=== PATIENT | male | born 1935 | race Caucasian/White ===

== ENCOUNTER 2017-02-20 09:43 | Inpatient (IN) | payer OTHER, MEDICARE ==
[~2017-02-20] VITALS: Ht 170.2 cm; Wt 61.7 kg
[~2017-02-20 09:43] MED LIST: AMOX-CLAV 875-1 EACH PO; GLIMEPIRIDE2 MG PO; HYDRALAZINE HCL25 M1 PO; HYDROCHLOROTH12.5 M2 PO; LISINOPRIL40 M1 PO; METFORMIN HCL1000 M1 PO; METOPROLOL TART50 M1 PO; NIFEDIPINE ER60 M1 PO; OMEPRAZOLE40 M1 PO; ONGLYZA5 M1 PO
--- NOTE | 2017-02-20 10:07 | ED GI/GU/ABDOMINAL COMPLAINT ---
See Addendum History of Present Illness General Chief Complaint: Nausea, Vomiting, Diarrhea Stated Complaint: BIBA NVD Source: patient, old records Exam Limitations: confusion Vital Signs & Intake/Output Vital Signs & Intake/Output Vital Signs Date Time Temp Pulse Resp B/P B/P Pulse O2 O2 Flow FiO2 Mean Ox Delivery Rate 02/20 1800 98.5 91 16 122/58 93 Room Air 02/20 1731 98.7 87 20 133/67 93 Room Air 02/20 1511 100.3 89 20 126/59 93 Room Air 02/20 1339 100.0 97 20 119/54 95 Room Air 02/20 1222 101.4 02/20 1145 102.0 02/20 1018 102.0 128 20 177/67 94 Room Air Allergies Coded Allergies: NO KNOWN ALLERGIES (06/30/15) Reconcile Medications Amoxicillin/Clavulanate Potass (Amox-Clav 875-125 MG Tablet) 1 EACH TABLET 875 MG PO Q12 pneumonia needs one dose tonight and then bid for the next 5 days stop on 07/05/15 after both doses Glimepiride 2 MG TABLET 1 TAB PO DAILY DM (Reported) Reason to Stop at ADM: INSULIN S/S Hydralazine HCl 25 MG TABLET 1 TAB PO TID HTN (Reported) Hydralazine HCl 50 MG TABLET 1 TAB PO TID HIGH BLOOD PRESSURE (Reported) Hydrochlorothiazide 12.5 MG TABLET 1 TAB PO DAILY HTN (Reported) Lisinopril 40 MG TABLET 1 TAB PO DAILY HTN (Reported) Metformin HCl 1,000 MG TABLET 1 TAB PO BID DM (Reported) Reason to Stop at ADM: INSULIN S/S Metoprolol Tartrate 50 MG TABLET 1 TAB PO BID HTN (Reported) Nifedipine (Nifedipine ER) 60 MG TABLET.ER 1 TAB PO DAILY HTN (Reported) Omeprazole 40 MG CAPSULE.DR 1 CAP PO DAILY AC STOMACH (Reported) Saxagliptin (Onglyza) 5 MG TABLET 1 TAB PO DAILY DM (Reported) Reason to Stop at ADM: INSULIN S/S Triage Nurses Notes Reviewed? 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 Patient reports onset of nonproductive cough last night but was otherwise in his usual state of health. He woke up this morning noticed that he was having chills while making his breakfast. He was able to tolerate his usual breakfast, he did begin having repeated episodes of emesis (2-3) but denied any nausea. Patient's daughter reports that the emesis consisted of food and was nonbloody. He had watery, brown, nonbloody, bowel movements per the daughter, with no associated abdominal pain. He has had no change in appetite. He denies any foul-smelling or bloody urine from the suprapubic catheter. Patient has not received a flu vaccine this year, denies any sick contacts and has not had no recent travel. Patient follows with Dr. Allen for cardiology. Past History Travel History Traveled to [place] past 21 day No Medical History Any Pertinent Medical History? 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 No ECHO Results (as available) Date of last Echo 06/28/15 EF% 55 Review of Systems Review of Systems Constitutional: Reports: chills, malaise. Denies: diaphoresis, fever, weakness. EENTM: Denies: visual changes (legally blind). Respiratory: Reports: cough. Denies: hemoptysis, short of breath, sputum production. Cardiovascular: Denies: chest pain, palpitations, peripheral edema, syncope. GI: Reports: diarrhea, vomiting. Denies: bloating, constipation, distention, melena , nausea. Genitourinary: Reports: no symptoms. Musculoskeletal: Reports: no symptoms. Skin: Reports: no symptoms. Physical Exam Physical Exam General Appearance: well developed/nourished, no apparent distress, alert, awake Head: atraumatic, normal appearance Eyes: Bilateral: normal appearance, PERRL, EOMI, other (legally blind). Ears, Nose, Throat, Mouth: hearing grossly normal, dry mucous membranes Neck: normal inspection, supple, full range of motion Respiratory: no respiratory distress, rhonchi Cardiovascular: tachycardia Peripheral Pulses: 1+ radial (R), 1+ radial (L), 1+ tibialis posterior (R), 1+ tibialis posterior ( L), 1+ dorsalis pedis (R), 1+ dorsalis pedis (L) Gastrointestinal: normal bowel sounds, non-tender, no organomegaly, mild distension, pt states this is baseline Skin: intact, normal color, warm/dry Comments: Suprapubic catheter insertion site with no drainage or surrounding erythema. No CVA tenderness. Core Measures ACS in differential dx? No Sepsis Present: Yes Sepsis Focused Exam Completed? Yes Progress Differential Diagnosis: gastritis, UTI/pyelo, pneumonia Plan of Care: Orders Procedure Date/time Status Heart Healthy Diet 02/21 B Active Heart Healthy Diet 02/20 D Complete LACTIC ACID 02/20 2200 Active LACTIC ACID 02/20 1900 Active Vital Signs 02/20 1724 Active Teach/Educate 02/20 1724 Active Pain Treatment and Response 02/20 1724 Active Nutritional Intake, Monitor 02/20 1724 Active Isolation 02/20 1724 Active Intake & Output 02/20 1724 Complete Patient Care Conference 02/20 1724 Active Activity/Ambulation 02/20 1724 Active Patient Data 02/20 1609 Active LACTIC ACID 02/20 1600 Complete ED Holding Orders 02/20 1405 Active Admit to inpatient 02/20 1404 Active LACTIC ACID 02/20 1309 Complete OXYGEN SETUP (GEN) 02/20 1121 Active CULTURE,URINE 02/20 1118 Active ARTERIAL BLOOD GAS (GEN) 02/20 1117 Complete Add-on Test (ER Only) 02/20 1117 Active RAPID VIRAL INFLUENZA A 02/20 1110 Complete BLOOD CULTURE 02/20 1110 Active Code Status 02/20 1059 Active EKG 02/20 1058 Active Intake & Output 02/20 1018 Active URINALYSIS 02/20 1013 Complete TROPONIN LEVEL 02/20 1011 Complete LACTIC ACID 02/20 1009 Complete COMPREHENSIVE METABOLIC PANEL 02/20 1009 Complete CBC WITHOUT DIFFERENTIAL 02/20 1009 Complete Current Medications Sig/Bret Start time Last Medication Dose Stop Time Status Admin Sodium Chloride 1,000 ML Q6H 02/20 1145 AC 02/20 (Normal Saline 0.9%) 1221 Laboratory Tests 02/20/17 1644: Lactic Acid Cancelled 02/20/17 1611: Lactic Acid 2.5 H 02/20/17 1321: Lactic Acid 3.3 H 02/20/17 1225: pH 7.49 H, pCO2 23 L, pO2 74 L, HCO3 17 L, ABG O2 Sat (Measured) 93.0 L, P- 50 (Temp Corrected) N, Carboxyhemoglobin 1.8, O2 Concentration % .21, O2 Delivery Method RA, Phlebotomy Draw Site RIGHT RADIAL 02/20/17 1106: Urine Color YEL, Urine Clarity CLDY H, Urine pH 6.0, Ur Specific Hoven 1.020, Urine Protein 100 H, Urine Ketones NEG, Urine Nitrite NEG, Urine Bilirubin NEG, Urine Urobilinogen 0.2, Ur Leukocyte Esterase LARGE H, Ur Microscopic SEDIMENT EXAMINED, Urine RBC RARE, Urine WBC 50-75 H, Urine Bacteria MANY H, Urine Hemoglobin NEG, Urine Glucose NEG 02/20/17 1011: Anion Gap 22 H, Estimated GFR 39 L, BUN/Creatinine Ratio 22.4, Glucose 220 H, Lactic Acid 7.0 H, Calcium 9.2, Total Bilirubin 0.6, AST 23, ALT 33, Alkaline Phosphatase 82, Troponin I 0.10, Total Protein 6.6, Albumin 3.7, Globulin 2.9, Albumin/Globulin Ratio 1.3, CBC w Diff NO MAN DIFF REQ, RBC 3.57 L, MCV 77.4 L , MCH 25.5 L, RDW 17.6 H, MPV 10.1, Gran % 94.1 H, Lymphocytes % 5.2 L, Monocytes % 0.1 L, Eosinophils % 0.5, Basophils % 0.1, Absolute Granulocytes 5.2, Absolute Lymphocytes 0.3 L, Absolute Monocytes 0 L, Absolute Eosinophils 0, Absolute Basophils 0, PUBS MCHC 33.0 Microbiology 02/20 1142 BLOOD: Blood Culture - RECD 02/20 1130 BLOOD: Blood Culture - RECD 02/20 1118 URINE ROUT: Urine Culture - ORD 02/20 1115 NASOPHARYN: Influenza Virus A & B Rapid Smear - COMP Patient presented with chills, diarrhea, and vomiting. He met SIRS criteria on admission with Tmax 102, and tachycardia 128 and lactic acidosis with LA 7, anion gap elevated (22), respiratory alkalosis with compensation on ABG. -source was not immediately apparent though he had a dry cough, and history of sepsis of urologic origin although this had not occurred since his suprapubic catheter was placed. -emperic coverage with ceftriaxone and azithromycin given - UA significant for Large bacteria, WBC and large LE, will follow up Urine and blood cultures - Rapid flu test was negative, pt did not have flu vaccine this year. - New EKG changes with LBBB since previous in 06/2015, initial troponin 0.10, no hx of CAD, this mild elevation in troponin could be demand ischemia in the setting of sepsis but with new EKG change could also represent ACS. - Patient also has TENISHA, likely pre-renal azotemia secondary to vomiting and diarrhea, being aggressively rehydrated with NS. - Admit to telemetry floor for further monitoring Initial ED EKG: normal axis, LBBB (new onset) Prior EKG: changed Departure Departure Disposition: STILL A PATIENT Condition: Stable Clinical Impression Primary Impression: Sepsis secondary to UTI Secondary Impressions: Acute electrocardiogram changes Referrals: Tulio Hernandez MD (PCP/Family) Departure Forms: Customer Survey General Discharge Information Admission Note Spoke With: Tulio Hernandez MD Documentation of Exam: Documentation of any treatments & extenuating circumstances including Concerns Regarding Discharge (functional status, medication knowledge or non-compliance, living conditions, etc.) that warrant an admission rather than observation: [ patient meets SIRS criteria with a presumptive urologic source based on UA, he will benefit from aggressive treatment with IV antibiotics and IV fluid rehydration. Given advanced age and current decreased mental status from baseline it is likely that his condition will decline as an outpatient and he would risk return to ED with possible worsening condition with hypotension and possible .] ED Attending Observation Initial Observation Note: I have seen and personally examined LEONARD DAHL on 02/20/17 at 1353. I agree with the current emergency department documentation. The disposition (admission or discharge) is uncertain at this time, he needs a period of observation for the following reason(s): The ED Nurse caring for this patient has been personally informed as to what the patient is being observed for.
[2017-02-20 10:31] LABS: ABSOLUTE BASOPHIL COUNT 0 /CUMM (0.0-0.2); ABSOLUTE EOSINOPHIL COUNT 0 /CUMM (0.0-0.7); ABSOLUTE GRANULOCYTE CT 5.2 /CUMM (1.4-6.5); ABSOLUTE LYMPH COUNT 0.3 /CUMM (1.2-3.4); ABSOLUTE MONOCYTE COUNT 0 /CUMM (0.10-0.60); BASOPHIL % 0.1 % (0.0-2.0); EOSINOPHIL % 0.5 % (0-5); HEMATOCRIT 27.6 % (42-52); MEAN CORPUSCULAR HGB 25.5 PG (27.0-31.0); MEAN CORPUSCULAR VOLUME 77.4 FL (80.0-94.0); MEAN PLATELET VOLUME 10.1 FL (7.4-10.4); PLATELET COUNT 228 /CUMM (130-400); RBC DISTRIBUTION WIDTH 17.6 % (11.5-14.5); RED BLOOD CELL CT 3.57 /CUMM (4.70-6.10); WHITE BLOOD CELL COUNT 5.6 /CUMM (4.8-10.8)
[2017-02-20 10:58] LABS: GRANULOCYTE % 94.1 % (42.2-75.2)
--- NOTE | 2017-02-20 13:15 | RADIOLOGY REPORT ---
EXAMINATION: XR PORTABLE CHEST CLINICAL INFORMATION: Fever. COMPARISON: Portable chest x-ray dated 06/28/2015. TECHNIQUE: Portable frontal view of the chest was obtained. FINDINGS: The lung volumes are low bilaterally. There is partial silhouetting of the medial aspect of the left hemidiaphragm the retrocardiac region, retrocardiac infiltrative process is not excluded. No additional areas of airspace opacification are noted. There is slight prominence of the pulmonary vasculature suggestive of pulmonary vascular congestion, however no pleural effusions are noted. There is no evidence of pneumothorax. The cardiac silhouette is at the upper limits of normal for size. The bony structures are unremarkable, stable compared to the prior study.. IMPRESSION: 1. Low lung volumes with poor visualization of the left retrocardiac region, a left retrocardiac infiltrate is not excluded. 2. Mild pulmonary vascular congestion without evidence of pleural effusion.
--- NOTE | 2017-02-20 16:18 | History & Physical ---
See Addendum Jackie Olmstead MD 02/20/17 0337: General Information and HPI MD Statement: I have seen and personally examined LEONARD DAHL and documented this H&P. The patient is a 81 year old M who presented with a patient stated chief complaint of [fever, diarrhea, chills]. 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 Patient was apparently normal in the usual state of health until today , following which patient developed chills followed by 2 episodes of vomiting and 3 episodes of watery diarrhea with no blood. Patient lives with his [ home hospice] and son. Patient uses walker at baseline and administers his own medication. Patient denies sick contacts, travel, abdominal pain, chest pain, shortness of breath, headache, dysuria, slurring of speech, loss of consciousness, altered sensation, seizures. Patient has been followed off by urologist at [place] and got his SPC catheter replaced at the end of January 2017. Collateral history obtained from his daughter was at the bedside who endorsed that he is alert and oriented confused, weakness and difficulty in speaking. Allergies/Medications Allergies: Coded Allergies: NO KNOWN ALLERGIES (06/30/15) Compliance With Home Meds: GOOD Past History Travel History Traveled to [place] past 21 day No Medical History Neurological: CVA WITH LEFT HEMIPARESIS EENT: NONE Cardiovascular: hypertension Respiratory: NONE Gastrointestinal: GERD Hepatic: NONE Renal: URETHRAL STRICTURES Musculoskeletal: NONE Psychiatric: NONE Endocrine: NIDDM Blood Disorders: NONE Cancer(s): NONE BOXCAR WEIGHER/Reproductive: NONE History of MRSA: No History of VRE: No History of CDIFF: No Surgical History Surgical History: non-contributory ECHO Results (as available) Date of last Echo 06/28/15 EF% 55 Past Family/Social History Family History Relations & Conditions if any Relation not specified for: *No pertinent family history Psychosocial History Services at Home: Home Health Aide, Nursing, Occupational Therapy, Physical Therapy Primary Language: Irish Smoking Status: Never Smoked ETOH Use: denies use Illicit Drug Use: denies illicit drug use Functional Ability ADLs Independent: dressing, eating, toileting, bathing. Ambulation: walker IADLs Independent: food prep, telephone. Unknown: shopping, housework, finances, transportation, medication admin. Review of Systems Review of Systems Constitutional: Reports: chills, fever, weakness. Cardiovascular: Reports: no symptoms. Respiratory: Reports: no symptoms. GI: Reports: diarrhea, nausea, vomiting. Genitourinary: Reports: no symptoms. Musculoskeletal: Reports: no symptoms. Neurological/Psychological: Reports: confusion, weakness. Exam & Diagnostic Data Last 24 Hrs of Vital Signs/I&O Vital Signs Date Time Temp Pulse Resp B/P B/P Pulse O2 O2 Flow FiO2 Mean Ox Delivery Rate 02/20 1800 98.5 91 16 122/58 93 Room Air 02/20 1731 98.7 87 20 133/67 93 Room Air 02/20 1511 100.3 89 20 126/59 93 Room Air 02/20 1339 100.0 97 20 119/54 95 Room Air 02/20 1222 101.4 02/20 1145 102.0 02/20 1018 102.0 128 20 177/67 94 Room Air Intake & Output 02/20 1600 02/20 0800 02/20 0000 Intake Total Output Total Balance Patient 136 lb Weight Weight Reported by Patient Measurement Method Physical Exam General Appearance Alert, Cooperative, oriented x 2 Skin No Rashes HEENT Atraumatic, PERRLA Cardiovascular Regular Rate, Normal S1, Normal S2, No Murmurs Abdomen Normal Bowel Sounds, Soft, No Tenderness Neurological Normal Speech, Strength at 5/5 X4 Ext Extremities No Clubbing, No Cyanosis Last 24 Hrs of Labs/Mak: Laboratory Tests 02/20/17 1920: Lactic Acid 2.3 H 02/20/17 1644: Lactic Acid Cancelled 02/20/17 1611: Lactic Acid 2.5 H 02/20/17 1321: Lactic Acid 3.3 H 02/20/17 1225: pH 7.49 H, pCO2 23 L, pO2 74 L, HCO3 17 L, ABG O2 Sat (Measured) 93.0 L, P- 50 (Temp Corrected) N, Carboxyhemoglobin 1.8, O2 Concentration % .21, O2 Delivery Method RA, Phlebotomy Draw Site RIGHT RADIAL 02/20/17 1106: Urine Color YEL, Urine Clarity CLDY H, Urine pH 6.0, Ur Specific [place] 1.020, Urine Protein 100 H, Urine Ketones NEG, Urine Nitrite NEG, Urine Bilirubin NEG, Urine Urobilinogen 0.2, Ur Leukocyte Esterase LARGE H, Ur Microscopic SEDIMENT EXAMINED, Urine RBC RARE, Urine WBC 50-75 H, Urine Bacteria MANY H, Urine Hemoglobin NEG, Urine Glucose NEG 02/20/17 1011: Anion Gap 22 H, Estimated GFR 39 L, BUN/Creatinine Ratio 22.4, Glucose 220 H, Lactic Acid 7.0 H, Calcium 9.2, Total Bilirubin 0.6, AST 23, ALT 33, Alkaline Phosphatase 82, Troponin I 0.10, Total Protein 6.6, Albumin 3.7, Globulin 2.9, Albumin/Globulin Ratio 1.3, CBC w Diff NO MAN DIFF REQ, RBC 3.57 L, MCV 77.4 L , MCH 25.5 L, RDW 17.6 H, MPV 10.1, Gran % 94.1 H, Lymphocytes % 5.2 L, Monocytes % 0.1 L, Eosinophils % 0.5, Basophils % 0.1, Absolute Granulocytes 5.2, Absolute Lymphocytes 0.3 L, Absolute Monocytes 0 L, Absolute Eosinophils 0, Absolute Basophils 0, PUBS MCHC 33.0 Microbiology 02/20 1142 BLOOD: Blood Culture - RECD 02/20 1130 BLOOD: Blood Culture - RECD 02/20 1118 URINE ROUT: Urine Culture - ORD 02/20 1115 NASOPHARYN: Influenza Virus A & B Rapid Smear - COMP Diagnostic Data CXR Results 1. Low lung volumes with poor visualization of the left retrocardiac region, a left retrocardiac infiltrate is not excluded. 2. Mild pulmonary vascular congestion without evidence of pleural effusion. 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 Admission labs W BC 5.6, hemoglobin 9.1, hematocrit 27.6, platelet 228, granulocytes 94.1. Sodium 142, potassium 4.1, BUNs 38, creatinine-1.7, lactic acid-7------> 3.3. Urinalysis-urine nitrate negative, urine leukoesterase large, urine bacteria many, urine WBC 50-75 Admission vitals Temperature 101.4, pulse rate 89, respiratory rate 20, blood pressure 119/54, SPO2 95 at room air. Problem list 1. Sepsis of urological origin 2. TENISHA secondary to dehydration 3. Rule out ACS 4. Rule out stroke Assessment and plan 1. Sepsis of urological origin Patient was given a dose of ceftriaxone and azithromycin in ED. Urine culture, blood culture sent. We will start him on ciprofloxacin and azithromycin and change antibiotics according to urine culture, blood culture and sensitivity. Suprapubic catheter was changed January 06. We will trend lactic acid. 2. AK I secondary to dehydration Patient has acute kidney injury secondary to dehydration, corrected with IV fluids. Patient is on normal saline 100 mL per hour currently. We will monitor CBCs and BEP and replace Lites as needed. 3. Rule out ACS We will do serial EKG and troponin to rule out any ACS. Patient is currently asymptomatic. Patient doesn't have any cardiac history in the past. We will repeat EKG in a.m. 4. Rule out stroke Given the patient recent worsening of mentation and dysarthria we will do a CAT scan of the head to rule out any recurrent stroke. Patient is nothing by mouth pending swallow eval. 5. Anemia We will do iron studies. Guaiac all stools. Code-DNR/DNI Diet-nothing by mouth DVT prophylaxis-Alps As Ranked By This Provider Problem List: 1. SEPSIS OF UROLOG ORIGIN 2. Anemia 3. TENISHA Core Measures/Misc (10/22) Acute Coronary Syndrome ACS Diagnosis: No Congestive Heart Failure Congestive Heart Failure Diagnosis No Cerebrovascular Accident CVA/TIA Diagnosis: No VTE (View Protocol) VTE Risk Factors Age>40 No Mechanical VTE Prophylaxis d/t Other No VTE Pharm Prophylaxis d/t Other Sepsis (View protocol) Sepsis Present: Yes Sathish APARICIO,Lucio 02/20/17 8143: General Information and HPI Allergies/Medications Home Med list Glimepiride 2 MG TABLET 1 TAB PO DAILY DM (Reported) Reason to Stop at ADM: INSULIN S/S Hydralazine HCl 25 MG TABLET 1 TAB PO TID HTN (Reported) Hydrochlorothiazide 12.5 MG TABLET 1 TAB PO DAILY HTN (Reported) Lisinopril 40 MG TABLET 1 TAB PO DAILY HTN (Reported) Metformin HCl 1,000 MG TABLET 1 TAB PO BID DM (Reported) Reason to Stop at ADM: INSULIN S/S Metoprolol Tartrate 50 MG TABLET 1 TAB PO BID HTN (Reported) Nifedipine (Nifedipine ER) 60 MG TABLET.ER 1 TAB PO DAILY HTN (Reported) Omeprazole 40 MG CAPSULE.DR 1 CAP PO DAILY AC STOMACH (Reported) Saxagliptin (Onglyza) 5 MG TABLET 1 TAB PO DAILY DM (Reported) Reason to Stop at ADM: INSULIN S/S Resident Review Statement Resident Statement: examined this patient, discussed with internet marketing consultant, agreed with internet marketing consultant Other Findings: This is an 81 yo gentleman with PMH of CVA in 1999 with residual l. sided weakness, HTN, DM, macular degeneration and blindness, suprapubic catheter 2/2 uretheral strictures, moderate , spinal stenosis who was brought to ED by daughter for CC vomoting, diarrhea, AMS, and garbled speech. Per daughter pt woke up in his usual state of health and was able to make his own breakfast. Soon there after his son noted vomiting x2, chills, and decreased use of l. arm. He called sister who arrived on scene 40 min later and found her father significantly altered from baseline. He had garbled speech and was unable to sit up in chair by himself. He did not have any facial droop. She notes chills and non bloody emesis and BM. Pt's is currently undergoing home hospice and seems to be in terminal stages. Many grandchildren have been visiting his home but none noted to be sick. Family denies sick contacts. Pt does not get the flu shot. During a previous admission he was noted to have aspiration and was told to start a modified diet, but pt refused and currently eats and drinks regular solids and liquids. Pt has had recent cough non-productive cough since this AM, but daughter states she has not noted him choking while eating. During exam pt is AOX3 but was unable to recall the name of president. Daughter states pt is avid fan of politics and this differs from his baseline. Note that his current episode sounds almost identical to previous presentation in 06/2015 when he had GNR sepsis. PHYSICAL EXAM: Vitals: MAXIMUM TEMPERATURE 102, heart rate 128, blood pressure 177/67, respiratory rate 20, satting 93% on room air. HEENT: Pupils symmetric and slightly sluggish. EOMI Cardiovascular: Nml s1/s2; no murmurs Skin: Pt has ring worm like lesion on LLE. RLE has scabbed over lesion on lower leg. Respiratory: Diminished air entry. crackles at bases. no wheezes apprecated GI: BSX4, No tenderness on palpation. Suprapubic catheter in place. no erythema or drainage around catheter site. EXT: see skin. No swelling or edema noted LABS: Lactic acid 7.0. ABG 7.49, bicarbonate 17, PCO2 23. UA: Nitrite negative, large leukocyte Estrace. 50-75 white blood cells and many bacteria. C BC: White count 5.6, hemoglobin 9.1, hematocrit 27.6, platelet 228. BEP: BUN 38, creatinine 1.7. Anion gap 22. EKG concerning for left bundle branch block. Previous EKG does not show such a pattern but there is a large time lag between the 2 studies. Chest x-ray: 1. Low lung volumes with poor visualization of the left retrocardiac region, a left retrocardiac infiltrate is not excluded. 2. Mild pulmonary vascular congestion without evidence of pleural effusion. Assessment: This is an 81-year-old gentleman with past medical history of CVA with left-sided deficits, hypertension, diabetes, blindness, suprapubic catheter insertion due to urethral strictures, moderate 8 as, spinal stenosis, who comes in for chief complaint of nausea, vomiting, chills at associated with garbled speech and weakness. In ED he was found to be febrile and tachycardic with providers and chills. EKG is concerning for a new left bundle branch block. Additionally given change in mental status, and weakness there is concern for another CVA in this gentleman. PLAN: Sepsis: Given fever, tachycardia and lactic acid, patient certainly meets criteria for sepsis. Question this regarding his source. He does have a dirty UA with large leukocyte esterase, pyuria and many bacteria in context of a suprapubic catheter. In a previous admission his blood cultures grew Klebsiella and Pseudomonas sensitive to Cipro. However, given patient's chief complaint of cough, history of aspiration and a possible left cardiac infiltrate a pulmonary source cannot be excluded at this time. Pt got Ceftriaxone and Azithro in ED. * BCX * UCX * Sputum cx * Will switch antibiotics to cover urinary source as well. Ceftaz to cover possible CAUTI and Unasyn for coverage of possible aspiration and PNA. * Flu swab * legionella * IVF Encephalopathy: This time it is unclear whether his encephalopathy is due to metabolic nature likely secondary to his sepsis or due to primary neurologic event. Rule out stroke * CT head * Monitor electrolytes * Treat underlying source * NPO * Swallow eval in AM Metabolic alkalosis with an anion gap: Patient's gas and BEP are puzzling. He has an anion gap of 22, lactic acid of 7, and creatinine was elevated from baseline which would suggest he would have a metabolic acidosis, however on ABG he has metabolic alkalosis with pH 7.49. Since there is no such thing as overcompensation this suggests that he has a primary alkalosis. Alkalosis itself wouldn't be surprising given vomiting, and low volume status but his ABG suggests respiratory source. I evaluated pt's RR and it was around 16-18. Likely pt has multiple independent acid base disturbances going on. * Re-measure pH. Would like to verify accuracy of prior value. VBG will suffice * Monitor lactic acid * monitor BEP * Would re-check a VBG in AM if he continues to have metabolic derangements LBBB: Ekg concerning for LBBB. He didn't have evidence of it in previous EKG. First set of EKG/trops in ED was negative. However, been over 12 hrs from repeat enzymes. * trop/ekg now and 6 hrs later Anemia: Pt has Hb 9.1 and HCT 27.6. 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 Given volume depleted status likely pre-renal. * Urine sodium * Follow BEP * If doesn't improve consider renal US * Holding thiazide and lisinopril DM: Hold home meds * RISS * FS DNR/DNI NPO
[2017-02-20] MEDS ORDERED: HYDRALAZINE HCL25 M1 PO (17:36)
[2017-02-20 18:00] VITALS: BP 122/58
--- NOTE | 2017-02-20 18:40 | Admission Certification ---
Admission Certification Certification Statement - As attending physician, I certify that at the time of - admission, based on clinical presentation, severity of - symptoms, need for further diagnostic testing and - therapeutic interventions, and risk of adverse outcomes - without in-hospital treatment, in my clinical assessment, - this patient requires an acute hospital stay for a minimum - of two nights or longer. I have also considered psychsocial - factors such as support system, advanced age, financial - issues, cognitive issues, and failed out-patient treatments, - past re-admission history, safety of patient, and lack of - compliance as applicable. Specific rationale supporting this admission is: Nausea vomiting diarrhea, dirty urine, lactic acidosis possible sepsis of urological origin, possible pneumonia
--- NOTE | 2017-02-20 18:44 | PN- Att Addend ---
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 Daughter stated that last night he was in his usual state of health this morning was a great change at some nausea and some vomiting some diarrhea some dry cough patient was brought to the emergency room. His urine looks dirty the patient has a suprapubic catheter daughter stated they urine last night looked clear some fever his pulse first in the ER was slightly tachycardic. His lactic acid was elevated, and urinalysis is abnormal, the chest x-rays SHOWED some low volumes and a questionable retrocardiac infiltrate. Daughter noticed the night that his speech is a little garbled. Patient was pancultured following the trending down of the lactic acid. Started on antibiotic coverage IV will monitor closely follow-up labs Laboratory Tests 02/20 02/20 02/20 02/20 1644 1611 1321 1225 Blood Gas pH (7.35 - 7.45 PH) 7.49 H pCO2 (35 - 45 TORR) 23 L pO2 (80 - 100 TORR) 74 L HCO3 (21 - 28 MEQ/L) 17 L ABG O2 Sat (Measured) (>96.0 %) 93.0 L P-50 (Temp Corrected) N Carboxyhemoglobin (1.5 - 5.0 %) 1.8 O2 Concentration % .21 O2 Delivery Method RA Chemistry Lactic Acid (0.7 - 2.1 mmol/L) Cancelled 2.5 H 3.3 H Miscellaneous Phlebotomy Draw Site RIGHT RADIAL 02/20 02/20 1106 1011 Chemistry Sodium (137 - 145 mmol/L) 142 Potassium (3.5 - 5.1 mmol/L) 4.1 Chloride (98 - 107 mmol/L) 102 Carbon Dioxide (22 - 30 mmol/L) 18 L Anion Gap (5 - 16) 22 H BUN (9 - 20 mg/dL) 38 H Creatinine (0.7 - 1.2 mg/dL) 1.7 H Estimated GFR (>60 ml/min) 39 L BUN/Creatinine Ratio (7 - 25 %) 22.4 Glucose (65 - 99 mg/dL) 220 H Lactic Acid (0.7 - 2.1 mmol/L) 7.0 H Calcium (8.4 - 10.2 mg/dL) 9.2 Total Bilirubin (0.2 - 1.3 mg/dL) 0.6 AST (17 - 59 U/L) 23 ALT (21 - 72 U/L) 33 Alkaline Phosphatase (< 127 U/L) 82 Troponin I (<0.11 ng/ml) 0.10 Total Protein (6.3 - 8.2 g/dL) 6.6 Albumin (3.5 - 5.0 g/dL) 3.7 Globulin (1.9 - 4.2 gm/dL) 2.9 Albumin/Globulin Ratio (1.1 - 2.2 %) 1.3 Hematology CBC w Diff NO MAN DIFF REQ WBC (4.8 - 10.8 /CUMM) 5.6 RBC (4.70 - 6.10 /CUMM) 3.57 L Hgb (14.0 - 18.0 G/DL) 9.1 L Hct (42 - 52 %) 27.6 L MCV (80.0 - 94.0 FL) 77.4 L MCH (27.0 - 31.0 PG) 25.5 L RDW (11.5 - 14.5 %) 17.6 H Plt Count (130 - 400 /CUMM) 228 MPV (7.4 - 10.4 FL) 10.1 Gran % (42.2 - 75.2 %) 94.1 H Lymphocytes % (20.5 - 51.1 %) 5.2 L Monocytes % (1.7 - 9.3 %) 0.1 L Eosinophils % (0 - 5 %) 0.5 Basophils % (0.0 - 2.0 %) 0.1 Absolute Granulocytes (1.4 - 6.5 /CUMM) 5.2 Absolute Lymphocytes (1.2 - 3.4 /CUMM) 0.3 L Absolute Monocytes (0.10 - 0.60 /CUMM) 0 L Absolute Eosinophils (0.0 - 0.7 /CUMM) 0 Absolute Basophils (0.0 - 0.2 /CUMM) 0 PUBS MCHC (33.0 - 37.0 G/DL) 33.0 Urines Urine Color (YEL,AMB,STR) YEL Urine Clarity (CLEAR) CLDY H Urine pH (5.0 - 8.0) 6.0 Ur Specific [place] (1.001 - 1.035) 1.020 Urine Protein (NEG,<30 MG/DL) 100 H Urine Ketones (NEG) NEG Urine Nitrite (NEG) NEG Urine Bilirubin (NEG) NEG Urine Urobilinogen (0.1 - 1.0 EU/dl) 0.2 Ur Leukocyte Esterase (NEG) LARGE H Ur Microscopic SEDIMENT EXAMINED Urine RBC (0 - 5 /HPF) RARE Urine WBC (0 - 2 /HPF) 50-75 H Urine Bacteria (NEG/NONE) MANY H Urine Hemoglobin (NEG) NEG Urine Glucose (N MG/DL) NEG
--- NOTE | 2017-02-20 22:59 | CT SCAN REPORT ---
EXAMINATION: CT HEAD WITHOUT CONTRAST CLINICAL INFORMATION: Dysarthria. Confusion, weakness. COMPARISON: 06/25/2015 TECHNIQUE: Contiguous axial imaging was performed from the skull base to vertex without intravenous contrast. DLP: 618 mGy-cm. FINDINGS: There is no evidence of acute intracranial hemorrhage or territorial infarction. No abnormal mass effect or midline shift is seen. [place] to white matter differentiation is well preserved. No extra-axial fluid collections are identified. No hydrocephalus. Proportional prominence of the ventricles and sulcal spaces is consistent with mild volume loss. Patchy periventricular and deep white matter hypoattenuation is consistent with moderate small vessel ischemic changes. Right basal ganglia chronic lacunar infarcts. Chronic lacunar infarct within the right cerebellar hemisphere. The osseous structures and soft tissues are normal. Partial opacification of the right mastoid air cells. The left mastoid air cells and visualized portions of the paranasal sinuses are well aerated. IMPRESSION: No acute intracranial pathology. Volume loss with small vessel ischemic changes. Chronic infarcts.
[2017-02-20 23:17] VITALS: BP 122/58
[2017-02-21] VITALS (8 sets, daily range): BP systolic 86–152; BP diastolic 0–70
--- NOTE | 2017-02-21 01:08 | RADIOLOGY REPORT ---
EXAMINATION: XR PORTABLE CHEST CLINICAL INFORMATION: Crackles on exam. Tachypnea. COMPARISON: 02/20/2017 TECHNIQUE: Portable frontal view of the chest was obtained. FINDINGS: Cardiac leads overlie the chest. The lungs are well expanded. Central vascular prominence with mild interstitial prominence. Bronchial wall thickening. No pneumothorax or pleural effusion. The cardiomediastinal silhouette is unchanged, with a calcified aorta. IMPRESSION: Central vascular prominence. Mild interstitial prominence with bronchial wall thickening. Findings could represent mild edema versus a small airways process.
[2017-02-21 06:11] LABS: ABSOLUTE BASOPHIL COUNT 0 /CUMM (0.0-0.2); ABSOLUTE EOSINOPHIL COUNT 0 /CUMM (0.0-0.7); ABSOLUTE GRANULOCYTE CT 27.3 /CUMM (1.4-6.5); ABSOLUTE LYMPH COUNT 0.6 /CUMM (1.2-3.4); ABSOLUTE MONOCYTE COUNT 1.1 /CUMM (0.10-0.60); BASOPHIL % 0.1 % (0.0-2.0); EOSINOPHIL % 0 % (0-5); GRANULOCYTE % 94.3 % (42.2-75.2); MEAN CORPUSCULAR HGB 25.2 PG (27.0-31.0); MEAN CORPUSCULAR HGB CONC 32.7 G/DL (33.0-37.0); MEAN CORPUSCULAR VOLUME 77.1 FL (80.0-94.0); PLATELET COUNT 182 /CUMM (130-400); RBC DISTRIBUTION WIDTH 18.2 % (11.5-14.5); RED BLOOD CELL CT 2.83 /CUMM (4.70-6.10)
[2017-02-21 06:19] LABS: HEMATOCRIT 21.8 % (42-52)
--- NOTE | 2017-02-21 06:29 | PN- Housestaff ---
Subjective Follow-up For: Sepsis of urological origin Complaints: dizziness Tele-Events Since Last Visit: Patient had 4 beat run of V. tach. Subjective: I saw the patient today at bedside. He was lying in his bed comfortably. He complains of dizziness since morning and he also told me that he feels always better after having orange juice. He denies chest pain, shortness of breath, nausea, vomiting, difficulty in speech, altered sensation. Suprapubic catheter in place. Review of Systems Constitutional: Reports: weakness. EENTM: Reports: no symptoms. Cardiovascular: Reports: no symptoms. Respiratory: Reports: no symptoms. Gastrointestinal: Reports: no symptoms. Genitourinary: Reports: no symptoms. Musculoskeletal: Reports: no symptoms. Objective Last 24 Hrs of Vital Signs/I&O Vital Signs Date Time Temp Pulse Resp B/P B/P Pulse O2 O2 Flow FiO2 Mean Ox Delivery Rate 02/21 0800 96 Room Air 02/21 0657 98.5 81 18 112/52 95 Room Air 02/21 0653 98 152/60 02/21 0000 91 Room Air 02/21 0000 100 28 138/50 91 Room Air 02/20 2317 98.8 63 18 122/58 98 Room Air 02/20 2303 92 120/52 02/20 1800 98.5 91 16 122/58 93 Room Air 02/20 1731 98.7 87 20 133/67 93 Room Air 02/20 1511 100.3 89 20 126/59 93 Room Air 02/20 1339 100.0 97 20 119/54 95 Room Air 02/20 1222 101.4 02/20 1145 102.0 Intake & Output 02/21 1600 02/21 0800 02/21 0000 Intake Total 425 Output Total 200 Balance 225 Intake, IV 425 Intake, Oral 0 Number 1 Bowel Movements Output, Urine 200 Patient 136 lb Weight Physical Exam General Appearance: Alert, Oriented X3, Cooperative HEENT: Atraumatic Cardiovascular: Regular Rate, Normal S1, Normal S2 Lungs: b/l wheeze Abdomen: Normal Bowel Sounds, Soft Neurological: Normal Speech, Sensation Intact, decreased strength on the left side Current Medications: Current Medications Sig/Bret Start time Last Medication Dose Route Stop Time Status Admin Acetaminophen 1,000 MG ONCE ONE 02/20 1130 DC 02/20 N/A 1 UNIT IV 02/20 1144 1145 Acetaminophen 0 .STK-MED ONE 02/20 1124 DC IV Ampicillin Sodium/ 1,500 MG Q12 02/21 0030 AC 02/21 Sulbactam Sodium IV 0111 Sodium Chloride 100 ML Aspirin 300 MG ONCE ONE 02/21 0030 DC 02/21 MS 02/21 0031 0115 Azithromycin 500 MG ONCE ONE 02/20 1115 DC 02/20 Sodium Chloride 250 ML IV 02/20 1214 1145 Ceftazidime 1,000 MG Q24H 02/21 0100 AC 02/21 IV 0111 Ceftriaxone Sodium 0 .STK-MED ONE 02/20 1125 DC .ROUTE Ceftriaxone Sodium 1,000 MG ONCE ONE 02/20 1115 DC 02/20 IV 02/20 1116 1145 Ciprofloxacin 400 MG Q12 02/21 0030 DC Dextrose/Water 200 ML IV Heparin Sodium 5,000 UNIT Q8 02/21 1400 UNVr (Porcine) SC Hydralazine HCl 25 MG TID 02/20 2200 CAN PO Insulin Aspart 0 TIDAC 02/21 0800 AC SC Magnesium Sulfate 1 GM ONCE ONE 02/21 0045 DC 02/21 Dextrose/Water 100 ML IV 02/21 0444 0305 Metoprolol Tartrate 50 MG BID 02/20 2200 CAN PO Metoprolol Tartrate 5 MG Q12 02/20 2200 AC IV Nifedipine 60 MG DAILY 02/21 1000 CAN PO Omeprazole 40 MG DAILY AC 02/21 0700 CAN PO Potassium Chloride 20 MEQ ONCE ONE 02/21 0700 DC PO 02/21 0701 Sodium Chloride 1,000 ML .Q20H 02/21 0400 02/21 IV 0546 Sodium Chloride 1,000 ML Q6H 02/20 1145 DC 02/20 IV 2250 Sodium Chloride 1,000 ML BOLUS ONE 02/20 1115 DC 02/20 IV 02/20 1214 1119 Last 24 Hrs of Lab/Mak Results Last 24 Hrs of Labs/Mics: Laboratory Tests 02/21/17 0510: Lactic Acid 2.3 H 02/21/17 0510: Anion Gap 19 H, Estimated GFR 30 L, BUN/Creatinine Ratio 21.0, Magnesium 1.5 L, Iron Pending, TIBC Pending, Ferritin Pending, CBC w Diff MAN DIFF ORDERED, RBC 2.83 L, MCV 77.1 L, MCH 25.2 L, RDW 18.2 H, MPV 11.0 H, Gran % 94.3 H, Lymphocytes % 1.9 L, Monocytes % 3.7, Eosinophils % 0, Basophils % 0.1, Absolute Granulocytes 27.3 H, Segmented Neutrophils 78 H, Band Neutrophils 19 H, Absolute Lymphocytes 0.6 L, Lymphocytes 1 L, Monocytes 2, Absolute Monocytes 1.1 H, Absolute Eosinophils 0, Absolute Basophils 0, Platelet Estimate ADEQUATE, Polychromasia 1+, Hypochromic-Microcytic 1+, Poikilocytosis 2 +, Basophilic Stippling SLIGHT, Anisocytosis 1+, Microcytic Cells 1+, Ovalocytes 1+, [place] Cells FEW, Elliptocytes FEW, PUBS MCHC 32.7 L, Fld Total RBCs Counted 100 02/21/17 0345: Troponin I 3.74 *H 02/21/17 0210: Lactic Acid 2.9 H 02/20/17 2230: Ur Random Creatinine 143.8, Ur Random Sodium 13 L, Ur Random Potassium 41.9, Fraction Sodium Excret 0.1 02/20/176: Phosphorus 3.2, Magnesium 1.5 L, Troponin I 3.89 *H 02/20/17 2206: Lactic Acid 2.2 H 02/20/17 2205: Bicarbonate Actual 20 L, Mixed VBG pH 7.42 H, Mixed VBG pCO2 31 L, Mixed VBG O2 Saturation 21 L, Carboxyhemoglobin 0.1 L, O2 Concentration % RA, Temperature 98.6 02/20/17 1920: Lactic Acid 2.3 H 02/20/17 1644: Lactic Acid Cancelled 02/20/17 1611: Lactic Acid 2.5 H 02/20/17 1321: Lactic Acid 3.3 H 02/20/17 1225: pH 7.49 H, pCO2 23 L, pO2 74 L, HCO3 17 L, ABG O2 Sat (Measured) 93.0 L, P- 50 (Temp Corrected) N, Carboxyhemoglobin 1.8, O2 Concentration % .21, O2 Delivery Method RA, Phlebotomy Draw Site RIGHT RADIAL 02/20/17 1106: Urine Color YEL, Urine Clarity CLDY H, Urine pH 6.0, Ur Specific [place] 1.020, Urine Protein 100 H, Urine Ketones NEG, Urine Nitrite NEG, Urine Bilirubin NEG, Urine Urobilinogen 0.2, Ur Leukocyte Esterase LARGE H, Ur Microscopic SEDIMENT EXAMINED, Urine RBC RARE, Urine WBC 50-75 H, Urine Bacteria MANY H, Urine Hemoglobin NEG, Urine Glucose NEG Microbiology 02/20 2229 URINE ROUT: Legionella Antigen - COMP 02/20 2229 URINE ROUT: Urine Culture - RECD 02/20 2110 LOWER RESP: Respiratory Culture - COLB 02/20 2110 LOWER RESP: Gram Stain - COLB 02/20 1142 BLOOD: Blood Culture - RES GRAM NEGATIVE RODS 02/20 1130 BLOOD: Blood Culture - RES GRAM NEGATIVE RODS 02/20 1115 NASOPHARYN: Influenza Virus A & B Rapid Smear - COMP Assessment/Plan Assessment: 81-year-old gentleman with past medical history of 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 Assessment and plan 1. Sepsis of urological origin hypernatremia/hypomagnesemia/hypokalemia Patient was given a dose of ceftriaxone and azithromycin in ED. blood cultures growing gram-negative rods pending sensitivity. We will follow up with urine culture and sensitivity. Patient was started on Unasyn and ceftaz overnight and we will continue the same. Patient is on IV fluids normal saline at 50 mL per hour. Patient looks congested clinically. We will reduce his IV fluids from 100-50 mL per hour. His sodium is 148 today morning. We will repeat her BEP at 6 PM. Patient had hypomagnesemia, hypokalemia we will replace the same. Suprapubic catheter was changed January 06. We will trend lactic acid And follow up with sputum culture, Legionella strep antigen. 2. AK I secondary to dehydration Patient has acute kidney injury secondary to dehydration, corrected with IV fluids. Patient is on normal saline 50 mL per hour currently. We will monitor CBCs and BEP. Patient BUNs 44, creatinine 2.1 which is increased from yesterday. 3. Rule out ACS Patient troponin increased from 0.102 3.89 overnight. The gerontology aide regulatory affairs spec was informed who suggested to give aspirin and hold heparin. We will repeat EKG and troponin at 10 AM today. Appreciate cardiology follow-up. Patient is currently asymptomatic. Patient doesn't have any cardiac history in the past. 4. Rule out stroke Given the patient recent worsening of mentation and dysarthria CAT scan was done which was negative. Patient is nothing by mouth pending swallow eval. 5. Anemia We will do iron studies. .He had a bowel movement in the morning which was guaiac-positive. We will guaiac all his stools and continue monitoring his CBCs. Patient has anemia secondary to dilutional, we will repeat CBCs and BEP at 6 PM. Code-DNR/DNI Diet-nothing by mouth Problem List: 1. TENISHA 2. Anemia 3. Sepsis secondary to UTI Pain Ratin Pain Location: none Pain Goal: Remain pain free Pain Plan: Tylenol Tomorrow's Labs & Rationales: cbc,bep
--- NOTE | 2017-02-21 10:42 | RADIOLOGY REPORT ---
EXAMINATION: XR PORTABLE CHEST CLINICAL INFORMATION: Pulmonary edema. Fever. Nausea vomiting. Bilateral rales. COMPARISON: 02/21/2017 at 12:42 AM and priors TECHNIQUE: Portable AP, 85 degree upright (time stamp 8:47 AM) view of the chest was obtained. FINDINGS: Improved lung volumes. Persistent loss of clarity of the medial left diaphragm could indicate a focal left lower lobe process. Stable heart and mediastinum. Stable vascular prominence without edema. Nonobstructive gas pattern. IMPRESSION: Loss of clarity of the medial left diaphragm could represent a left lower lobe consolidation.
--- NOTE | 2017-02-21 12:56 | PN- Att Addend ---
Attending Addendum Attending Brief Note Patient feels and looks better today his speech is back to baseline her daughter at the bedside not pressure is better , pulses within normal limits lactic acid coming down after little peak patient had a CAT scan of the head due to the slurred speech and showed no acute changes, potassium 3.4, magnesium little low Replaced. White count up to 29,000, 2 blood cultures growing gram-negative rads, repeat chest x-ray showed a little congestion will be careful with the hydration, will follow the chest x-ray, also had a swallowing evaluation to make sure he is able to eat 24 TOTALS 02/21 0000 02/20 0000 Intake Total Output Total Balance Patient 136 lb Weight Weight Reported by Patient Measurement Method Current Medications Sig/Bret Start time Last Medication Dose Route Stop Time Status Admin Ampicillin Sodium/ 1,500 MG Q12 02/21 0030 AC 02/21 Sulbactam Sodium IV 1020 Sodium Chloride 100 ML Aspirin 300 MG ONCE ONE 02/21 0030 DC 02/21 CT 02/21 0031 0115 Ceftazidime 1,000 MG Q24H 02/21 0100 AC 02/21 IV 0111 Ciprofloxacin 400 MG Q12 02/21 0030 DC Dextrose/Water 200 ML IV Heparin Sodium 5,000 UNIT Q8 02/21 1400 AC (Porcine) SC Hydralazine HCl 25 MG TID 02/20 2200 CAN PO Insulin Aspart 0 TIDAC 02/21 0800 AC SC Magnesium Sulfate 1 GM ONCE ONE 02/21 0045 DC 02/21 Dextrose/Water 100 ML IV 02/21 0444 0305 Metoprolol Tartrate 50 MG BID 02/20 2200 CAN PO Metoprolol Tartrate 5 MG Q12 02/20 2200 AC IV Nifedipine 60 MG DAILY 02/21 1000 CAN PO Omeprazole 40 MG DAILY AC 02/21 0700 CAN PO Potassium Chloride 20 MEQ ONCE ONE 02/21 0700 DC PO 02/21 0701 Sodium Chloride 1,000 ML .Q8H 02/21 0400 AC 02/21 IV 02/21 1659 0546 Sodium Chloride 1,000 ML Q6H 02/20 1145 DC 02/20 IV 2250 Laboratory Tests 02/21/17 1045: Troponin I Pending 02/21/17 1045: Lactic Acid 2.3 H 02/21/17 0510: Lactic Acid 2.3 H 02/21/17 0510: Anion Gap 19 H, Estimated GFR 30 L, BUN/Creatinine Ratio 21.0, Magnesium 1.5 L, Iron 13 L, TIBC 310, Ferritin 48.9, CBC w Diff MAN DIFF ORDERED, RBC 2.83 L , MCV 77.1 L, MCH 25.2 L, RDW 18.2 H, MPV 11.0 H, Gran % 94.3 H, Lymphocytes % 1.9 L, Monocytes % 3.7, Eosinophils % 0, Basophils % 0.1, Absolute Granulocytes 27.3 H, Segmented Neutrophils 78 H, Band Neutrophils 19 H, Absolute Lymphocytes 0.6 L, Lymphocytes 1 L, Monocytes 2, Absolute Monocytes 1.1 H, Absolute Eosinophils 0, Absolute Basophils 0, Platelet Estimate ADEQUATE, Polychromasia 1+, Hypochromic-Microcytic 1+, Poikilocytosis 2 +, Basophilic Stippling SLIGHT, Anisocytosis 1+, Microcytic Cells 1+, Ovalocytes 1+, [place] Cells FEW, Elliptocytes FEW, PUBS MCHC 32.7 L, Fld Total RBCs Counted 100 02/21/17 0345: Troponin I 3.74 *H 02/21/17 0210: Lactic Acid 2.9 H 02/20/17 2230: Ur Random Creatinine 143.8, Ur Random Sodium 13 L, Ur Random Potassium 41.9, Fraction Sodium Excret 0.1 02/20/17 2206: Phosphorus 3.2, Magnesium 1.5 L, Troponin I 3.89 *H 02/20/17 2206: Lactic Acid 2.2 H 02/20/17 2205: Bicarbonate Actual 20 L, Mixed VBG pH 7.42 H, Mixed VBG pCO2 31 L, Mixed VBG O2 Saturation 21 L, Carboxyhemoglobin 0.1 L, O2 Concentration % RA, Temperature 98.6 02/20/17 1920: Lactic Acid 2.3 H 02/20/17 1644: Lactic Acid Cancelled 02/20/17 1611: Lactic Acid 2.5 H 02/20/17 1321: Lactic Acid 3.3 H 02/20/17 1225: pH 7.49 H, pCO2 23 L, pO2 74 L, HCO3 17 L, ABG O2 Sat (Measured) 93.0 L, P- 50 (Temp Corrected) N, Carboxyhemoglobin 1.8, O2 Concentration % .21, O2 Delivery Method RA, Phlebotomy Draw Site RIGHT RADIAL 02/20/17 1106: Urine Color YEL, Urine Clarity CLDY H, Urine pH 6.0, Ur Specific [place] 1.020, Urine Protein 100 H, Urine Ketones NEG, Urine Nitrite NEG, Urine Bilirubin NEG, Urine Urobilinogen 0.2, Ur Leukocyte Esterase LARGE H, Ur Microscopic SEDIMENT EXAMINED, Urine RBC RARE, Urine WBC 50-75 H, Urine Bacteria MANY H, Urine Hemoglobin NEG, Urine Glucose NEG 02/20/17 1011: Anion Gap 22 H, Estimated GFR 39 L, BUN/Creatinine Ratio 22.4, Glucose 220 H, Lactic Acid 7.0 H, Calcium 9.2, Total Bilirubin 0.6, AST 23, ALT 33, Alkaline Phosphatase 82, Troponin I 0.10, Total Protein 6.6, Albumin 3.7, Globulin 2.9, Albumin/Globulin Ratio 1.3, Cortisol AM Sample 64.3 H, CBC w Diff NO MAN DIFF REQ, RBC 3.57 L, MCV 77.4 L, MCH 25.5 L, RDW 17.6 H, MPV 10.1, Gran % 94.1 H, Lymphocytes % 5.2 L, Monocytes % 0.1 L, Eosinophils % 0.5, Basophils % 0.1, Absolute Granulocytes 5.2, Absolute Lymphocytes 0.3 L, Absolute Monocytes 0 L, Absolute Eosinophils 0, Absolute Basophils 0, PUBS MCHC 33.0 Microbiology 02/20 2229 URINE ROUT: Legionella Antigen - COMP 02/20 111 NASOPHARYN: Influenza Virus A & B Rapid Smear - COMP Microbiology Date/Time Procedure - Status Source Growth 02/20 2229 Legionella Antigen - COMP URINE ROUT 02/20 2229 Urine Culture - RECD URINE ROUT 02/20 2110 Respiratory Culture - COLB LOWER RESP 02/20 2110 Gram Stain - COLB LOWER RESP Vital Signs Date Time Temp Pulse Resp B/P B/P Pulse O2 O2 Flow FiO2 Mean Ox Delivery Rate 02/21 0800 96 Room Air 02/21 0657 98.5 81 18 112/52 95 Room Air 02/21 0653 98 152/60 02/21 0000 91 Room Air 02/21 0000 100 28 138/50 91 Room Air 02/20 2317 98.8 63 18 122/58 98 Room Air 02/20 2303 92 120/52 02/20 1800 98.5 91 16 122/58 93 Room Air 02/20 1731 98.7 87 20 133/67 93 Room Air 02/20 1511 100.3 89 20 126/59 93 Room Air 02/20 1339 100.0 97 20 119/54 95 Room Air She also was seen by cardiology patient had a little bump in the troponin may be demand ischemia
--- NOTE | 2017-02-21 15:31 | Cons- Cardiology ---
General Information and HPI Consulting Request Date of Consult: 02/21/17 Requested By: Tulio Hernandez MD Reason for Consult: Abnormal ECG with troponin elevation Source of Information: family, old records Exam Limitations: clinical condition History of Present Illness: 81 year old male well known to me admitted with multiple symptoms, mental status changes and noted to have transient ILBBB on ECG with elevated troponin. THe patient is relatively alert and conversant today and notes no recent cardiovascular symptoms. Allergies/Medications Allergies: Coded Allergies: NO KNOWN ALLERGIES (06/30/15) Home Med List: Glimepiride 2 MG TABLET 1 TAB PO DAILY DM (Reported) Reason to Stop at ADM: INSULIN S/S Hydralazine HCl 25 MG TABLET 1 TAB PO TID HTN (Reported) Hydrochlorothiazide 12.5 MG TABLET 1 TAB PO DAILY HTN (Reported) Lisinopril 40 MG TABLET 1 TAB PO DAILY HTN (Reported) Metformin HCl 1,000 MG TABLET 1 TAB PO BID DM (Reported) Reason to Stop at ADM: INSULIN S/S Metoprolol Tartrate 50 MG TABLET 1 TAB PO BID HTN (Reported) Nifedipine (Nifedipine ER) 60 MG TABLET.ER 1 TAB PO DAILY HTN (Reported) Omeprazole 40 MG CAPSULE.DR 1 CAP PO DAILY AC STOMACH (Reported) Saxagliptin (Onglyza) 5 MG TABLET 1 TAB PO DAILY DM (Reported) Reason to Stop at ADM: INSULIN S/S Current Medications: Current Medications Sig/Bret Start time Last Medication Dose Route Stop Time Status Admin Ampicillin Sodium/ 1,500 MG Q12 02/21 0030 AC 02/21 Sulbactam Sodium IV 1020 Sodium Chloride 100 ML Aspirin 300 MG ONCE ONE 02/21 0030 DC 02/21 NH 02/21 0031 0115 Ceftazidime 1,000 MG Q24H 02/21 0100 AC 02/21 IV 0111 Ciprofloxacin 400 MG Q12 02/21 0030 DC Dextrose/Water 200 ML IV Dextrose/Water 1,000 ML ONCE ONE 02/21 1345 CAN IV 02/21 2344 Heparin Sodium 5,000 UNIT Q8 02/21 1400 AC 02/21 (Porcine) SC 1453 Hydralazine HCl 25 MG TID 02/20 2200 CAN PO Insulin Aspart 0 TIDAC 02/21 0800 AC SC Magnesium Sulfate 1 GM ONCE ONE 02/21 0045 DC 02/21 Dextrose/Water 100 ML IV 02/21 0444 0305 Metoprolol Tartrate 50 MG BID 02/21 2200 AC PO Metoprolol Tartrate 25 MG ONCE ONE 02/21 1445 DC 02/21 PO 02/21 1446 1446 Metoprolol Tartrate 50 MG BID 02/20 2200 CAN PO Metoprolol Tartrate 5 MG Q12 02/20 2200 DC IV Nifedipine 60 MG DAILY 02/21 1000 CAN PO Omeprazole 40 MG DAILY AC 02/21 0700 CAN PO Potassium Chloride 20 MEQ ONCE ONE 02/21 0700 DC 02/21 PO 02/21 0701 1336 Sodium Chloride 1,000 ML BOLUS ONE 02/21 1500 AC IV 02/21 1659 Sodium Chloride 1,000 ML .Q8H 02/21 0400 DC 02/21 IV 02/21 1659 0546 Sodium Chloride 1,000 ML Q6H 02/20 1145 DC 02/20 IV 2250 Past History Travel History Traveled to [place] past 21 day No Medical History Neurological: CVA WITH LEFT HEMIPARESIS EENT: NONE Cardiovascular: hypertension Respiratory: NONE Gastrointestinal: GERD Hepatic: NONE Renal: URETHRAL STRICTURES Musculoskeletal: NONE Psychiatric: NONE Endocrine: NIDDM Blood Disorders: NONE Cancer(s): NONE 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 Ambulation: walker IADLs Independent: food prep, telephone. Unknown: shopping, housework, finances, transportation, medication admin. ECHO Results (as available) Date of last Echo 06/28/15 EF% 55 Exam & Diagnostic Data Vital Signs and I&O Vital Signs Date Time Temp Pulse Resp B/P B/P Pulse O2 O2 Flow FiO2 Mean Ox Delivery Rate 02/21 1457 98.4 110 20 140/70 91 Room Air 02/21 1446 104 128/62 02/21 0800 96 Room Air 02/21 0657 98.5 81 18 112/52 95 Room Air 02/21 0653 98 152/60 02/21 0000 91 Room Air 02/21 0000 100 28 138/50 91 Room Air 02/20 2317 98.8 63 18 122/58 98 Room Air 02/20 2303 92 120/52 02/20 1800 98.5 91 16 122/58 93 Room Air 02/20 1731 98.7 87 20 133/67 93 Room Air Intake & Output 02/21 1600 02/21 0800 02/21 0000 02/20 1600 02/20 0800 02/20 0000 Intake Total 425 Output Total 200 Balance 225 Intake, IV 425 Intake, Oral 0 Number 1 Bowel Movements Output, Urine 200 Patient 136 lb 136 lb Weight Weight Reported by Patient Measurement Method Labs/Mak Results: Laboratory Tests 02/21 02/21 02/21 02/21 1515 1045 1045 0510 Chemistry Lactic Acid (0.7 - 2.1 mmol/L) Pending 2.3 H 2.3 H Troponin I (<0.11 ng/ml) 4.66 *H 02/21 02/21 02/21 0510 0345 0210 Chemistry Sodium (137 - 145 mmol/L) 148 H Potassium (3.5 - 5.1 mmol/L) 3.4 L Chloride (98 - 107 mmol/L) 111 H Carbon Dioxide (22 - 30 mmol/L) 18 L Anion Gap (5 - 16) 19 H BUN (9 - 20 mg/dL) 44 H Creatinine (0.7 - 1.2 mg/dL) 2.1 H Estimated GFR (>60 ml/min) 30 L BUN/Creatinine Ratio (7 - 25 %) 21.0 Lactic Acid (0.7 - 2.1 mmol/L) 2.9 H Magnesium (1.6 - 2.3 mg/dL) 1.5 L Iron (49 - 181 ug/dL) 13 L TIBC (261 - 462 ug/dL) 310 Ferritin (17.9 - 464 ng/mL) 48.9 Troponin I (<0.11 ng/ml) 3.74 *H Hematology CBC w Diff MAN DIFF ORDERED WBC (4.8 - 10.8 /CUMM) 29.0 H RBC (4.70 - 6.10 /CUMM) 2.83 L Hgb (14.0 - 18.0 G/DL) 7.1 *L Hct (42 - 52 %) 21.8 L MCV (80.0 - 94.0 FL) 77.1 L MCH (27.0 - 31.0 PG) 25.2 L RDW (11.5 - 14.5 %) 18.2 H Plt Count (130 - 400 /CUMM) 182 MPV (7.4 - 10.4 FL) 11.0 H Gran % (42.2 - 75.2 %) 94.3 H Lymphocytes % (20.5 - 51.1 %) 1.9 L Monocytes % (1.7 - 9.3 %) 3.7 Eosinophils % (0 - 5 %) 0 Basophils % (0.0 - 2.0 %) 0.1 Absolute Granulocytes (1.4 - 6.5 /CUMM) 27.3 H Segmented Neutrophils (42.2 - 75.2 %) 78 H Band Neutrophils (0.0 - 5.0 %) 19 H Absolute Lymphocytes (1.2 - 3.4 /CUMM) 0.6 L Lymphocytes (20.5 - 51.1 %) 1 L Monocytes (1.7 - 9.3 %) 2 Absolute Monocytes (0.10 - 0.60 /CUMM) 1.1 H Absolute Eosinophils (0.0 - 0.7 /CUMM) 0 Absolute Basophils (0.0 - 0.2 /CUMM) 0 Platelet Estimate (ADEQUATE) ADEQUATE Polychromasia 1+ Hypochromic-Microcytic 1+ Poikilocytosis 2+ Basophilic Stippling SLIGHT Anisocytosis 1+ Microcytic Cells 1+ Ovalocytes 1+ [place] Cells FEW Elliptocytes FEW PUBS MCHC (33.0 - 37.0 G/DL) 32.7 L Other Body Source Fld Total RBCs Counted (%) 100 02/20 02/20 02/20 02/20 02/20 2230 2206 2206 2205 1920 Blood Gas Bicarbonate Actual (22 - 26 MEQ/L) 20 L Mixed VBG pH (7.31 - 7.41 PH) 7.42 H Mixed VBG pCO2 (41 - 51 TORR) 31 L Mixed VBG O2 Saturation (35 - 45 TORR) 21 L Carboxyhemoglobin (1.5 - 5.0 %) 0.1 L O2 Concentration % RA Temperature (97.0 - 100.0 FARH) 98.6 Chemistry Lactic Acid (0.7 - 2.1 mmol/L) 2.2 H 2.3 H Phosphorus (2.5 - 4.5 mg/dL) 3.2 Magnesium (1.6 - 2.3 mg/dL) 1.5 L Troponin I (<0.11 ng/ml) 3.89 *H Urines Ur Random Creatinine (mg/dL) 143.8 Ur Random Sodium (30 - 90 mmol/L) 13 L Ur Random Potassium (mmol/L) 41.9 Fraction Sodium Excret (<1% %) 0.1 02/20 02/20 02/20 02/20 1644 1611 1321 1225 Blood Gas pH (7.35 - 7.45 PH) 7.49 H pCO2 (35 - 45 TORR) 23 L pO2 (80 - 100 TORR) 74 L HCO3 (21 - 28 MEQ/L) 17 L ABG O2 Sat (Measured) (>96.0 %) 93.0 L P-50 (Temp Corrected) N Carboxyhemoglobin (1.5 - 5.0 %) 1.8 O2 Concentration % .21 O2 Delivery Method RA Chemistry Lactic Acid (0.7 - 2.1 mmol/L) Cancelled 2.5 H 3.3 H Miscellaneous Phlebotomy Draw Site RIGHT RADIAL 02/20 02/20 1106 1011 Chemistry Sodium (137 - 145 mmol/L) 142 Potassium (3.5 - 5.1 mmol/L) 4.1 Chloride (98 - 107 mmol/L) 102 Carbon Dioxide (22 - 30 mmol/L) 18 L Anion Gap (5 - 16) 22 H BUN (9 - 20 mg/dL) 38 H Creatinine (0.7 - 1.2 mg/dL) 1.7 H Estimated GFR (>60 ml/min) 39 L BUN/Creatinine Ratio (7 - 25 %) 22.4 Glucose (65 - 99 mg/dL) 220 H Lactic Acid (0.7 - 2.1 mmol/L) 7.0 H Calcium (8.4 - 10.2 mg/dL) 9.2 Total Bilirubin (0.2 - 1.3 mg/dL) 0.6 AST (17 - 59 U/L) 23 ALT (21 - 72 U/L) 33 Alkaline Phosphatase (< 127 U/L) 82 Troponin I (<0.11 ng/ml) 0.10 Total Protein (6.3 - 8.2 g/dL) 6.6 Albumin (3.5 - 5.0 g/dL) 3.7 Globulin (1.9 - 4.2 gm/dL) 2.9 Albumin/Globulin Ratio (1.1 - 2.2 %) 1.3 Cortisol AM Sample (4.46 - 22.7 ug/dL) 64.3 H Hematology CBC w Diff NO MAN DIFF REQ WBC (4.8 - 10.8 /CUMM) 5.6 RBC (4.70 - 6.10 /CUMM) 3.57 L Hgb (14.0 - 18.0 G/DL) 9.1 L Hct (42 - 52 %) 27.6 L MCV (80.0 - 94.0 FL) 77.4 L MCH (27.0 - 31.0 PG) 25.5 L RDW (11.5 - 14.5 %) 17.6 H Plt Count (130 - 400 /CUMM) 228 MPV (7.4 - 10.4 FL) 10.1 Gran % (42.2 - 75.2 %) 94.1 H Lymphocytes % (20.5 - 51.1 %) 5.2 L Monocytes % (1.7 - 9.3 %) 0.1 L Eosinophils % (0 - 5 %) 0.5 Basophils % (0.0 - 2.0 %) 0.1 Absolute Granulocytes (1.4 - 6.5 /CUMM) 5.2 Absolute Lymphocytes (1.2 - 3.4 /CUMM) 0.3 L Absolute Monocytes (0.10 - 0.60 /CUMM) 0 L Absolute Eosinophils (0.0 - 0.7 /CUMM) 0 Absolute Basophils (0.0 - 0.2 /CUMM) 0 PUBS MCHC (33.0 - 37.0 G/DL) 33.0 Urines Urine Color (YEL,AMB,STR) YEL Urine Clarity (CLEAR) CLDY H Urine pH (5.0 - 8.0) 6.0 Ur Specific [place] (1.001 - 1.035) 1.020 Urine Protein (NEG,<30 MG/DL) 100 H Urine Ketones (NEG) NEG Urine Nitrite (NEG) NEG Urine Bilirubin (NEG) NEG Urine Urobilinogen (0.1 - 1.0 EU/dl) 0.2 Ur Leukocyte Esterase (NEG) LARGE H Ur Microscopic SEDIMENT EXAMINED Urine RBC (0 - 5 /HPF) RARE Urine WBC (0 - 2 /HPF) 50-75 H Urine Bacteria (NEG/NONE) MANY H Urine Hemoglobin (NEG) NEG Urine Glucose (N MG/DL) NEG Assessment/Plan Assessment/Plan Assessment: 1. Elevated troponin consistent with Type 2 TN 2. Abnormal ECG with transient ILBBB 3. Probable urosepsis 4. Acute on chronic renal insufficiency. 5. Anemia Recommendations: - Keep on telemetry - Antibiotics pending culture results - ECG in AM - Echocardiogram pending - Continue to trend troponin until decreasing. - Further discussios with family and patient about the role of followuo cardiac testing when the patient is more stable. Consult Acknowledgment - Thank you for your consult request.
[2017-02-21 21:17] LABS: ABSOLUTE BASOPHIL COUNT 0 /CUMM (0.0-0.2); ABSOLUTE EOSINOPHIL COUNT 0 /CUMM (0.0-0.7); ABSOLUTE GRANULOCYTE CT 18.5 /CUMM (1.4-6.5); ABSOLUTE LYMPH COUNT 0.3 /CUMM (1.2-3.4); ABSOLUTE MONOCYTE COUNT 0.4 /CUMM (0.10-0.60); BASOPHIL % 0 % (0.0-2.0); EOSINOPHIL % 0 % (0-5); MEAN CORPUSCULAR HGB 25.2 PG (27.0-31.0); MEAN CORPUSCULAR HGB CONC 32.4 G/DL (33.0-37.0); MEAN CORPUSCULAR VOLUME 77.9 FL (80.0-94.0); MEAN PLATELET VOLUME 10.7 FL (7.4-10.4); PLATELET COUNT 106 /CUMM (130-400); WHITE BLOOD CELL COUNT 19.1 /CUMM (4.8-10.8)
[2017-02-21 21:18] LABS: RED BLOOD CELL CT 1.85 /CUMM (4.70-6.10)
[2017-02-21 21:23] LABS: GRANULOCYTE % 96.5 % (42.2-75.2); HEMATOCRIT 14.4 % (42-52)
[2017-02-21 22:24] LABS: ABSOLUTE BASOPHIL COUNT 0 /CUMM (0.0-0.2); ABSOLUTE EOSINOPHIL COUNT 0 /CUMM (0.0-0.7); ABSOLUTE GRANULOCYTE CT 24.2 /CUMM (1.4-6.5); ABSOLUTE LYMPH COUNT 0.5 /CUMM (1.2-3.4); ABSOLUTE MONOCYTE COUNT 0.4 /CUMM (0.10-0.60); BASOPHIL % 0 % (0.0-2.0); EOSINOPHIL % 0 % (0-5); MEAN CORPUSCULAR HGB 25.2 PG (27.0-31.0); MEAN CORPUSCULAR HGB CONC 32.9 G/DL (33.0-37.0); MEAN CORPUSCULAR VOLUME 76.8 FL (80.0-94.0); MEAN PLATELET VOLUME 11.2 FL (7.4-10.4); PLATELET COUNT 125 /CUMM (130-400); WHITE BLOOD CELL COUNT 25.1 /CUMM (4.8-10.8)
[2017-02-21 22:38] LABS: HEMATOCRIT 21.3 % (42-52); RED BLOOD CELL CT 2.77 /CUMM (4.70-6.10)
[2017-02-21 22:43] LABS: GRANULOCYTE % 96.4 % (42.2-75.2)
[2017-02-22 05:43] LABS: ABSOLUTE BASOPHIL COUNT 0 /CUMM (0.0-0.2); ABSOLUTE EOSINOPHIL COUNT 0 /CUMM (0.0-0.7); ABSOLUTE GRANULOCYTE CT 19.2 /CUMM (1.4-6.5); ABSOLUTE LYMPH COUNT 0.7 /CUMM (1.2-3.4); ABSOLUTE MONOCYTE COUNT 0.3 /CUMM (0.10-0.60); BASOPHIL % 0 % (0.0-2.0); EOSINOPHIL % 0.1 % (0-5); HEMATOCRIT 23.3 % (42-52); MEAN CORPUSCULAR HGB 26.2 PG (27.0-31.0); MEAN CORPUSCULAR HGB CONC 33.5 G/DL (33.0-37.0); MEAN CORPUSCULAR VOLUME 78.3 FL (80.0-94.0); MEAN PLATELET VOLUME 11.4 FL (7.4-10.4); PLATELET COUNT 102 /CUMM (130-400); RBC DISTRIBUTION WIDTH 17.9 % (11.5-14.5); RED BLOOD CELL CT 2.97 /CUMM (4.70-6.10); WHITE BLOOD CELL COUNT 20.2 /CUMM (4.8-10.8)
[2017-02-22 06:00] LABS: GRANULOCYTE % 95.1 % (42.2-75.2)
--- NOTE | 2017-02-22 07:31 | PN- Housestaff ---
Subjective Follow-up For: Sepsis of urological origin Complaints: no complaints Tele-Events Since Last Visit: Normal sinus rhythm Subjective: Patient was seen and examined by me today. Patient had 3 loose bowel movements since yesterday. Patient is lying in his bed comfortably in no acute distress. He offers no complaints. He appears alert and oriented 2. He denies chest pain, chest pressure, nausea, vomiting, abdominal pain. Review of Systems Constitutional: Reports: no symptoms. Cardiovascular: Reports: no symptoms. Respiratory: Reports: no symptoms. Gastrointestinal: Reports: no symptoms. Genitourinary: Reports: no symptoms. Musculoskeletal: Reports: no symptoms. Objective Last 24 Hrs of Vital Signs/I&O Vital Signs Date Time Temp Pulse Resp B/P B/P Pulse O2 O2 Flow FiO2 Mean Ox Delivery Rate 02/22 1339 Nasal 2.0L Cannula 02/22 0830 Nasal 2.0L Cannula 02/22 0813 112/00 02/22 0407 98 Nasal 2.0L Cannula 02/22 0000 100 Nasal 2.0L Cannula 02/21 2341 98.3 80 18 112/00 100 Nasal Cannula 02/21 2243 98.7 02/21 2228 76 112/6 02/21 2108 80 92/0 02/21 2019 98.4 24 93 Nasal 2.0L Cannula 02/21 2012 76 86/0 02/21 1804 80 112/64 02/21 1713 102.0 02/21 1600 96 Nasal 2.0L Cannula 02/21 1457 98.4 110 20 140/70 91 Room Air 02/21 1446 104 128/62 Intake & Output 02/22 1600 02/22 0800 02/22 0000 Intake Total 600 1200 Output Total 50 75 Balance 550 1125 Intake, IV 500 950 Intake, Oral 100 250 Number 8 Bowel Movements Output, Urine 50 75 Physical Exam General Appearance: Alert, Oriented X3, Cooperative, No Acute Distress HEENT: PERRLA Cardiovascular: Regular Rate, Normal S1, Normal S2 Lungs: Clear to Auscultation Abdomen: Normal Bowel Sounds, Soft, No Tenderness Neurological: Normal Speech, Normal Tone Extremities: No Edema Current Medications: Current Medications Sig/Bret Start time Last Medication Dose Route Stop Time Status Admin Acetaminophen 325 MG ONCE ONE 02/21 1800 DC PO 02/21 1801 Acetaminophen 650 MG Q4P PRN 02/21 1700 AC 02/21 PO 1713 Ampicillin Sodium/ 1,500 MG Q12 02/21 0030 AC 02/22 Sulbactam Sodium IV 0814 Sodium Chloride 100 ML Ceftazidime 1,000 MG Q24H 02/21 0100 AC 02/22 IV 0018 Dextrose/Water 1,000 ML ONCE ONE 02/21 1345 CAN IV 02/21 2344 Heparin Sodium 5,000 UNIT Q8 02/21 1400 AC 02/22 (Porcine) SC 1209 Insulin Aspart 0 TIDAC 02/21 0800 AC 02/22 SC 1209 Lactated Ringer's 1,000 ML ONCE ONE 02/21 2015 CAN IV 02/21 2114 Metoprolol Tartrate 50 MG BID 02/21 2200 AC 02/22 PO 0813 Metoprolol Tartrate 25 MG ONCE ONE 02/21 1445 DC 02/21 PO 02/21 1446 1446 Ondansetron HCl 4 MG ONCE ONE 02/22 1215 DC PO 02/22 1216 Potassium Chloride 20 MEQ ONCE ONE 02/22 0000 DC 02/22 PO 02/22 0001 0020 Potassium Chloride 10 MEQ Q1H 02/21 2100 DC 02/22 IV 02/21 2201 0015 Potassium Chloride 40 MEQ ONCE ONE 02/21 2100 DC 02/21 PO 02/21 2101 2220 Sodium Chloride 1,000 ML Q10H 02/22 1400 AC IV Sodium Chloride 1,000 ML Q13H 02/22 0830 DC 02/22 IV 0830 Sodium Chloride 500 ML BOLUS ONE 02/21 2015 CAN IV 02/21 2114 Sodium Chloride 500 ML BOLUS ONE 02/21 1800 DC 02/21 IV 02/21 1859 1820 Sodium Chloride 1,000 ML .Q10H 02/21 1615 DC 02/21 IV 02/22 2214 1610 Sodium Chloride 1,000 ML BOLUS ONE 02/21 1500 CAN IV 02/21 1659 Last 24 Hrs of Lab/Mak Results Last 24 Hrs of Labs/Mics: Laboratory Tests 02/22/17 1104: Troponin I 5.68 *H 02/22/17 1104: Lactic Acid 5.3 H 02/22/17 0500: Lactic Acid 4.5 H, Troponin I 6.44 *H 02/22/17 0500: Anion Gap 18 H, Estimated GFR 23 L, BUN/Creatinine Ratio 22.2, CBC w Diff NO MAN DIFF REQ, RBC 2.97 L, MCV 78.3 L, MCH 26.2 L, RDW 17.9 H, MPV 11.4 H, Gran % 95.1 H, Lymphocytes % 3.4 L, Monocytes % 1.4 L, Eosinophils % 0.1, Basophils % 0, Absolute Granulocytes 19.2 H, Absolute Lymphocytes 0.7 L, Absolute Monocytes 0.3, Absolute Eosinophils 0, Absolute Basophils 0, PUBS MCHC 33.5 02/22/17 0200: Lactic Acid 5.0 H 02/21/17 2315: Troponin I 6.66 *H 02/21/17 2315: Lactic Acid 6.0 H 02/21/17 2155: CBC w Diff MAN DIFF ORDERED, RBC 2.77 L, MCV 76.8 L, MCH 25.2 L, RDW 18.0 H, MPV 11.2 H, Gran % 96.4 H, Lymphocytes % 2.0 L, Monocytes % 1.6 L, Eosinophils % 0, Basophils % 0, Absolute Granulocytes 24.2 H, Segmented Neutrophils 84 H, Band Neutrophils 15 H, Absolute Lymphocytes 0.5 L, Monocytes 1 L, Absolute Monocytes 0.4, Absolute Eosinophils 0, Absolute Basophils 0, Platelet Estimate VERIFIED BY SMEAR, Normochromic RBCs VERIFIED, Poikilocytosis 1+, Anisocytosis 1+, Ovalocytes FEW, Wendy Cells FEW, Elliptocytes RARE, PUBS MCHC 32.9 L, Fld Total RBCs Counted 100 02/21/171849: Lactic Acid 4.5 H 02/21/17 1850: Anion Gap 13, Estimated GFR > 60, BUN/Creatinine Ratio 21.8, CBC w Diff NO MAN DIFF REQ, RBC 1.85 L, MCV 77.9 L, MCH 25.2 L, RDW 18.0 H, MPV 10.7 H, Gran % 96.5 H, Lymphocytes % 1.4 L, Monocytes % 2.1, Eosinophils % 0, Basophils % 0 , Absolute Granulocytes 18.5 H, Absolute Lymphocytes 0.3 L, Absolute Monocytes 0.4, Absolute Eosinophils 0, Absolute Basophils 0, PUBS MCHC 32.4 L 02/21/17 1724: Troponin I 6.45 *H 02/21/17 1515: Lactic Acid 4.2 H Microbiology 02/22 1410 STOOL: Clostridium difficile Toxin A & B - ORD 02/21 2300 URINE ROUT: Urine Culture - RES 02/21 1850 BLOOD: Blood Culture - RES 02/21 1724 BLOOD: Blood Culture - RES 02/21 1653 LOWER RESP: Respiratory Culture - CAN Cancelled: NO SPUTUM COLLECTED 02/21 1653 LOWER RESP: Gram Stain - CAN Cancelled: NO SPUTUM COLLECTED 02/21 1515 STOOL: Clostridium difficile Toxin A & B - COMP 02/21 1429 LOWER RESP: Respiratory Culture - CAN Cancelled: NO SAMPLE COLLECTED 02/21 1429 LOWER RESP: Gram Stain - CAN Cancelled: NO SAMPLE COLLECTED Orders Stool Guaiac Testing: NEGATIVE Lines/Diet/Fluids Lawson Still Needed? 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 Assessment and plan 1. Sepsis secondary to urological origin * Patient was given a dose of ceftriaxone and azithromycin in ED. blood cultures growing gram-negative rods pending sensitivity. We will follow up with urine culture and sensitivity. Patient was started on Unasyn and ceftaz and we will continue the same pending culture and sensitivity. Patient had a MAXIMUM TEMPERATURE of 102 yesterday. Pancultures sent . * We will place a ID consult to guide us with the antibiotic use. Patient is on IV fluids normal saline at 100 mL per hour. His sodium is 148 yesterday which reduced to 142 day after giving IV fluid. Patient had a sputum is potassium value of 2.7 and was given oral potassium. Repeat potassium was 5.7 today. No EKG changes. We will repeat BEP at 6 PM today. 2. AK I secondary to dehydration * Patient has acute kidney injury secondary to dehydration, which is getting worse and since admission. We'll place a nephrology consult. BUN/creatinine is 60, creatinine 2.7. We will order a renal ultrasound to rule out any obstruction. 3. Rule out ACS * Patient troponin increase secondary to demand ischemia. We will trend troponins as per cardiology. Appreciate cardiology follow-up. Patient is currently asymptomatic. Patient doesn't have any cardiac history in the past. 4. Anemia * Patient was given 1 unit of blood transfusion yesterday following the hemoglobin of 7 with hematocrit of 21.3. Repeat hemoglobin is 7.8 and hematocrit 23.3. Code-DNR/DNI Diet-regular diet Problem List: 1. Sepsis secondary to UTI 2. Anemia 3. TENISHA Pain Ratin Pain Location: NONE Pain Goal: Remain pain free Pain Plan: TYLENOL Tomorrow's Labs & Rationales: BEP,CBC
--- NOTE | 2017-02-22 07:40 | ECHOCARDIOGRAM REPORT ---
LEONARD DALH Age: 81 : 1935 Gender: M Exam Date: 02/21/2017 09:30 Exam Location: [address] Ht (in): 67 Wt (lb): 136 BSA: 1.71 BP: 112 / 52 Ordering Physician: Meka Abreu MD Referring Physician: Meka Abreu MD Technologist: Saeed Poole [facility] Room Number: 179-1 Indications: VALVULAR DISEASE Rhythm: Sinus Technical Quality: Fair, Technically difficult study FINDINGS Left Ventricle Normal size left ventricle. No obvious regional wall motion abnormalities. Normal left ventricular ejection fraction estimated at 55-60%. Right Ventricle Right ventricular dilatation. Right Atrium Right atrial dilatation. Left Atrium Left atrial dilatation. Mitral Valve Mild thickening/calcification of the anterior mitral valve leaflet. Moderate mitral annular calcification. Trace mitral regurgitation. Aortic Valve Trileaflet aortic valve. Diffuse thickening (sclerosis) of the aortic valve cusps without reduced excursion. No aortic stenosis. [id number] aortic regurgitation. Tricuspid Valve Tricuspid valve not well visualized, grossly normal. Mild-to- moderate tricuspid regurgitation. Right ventricular systolic pressure estimated to be elevated at 50 mmHg. Pulmonic Valve Pulmonic valve not well visualized. Mild pulmonic regurgitation. Pericardium No pericardial effusion. Great Vessels Aortic root and proximal ascending aorta not well visualized, grossly normal. CONCLUSIONS 1. This was a technically difficult study 2. Moderate aortic sclerosis is present with mild to moderate aortic insufficiency. 3. Thickening and calcification of the mitral leaflets is present with moderate annular calcification and minimal mitral insufficiency with mild left atrial enlargement. 4. No significant pericardial fluid was detected on the study. 5. The left ventricular chamber size and systolic function appear normal. There are no obvious resting wall motion abnormalities. 6. Enlargement of the right heart chambers is present. Mild to moderate tricuspid insufficiency is present with mild pulmonic insufficiency and an estimated right ventricular systolic pressure of 50 mmHg. Enlargement of the inferior vena cava is also noted. Nhung Allen M.D. (Electronically Signed) Final Date: 22 February 2017 07:40 MEASUREMENTS (Male / Female) Normal Values 2D ECHO LV Diastolic Diameter PLAX 4.2 cm 4.2 - 5.9 / 3.9 - 5.3 cm LV Systolic Diameter PLAX 2.1 cm 2.1 - 4.0 cm LV Fractional Shortening PLAX 50.0 % 25 - 46 % LV Ejection Fraction 2D Teich 81.7 % IVS Diastolic Thickness 0.8 cm LVPW Diastolic Thickness 1.0 cm LV Relative Wall Thickness 0.4 RV Internal Dim ED PLAX 3.3 cm 1.9 - 3.8 cm LVOT Diameter 1.7 cm Aortic Root Diameter 2.7 cm LA Systolic Diameter LX 2.8 cm 3.0 - 4.0 / 2.7 - 3.8 cm Ascending Aorta Diameter 2.5 cm DOPPLER AV Peak Velocity 141.0 cm/s AV Peak Gradient 8.0 mmHg AV Mean Velocity 89.3 cm/s AV Mean Gradient 4.0 mmHg AV Velocity Time Integral 26.0 cm LVOT Peak Velocity 77.3 cm/s LVOT Peak Gradient 2.4 mmHg LVOT Mean Velocity 50.5 cm/s LVOT Mean Gradient 1.0 mmHg LVOT Velocity Time Integral 14.1 cm LVOT Stroke Volume 32.0 cm AV Area Cont Eq vti 1.2 cm AV Area Cont Eq pk 1.2 cm MV Peak Velocity 141.0 cm/s MV Peak Gradient 8.0 mmHg MV Mean Velocity 70.2 cm/s MV Mean Gradient 3.0 mmHg Mitral E Point Velocity 123.0 cm/s Mitral A Point Velocity 136.0 cm/s Mitral E to A Ratio 0.9 MV PHT Velocity 143.0 cm/s MV Deceleration [place] 695.0 cm/s MV Pressure Half Time 61.7 ms MV Area PHT 3.6 cm MV Deceleration Time 225.0 ms TR Peak Velocity 337.0 cm/s TR Peak Gradient 45.4 mmHg Right Atrial Pressure 10.0 mmHg Pulmonary Artery Systolic Pressu 55.4 mmHg Right Ventricular Systolic Press 55.4 mmHg PV Peak Velocity 67.6 cm/s PV Peak Gradient 1.8 mmHg PV Mean Velocity 43.0 cm/s PV Mean Gradient 1.0 mmHg PV Velocity Time Integral 12.9 cm LV E' Lateral Velocity 10.6 cm/s Mitral E to LV E' Lateral Ratio 11.6 LV E' Septal Velocity 7.6 cm/s Mitral E to LV E' Septal Ratio 16.2
--- NOTE | 2017-02-22 07:47 | PN- Cardiology ---
Subjective Subjective: the patient does not appear to be doing quite as well today. He complains of waxing and waning nausea. No definitive cardiac symptoms noted. Objective Vital Signs and I&Os Vital Signs Date Time Temp Pulse Resp B/P B/P Pulse O2 O2 Flow FiO2 Mean Ox Delivery Rate 02/22 0407 98 Nasal 2.0L Cannula 02/22 0000 100 Nasal 2.0L Cannula 02/21 2341 98.3 80 18 112/00 100 Nasal Cannula 02/21 2243 98.7 02/21 2228 76 112/6 02/21 2108 80 92/0 02/21 2019 98.4 24 93 Nasal 2.0L Cannula 02/21 2011 76 86/0 02/21 1804 80 112/64 02/21 1713 102.0 02/21 1600 96 Nasal 2.0L Cannula 02/21 1457 98.4 110 20 140/70 91 Room Air 02/21 1446 104 128/62 02/21 0800 96 Room Air Intake & Output 02/22 0800 02/22 0000 02/21 1600 02/21 0800 02/21 0000 02/20 1600 Intake Total 600 1200 800 425 Output Total 50 75 225 200 Balance 550 1125 575 225 Intake, IV 500 950 650 425 Intake, Oral 100 250 150 0 Number 8 1 Bowel Movements Output, Urine 50 75 225 200 Patient 136 lb 136 lb Weight Weight Reported by Patient Measurement Method Current Medications: Current Medications Sig/Bret Start time Last Medication Dose Route Stop Time Status Admin Acetaminophen 325 MG ONCE ONE 02/21 1800 DC PO 02/21 1801 Acetaminophen 650 MG Q4P PRN 02/21 1700 AC 02/21 PO 1713 Ampicillin Sodium/ 1,500 MG Q12 02/21 0030 AC 02/21 Sulbactam Sodium IV 2204 Sodium Chloride 100 ML Ceftazidime 1,000 MG Q24H 02/21 0100 AC 02/22 IV 0018 Dextrose/Water 1,000 ML ONCE ONE 02/21 1345 CAN IV 02/21 2344 Heparin Sodium 5,000 UNIT Q8 02/21 1400 AC 02/22 (Porcine) SC 0604 Insulin Aspart 0 TIDAC 02/21 0800 AC SC Lactated Ringer's 1,000 ML ONCE ONE 02/21 2015 CAN IV 02/21 2114 Metoprolol Tartrate 50 MG BID 02/21 2200 AC PO Metoprolol Tartrate 25 MG ONCE ONE 02/21 1445 DC 02/21 PO 02/21 1446 1446 Metoprolol Tartrate 5 MG Q12 02/20 2200 DC IV Potassium Chloride 20 MEQ ONCE ONE 02/22 0000 DC 02/22 PO 02/22 0001 0020 Potassium Chloride 10 MEQ Q1H 02/21 2100 DC 02/22 IV 02/21 2201 0015 Potassium Chloride 40 MEQ ONCE ONE 02/21 2100 DC 02/21 PO 02/21 2101 2220 Sodium Chloride 500 ML BOLUS ONE 02/21 2015 CAN IV 02/21 2114 Sodium Chloride 500 ML BOLUS ONE 02/21 1800 DC 02/21 IV 02/21 1859 1820 Sodium Chloride 1,000 ML .Q10H 02/21 1615 DC 02/21 IV 02/22 2214 1610 Sodium Chloride 1,000 ML BOLUS ONE 02/21 1500 CAN IV 02/21 1659 Sodium Chloride 1,000 ML .Q8H 02/21 0400 DC 02/21 IV 02/21 1659 0546 Results Last 48 Hrs of Labs/Mics: Laboratory Tests 02/22/17 0500: Lactic Acid 4.5 H, Troponin I 6.44 *H 02/22/17 0500: Anion Gap 18 H, Estimated GFR 23 L, BUN/Creatinine Ratio 22.2, CBC w Diff NO MAN DIFF REQ, RBC 2.97 L, MCV 78.3 L, MCH 26.2 L, RDW 17.9 H, MPV 11.4 H, Gran % 95.1 H, Lymphocytes % 3.4 L, Monocytes % 1.4 L, Eosinophils % 0.1, Basophils % 0, Absolute Granulocytes 19.2 H, Absolute Lymphocytes 0.7 L, Absolute Monocytes 0.3, Absolute Eosinophils 0, Absolute Basophils 0, PUBS MCHC 33.5 02/22/17 0200: Lactic Acid 5.0 H 02/21/17 2315: Troponin I 6.66 *H 02/21/17 2315: Lactic Acid 6.0 H 02/21/17 2155: CBC w Diff MAN DIFF ORDERED, RBC 2.77 L, MCV 76.8 L, MCH 25.2 L, RDW 18.0 H, MPV 11.2 H, Gran % 96.4 H, Lymphocytes % 2.0 L, Monocytes % 1.6 L, Eosinophils % 0, Basophils % 0, Absolute Granulocytes 24.2 H, Segmented Neutrophils 84 H, Band Neutrophils 15 H, Absolute Lymphocytes 0.5 L, Monocytes 1 L, Absolute Monocytes 0.4, Absolute Eosinophils 0, Absolute Basophils 0, Platelet Estimate VERIFIED BY SMEAR, Normochromic RBCs VERIFIED, Poikilocytosis 1+, Anisocytosis 1+, Ovalocytes FEW, Wendy Cells FEW, Elliptocytes RARE, PUBS MCHC 32.9 L, Fld Total RBCs Counted 100 02/21/171849: Lactic Acid 4.5 H 02/21/171849: Anion Gap 13, Estimated GFR > 60, BUN/Creatinine Ratio 21.8, CBC w Diff NO MAN DIFF REQ, RBC 1.85 L, MCV 77.9 L, MCH 25.2 L, RDW 18.0 H, MPV 10.7 H, Gran % 96.5 H, Lymphocytes % 1.4 L, Monocytes % 2.1, Eosinophils % 0, Basophils % 0 , Absolute Granulocytes 18.5 H, Absolute Lymphocytes 0.3 L, Absolute Monocytes 0.4, Absolute Eosinophils 0, Absolute Basophils 0, PUBS MCHC 32.4 L 02/21/17 1724: Troponin I 6.45 *H 02/21/17 1515: Lactic Acid 4.2 H 02/21/17 1045: Troponin I 4.66 *H 02/21/17 1045: Lactic Acid 2.3 H 02/21/17 0510: Lactic Acid 2.3 H 02/21/17 0510: Anion Gap 19 H, Estimated GFR 30 L, BUN/Creatinine Ratio 21.0, Magnesium 1.5 L, Iron 13 L, TIBC 310, Ferritin 48.9, CBC w Diff MAN DIFF ORDERED, RBC 2.83 L , MCV 77.1 L, MCH 25.2 L, RDW 18.2 H, MPV 11.0 H, Gran % 94.3 H, Lymphocytes % 1.9 L, Monocytes % 3.7, Eosinophils % 0, Basophils % 0.1, Absolute Granulocytes 27.3 H, Segmented Neutrophils 78 H, Band Neutrophils 19 H, Absolute Lymphocytes 0.6 L, Lymphocytes 1 L, Monocytes 2, Absolute Monocytes 1.1 H, Absolute Eosinophils 0, Absolute Basophils 0, Platelet Estimate ADEQUATE, Polychromasia 1+, Hypochromic-Microcytic 1+, Poikilocytosis 2 +, Basophilic Stippling SLIGHT, Anisocytosis 1+, Microcytic Cells 1+, Ovalocytes 1+, Wendy Cells FEW, Elliptocytes FEW, PUBS MCHC 32.7 L, Fld Total RBCs Counted 100 02/21/17 0345: Troponin I 3.74 *H 02/21/17 0210: Lactic Acid 2.9 H 02/20/17 2230: Ur Random Creatinine 143.8, Ur Random Sodium 13 L, Ur Random Potassium 41.9, Fraction Sodium Excret 0.1 02/20/172205: Phosphorus 3.2, Magnesium 1.5 L, Troponin I 3.89 *H 02/20/17 2206: Lactic Acid 2.2 H 02/20/17 2205: Bicarbonate Actual 20 L, Mixed VBG pH 7.42 H, Mixed VBG pCO2 31 L, Mixed VBG O2 Saturation 21 L, Carboxyhemoglobin 0.1 L, O2 Concentration % RA, Temperature 98.6 02/20/17 1920: Lactic Acid 2.3 H 02/20/17 1644: Lactic Acid Cancelled 02/20/17 1611: Lactic Acid 2.5 H 02/20/17 1321: Lactic Acid 3.3 H 02/20/17 1225: pH 7.49 H, pCO2 23 L, pO2 74 L, HCO3 17 L, ABG O2 Sat (Measured) 93.0 L, P- 50 (Temp Corrected) N, Carboxyhemoglobin 1.8, O2 Concentration % .21, O2 Delivery Method RA, Phlebotomy Draw Site RIGHT RADIAL 02/20/17 1106: Urine Color YEL, Urine Clarity CLDY H, Urine pH 6.0, Ur Specific [place] 1.020, Urine Protein 100 H, Urine Ketones NEG, Urine Nitrite NEG, Urine Bilirubin NEG, Urine Urobilinogen 0.2, Ur Leukocyte Esterase LARGE H, Ur Microscopic SEDIMENT EXAMINED, Urine RBC RARE, Urine WBC 50-75 H, Urine Bacteria MANY H, Urine Hemoglobin NEG, Urine Glucose NEG 02/20/17 1011: Anion Gap 22 H, Estimated GFR 39 L, BUN/Creatinine Ratio 22.4, Glucose 220 H, Lactic Acid 7.0 H, Calcium 9.2, Total Bilirubin 0.6, AST 23, ALT 33, Alkaline Phosphatase 82, Troponin I 0.10, Total Protein 6.6, Albumin 3.7, Globulin 2.9, Albumin/Globulin Ratio 1.3, Cortisol AM Sample 64.3 H, CBC w Diff NO MAN DIFF REQ, RBC 3.57 L, MCV 77.4 L, MCH 25.5 L, RDW 17.6 H, MPV 10.1, Gran % 94.1 H, Lymphocytes % 5.2 L, Monocytes % 0.1 L, Eosinophils % 0.5, Basophils % 0.1, Absolute Granulocytes 5.2, Absolute Lymphocytes 0.3 L, Absolute Monocytes 0 L, Absolute Eosinophils 0, Absolute Basophils 0, PUBS MCHC 33.0 Microbiology 02/20 2229 URINE ROUT: Legionella Antigen - COMP 02/20 1115 NASOPHARYN: Influenza Virus A & B Rapid Smear - COMP Assessment/Plan Assessment/Plan Assessment: 1. Elevated troponin consistent with Type 2 VT 2. Abnormal ECG with transient ILBBB 3. Probable urosepsis 4. Acute on chronic renal insufficiency. 5. Anemia Recommendations: - Keep on telemetry - Antibiotics pending culture results - ECG now pleased to rule out interval change - Echocardiogram results noted - troponin peaked at 6.66, now decreasing. ECG remains essentially unchanged. - Further discussios with family and patient about the role of followuo cardiac testing when the patient is more stable. Continue telemetry? Yes
--- NOTE | 2017-02-22 12:11 | Cons- Nephrology ---
General Information and HPI Consulting Request Date of Consult: 02/22/17 Requested By: Tulio Hernandez MD Reason for Consult: TENISHA Source of Information: patient, family, old records Exam Limitations: clinical condition History of Present Illness: The patient's is an 81-year-old man with a past medical history most significant for stage III chronic kidney disease with baseline creatinine approximately 1.2- 1.4, urethral stricture status post suprapubic catheter placement in 2011, CVA with residual left-sided weakness, hypertension on an FRANDY inhibitor/diuretic, diabetes on metformin who initially presented on 02/20 with weakness. While at home, the patient who normally ambulates with a walker and cane was noted to be very weak. He had episodes of vomiting and diarrhea. He ultimately presented to the emergency room. Presentation, initial blood pressure 177/67. He is febrile to 102.0. Blood cultures positive for gram-negative rods for which the speciation is still pending. He was placed on empiric antibiotics. His white count zahraa from 5-> 29. Urinalysis with 50-75 wbc's. Urine culture with multiple colony types present thought to be contamination. Course complicated by acute kidney injury. Creatinine on presentation 1.7 which zahraa to 2.1. There was a drop to 1.1 although this may be an error and subsequently this morning his creatinine was 2.7. 500 mL urine output in the last day with 2.4 L of in's. Workup otherwise notable for drop in blood pressure last night to 86 systolic. No clear nephrotoxic meds. No peripheral eosinophilia. No Kidney imaging. Fractional excretion of sodium 0.1%. 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 Should be noted that he was on an FRANDY inhibitor and diuretic at home but denies any NSAID use. Again, he has a suprapubic catheter. Chest X-ray without fluid. Currently on IVF at 75cc/hr. Allergies/Medications Allergies: Coded Allergies: NO KNOWN ALLERGIES (06/30/15) Home Med List: Glimepiride 2 MG TABLET 1 TAB PO DAILY DM (Reported) Reason to Stop at ADM: INSULIN S/S Hydralazine HCl 25 MG TABLET 1 TAB PO TID HTN (Reported) Hydrochlorothiazide 12.5 MG TABLET 1 TAB PO DAILY HTN (Reported) Lisinopril 40 MG TABLET 1 TAB PO DAILY HTN (Reported) Metformin HCl 1,000 MG TABLET 1 TAB PO BID DM (Reported) Reason to Stop at ADM: INSULIN S/S Metoprolol Tartrate 50 MG TABLET 1 TAB PO BID HTN (Reported) Nifedipine (Nifedipine ER) 60 MG TABLET.ER 1 TAB PO DAILY HTN (Reported) Omeprazole 40 MG CAPSULE.DR 1 CAP PO DAILY AC STOMACH (Reported) Saxagliptin (Onglyza) 5 MG TABLET 1 TAB PO DAILY DM (Reported) Reason to Stop at ADM: INSULIN S/S Current Medications: Current Medications Sig/Bret Start time Last Medication Dose Route Stop Time Status Admin Acetaminophen 325 MG ONCE ONE 02/21 1800 DC PO 02/21 1801 Acetaminophen 650 MG Q4P PRN 02/21 1700 AC 02/21 PO 1713 Ampicillin Sodium/ 1,500 MG Q12 02/21 0030 AC 02/22 Sulbactam Sodium IV 0814 Sodium Chloride 100 ML Ceftazidime 1,000 MG Q24H 02/21 0100 AC 02/22 IV 0018 Dextrose/Water 1,000 ML ONCE ONE 02/21 1345 CAN IV 02/21 2344 Heparin Sodium 5,000 UNIT Q8 02/21 1400 AC 02/22 (Porcine) SC 0604 Insulin Aspart 0 TIDAC 02/21 0800 AC 02/22 SC 0814 Lactated Ringer's 1,000 ML ONCE ONE 02/21 2014 CAN IV 02/21 2114 Metoprolol Tartrate 50 MG BID 02/21 2200 AC 02/22 PO 0813 Metoprolol Tartrate 25 MG ONCE ONE 02/21 1445 DC 02/21 PO 02/21 1446 1446 Metoprolol Tartrate 5 MG Q12 02/20 2200 DC IV Potassium Chloride 20 MEQ ONCE ONE 02/22 0000 DC 02/22 PO 02/22 0001 0020 Potassium Chloride 10 MEQ Q1H 02/21 2100 DC 02/22 IV 02/21 2201 0015 Potassium Chloride 40 MEQ ONCE ONE 02/21 2100 DC 02/21 PO 02/21 2101 2220 Sodium Chloride 1,000 ML Q13H 02/22 0830 AC 02/22 IV 0830 Sodium Chloride 500 ML BOLUS ONE 02/21 2014 CAN IV 02/21 2114 Sodium Chloride 500 ML BOLUS ONE 02/21 1800 DC 02/21 IV 02/21 1859 1820 Sodium Chloride 1,000 ML .Q10H 02/21 1615 DC 02/21 IV 02/22 2214 1610 Sodium Chloride 1,000 ML BOLUS ONE 02/21 1500 CAN IV 02/21 1659 Sodium Chloride 1,000 ML .Q8H 02/21 0400 DC 02/21 IV 02/21 1659 0546 Review of Systems Review of Systems: Complete 14 point ROS neg except as per HPI Past History Travel History Traveled to [place] past 21 day No Medical History Neurological: CVA WITH LEFT HEMIPARESIS EENT: NONE Cardiovascular: hypertension Respiratory: NONE Gastrointestinal: GERD Hepatic: NONE Renal: URETHRAL STRICTURES Musculoskeletal: NONE Psychiatric: NONE Endocrine: NIDDM Blood Disorders: NONE Cancer(s): NONE 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 Ambulation: walker IADLs Independent: food prep, telephone. Unknown: shopping, housework, finances, transportation, medication admin. ECHO Results (as available) Date of last Echo 06/28/15 EF% 55 Exam & Diagnostic Data Vital Signs and I&O Vital Signs Date Time Temp Pulse Resp B/P B/P Pulse O2 O2 Flow FiO2 Mean Ox Delivery Rate 02/22 0830 Nasal 2.0L Cannula 02/22 0813 112/00 02/22 0407 98 Nasal 2.0L Cannula 02/22 0000 100 Nasal 2.0L Cannula 02/21 2341 98.3 80 18 112/00 100 Nasal Cannula 02/21 2243 98.7 02/21 2228 76 112/6 02/21 2108 80 92/0 02/21 2019 98.4 24 93 Nasal 2.0L Cannula 02/21 2012 76 86/0 02/21 1804 80 112/64 02/21 1713 102.0 02/21 1600 96 Nasal 2.0L Cannula 02/21 1457 98.4 110 20 140/70 91 Room Air 02/21 1446 104 128/62 Intake & Output 02/22 1600 02/22 0400 02/21 1600 02/21 0400 01/16 1600 02/20 0400 Intake Total 600 1200 1225 Output Total 50 75 425 Balance 550 1125 800 Intake, IV 572 103 5223 Intake, Oral 100 250 150 Number 8 1 Bowel Movements Output, Urine 50 75 425 Patient 136 lb 136 lb Weight Weight Reported by Patient Measurement Method Physical Exam: Gen - chronically ill appearing Head - NCAT Eyes - anicteric sclera, EOMI Neck - supple, no LAD CV - RRR, no m/r/g Chest - clear anteriorly, no w/r/r Abd - soft, NTND Upper ext - warm, no edema Lower ext - warm, no edema Skin - no rash Neuro - drowsy although conversive, limited exam 2/2 clinical condition Results Pertinent Lab Results: Laboratory Tests 02/22 02/22 02/22 1104 1104 0500 Chemistry Lactic Acid (0.7 - 2.1 mmol/L) Pending 4.5 H Troponin I (<0.11 ng/ml) Pending 6.44 *H 02/22 02/22 02/21 0500 0200 2315 Chemistry Sodium (137 - 145 mmol/L) 145 Potassium (3.5 - 5.1 mmol/L) 5.7 H Chloride (98 - 107 mmol/L) 113 H Carbon Dioxide (22 - 30 mmol/L) 14 L Anion Gap (5 - 16) 18 H BUN (9 - 20 mg/dL) 60 H Creatinine (0.7 - 1.2 mg/dL) 2.7 H Estimated GFR (>60 ml/min) 23 L BUN/Creatinine Ratio (7 - 25 %) 22.2 Lactic Acid (0.7 - 2.1 mmol/L) 5.0 H Troponin I (<0.11 ng/ml) 6.66 *H Hematology CBC w Diff NO MAN DIFF REQ WBC (4.8 - 10.8 /CUMM) 20.2 H RBC (4.70 - 6.10 /CUMM) 2.97 L Hgb (14.0 - 18.0 G/DL) 7.8 L Hct (42 - 52 %) 23.3 L MCV (80.0 - 94.0 FL) 78.3 L MCH (27.0 - 31.0 PG) 26.2 L RDW (11.5 - 14.5 %) 17.9 H Plt Count (130 - 400 /CUMM) 102 L MPV (7.4 - 10.4 FL) 11.4 H Gran % (42.2 - 75.2 %) 95.1 H Lymphocytes % (20.5 - 51.1 %) 3.4 L Monocytes % (1.7 - 9.3 %) 1.4 L Eosinophils % (0 - 5 %) 0.1 Basophils % (0.0 - 2.0 %) 0 Absolute Granulocytes (1.4 - 6.5 /CUMM) 19.2 H Absolute Lymphocytes (1.2 - 3.4 /CUMM) 0.7 L Absolute Monocytes (0.10 - 0.60 /CUMM) 0.3 Absolute Eosinophils (0.0 - 0.7 /CUMM) 0 Absolute Basophils (0.0 - 0.2 /CUMM) 0 PUBS MCHC (33.0 - 37.0 G/DL) 33.5 02/21 02/21 02/21 2315 2155 1850 Chemistry Lactic Acid (0.7 - 2.1 mmol/L) 6.0 H 4.5 H Hematology CBC w Diff MAN DIFF ORDERED WBC (4.8 - 10.8 /CUMM) 25.1 H RBC (4.70 - 6.10 /CUMM) 2.77 L Hgb (14.0 - 18.0 G/DL) 7.0 *L Hct (42 - 52 %) 21.3 L MCV (80.0 - 94.0 FL) 76.8 L MCH (27.0 - 31.0 PG) 25.2 L RDW (11.5 - 14.5 %) 18.0 H Plt Count (130 - 400 /CUMM) 125 L MPV (7.4 - 10.4 FL) 11.2 H Gran % (42.2 - 75.2 %) 96.4 H Lymphocytes % (20.5 - 51.1 %) 2.0 L Monocytes % (1.7 - 9.3 %) 1.6 L Eosinophils % (0 - 5 %) 0 Basophils % (0.0 - 2.0 %) 0 Absolute Granulocytes (1.4 - 6.5 /CUMM) 24.2 H Segmented Neutrophils (42.2 - 75.2 %) 84 H Band Neutrophils (0.0 - 5.0 %) 15 H Absolute Lymphocytes (1.2 - 3.4 /CUMM) 0.5 L Monocytes (1.7 - 9.3 %) 1 L Absolute Monocytes (0.10 - 0.60 /CUMM) 0.4 Absolute Eosinophils (0.0 - 0.7 /CUMM) 0 Absolute Basophils (0.0 - 0.2 /CUMM) 0 Platelet Estimate (ADEQUATE) VERIFIED BY SMEAR Normochromic RBCs VERIFIED Poikilocytosis 1+ Anisocytosis 1+ Ovalocytes FEW [place] Cells FEW Elliptocytes RARE PUBS MCHC (33.0 - 37.0 G/DL) 32.9 L Other Body Source Fld Total RBCs Counted (%) 100 02/21 02/21 02/21 1850 1724 1515 Chemistry Sodium (137 - 145 mmol/L) 149 H Potassium (3.5 - 5.1 mmol/L) 2.7 *L Chloride (98 - 107 mmol/L) 129 H Carbon Dioxide (22 - 30 mmol/L) 7 *L Anion Gap (5 - 16) 13 BUN (9 - 20 mg/dL) 24 H Creatinine (0.7 - 1.2 mg/dL) 1.1 Estimated GFR (>60 ml/min) > 60 BUN/Creatinine Ratio (7 - 25 %) 21.8 Lactic Acid (0.7 - 2.1 mmol/L) 4.2 H Troponin I (<0.11 ng/ml) 6.45 *H Hematology CBC w Diff NO MAN DIFF REQ WBC (4.8 - 10.8 /CUMM) 19.1 H RBC (4.70 - 6.10 /CUMM) 1.85 L Hgb (14.0 - 18.0 G/DL) 4.7 *L Hct (42 - 52 %) 14.4 *L MCV (80.0 - 94.0 FL) 77.9 L MCH (27.0 - 31.0 PG) 25.2 L RDW (11.5 - 14.5 %) 18.0 H Plt Count (130 - 400 /CUMM) 106 L MPV (7.4 - 10.4 FL) 10.7 H Gran % (42.2 - 75.2 %) 96.5 H Lymphocytes % (20.5 - 51.1 %) 1.4 L Monocytes % (1.7 - 9.3 %) 2.1 Eosinophils % (0 - 5 %) 0 Basophils % (0.0 - 2.0 %) 0 Absolute Granulocytes (1.4 - 6.5 /CUMM) 18.5 H Absolute Lymphocytes (1.2 - 3.4 /CUMM) 0.3 L Absolute Monocytes (0.10 - 0.60 /CUMM) 0.4 Absolute Eosinophils (0.0 - 0.7 /CUMM) 0 Absolute Basophils (0.0 - 0.2 /CUMM) 0 PUBS MCHC (33.0 - 37.0 G/DL) 32.4 L 02/21 02/21 02/21 1045 1045 0510 Chemistry Lactic Acid (0.7 - 2.1 mmol/L) 2.3 H 2.3 H Troponin I (<0.11 ng/ml) 4.66 *H 02/21 02/21 02/21 0510 0345 0210 Chemistry Sodium (137 - 145 mmol/L) 148 H Potassium (3.5 - 5.1 mmol/L) 3.4 L Chloride (98 - 107 mmol/L) 111 H Carbon Dioxide (22 - 30 mmol/L) 18 L Anion Gap (5 - 16) 19 H BUN (9 - 20 mg/dL) 44 H Creatinine (0.7 - 1.2 mg/dL) 2.1 H Estimated GFR (>60 ml/min) 30 L BUN/Creatinine Ratio (7 - 25 %) 21.0 Lactic Acid (0.7 - 2.1 mmol/L) 2.9 H Magnesium (1.6 - 2.3 mg/dL) 1.5 L Iron (49 - 181 ug/dL) 13 L TIBC (261 - 462 ug/dL) 310 Ferritin (17.9 - 464 ng/mL) 48.9 Troponin I (<0.11 ng/ml) 3.74 *H Hematology CBC w Diff MAN DIFF ORDERED WBC (4.8 - 10.8 /CUMM) 29.0 H RBC (4.70 - 6.10 /CUMM) 2.83 L Hgb (14.0 - 18.0 G/DL) 7.1 *L Hct (42 - 52 %) 21.8 L MCV (80.0 - 94.0 FL) 77.1 L MCH (27.0 - 31.0 PG) 25.2 L RDW (11.5 - 14.5 %) 18.2 H Plt Count (130 - 400 /CUMM) 182 MPV (7.4 - 10.4 FL) 11.0 H Gran % (42.2 - 75.2 %) 94.3 H Lymphocytes % (20.5 - 51.1 %) 1.9 L Monocytes % (1.7 - 9.3 %) 3.7 Eosinophils % (0 - 5 %) 0 Basophils % (0.0 - 2.0 %) 0.1 Absolute Granulocytes (1.4 - 6.5 /CUMM) 27.3 H Segmented Neutrophils (42.2 - 75.2 %) 78 H Band Neutrophils (0.0 - 5.0 %) 19 H Absolute Lymphocytes (1.2 - 3.4 /CUMM) 0.6 L Lymphocytes (20.5 - 51.1 %) 1 L Monocytes (1.7 - 9.3 %) 2 Absolute Monocytes (0.10 - 0.60 /CUMM) 1.1 H Absolute Eosinophils (0.0 - 0.7 /CUMM) 0 Absolute Basophils (0.0 - 0.2 /CUMM) 0 Platelet Estimate (ADEQUATE) ADEQUATE Polychromasia 1+ Hypochromic-Microcytic 1+ Poikilocytosis 2+ Basophilic Stippling SLIGHT Anisocytosis 1+ Microcytic Cells 1+ Ovalocytes 1+ Wendy Cells FEW Elliptocytes FEW PUBS MCHC (33.0 - 37.0 G/DL) 32.7 L Other Body Source Fld Total RBCs Counted (%) 100 02/20 02/20 02/20 02/20 02/20 2230 2206 2206 2205 1920 Blood Gas Bicarbonate Actual (22 - 26 MEQ/L) 20 L Mixed VBG pH (7.31 - 7.41 PH) 7.42 H Mixed VBG pCO2 (41 - 51 TORR) 31 L Mixed VBG O2 Saturation (35 - 45 TORR) 21 L Carboxyhemoglobin (1.5 - 5.0 %) 0.1 L O2 Concentration % RA Temperature (97.0 - 100.0 FARH) 98.6 Chemistry Lactic Acid (0.7 - 2.1 mmol/L) 2.2 H 2.3 H Phosphorus (2.5 - 4.5 mg/dL) 3.2 Magnesium (1.6 - 2.3 mg/dL) 1.5 L Troponin I (<0.11 ng/ml) 3.89 *H Urines Ur Random Creatinine (mg/dL) 143.8 Ur Random Sodium (30 - 90 mmol/L) 13 L Ur Random Potassium (mmol/L) 41.9 Fraction Sodium Excret (<1% %) 0.1 02/20 02/20 02/20 02/20 1644 1611 1321 1225 Blood Gas pH (7.35 - 7.45 PH) 7.49 H pCO2 (35 - 45 TORR) 23 L pO2 (80 - 100 TORR) 74 L HCO3 (21 - 28 MEQ/L) 17 L ABG O2 Sat (Measured) (>96.0 %) 93.0 L P-50 (Temp Corrected) N Carboxyhemoglobin (1.5 - 5.0 %) 1.8 O2 Concentration % .21 O2 Delivery Method RA Chemistry Lactic Acid (0.7 - 2.1 mmol/L) Cancelled 2.5 H 3.3 H Miscellaneous Phlebotomy Draw Site RIGHT RADIAL 02/20 02/20 1106 1011 Chemistry Sodium (137 - 145 mmol/L) 142 Potassium (3.5 - 5.1 mmol/L) 4.1 Chloride (98 - 107 mmol/L) 102 Carbon Dioxide (22 - 30 mmol/L) 18 L Anion Gap (5 - 16) 22 H BUN (9 - 20 mg/dL) 38 H Creatinine (0.7 - 1.2 mg/dL) 1.7 H Estimated GFR (>60 ml/min) 39 L BUN/Creatinine Ratio (7 - 25 %) 22.4 Glucose (65 - 99 mg/dL) 220 H Lactic Acid (0.7 - 2.1 mmol/L) 7.0 H Calcium (8.4 - 10.2 mg/dL) 9.2 Total Bilirubin (0.2 - 1.3 mg/dL) 0.6 AST (17 - 59 U/L) 23 ALT (21 - 72 U/L) 33 Alkaline Phosphatase (< 127 U/L) 82 Troponin I (<0.11 ng/ml) 0.10 Total Protein (6.3 - 8.2 g/dL) 6.6 Albumin (3.5 - 5.0 g/dL) 3.7 Globulin (1.9 - 4.2 gm/dL) 2.9 Albumin/Globulin Ratio (1.1 - 2.2 %) 1.3 Cortisol AM Sample (4.46 - 22.7 ug/dL) 64.3 H Hematology CBC w Diff NO MAN DIFF REQ WBC (4.8 - 10.8 /CUMM) 5.6 RBC (4.70 - 6.10 /CUMM) 3.57 L Hgb (14.0 - 18.0 G/DL) 9.1 L Hct (42 - 52 %) 27.6 L MCV (80.0 - 94.0 FL) 77.4 L MCH (27.0 - 31.0 PG) 25.5 L RDW (11.5 - 14.5 %) 17.6 H Plt Count (130 - 400 /CUMM) 228 MPV (7.4 - 10.4 FL) 10.1 Gran % (42.2 - 75.2 %) 94.1 H Lymphocytes % (20.5 - 51.1 %) 5.2 L Monocytes % (1.7 - 9.3 %) 0.1 L Eosinophils % (0 - 5 %) 0.5 Basophils % (0.0 - 2.0 %) 0.1 Absolute Granulocytes (1.4 - 6.5 /CUMM) 5.2 Absolute Lymphocytes (1.2 - 3.4 /CUMM) 0.3 L Absolute Monocytes (0.10 - 0.60 /CUMM) 0 L Absolute Eosinophils (0.0 - 0.7 /CUMM) 0 Absolute Basophils (0.0 - 0.2 /CUMM) 0 PUBS MCHC (33.0 - 37.0 G/DL) 33.0 Urines Urine Color (YEL,AMB,STR) YEL Urine Clarity (CLEAR) CLDY H Urine pH (5.0 - 8.0) 6.0 Ur Specific [place] (1.001 - 1.035) 1.020 Urine Protein (NEG,<30 MG/DL) 100 H Urine Ketones (NEG) NEG Urine Nitrite (NEG) NEG Urine Bilirubin (NEG) NEG Urine Urobilinogen (0.1 - 1.0 EU/dl) 0.2 Ur Leukocyte Esterase (NEG) LARGE H Ur Microscopic SEDIMENT EXAMINED Urine RBC (0 - 5 /HPF) RARE Urine WBC (0 - 2 /HPF) 50-75 H Urine Bacteria (NEG/NONE) MANY H Urine Hemoglobin (NEG) NEG Urine Glucose (N MG/DL) NEG Imaging/Other Studies: TTE CONCLUSIONS 1. This was a technically difficult study 2. Moderate aortic sclerosis is present with mild to moderate aortic insufficiency. 3. Thickening and calcification of the mitral leaflets is present with moderate annular calcification and minimal mitral insufficiency with mild left atrial enlargement. 4. No significant pericardial fluid was detected on the study. 5. The left ventricular chamber size and systolic function appear normal. There are no obvious resting wall motion abnormalities. 6. Enlargement of the right heart chambers is present. Mild to moderate tricuspid insufficiency is present with mild pulmonic insufficiency and an estimated right ventricular systolic pressure of 50 mmHg. Enlargement of the inferior vena cava is also noted. Chest x-ray EXAM TYPE: RAD - XRY-PORTABLE CHEST XRAY EXAMINATION: XR PORTABLE CHEST CLINICAL INFORMATION: Pulmonary edema. Fever. Nausea vomiting. Bilateral rales. COMPARISON: 02/21/2017 at 12:42 AM and priors TECHNIQUE: Portable AP, 85 degree upright (time stamp 8:47 AM) view of the chest was obtained. FINDINGS: Improved lung volumes. Persistent loss of clarity of the medial left diaphragm could indicate a focal left lower lobe process. Stable heart and mediastinum. Stable vascular prominence without edema. Nonobstructive gas pattern. IMPRESSION: Loss of clarity of the medial left diaphragm could represent a left lower lobe consolidation. Assessment/Plan Assessment/Recommendations Assessment: TENISHA - Likely 2/2 ATN in the setting of sepsis with hypotension overnight. Low FENa suggests some degree of salt avidity (i.e. pre-renal azotemia) for which he is on IVF. That being said, enlarged R heart chambers would suggest against needing too much fluid. He is on some supplemental IVF which seems reasonable in the setting of hypotension last night. Should rule out urinary obstruction. Has some proteinuria on UA which can be quantified although doubt current TENISHA is 2/2 a GN (e.g. infection related GN) given the other obvious insults. Recommendations: -Renal US -Cont IVF as you are -Check UProt, UCr -C3, C4 -Hepatitis B panel Please call [phone] with ?'s
--- NOTE | 2017-02-22 13:11 | PN- Att Addend ---
Attending Addendum Attending Brief Note Yesterday evening and overnight restless, daughter stated that the bedside. Recultured this morning again he looks a little better but tired Temperatures down this morning vital signs are stable no major changes on physical patient will be seen by cardiology by nephrology due to his worsening kidney function and by infectious diseases to assess antibiotic treatment Intake & Output 02/22 1600 02/22 0400 02/21 1600 02/21 0400 02/20 1600 02/20 0400 Intake Total 600 1200 1225 Output Total 50 75 425 Balance 550 1125 800 Intake, IV 532 518 6488 Intake, Oral 100 250 150 Number 8 1 Bowel Movements Output, Urine 50 75 425 Patient 136 lb 136 lb Weight Weight Reported by Patient Measurement Method Current Medications Sig/Bret Start time Last Medication Dose Route Stop Time Status Admin Acetaminophen 325 MG ONCE ONE 02/21 1800 DC PO 02/21 1801 Acetaminophen 650 MG Q4P PRN 02/21 1700 AC 02/21 PO 1713 Ampicillin Sodium/ 1,500 MG Q12 02/21 0030 AC 02/22 Sulbactam Sodium IV 0814 Sodium Chloride 100 ML Ceftazidime 1,000 MG Q24H 02/21 0100 AC 02/22 IV 0018 Dextrose/Water 1,000 ML ONCE ONE 02/21 1345 CAN IV 02/21 2344 Heparin Sodium 5,000 UNIT Q8 02/21 1400 AC 02/22 (Porcine) SC 1209 Insulin Aspart 0 TIDAC 02/21 0800 AC 02/22 SC 1209 Lactated Ringer's 1,000 ML ONCE ONE 02/21 2014 CAN IV 02/21 2114 Metoprolol Tartrate 50 MG BID 02/21 2200 AC 02/22 PO 0813 Metoprolol Tartrate 25 MG ONCE ONE 02/21 1445 DC 02/21 PO 02/21 1446 1446 Ondansetron HCl 4 MG ONCE ONE 02/22 1215 DC PO 02/22 1216 Potassium Chloride 20 MEQ ONCE ONE 02/22 0000 DC 02/22 PO 02/22 0001 0020 Potassium Chloride 10 MEQ Q1H 02/21 2100 DC 02/22 IV 02/21 2201 0015 Potassium Chloride 40 MEQ ONCE ONE 02/21 2100 DC 02/21 PO 02/21 2101 2220 Sodium Chloride 1,000 ML Q13H 02/22 0830 AC 02/22 IV 0830 Sodium Chloride 500 ML BOLUS ONE 02/21 2014 CAN IV 02/21 2114 Sodium Chloride 500 ML BOLUS ONE 02/21 1800 DC 02/21 IV 02/21 1859 1820 Sodium Chloride 1,000 ML .Q10H 02/21 1615 DC 02/21 IV 02/22 2214 1610 Sodium Chloride 1,000 ML BOLUS ONE 02/21 1500 CAN IV 02/21 1659 Laboratory Tests 02/22/17 1104: Troponin I Pending 02/22/17 1104: Lactic Acid Pending 02/22/17 0500: Lactic Acid 4.5 H, Troponin I 6.44 *H 02/22/17 0500: Anion Gap 18 H, Estimated GFR 23 L, BUN/Creatinine Ratio 22.2, CBC w Diff NO MAN DIFF REQ, RBC 2.97 L, MCV 78.3 L, MCH 26.2 L, RDW 17.9 H, MPV 11.4 H, Gran % 95.1 H, Lymphocytes % 3.4 L, Monocytes % 1.4 L, Eosinophils % 0.1, Basophils % 0, Absolute Granulocytes 19.2 H, Absolute Lymphocytes 0.7 L, Absolute Monocytes 0.3, Absolute Eosinophils 0, Absolute Basophils 0, PUBS MCHC 33.5 02/22/17 0200: Lactic Acid 5.0 H 02/21/17 2315: Troponin I 6.66 *H 02/21/17 2315: Lactic Acid 6.0 H 02/21/17 2155: CBC w Diff MAN DIFF ORDERED, RBC 2.77 L, MCV 76.8 L, MCH 25.2 L, RDW 18.0 H, MPV 11.2 H, Gran % 96.4 H, Lymphocytes % 2.0 L, Monocytes % 1.6 L, Eosinophils % 0, Basophils % 0, Absolute Granulocytes 24.2 H, Segmented Neutrophils 84 H, Band Neutrophils 15 H, Absolute Lymphocytes 0.5 L, Monocytes 1 L, Absolute Monocytes 0.4, Absolute Eosinophils 0, Absolute Basophils 0, Platelet Estimate VERIFIED BY SMEAR, Normochromic RBCs VERIFIED, Poikilocytosis 1+, Anisocytosis 1+, Ovalocytes FEW, [place] Cells FEW, Elliptocytes RARE, PUBS MCHC 32.9 L, Fld Total RBCs Counted 100 02/21/17 1850: Lactic Acid 4.5 H 02/21/17 1850: Anion Gap 13, Estimated GFR > 60, BUN/Creatinine Ratio 21.8, CBC w Diff NO MAN DIFF REQ, RBC 1.85 L, MCV 77.9 L, MCH 25.2 L, RDW 18.0 H, MPV 10.7 H, Gran % 96.5 H, Lymphocytes % 1.4 L, Monocytes % 2.1, Eosinophils % 0, Basophils % 0 , Absolute Granulocytes 18.5 H, Absolute Lymphocytes 0.3 L, Absolute Monocytes 0.4, Absolute Eosinophils 0, Absolute Basophils 0, PUBS MCHC 32.4 L 02/21/17 1724: Troponin I 6.45 *H 02/21/17 1515: Lactic Acid 4.2 H 02/21/17 1045: Troponin I 4.66 *H 02/21/17 1045: Lactic Acid 2.3 H 02/21/17 0510: Lactic Acid 2.3 H 02/21/17 0510: Anion Gap 19 H, Estimated GFR 30 L, BUN/Creatinine Ratio 21.0, Magnesium 1.5 L, Iron 13 L, TIBC 310, Ferritin 48.9, CBC w Diff MAN DIFF ORDERED, RBC 2.83 L , MCV 77.1 L, MCH 25.2 L, RDW 18.2 H, MPV 11.0 H, Gran % 94.3 H, Lymphocytes % 1.9 L, Monocytes % 3.7, Eosinophils % 0, Basophils % 0.1, Absolute Granulocytes 27.3 H, Segmented Neutrophils 78 H, Band Neutrophils 19 H, Absolute Lymphocytes 0.6 L, Lymphocytes 1 L, Monocytes 2, Absolute Monocytes 1.1 H, Absolute Eosinophils 0, Absolute Basophils 0, Platelet Estimate ADEQUATE, Polychromasia 1+, Hypochromic-Microcytic 1+, Poikilocytosis 2 +, Basophilic Stippling SLIGHT, Anisocytosis 1+, Microcytic Cells 1+, Ovalocytes 1+, [place] Cells FEW, Elliptocytes FEW, PUBS MCHC 32.7 L, Fld Total RBCs Counted 100 02/21/17 0345: Troponin I 3.74 *H 02/21/17 0210: Lactic Acid 2.9 H 02/20/17 2230: Ur Random Creatinine 143.8, Ur Random Sodium 13 L, Ur Random Potassium 41.9, Fraction Sodium Excret 0.1 02/20/17 2206: Phosphorus 3.2, Magnesium 1.5 L, Troponin I 3.89 *H 02/20/176: Lactic Acid 2.2 H 02/20/17 2205: Bicarbonate Actual 20 L, Mixed VBG pH 7.42 H, Mixed VBG pCO2 31 L, Mixed VBG O2 Saturation 21 L, Carboxyhemoglobin 0.1 L, O2 Concentration % RA, Temperature 98.6 02/20/17 1920: Lactic Acid 2.3 H 02/20/17 1644: Lactic Acid Cancelled 02/20/17 1611: Lactic Acid 2.5 H 02/20/17 1321: Lactic Acid 3.3 H 02/20/17 1225: pH 7.49 H, pCO2 23 L, pO2 74 L, HCO3 17 L, ABG O2 Sat (Measured) 93.0 L, P- 50 (Temp Corrected) N, Carboxyhemoglobin 1.8, O2 Concentration % .21, O2 Delivery Method RA, Phlebotomy Draw Site RIGHT RADIAL 02/20/17 1106: Urine Color YEL, Urine Clarity CLDY H, Urine pH 6.0, Ur Specific [place] 1.020, Urine Protein 100 H, Urine Ketones NEG, Urine Nitrite NEG, Urine Bilirubin NEG, Urine Urobilinogen 0.2, Ur Leukocyte Esterase LARGE H, Ur Microscopic SEDIMENT EXAMINED, Urine RBC RARE, Urine WBC 50-75 H, Urine Bacteria MANY H, Urine Hemoglobin NEG, Urine Glucose NEG 02/20/17 1011: Anion Gap 22 H, Estimated GFR 39 L, BUN/Creatinine Ratio 22.4, Glucose 220 H, Lactic Acid 7.0 H, Calcium 9.2, Total Bilirubin 0.6, AST 23, ALT 33, Alkaline Phosphatase 82, Troponin I 0.10, Total Protein 6.6, Albumin 3.7, Globulin 2.9, Albumin/Globulin Ratio 1.3, Cortisol AM Sample 64.3 H, CBC w Diff NO MAN DIFF REQ, RBC 3.57 L, MCV 77.4 L, MCH 25.5 L, RDW 17.6 H, MPV 10.1, Gran % 94.1 H, Lymphocytes % 5.2 L, Monocytes % 0.1 L, Eosinophils % 0.5, Basophils % 0.1, Absolute Granulocytes 5.2, Absolute Lymphocytes 0.3 L, Absolute Monocytes 0 L, Absolute Eosinophils 0, Absolute Basophils 0, PUBS MCHC 33.0 Microbiology 02/21 2300 URINE ROUT: Urine Culture - RES 02/21 1850 BLOOD: Blood Culture - RES 02/21 1724 BLOOD: Blood Culture - RES 02/21 1653 LOWER RESP: Respiratory Culture - COLB 02/21 1653 LOWER RESP: Gram Stain - COLB 02/21 1515 STOOL: Clostridium difficile Toxin A & B - COMP 02/21 1429 LOWER RESP: Respiratory Culture - COLB 02/21 1429 LOWER RESP: Gram Stain - COLB 02/20 2230 URINE ROUT: Legionella Antigen - COMP 02/20 2230 URINE ROUT: Urine Culture - COMP 02/20 1142 BLOOD: Blood Culture - RES GRAM NEGATIVE RODS 02/20 1130 BLOOD: Blood Culture - RES GRAM NEGATIVE RODS 02/20 1115 NASOPHARYN: Influenza Virus A & B Rapid Smear - COMP Microbiology 02/21 2300 URINE ROUT: Urine Culture - RES 02/21 1850 BLOOD: Blood Culture - RES 02/21 1724 BLOOD: Blood Culture - RES 02/21 1653 LOWER RESP: Respiratory Culture - COLB 02/21 1653 LOWER RESP: Gram Stain - COLB 02/21 1515 STOOL: Clostridium difficile Toxin A & B - COMP 02/21 1429 LOWER RESP: Respiratory Culture - COLB 02/21 1429 LOWER RESP: Gram Stain - COLB 02/20 2230 URINE ROUT: Legionella Antigen - COMP 02/20 2230 URINE ROUT: Urine Culture - COMP 02/20 1142 BLOOD: Blood Culture - RES GRAM NEGATIVE RODS 02/20 1130 BLOOD: Blood Culture - RES GRAM NEGATIVE RODS 02/20 1115 NASOPHARYN: Influenza Virus A & B Rapid Smear - COMP Vital Signs Date Time Temp Pulse Resp B/P B/P Pulse O2 O2 Flow FiO2 Mean Ox Delivery Rate 02/22 0830 Nasal 2.0L Cannula 02/22 0813 112/00 02/22 0407 98 Nasal 2.0L Cannula 02/22 0000 100 Nasal 2.0L Cannula 02/21 2341 98.3 80 18 112/00 100 Nasal Cannula 02/21 2243 98.7 02/21 2228 76 112/6 02/21 2108 80 92/0 02/21 2019 98.4 24 93 Nasal 2.0L Cannula 02/21 2011 76 86/0 02/21 1804 80 112/64 02/21 1713 102.0 02/21 1600 96 Nasal 2.0L Cannula 02/21 145 98.4 110 20 140/70 91 Room Air 02/21 1446 104 128/62
[2017-02-22 15:05] VITALS: BP 104/50
--- NOTE | 2017-02-22 16:23 | ULTRASOUND REPORT ---
EXAMINATION: US RETROPERITONEAL COMPLETE (RENAL) CLINICAL INFORMATION: Decreased urine output. COMPARISON: Noncontrast CT abdomen and pelvis of 09/05/2011, renal ultrasound of 08/05/2011 TECHNIQUE: Real-time imaging of the kidneys and bladder. FINDINGS: RIGHT KIDNEY: 11.3 x 4.9 x 4.9 cm (SAG x AP x TRV). The kidney is normal in size, contour, and echogenicity. Borderline renal cortical thickness measuring up to 1.1 cm. No calculi or focal parenchymal lesions. No hydronephrosis. LEFT KIDNEY: 10.7 x 5.7 x 3.7 cm (SAG x AP x TRV). The kidney is normal in size, contour, and echogenicity. Borderline renal cortical thickness measuring up to 1 cm. No convincing evidence of calculi or focal parenchymal lesions. No hydronephrosis. A punctate hyperechoic focus documented in the cortex of the lower pole of the left kidney is nonspecific. BLADDER: Decompressed; suprapubic catheter in place. IMPRESSION: 1. No evidence of hydronephrosis. No convincing evidence of renal calculi. 2. Borderline renal cortical thickness, likely age appropriate. 3. Normal renal parenchymal echogenicity.
--- NOTE | 2017-02-22 18:16 | Cons- Infect Disease ---
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 On admission he was febrile to 102. Laboratory data revealed a white blood cell count of 6000, BUN/creatinine 38 and 1.7, lactic acid 7.0, with normal liver enzymes, ABG 7.49/23/74 on room air. Urinalysis rare RBCs/50-75 WBCs. Chest x- ray revealed a left retrocardiac density, with mild pulmonary vascular congestion. CT of the head was negative for any acute process. He was initially placed on Ceftriaxone and Azithromycin, given one dose of Ciprofloxacin and then placed on Unasyn and Ceftazidime. On February 21 blood cultures 2 were reported positive for gram-negative rods, with ID pending. He appears to have defervesced and his white blood cell count, which initially increased to 29,000, with 19 bands, is decreasing. His hospital course has been complicated by worsening renal failure, an increased troponin, with a peak of 6.66, and worsening anemia. At present he complains of pain from his left hip to his left thigh, which is a chronic complaint. He also notes a mild cough, with no chest pain or shortness of breath. He reports diarrhea, with guaiac positive foamy semi-formed green stools reported. Allergies/Medications Allergies: Coded Allergies: NO KNOWN ALLERGIES (06/30/15) Home Med List: Glimepiride 2 MG TABLET 1 TAB PO DAILY DM (Reported) Reason to Stop at ADM: INSULIN S/S Hydralazine HCl 25 MG TABLET 1 TAB PO TID HTN (Reported) Hydrochlorothiazide 12.5 MG TABLET 1 TAB PO DAILY HTN (Reported) Lisinopril 40 MG TABLET 1 TAB PO DAILY HTN (Reported) Metformin HCl 1,000 MG TABLET 1 TAB PO BID DM (Reported) Reason to Stop at ADM: INSULIN S/S Metoprolol Tartrate 50 MG TABLET 1 TAB PO BID HTN (Reported) Nifedipine (Nifedipine ER) 60 MG TABLET.ER 1 TAB PO DAILY HTN (Reported) Omeprazole 40 MG CAPSULE.DR 1 CAP PO DAILY AC STOMACH (Reported) Saxagliptin (Onglyza) 5 MG TABLET 1 TAB PO DAILY DM (Reported) Reason to Stop at ADM: INSULIN S/S Past History Travel History Traveled to [place] past 21 day No Medical History 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, macular degeneration Cardiovascular: hypertension Respiratory: NONE Gastrointestinal: GERD Hepatic: NONE Renal: URETHRAL STRICTURES Musculoskeletal: NONE Psychiatric: NONE Endocrine: NIDDM Blood Disorders: NONE Cancer(s): NONE FISHING CAPTAIN/Reproductive: NONE History of MRSA: No History of VRE: No History of CDIFF: No Isolation History: Standard Surgical History Surgical History: s/p suprapubic cystostomy Family History Relations & Conditions If Any: Relation not specified for: *No pertinent family history Psychosocial History Services at Home: Home Health Aide, Nursing, Occupational Therapy, Physical Therapy Primary Language: Slovak Smoking Status: Never Smoked ETOH Use: denies use Illicit Drug Use: denies illicit drug use Functional Ability ADLs Independent: dressing, eating, toileting, bathing. Ambulation: walker IADLs Independent: food prep, telephone. Unknown: shopping, housework, finances, transportation, medication admin. ECHO Results (as available) Date of last Echo 06/28/15 EF% 55 Review of Systems Review of Systems All Other Systems: Reviewed and Negative Exam & Diagnostic Data Last 24 Hrs of Vital Signs/I&O Vital Signs Date Time Temp Pulse Resp B/P B/P Pulse O2 O2 Flow FiO2 Mean Ox Delivery Rate 02/22 1505 97.9 72 20 104/50 98 02/22 1339 Nasal 2.0L Cannula 02/22 0830 Nasal 2.0L Cannula 02/22 0813 112/00 02/22 0407 98 Nasal 2.0L Cannula 02/22 0000 100 Nasal 2.0L Cannula 02/21 2341 98.3 80 18 112/00 100 Nasal Cannula 02/21 2243 98.7 02/21 2228 76 112/6 02/21 2108 80 92/0 02/21 2018 98.4 24 93 Nasal 2.0L Cannula 02/21 2011 76 86/0 Intake & Output 02/22 1600 02/22 0800 01/18 0000 Intake Total 297 731 5156 Output Total 750 50 75 Balance -50 550 1125 Intake, IV 500 500 950 Intake, Oral 200 100 250 Number 8 Bowel Movements Output, Stool 200 Output, Urine 550 50 75 Physical Exam Other Physical Findings: MAXIMUM TEMPERATURE 102. He is weak appearing, mildly lethargic but easily responsive and in no acute distress. Skin reveals no rash. HEENT legally blind. Neck is supple with no adenopathy. Lungs crackles at the left base. Heart regular rhythm with a 1/6 systolic ejection murmur. Abdomen is soft, nontender with positive bowel sounds; suprapubic catheter in place with no inflammation at the site. Back no CVA tenderness. Extremities no cyanosis, clubbing or edema. Neuro left hemiparesis. Last 24 Hours of Lab Results: Laboratory Tests 02/22 02/22 02/22 02/22 1707 1707 1440 1104 Chemistry Sodium Pending Potassium Pending Chloride Pending Carbon Dioxide Pending Anion Gap Pending BUN Pending Creatinine Pending BUN/Creatinine Ratio Pending Lactic Acid (0.7 - 2.1 mmol/L) Pending 5.6 H Troponin I (<0.11 ng/ml) Pending 5.68 *H Immunology Complement C3 Pending Complement C4 Pending Serology Hepatitis A IgM Ab (NONREACTIVE) NONREACTIVE Hep Bs Antigen (NONREACTIVE) NONREACTIVE Hep B Core IgM Ab Conf (NONREACTIVE) NONREACTIVE Hepatitis C Antibody (NONREACTIVE) NONREACTIVE 02/22 02/22 02/22 1104 0500 0500 Chemistry Sodium (137 - 145 mmol/L) 145 Potassium (3.5 - 5.1 mmol/L) 5.7 H Chloride (98 - 107 mmol/L) 113 H Carbon Dioxide (22 - 30 mmol/L) 14 L Anion Gap (5 - 16) 18 H BUN (9 - 20 mg/dL) 60 H Creatinine (0.7 - 1.2 mg/dL) 2.7 H Estimated GFR (>60 ml/min) 23 L BUN/Creatinine Ratio (7 - 25 %) 22.2 Lactic Acid (0.7 - 2.1 mmol/L) 5.3 H 4.5 H Troponin I (<0.11 ng/ml) 6.44 *H Hematology CBC w Diff NO MAN DIFF REQ WBC (4.8 - 10.8 /CUMM) 20.2 H RBC (4.70 - 6.10 /CUMM) 2.97 L Hgb (14.0 - 18.0 G/DL) 7.8 L Hct (42 - 52 %) 23.3 L MCV (80.0 - 94.0 FL) 78.3 L MCH (27.0 - 31.0 PG) 26.2 L RDW (11.5 - 14.5 %) 17.9 H Plt Count (130 - 400 /CUMM) 102 L MPV (7.4 - 10.4 FL) 11.4 H Gran % (42.2 - 75.2 %) 95.1 H Lymphocytes % (20.5 - 51.1 %) 3.4 L Monocytes % (1.7 - 9.3 %) 1.4 L Eosinophils % (0 - 5 %) 0.1 Basophils % (0.0 - 2.0 %) 0 Absolute Granulocytes (1.4 - 6.5 /CUMM) 19.2 H Absolute Lymphocytes (1.2 - 3.4 /CUMM) 0.7 L Absolute Monocytes (0.10 - 0.60 /CUMM) 0.3 Absolute Eosinophils (0.0 - 0.7 /CUMM) 0 Absolute Basophils (0.0 - 0.2 /CUMM) 0 PUBS MCHC (33.0 - 37.0 G/DL) 33.5 02/22 02/21 02/21 0200 2315 2315 Chemistry Lactic Acid (0.7 - 2.1 mmol/L) 5.0 H 6.0 H Troponin I (<0.11 ng/ml) 6.66 *H 02/21 02/21 2155 1850 Chemistry Lactic Acid (0.7 - 2.1 mmol/L) 4.5 H Hematology CBC w Diff MAN DIFF ORDERED WBC (4.8 - 10.8 /CUMM) 25.1 H RBC (4.70 - 6.10 /CUMM) 2.77 L Hgb (14.0 - 18.0 G/DL) 7.0 *L Hct (42 - 52 %) 21.3 L MCV (80.0 - 94.0 FL) 76.8 L MCH (27.0 - 31.0 PG) 25.2 L RDW (11.5 - 14.5 %) 18.0 H Plt Count (130 - 400 /CUMM) 125 L MPV (7.4 - 10.4 FL) 11.2 H Gran % (42.2 - 75.2 %) 96.4 H Lymphocytes % (20.5 - 51.1 %) 2.0 L Monocytes % (1.7 - 9.3 %) 1.6 L Eosinophils % (0 - 5 %) 0 Basophils % (0.0 - 2.0 %) 0 Absolute Granulocytes (1.4 - 6.5 /CUMM) 24.2 H Segmented Neutrophils (42.2 - 75.2 %) 84 H Band Neutrophils (0.0 - 5.0 %) 15 H Absolute Lymphocytes (1.2 - 3.4 /CUMM) 0.5 L Monocytes (1.7 - 9.3 %) 1 L Absolute Monocytes (0.10 - 0.60 /CUMM) 0.4 Absolute Eosinophils (0.0 - 0.7 /CUMM) 0 Absolute Basophils (0.0 - 0.2 /CUMM) 0 Platelet Estimate (ADEQUATE) VERIFIED BY SMEAR Normochromic RBCs VERIFIED Poikilocytosis 1+ Anisocytosis 1+ Ovalocytes FEW [place] Cells FEW Elliptocytes RARE PUBS MCHC (33.0 - 37.0 G/DL) 32.9 L Other Body Source Fld Total RBCs Counted (%) 100 02/21 1850 Chemistry Sodium (137 - 145 mmol/L) 149 H Potassium (3.5 - 5.1 mmol/L) 2.7 *L Chloride (98 - 107 mmol/L) 129 H Carbon Dioxide (22 - 30 mmol/L) 7 *L Anion Gap (5 - 16) 13 BUN (9 - 20 mg/dL) 24 H Creatinine (0.7 - 1.2 mg/dL) 1.1 Estimated GFR (>60 ml/min) > 60 BUN/Creatinine Ratio (7 - 25 %) 21.8 Hematology CBC w Diff NO MAN DIFF REQ WBC (4.8 - 10.8 /CUMM) 19.1 H RBC (4.70 - 6.10 /CUMM) 1.85 L Hgb (14.0 - 18.0 G/DL) 4.7 *L Hct (42 - 52 %) 14.4 *L MCV (80.0 - 94.0 FL) 77.9 L MCH (27.0 - 31.0 PG) 25.2 L RDW (11.5 - 14.5 %) 18.0 H Plt Count (130 - 400 /CUMM) 106 L MPV (7.4 - 10.4 FL) 10.7 H Gran % (42.2 - 75.2 %) 96.5 H Lymphocytes % (20.5 - 51.1 %) 1.4 L Monocytes % (1.7 - 9.3 %) 2.1 Eosinophils % (0 - 5 %) 0 Basophils % (0.0 - 2.0 %) 0 Absolute Granulocytes (1.4 - 6.5 /CUMM) 18.5 H Absolute Lymphocytes (1.2 - 3.4 /CUMM) 0.3 L Absolute Monocytes (0.10 - 0.60 /CUMM) 0.4 Absolute Eosinophils (0.0 - 0.7 /CUMM) 0 Absolute Basophils (0.0 - 0.2 /CUMM) 0 PUBS MCHC (33.0 - 37.0 G/DL) 32.4 L Last 24 Hours of Mak Results: Blood cultures 2 February 20 positive for gram-negative rods Rapid flu swab February 20 negative Urine culture February 20 multiple colony types consistent with contamination Urine Legionella antigen February 20 negative Stool C. difficile February 21 negative Blood cultures 2 February 21 negative Urine culture February 21 negative Diagnostic Data Recent Imaging Findings: Renal ultrasound February 22 no hydronephrosis or renal calculi Chest x-ray February [address] of the head February 20 no acute process Assessment/Plan Assessment/Plan Impression: This is an 81-year-old man with a history of diabetes, hypertension, status post CVA, with a left hemiparesis, urethral strictures, status post suprapubic cystostomy, admitted February 20 with the acute onset of nausea, vomiting and diarrhea, chills and altered mental status, found to be febrile with his white blood cell count initially normal, but with the development of a leukocytosis and bandemia and with blood cultures 2 positive for gram-negative rods. The most likely source of his sepsis is the urinary tract secondary to his suprapubic catheter, but the urine culture was dismissed as a contaminant, and, therefore, it is difficult to confirm the urinary tract as the source. An intra -abdominal process could be considered, particularly as he presented with GI symptoms and he has guaiac positive stools, though his abdominal exam is benign. His hospital course has been complicated by worsening renal failure, likely secondary to sepsis, an increased troponin, felt to be secondary to a type II MA , and worsening anemia, with guaiac positive stools, raising concern for a GI bleed. Blood work obtained at 18:50 on February 21 was different from his other laboratory data and was likely spurious. Suggestion: 1. CT of the abdomen and pelvis (without IV contrast) 2. Consider GI evaluation for his anemia 3. Symptomatic treatment of his chronic left thigh pain 4. Follow-up final blood cultures 5. Discontinue Unasyn 6. Increase Ceftazidime to 1 g IV every 12 hours pending above Consult Acknowledgment - Thank you for your consult request.
--- NOTE | 2017-02-22 22:43 | CT SCAN REPORT ---
EXAMINATION: CT ABDOMEN AND PELVIS WITHOUT CONTRAST CLINICAL INFORMATION: Guaiac positive stool. Sepsis. Fever. Renal failure. COMPARISON: CT scan abdomen pelvis 09/05/2011. Renal ultrasound 02/22/2017 TECHNIQUE: Multidetector volumetric imaging was performed from the superior aspect of the liver through the pubic symphysis. Sagittal and coronal reformatted images were obtained on the technologist's workstation. DLP: 319.96 mGy-cm FINDINGS: LUNG BASES: There are small dependent bilateral pleural effusions. Small dependent atelectasis at lung bases. Vascular wall calcification of the aorta and coronary artery calcifications. LIVER, GALLBLADDER, AND BILIARY TREE: No focal liver lesion. No intrahepatic bile duct dilatation. Right lobe of liver measures 18.5 cm superior inferior. The gallbladder is unremarkable with no evidence of radiopaque gallstones, gallbladder wall thickening, or obvious pericholecystic inflammatory changes. PANCREAS: Unremarkable. SPLEEN: Unremarkable. ADRENAL GLANDS: Unremarkable. KIDNEYS AND URETERS: The kidneys are normal in size, shape, and attenuation. No hydronephrosis, hydroureter, or calculi seen. No perinephric stranding. BLADDER: Suprapubic catheter in the bladder. Bladder is empty. GASTROINTESTINAL TRACT: There are a few scattered diverticula of the colon. No diverticulitis. No acute change of the bowel. No bowel obstruction. No bowel wall thickening or edema. Moderate volume of stool in the colon. No dilated small bowel loops. No bowel wall thickening or edema. The appendix is not seen. No inflammation of mesentery. ABDOMINAL WALL: No significant hernia is appreciated. LYMPH NODES: Normal. VASCULAR: Atherosclerotic vascular wall calcifications of aorta and iliac vessels. No aneurysm. PELVIC VISCERA: Prostate measures 4 cm transverse with coarse calcification centrally. OSSEOUS STRUCTURES: Multilevel degenerative spondylosis of spine with disc height narrowing and endplate spurs and facet joint arthrosis. IMPRESSION: No acute abnormality CT scan abdomen pelvis. Small bilateral pleural effusions and bibasilar atelectasis.
[2017-02-23 06:00] VITALS: BP 132/76
--- NOTE | 2017-02-23 07:05 | PN- Housestaff ---
Subjective Follow-up For: Sepsis of urological origin, acute kidney injury Complaints: no complaints Tele-Events Since Last Visit: Normal sinus rhythm Subjective: Patient was seen and examined by me today. No overnight events. He complains of left hip pain. He appears lethargic. He is alert and oriented 3. He denies chest pain, chest pressure, shortness of breath, abdominal pain, weakness , nausea, vomiting. Review of Systems Constitutional: Reports: no symptoms. Cardiovascular: Reports: no symptoms. Respiratory: Reports: no symptoms. Gastrointestinal: Reports: no symptoms. Genitourinary: Reports: no symptoms. Musculoskeletal: Reports: no symptoms. Objective Last 24 Hrs of Vital Signs/I&O Vital Signs Date Time Temp Pulse Resp B/P B/P Pulse O2 O2 Flow FiO2 Mean Ox Delivery Rate 02/23 1013 72 132/76 02/23 0856 97 Nasal 3.0L Cannula 02/23 0600 97.7 62 24 132/76 90 Nasal 3.0L Cannula 02/22 2314 Nasal 2.0L Cannula 02/22 2213 98.2 72 20 91 Nasal 2.0L Cannula 02/22 2054 76 140/80 02/22 1505 97.9 72 20 104/50 98 02/22 1339 Nasal 2.0L Cannula Intake & Output 02/23 1600 02/23 0800 02/23 0000 Intake Total 850 420 Output Total 150 100 Balance 700 320 Intake, IV 800 300 Intake, Oral 50 120 Number 1 0 Bowel Movements Output, Urine 150 100 Physical Exam General Appearance: Alert, Oriented X3, Cooperative, No Acute Distress HEENT: PERRLA Neck: Supple, No JVD Cardiovascular: Regular Rate, Normal S1, Normal S2 Lungs: Normal Air Movement Abdomen: Soft, No Tenderness, No Hepatospenomegaly Neurological: Normal Speech, Strength at 5/5 X4 Ext, Normal Tone, Sensation Intact Extremities: No Edema Current Medications: Current Medications Sig/Bret Start time Last Medication Dose Route Stop Time Status Admin Acetaminophen 650 MG .STK-MED ONE 02/22 1207 DC PO 02/22 1208 Acetaminophen 650 MG Q4P PRN 02/21 1700 AC 02/21 PO 1713 Ampicillin Sodium/ 1,500 MG Q12 02/21 0030 DC 02/22 Sulbactam Sodium IV 0814 Sodium Chloride 100 ML Ceftazidime 1,000 MG Q12 02/22 2200 AC 02/23 IV 1012 Ceftazidime 1,000 MG Q24H 02/21 0100 DC 02/22 IV 0018 Dextrose 25 GM ONCE ONE 02/23 0800 DC 02/23 IV 02/23 0801 0745 Diclofenac Sodium 1 JEFFREY 4 TIMES/DAY PRN 02/22 1800 AC 02/23 TOP 02/23 2300 0857 Heparin Sodium 5,000 UNIT Q8 02/21 1400 AC 02/23 (Porcine) SC 0518 Insulin Aspart 0 TIDAC 02/21 0800 AC 02/22 SC 1712 Lactated Ringer's 1,000 ML .Q10H 02/22 2200 AC 02/22 IV 2346 Loperamide HCl 2 MG Q6P PRN 02/22 2230 PO Metoprolol Tartrate 50 MG BID 02/21 2200 AC 02/23 PO 1013 Ondansetron HCl 4 MG ONCE ONE 02/22 1215 DC PO 02/22 1216 Sodium Chloride 500 ML BOLUS ONE 02/23 0730 DC 02/23 IV 02/23 0829 0817 Sodium Chloride 1,000 ML Q10H 02/22 1400 DC 02/22 IV 2113 Sodium Chloride 1,000 ML Q13H 02/22 0830 DC 02/22 IV 0830 Sodium Polystyrene 60 ML ONCE ONE 02/23 0945 DC 02/23 Sulfonate PO 02/23 0946 1032 Last 24 Hrs of Lab/Mak Results Last 24 Hrs of Labs/Mics: Laboratory Tests 02/23/17 0636: Anion Gap 20 H, Estimated GFR 19 L, BUN/Creatinine Ratio 25.0, CBC w Diff MAN DIFF ORDERED, RBC 3.08 L, MCV 78.2 L, MCH 26.3 L, RDW 18.0 H, MPV 9.5, Gran % 94.2 H, Lymphocytes % 3.9 L, Monocytes % 1.8, Eosinophils % 0, Basophils % 0.1, Absolute Granulocytes 15.1 H, Segmented Neutrophils 87 H, Band Neutrophils 4, Absolute Lymphocytes 0.6 L, Lymphocytes 3 L, Monocytes 6, Absolute Monocytes 0.3, Absolute Eosinophils 0, Absolute Basophils 0, Nucleated RBCs 1 H, Platelet Estimate DECREASED, Hypochromic-Microcytic 1+, Poikilocytosis 1+, Anisocytosis 1+, Microcytic Cells 1+, PUBS MCHC 33.6 02/23/17 0210: Lactic Acid 5.5 H 02/22/17 2015: Lactic Acid 5.4 H 02/22/171999: Lactic Acid Cancelled 02/22/17 185: Lactic Acid Cancelled 02/22/17 185: Lactic Acid Cancelled 02/22/17 1707: Troponin I Cancelled 02/22/17 1707: Anion Gap 21 H, Estimated GFR 19 L, BUN/Creatinine Ratio 21.3, Lactic Acid 6.1 H, Troponin I 4.34 *H 02/22/17 1440: Lactic Acid 5.6 H, Complement C3 Pending, Complement C4 Pending, Hepatitis A IgM Ab NONREACTIVE, Hep Bs Antigen NONREACTIVE, Hep B Core IgM Ab Conf NONREACTIVE, Hepatitis C Antibody NONREACTIVE Microbiology 02/22 1410 STOOL: Clostridium difficile Toxin A & B - COLB Assessment/Plan Assessment: 81-year-old gentleman with past medical history 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 Assessment and plan 1. Sepsis of urological origin hypernatremia/hypomagnesemia/hypokalemia Patient came in with sepsis of urological origin initially was given ceftriaxone and azithromycin in ED and later changed to Unasyn and Ceptazidime. patient blood culture is growing Klebsiella pneumonia which is sensitive to cefazolin, Unasyn. We will change antibiotics per ID. We will follow up with urine culture and sensitivity. Suprapubic catheter was changed January 2017. We will trend lactic acid and follow up with sputum culture, Legionella strep antigen. 2. AK I secondary to dehydration Patient has acute kidney injury secondary to dehydration, being corrected with IV fluids. Patient is on Ringer lactate at 100 mL per hour. Patient's IV fluids couldnt be increased given that patient's past history of flash pulmonary edema. Clinically patient has basal crackles. Patient was given a bolus of 500 mL of normal saline earlier today. We will monitor CBCs and BEP. Patient BUNs 80, creatinine 3.2 which is increased from yesterday. We will continue trending his BUNs/creatinine and continue with IV fluids. Nephrology follow-up appreciated. Patient had a renal ultrasound and CAT scan of the abdomen to rule out any GI bleed and obstructive uropathy. Imaging were negative for GI bleed/obstructive uropathy respectively. 3. Rule out ACS Patient tolerance trended down which is secondary due to demand ischemia. Cardiology follow-up appreciated. 4. Rule out stroke Given the patient recent worsening of mentation and dysarthria CAT scan was done which was negative. 5. Anemia Patient had a drop in hemoglobin and was given 1 unit of blood transfusion yesterday. His repeat hemoglobin is 8.1. We will guaiac all his stools and continue monitoring his CBCs. We will repeat CBCs tomorrow morning. He had a bowel movement today which was guaiac negative. Code-DNR/DNI Diet-regular diet. Plan-continue IV fluids, antibiotics per ID, trend lactic acid, physical therapy. Problem List: 1. TENISHA 2. Anemia 3. Sepsis secondary to UTI Pain Ratin Pain Location: none Pain Goal: Remain pain free Pain Plan: tylenol Tomorrow's Labs & Rationales: cbc,bep
[2017-02-23 08:21] LABS: ABSOLUTE BASOPHIL COUNT 0 /CUMM (0.0-0.2); ABSOLUTE EOSINOPHIL COUNT 0 /CUMM (0.0-0.7); ABSOLUTE GRANULOCYTE CT 15.1 /CUMM (1.4-6.5); ABSOLUTE LYMPH COUNT 0.6 /CUMM (1.2-3.4); ABSOLUTE MONOCYTE COUNT 0.3 /CUMM (0.10-0.60); BASOPHIL % 0.1 % (0.0-2.0); EOSINOPHIL % 0 % (0-5); GRANULOCYTE % 94.2 % (42.2-75.2); HEMATOCRIT 24.1 % (42-52); MEAN CORPUSCULAR HGB 26.3 PG (27.0-31.0); MEAN CORPUSCULAR HGB CONC 33.6 G/DL (33.0-37.0); MEAN CORPUSCULAR VOLUME 78.2 FL (80.0-94.0); MEAN PLATELET VOLUME 9.5 FL (7.4-10.4); RED BLOOD CELL CT 3.08 /CUMM (4.70-6.10)
[2017-02-23 09:03] LABS: PLATELET COUNT 49 /CUMM (130-400)
--- NOTE | 2017-02-23 11:07 | PN- Att Addend ---
Attending Addendum Attending Brief Note Patient weak laying in bed. Daughter at the bedside. Vital signs are stable he has no fever. No major changes on physical white count 16,000. Patient had an ultrasound showed no hydronephrosis. Patient's potassium elevated, needed treatment and one episode of low blood sugar this morning monitoring and encouraging the patient to eat and drink. Will follow recommendations from all the consultants. Intake & Output 02/23 1600 02/23 0400 02/22 1600 02/22 0400 02/21 1600 02/21 0400 Intake Total 909 164 3609 1200 1225 Output Total 150 100 800 75 425 Balance 700 574 099 1284 800 Intake, IV 569 286 9879 950 1075 Intake, Oral 50 120 300 250 150 Number 1 0 8 1 Bowel Movements Output, Stool 200 Output, Urine 150 100 600 75 425 Patient 136 lb Weight Current Medications Sig/Bret Start time Last Medication Dose Route Stop Time Status Admin Acetaminophen 650 MG .STK-MED ONE 02/22 1207 DC PO 02/22 1208 Acetaminophen 650 MG Q4P PRN 02/21 1700 02/21 PO 1713 Ampicillin Sodium/ 1,500 MG Q12 02/21 0030 DC 02/22 Sulbactam Sodium IV 0814 Sodium Chloride 100 ML Ceftazidime 1,000 MG Q12 02/22 2200 02/23 IV 1012 Ceftazidime 1,000 MG Q24H 02/21 0100 DC 02/22 IV 0018 Dextrose 25 GM ONCE ONE 02/23 0800 DC 02/23 IV 02/23 0801 0745 Diclofenac Sodium 1 JEFFREY 4 TIMES/DAY PRN 02/22 1800 AC 02/23 TOP 02/23 2300 0857 Heparin Sodium 5,000 UNIT Q8 02/21 1400 AC 02/23 (Porcine) SC 0518 Insulin Aspart 0 TIDAC 02/21 0800 02/22 SC 1712 Lactated Ringer's 1,000 ML .Q10H 02/22 2200 AC 02/22 IV 2346 Loperamide HCl 2 MG Q6P PRN 02/22 2230 AC PO Metoprolol Tartrate 50 MG BID 02/21 2200 AC 02/23 PO 1013 Ondansetron HCl 4 MG ONCE ONE 02/22 1215 DC PO 02/22 1216 Sodium Chloride 500 ML BOLUS ONE 02/23 0730 DC 02/23 IV 02/23 0829 0817 Sodium Chloride 1,000 ML Q10H 02/22 1400 DC 02/22 IV 2113 Sodium Chloride 1,000 ML Q13H 02/22 0830 DC 02/22 IV 0830 Sodium Polystyrene 60 ML ONCE ONE 02/23 0945 DC 02/23 Sulfonate PO 02/23 0946 1032 Laboratory Tests 02/23/17 0636: Anion Gap 20 H, Estimated GFR 19 L, BUN/Creatinine Ratio 25.0, CBC w Diff MAN DIFF ORDERED, RBC 3.08 L, MCV 78.2 L, MCH 26.3 L, RDW 18.0 H, MPV 9.5, Gran % 94.2 H, Lymphocytes % 3.9 L, Monocytes % 1.8, Eosinophils % 0, Basophils % 0.1, Absolute Granulocytes 15.1 H, Segmented Neutrophils 87 H, Band Neutrophils 4, Absolute Lymphocytes 0.6 L, Lymphocytes 3 L, Monocytes 6, Absolute Monocytes 0.3, Absolute Eosinophils 0, Absolute Basophils 0, Nucleated RBCs 1 H, Platelet Estimate DECREASED, Hypochromic-Microcytic 1+, Poikilocytosis 1+, Anisocytosis 1+, Microcytic Cells 1+, PUBS MCHC 33.6 02/23/17 0210: Lactic Acid 5.5 H 02/22/17 2015: Lactic Acid 5.4 H 02/22/17 2000: Lactic Acid Cancelled 02/22/17 1856: Lactic Acid Cancelled 02/22/17 1854: Lactic Acid Cancelled 02/22/17 1707: Troponin I Cancelled 02/22/17 1707: Anion Gap 21 H, Estimated GFR 19 L, BUN/Creatinine Ratio 21.3, Lactic Acid 6.1 H, Troponin I 4.34 *H 02/22/17 1440: Lactic Acid 5.6 H, Complement C3 Pending, Complement C4 Pending, Hepatitis A IgM Ab NONREACTIVE, Hep Bs Antigen NONREACTIVE, Hep B Core IgM Ab Conf NONREACTIVE, Hepatitis C Antibody NONREACTIVE 02/22/17 1104: Troponin I 5.68 *H 02/22/17 1104: Lactic Acid 5.3 H 02/22/17 0500: Lactic Acid 4.5 H, Troponin I 6.44 *H 02/22/17 0500: Anion Gap 18 H, Estimated GFR 23 L, BUN/Creatinine Ratio 22.2, CBC w Diff NO MAN DIFF REQ, RBC 2.97 L, MCV 78.3 L, MCH 26.2 L, RDW 17.9 H, MPV 11.4 H, Gran % 95.1 H, Lymphocytes % 3.4 L, Monocytes % 1.4 L, Eosinophils % 0.1, Basophils % 0, Absolute Granulocytes 19.2 H, Absolute Lymphocytes 0.7 L, Absolute Monocytes 0.3, Absolute Eosinophils 0, Absolute Basophils 0, PUBS MCHC 33.5 02/22/17 0200: Lactic Acid 5.0 H 02/21/17 2315: Troponin I 6.66 *H 02/21/17 2315: Lactic Acid 6.0 H 02/21/175: CBC w Diff MAN DIFF ORDERED, RBC 2.77 L, MCV 76.8 L, MCH 25.2 L, RDW 18.0 H, MPV 11.2 H, Gran % 96.4 H, Lymphocytes % 2.0 L, Monocytes % 1.6 L, Eosinophils % 0, Basophils % 0, Absolute Granulocytes 24.2 H, Segmented Neutrophils 84 H, Band Neutrophils 15 H, Absolute Lymphocytes 0.5 L, Monocytes 1 L, Absolute Monocytes 0.4, Absolute Eosinophils 0, Absolute Basophils 0, Platelet Estimate VERIFIED BY SMEAR, Normochromic RBCs VERIFIED, Poikilocytosis 1+, Anisocytosis 1+, Ovalocytes FEW, Kersey Cells FEW, Elliptocytes RARE, PUBS MCHC 32.9 L, Fld Total RBCs Counted 100 02/21/171849: Lactic Acid 4.5 H 02/21/17 185: Anion Gap 13, Estimated GFR > 60, BUN/Creatinine Ratio 21.8, CBC w Diff NO MAN DIFF REQ, RBC 1.85 L, MCV 77.9 L, MCH 25.2 L, RDW 18.0 H, MPV 10.7 H, Gran % 96.5 H, Lymphocytes % 1.4 L, Monocytes % 2.1, Eosinophils % 0, Basophils % 0 , Absolute Granulocytes 18.5 H, Absolute Lymphocytes 0.3 L, Absolute Monocytes 0.4, Absolute Eosinophils 0, Absolute Basophils 0, PUBS MCHC 32.4 L 02/21/17 1724: Troponin I 6.45 *H 02/21/17 1515: Lactic Acid 4.2 H 02/21/17 1045: Troponin I 4.66 *H 02/21/17 1045: Lactic Acid 2.3 H 02/21/17 0510: Lactic Acid 2.3 H 02/21/17 0510: Anion Gap 19 H, Estimated GFR 30 L, BUN/Creatinine Ratio 21.0, Magnesium 1.5 L, Iron 13 L, TIBC 310, Ferritin 48.9, CBC w Diff MAN DIFF ORDERED, RBC 2.83 L , MCV 77.1 L, MCH 25.2 L, RDW 18.2 H, MPV 11.0 H, Gran % 94.3 H, Lymphocytes % 1.9 L, Monocytes % 3.7, Eosinophils % 0, Basophils % 0.1, Absolute Granulocytes 27.3 H, Segmented Neutrophils 78 H, Band Neutrophils 19 H, Absolute Lymphocytes 0.6 L, Lymphocytes 1 L, Monocytes 2, Absolute Monocytes 1.1 H, Absolute Eosinophils 0, Absolute Basophils 0, Platelet Estimate ADEQUATE, Polychromasia 1+, Hypochromic-Microcytic 1+, Poikilocytosis 2 +, Basophilic Stippling SLIGHT, Anisocytosis 1+, Microcytic Cells 1+, Ovalocytes 1+, Kersey Cells FEW, Elliptocytes FEW, PUBS MCHC 32.7 L, Fld Total RBCs Counted 100 02/21/17 0345: Troponin I 3.74 *H 02/21/17 0210: Lactic Acid 2.9 H 02/20/17 2230: Ur Random Creatinine 143.8, Ur Random Sodium 13 L, Ur Random Potassium 41.9, Fraction Sodium Excret 0.1 02/20/17 2206: Phosphorus 3.2, Magnesium 1.5 L, Troponin I 3.89 *H 02/20/17 2206: Lactic Acid 2.2 H 02/20/17 2205: Bicarbonate Actual 20 L, Mixed VBG pH 7.42 H, Mixed VBG pCO2 31 L, Mixed VBG O2 Saturation 21 L, Carboxyhemoglobin 0.1 L, O2 Concentration % RA, Temperature 98.6 02/20/17 1920: Lactic Acid 2.3 H 02/20/17 1644: Lactic Acid Cancelled 02/20/17 1611: Lactic Acid 2.5 H 02/20/17 1321: Lactic Acid 3.3 H 02/20/17 1225: pH 7.49 H, pCO2 23 L, pO2 74 L, HCO3 17 L, ABG O2 Sat (Measured) 93.0 L, P- 50 (Temp Corrected) N, Carboxyhemoglobin 1.8, O2 Concentration % .21, O2 Delivery Method RA, Phlebotomy Draw Site RIGHT RADIAL Microbiology 02/22 1410 STOOL: Clostridium difficile Toxin A & B - COLB 02/21 2300 URINE ROUT: Urine Culture - RES 02/21 1850 BLOOD: Blood Culture - RES 02/21 1724 BLOOD: Blood Culture - RES 02/21 1653 LOWER RESP: Respiratory Culture - CAN Cancelled: NO SPUTUM COLLECTED 02/21 165 LOWER RESP: Gram Stain - CAN Cancelled: NO SPUTUM COLLECTED 02/21 1515 STOOL: Clostridium difficile Toxin A & B - COMP 02/21 1429 LOWER RESP: Respiratory Culture - CAN Cancelled: NO SAMPLE COLLECTED 02/21 142 LOWER RESP: Gram Stain - CAN Cancelled: NO SAMPLE COLLECTED 02/20 2229 URINE ROUT: Legionella Antigen - COMP 02/20 223 URINE ROUT: Urine Culture - COMP 02/20 1142 BLOOD: Blood Culture - COMP KLEBSIELLA PNEUMONIAE 02/20 1130 BLOOD: Blood Culture - COMP KLEBSIELLA PNEUMONIAE 02/20 111 NASOPHARYN: Influenza Virus A & B Rapid Smear - COMP Microbiology 02/22 1410 STOOL: Clostridium difficile Toxin A & B - COLB 02/21 2300 URINE ROUT: Urine Culture - RES 02/21 1850 BLOOD: Blood Culture - RES 02/21 1724 BLOOD: Blood Culture - RES 02/21 1653 LOWER RESP: Respiratory Culture - CAN Cancelled: NO SPUTUM COLLECTED 02/21 165 LOWER RESP: Gram Stain - CAN Cancelled: NO SPUTUM COLLECTED 02/21 1515 STOOL: Clostridium difficile Toxin A & B - COMP 02/21 1429 LOWER RESP: Respiratory Culture - CAN Cancelled: NO SAMPLE COLLECTED 02/21 1429 LOWER RESP: Gram Stain - CAN Cancelled: NO SAMPLE COLLECTED 02/20 223 URINE ROUT: Legionella Antigen - COMP 02/20 223 URINE ROUT: Urine Culture - COMP 02/20 1142 BLOOD: Blood Culture - COMP KLEBSIELLA PNEUMONIAE 02/20 1130 BLOOD: Blood Culture - COMP KLEBSIELLA PNEUMONIAE 02/20 1115 NASOPHARYN: Influenza Virus A & B Rapid Smear - COMP Vital Signs Date Time Temp Pulse Resp B/P B/P Pulse O2 O2 Flow FiO2 Mean Ox Delivery Rate 02/23 1013 72 132/76 02/23 0856 97 Nasal 3.0L Cannula 02/23 0600 97.7 62 24 132/76 90 Nasal 3.0L Cannula 02/22 2314 Nasal 2.0L Cannula 02/23 2212 98.2 72 20 91 Nasal 2.0L Cannula 02/224 76 140/80 02/22 1505 97.9 72 20 104/50 98 02/22 1339 Nasal 2.0L Cannula
--- NOTE | 2017-02-23 12:03 | PN- Nephrology ---
Assessment/Plan Assessment: TENISHA - Likely 2/2 ATN in the setting of sepsis with hypotension overnight. Low FENa suggests some degree of salt avidity (i.e. pre-renal azotemia) for which he is on IVF although his enlarged R heart chambers and elevated JVP would suggest against needing too much fluid - I think it'd be reasonable to back off on his supplemental IVF, especially if he is able to take in PO. No evidence of obstruction. Doubt GN. Metabolic acidosis - anion gap - 2/2 lactic acidosis and renal failure. No ketones in urine although sugars are a bit elevated (unlikely to be DKA). Had been getting saline IVF - may benefit from bicarb containing fluid. Hypernatremia - 2/2 decreased free water intake. Should switch IVF to bicarb containing. Suggestion: -Switch to D5W + 75meq sodium bicarb at 50cc/hr -Can add sodium bicarb 1300mg BID in addition to above -f/u C3, C4 Please call [phone] with ?'s Subjective Subjective: Labs notable for SCr up to 3.2, bicarb 11, Na 146, K 5.8, lactate 5.5 UOP up to 700cc Remains on IVF - currently at 100cc/hr Cultures since 02/20 have been negative; WBC down to 16; has remained hemodynamically stable Renal US unremarkable Objective Vital Signs and I&Os Vital Signs Date Time Temp Pulse Resp B/P B/P Pulse O2 O2 Flow FiO2 Mean Ox Delivery Rate 02/23 1013 72 132/76 02/23 0856 97 Nasal 3.0L Cannula 02/23 0600 97.7 62 24 132/76 90 Nasal 3.0L Cannula 02/22 2314 Nasal 2.0L Cannula 02/223 98.2 72 20 91 Nasal 2.0L Cannula 02/22 2054 76 140/80 02/22 1505 97.9 72 20 104/50 98 02/22 1339 Nasal 2.0L Cannula Intake & Output 02/23 1600 02/23 0400 02/22 1600 02/22 0400 02/21 1600 02/21 0400 Intake Total 399 141 4981 1200 1225 Output Total 150 100 800 75 425 Balance 700 965 211 3148 800 Intake, IV 701 952 2957 950 1075 Intake, Oral 50 120 300 250 150 Number 1 0 8 1 Bowel Movements Output, Stool 200 Output, Urine 150 100 600 75 425 Patient 136 lb Weight Physical Exam: Gen - chronically ill appearing HEENT - supple, elevated JVP CV - RRR, no m/r/g Chest - clear anteriorly, mildly dyspneic appearing Abd - soft, NTND Ext - no edema Neuro - alert, oriented Current Medications: Current Medications Sig/Bret Start time Last Medication Dose Route Stop Time Status Admin Acetaminophen 650 MG .STK-MED ONE 02/22 1207 DC PO 02/22 1208 Acetaminophen 650 MG Q4P PRN 02/21 1700 02/21 PO 1713 Ampicillin Sodium/ 1,500 MG Q12 02/21 0030 DC 02/22 Sulbactam Sodium IV 0814 Sodium Chloride 100 ML Ceftazidime 1,000 MG Q12 02/22 2200 AC 02/23 IV 1012 Ceftazidime 1,000 MG Q24H 02/21 0100 DC 02/22 IV 0018 Dextrose 25 GM ONCE ONE 02/23 0800 DC 02/23 IV 02/23 0801 0745 Diclofenac Sodium 1 JEFFREY 4 TIMES/DAY PRN 02/22 1800 AC 02/23 TOP 02/23 2300 0857 Heparin Sodium 5,000 UNIT Q8 02/21 1400 AC 02/23 (Porcine) SC 0518 Insulin Aspart 0 TIDAC 02/21 0800 AC 02/22 SC 1712 Lactated Ringer's 1,000 ML .Q10H 02/22 2200 AC 02/22 IV 2346 Loperamide HCl 2 MG Q6P PRN 02/22 2230 AC PO Metoprolol Tartrate 50 MG BID 02/21 2200 02/23 PO 1013 Ondansetron HCl 4 MG ONCE ONE 02/22 1215 DC PO 02/22 1216 Sodium Chloride 500 ML BOLUS ONE 02/23 0730 DC 02/23 IV 02/23 0829 0817 Sodium Chloride 1,000 ML Q10H 02/22 1400 DC 02/22 IV 2113 Sodium Chloride 1,000 ML Q13H 02/22 0830 DC 02/22 IV 0830 Sodium Polystyrene 60 ML ONCE ONE 02/23 0945 DC 02/23 Sulfonate PO 02/23 0946 1032 Results Pertinent Lab Results: Laboratory Tests 02/23 02/23 02/22 0636 0210 2015 Chemistry Sodium (137 - 145 mmol/L) 146 H Potassium (3.5 - 5.1 mmol/L) 5.8 H Chloride (98 - 107 mmol/L) 115 H Carbon Dioxide (22 - 30 mmol/L) 11 L Anion Gap (5 - 16) 20 H BUN (9 - 20 mg/dL) 80 H Creatinine (0.7 - 1.2 mg/dL) 3.2 H Estimated GFR (>60 ml/min) 19 L BUN/Creatinine Ratio (7 - 25 %) 25.0 Lactic Acid (0.7 - 2.1 mmol/L) 5.5 H 5.4 H Hematology CBC w Diff MAN DIFF ORDERED WBC (4.8 - 10.8 /CUMM) 16.0 H RBC (4.70 - 6.10 /CUMM) 3.08 L Hgb (14.0 - 18.0 G/DL) 8.1 L Hct (42 - 52 %) 24.1 L MCV (80.0 - 94.0 FL) 78.2 L MCH (27.0 - 31.0 PG) 26.3 L RDW (11.5 - 14.5 %) 18.0 H Plt Count (130 - 400 /CUMM) 49 L MPV (7.4 - 10.4 FL) 9.5 Gran % (42.2 - 75.2 %) 94.2 H Lymphocytes % (20.5 - 51.1 %) 3.9 L Monocytes % (1.7 - 9.3 %) 1.8 Eosinophils % (0 - 5 %) 0 Basophils % (0.0 - 2.0 %) 0.1 Absolute Granulocytes (1.4 - 6.5 /CUMM) 15.1 H Segmented Neutrophils (42.2 - 75.2 %) 87 H Band Neutrophils (0.0 - 5.0 %) 4 Absolute Lymphocytes (1.2 - 3.4 /CUMM) 0.6 L Lymphocytes (20.5 - 51.1 %) 3 L Monocytes (1.7 - 9.3 %) 6 Absolute Monocytes (0.10 - 0.60 /CUMM) 0.3 Absolute Eosinophils (0.0 - 0.7 /CUMM) 0 Absolute Basophils (0.0 - 0.2 /CUMM) 0 Nucleated RBCs (0.0 - 0.0 /100WBC) 1 H Platelet Estimate (ADEQUATE) DECREASED Hypochromic-Microcytic 1+ Poikilocytosis 1+ Anisocytosis 1+ Microcytic Cells 1+ PUBS MCHC (33.0 - 37.0 G/DL) 33.6 02/22 1856 1854 1707 Chemistry Lactic Acid Cancelled Cancelled Cancelled Troponin I Cancelled 02/22 1440 1104 1104 Chemistry Sodium (137 - 145 mmol/L) 147 H Potassium (3.5 - 5.1 mmol/L) 5.5 H Chloride (98 - 107 mmol/L) 112 H Carbon Dioxide (22 - 30 mmol/L) 14 L Anion Gap (5 - 16) 21 H BUN (9 - 20 mg/dL) 68 H Creatinine (0.7 - 1.2 mg/dL) 3.2 H Estimated GFR (>60 ml/min) 19 L BUN/Creatinine Ratio (7 - 25 %) 21.3 Lactic Acid (0.7 - 2.1 mmol/L) 6.1 H 5.6 H 5.3 H Troponin I (<0.11 ng/ml) 4.34 *H 5.68 *H Immunology Complement C3 Pending Complement C4 Pending Serology Hepatitis A IgM Ab (NONREACTIVE) NONREACTIVE Hep Bs Antigen (NONREACTIVE) NONREACTIVE Hep B Core IgM Ab Conf (NONREACTIVE) NONREACTIVE Hepatitis C Antibody (NONREACTIVE) NONREACTIVE 02/22 02/22 02/22 0500 0500 0200 Chemistry Sodium (137 - 145 mmol/L) 145 Potassium (3.5 - 5.1 mmol/L) 5.7 H Chloride (98 - 107 mmol/L) 113 H Carbon Dioxide (22 - 30 mmol/L) 14 L Anion Gap (5 - 16) 18 H BUN (9 - 20 mg/dL) 60 H Creatinine (0.7 - 1.2 mg/dL) 2.7 H Estimated GFR (>60 ml/min) 23 L BUN/Creatinine Ratio (7 - 25 %) 22.2 Lactic Acid (0.7 - 2.1 mmol/L) 4.5 H 5.0 H Troponin I (<0.11 ng/ml) 6.44 *H Hematology CBC w Diff NO MAN DIFF REQ WBC (4.8 - 10.8 /CUMM) 20.2 H RBC (4.70 - 6.10 /CUMM) 2.97 L Hgb (14.0 - 18.0 G/DL) 7.8 L Hct (42 - 52 %) 23.3 L MCV (80.0 - 94.0 FL) 78.3 L MCH (27.0 - 31.0 PG) 26.2 L RDW (11.5 - 14.5 %) 17.9 H Plt Count (130 - 400 /CUMM) 102 L MPV (7.4 - 10.4 FL) 11.4 H Gran % (42.2 - 75.2 %) 95.1 H Lymphocytes % (20.5 - 51.1 %) 3.4 L Monocytes % (1.7 - 9.3 %) 1.4 L Eosinophils % (0 - 5 %) 0.1 Basophils % (0.0 - 2.0 %) 0 Absolute Granulocytes (1.4 - 6.5 /CUMM) 19.2 H Absolute Lymphocytes (1.2 - 3.4 /CUMM) 0.7 L Absolute Monocytes (0.10 - 0.60 /CUMM) 0.3 Absolute Eosinophils (0.0 - 0.7 /CUMM) 0 Absolute Basophils (0.0 - 0.2 /CUMM) 0 PUBS MCHC (33.0 - 37.0 G/DL) 33.5 02/21 02/21 02/21 2315 2315 2155 Chemistry Lactic Acid (0.7 - 2.1 mmol/L) 6.0 H Troponin I (<0.11 ng/ml) 6.66 *H Hematology CBC w Diff MAN DIFF ORDERED WBC (4.8 - 10.8 /CUMM) 25.1 H RBC (4.70 - 6.10 /CUMM) 2.77 L Hgb (14.0 - 18.0 G/DL) 7.0 *L Hct (42 - 52 %) 21.3 L MCV (80.0 - 94.0 FL) 76.8 L MCH (27.0 - 31.0 PG) 25.2 L RDW (11.5 - 14.5 %) 18.0 H Plt Count (130 - 400 /CUMM) 125 L MPV (7.4 - 10.4 FL) 11.2 H Gran % (42.2 - 75.2 %) 96.4 H Lymphocytes % (20.5 - 51.1 %) 2.0 L Monocytes % (1.7 - 9.3 %) 1.6 L Eosinophils % (0 - 5 %) 0 Basophils % (0.0 - 2.0 %) 0 Absolute Granulocytes (1.4 - 6.5 /CUMM) 24.2 H Segmented Neutrophils (42.2 - 75.2 %) 84 H Band Neutrophils (0.0 - 5.0 %) 15 H Absolute Lymphocytes (1.2 - 3.4 /CUMM) 0.5 L Monocytes (1.7 - 9.3 %) 1 L Absolute Monocytes (0.10 - 0.60 /CUMM) 0.4 Absolute Eosinophils (0.0 - 0.7 /CUMM) 0 Absolute Basophils (0.0 - 0.2 /CUMM) 0 Platelet Estimate (ADEQUATE) VERIFIED BY SMEAR Normochromic RBCs VERIFIED Poikilocytosis 1+ Anisocytosis 1+ Ovalocytes FEW Niles Cells FEW Elliptocytes RARE PUBS MCHC (33.0 - 37.0 G/DL) 32.9 L Other Body Source Fld Total RBCs Counted (%) 100 02/21 02/21 02/21 1850 1850 1724 Chemistry Sodium (137 - 145 mmol/L) 149 H Potassium (3.5 - 5.1 mmol/L) 2.7 *L Chloride (98 - 107 mmol/L) 129 H Carbon Dioxide (22 - 30 mmol/L) 7 *L Anion Gap (5 - 16) 13 BUN (9 - 20 mg/dL) 24 H Creatinine (0.7 - 1.2 mg/dL) 1.1 Estimated GFR (>60 ml/min) > 60 BUN/Creatinine Ratio (7 - 25 %) 21.8 Lactic Acid (0.7 - 2.1 mmol/L) 4.5 H Troponin I (<0.11 ng/ml) 6.45 *H Hematology CBC w Diff NO MAN DIFF REQ WBC (4.8 - 10.8 /CUMM) 19.1 H RBC (4.70 - 6.10 /CUMM) 1.85 L Hgb (14.0 - 18.0 G/DL) 4.7 *L Hct (42 - 52 %) 14.4 *L MCV (80.0 - 94.0 FL) 77.9 L MCH (27.0 - 31.0 PG) 25.2 L RDW (11.5 - 14.5 %) 18.0 H Plt Count (130 - 400 /CUMM) 106 L MPV (7.4 - 10.4 FL) 10.7 H Gran % (42.2 - 75.2 %) 96.5 H Lymphocytes % (20.5 - 51.1 %) 1.4 L Monocytes % (1.7 - 9.3 %) 2.1 Eosinophils % (0 - 5 %) 0 Basophils % (0.0 - 2.0 %) 0 Absolute Granulocytes (1.4 - 6.5 /CUMM) 18.5 H Absolute Lymphocytes (1.2 - 3.4 /CUMM) 0.3 L Absolute Monocytes (0.10 - 0.60 /CUMM) 0.4 Absolute Eosinophils (0.0 - 0.7 /CUMM) 0 Absolute Basophils (0.0 - 0.2 /CUMM) 0 PUBS MCHC (33.0 - 37.0 G/DL) 32.4 L 02/21 02/21 02/21 02/21 1515 1045 1045 0510 Chemistry Lactic Acid (0.7 - 2.1 mmol/L) 4.2 H 2.3 H 2.3 H Troponin I (<0.11 ng/ml) 4.66 *H 02/21 02/21 02/21 0510 0345 0210 Chemistry Sodium (137 - 145 mmol/L) 148 H Potassium (3.5 - 5.1 mmol/L) 3.4 L Chloride (98 - 107 mmol/L) 111 H Carbon Dioxide (22 - 30 mmol/L) 18 L Anion Gap (5 - 16) 19 H BUN (9 - 20 mg/dL) 44 H Creatinine (0.7 - 1.2 mg/dL) 2.1 H Estimated GFR (>60 ml/min) 30 L BUN/Creatinine Ratio (7 - 25 %) 21.0 Lactic Acid (0.7 - 2.1 mmol/L) 2.9 H Magnesium (1.6 - 2.3 mg/dL) 1.5 L Iron (49 - 181 ug/dL) 13 L TIBC (261 - 462 ug/dL) 310 Ferritin (17.9 - 464 ng/mL) 48.9 Troponin I (<0.11 ng/ml) 3.74 *H Hematology CBC w Diff MAN DIFF ORDERED WBC (4.8 - 10.8 /CUMM) 29.0 H RBC (4.70 - 6.10 /CUMM) 2.83 L Hgb (14.0 - 18.0 G/DL) 7.1 *L Hct (42 - 52 %) 21.8 L MCV (80.0 - 94.0 FL) 77.1 L MCH (27.0 - 31.0 PG) 25.2 L RDW (11.5 - 14.5 %) 18.2 H Plt Count (130 - 400 /CUMM) 182 MPV (7.4 - 10.4 FL) 11.0 H Gran % (42.2 - 75.2 %) 94.3 H Lymphocytes % (20.5 - 51.1 %) 1.9 L Monocytes % (1.7 - 9.3 %) 3.7 Eosinophils % (0 - 5 %) 0 Basophils % (0.0 - 2.0 %) 0.1 Absolute Granulocytes (1.4 - 6.5 /CUMM) 27.3 H Segmented Neutrophils (42.2 - 75.2 %) 78 H Band Neutrophils (0.0 - 5.0 %) 19 H Absolute Lymphocytes (1.2 - 3.4 /CUMM) 0.6 L Lymphocytes (20.5 - 51.1 %) 1 L Monocytes (1.7 - 9.3 %) 2 Absolute Monocytes (0.10 - 0.60 /CUMM) 1.1 H Absolute Eosinophils (0.0 - 0.7 /CUMM) 0 Absolute Basophils (0.0 - 0.2 /CUMM) 0 Platelet Estimate (ADEQUATE) ADEQUATE Polychromasia 1+ Hypochromic-Microcytic 1+ Poikilocytosis 2+ Basophilic Stippling SLIGHT Anisocytosis 1+ Microcytic Cells 1+ Ovalocytes 1+ Niles Cells FEW Elliptocytes FEW PUBS MCHC (33.0 - 37.0 G/DL) 32.7 L Other Body Source Fld Total RBCs Counted (%) 100 02/20 02/20 02/20 02/20 02/20 2230 2206 2206 2205 1920 Blood Gas Bicarbonate Actual (22 - 26 MEQ/L) 20 L Mixed VBG pH (7.31 - 7.41 PH) 7.42 H Mixed VBG pCO2 (41 - 51 TORR) 31 L Mixed VBG O2 Saturation (35 - 45 TORR) 21 L Carboxyhemoglobin (1.5 - 5.0 %) 0.1 L O2 Concentration % RA Temperature (97.0 - 100.0 FARH) 98.6 Chemistry Lactic Acid (0.7 - 2.1 mmol/L) 2.2 H 2.3 H Phosphorus (2.5 - 4.5 mg/dL) 3.2 Magnesium (1.6 - 2.3 mg/dL) 1.5 L Troponin I (<0.11 ng/ml) 3.89 *H Urines Ur Random Creatinine (mg/dL) 143.8 Ur Random Sodium (30 - 90 mmol/L) 13 L Ur Random Potassium (mmol/L) 41.9 Fraction Sodium Excret (<1% %) 0.1 02/20 02/20 02/20 02/20 1644 1611 1321 1225 Blood Gas pH (7.35 - 7.45 PH) 7.49 H pCO2 (35 - 45 TORR) 23 L pO2 (80 - 100 TORR) 74 L HCO3 (21 - 28 MEQ/L) 17 L ABG O2 Sat (Measured) (>96.0 %) 93.0 L P-50 (Temp Corrected) N Carboxyhemoglobin (1.5 - 5.0 %) 1.8 O2 Concentration % .21 O2 Delivery Method RA Chemistry Lactic Acid (0.7 - 2.1 mmol/L) Cancelled 2.5 H 3.3 H Miscellaneous Phlebotomy Draw Site RIGHT RADIAL Imaging/Other Studies: EXAM TYPE: US - US-RENAL/KIDNEY EXAMINATION: US RETROPERITONEAL COMPLETE (RENAL) CLINICAL INFORMATION: Decreased urine output. COMPARISON: Noncontrast CT abdomen and pelvis of 09/05/2011, renal ultrasound of 08/05/2011 TECHNIQUE: Real-time imaging of the kidneys and bladder. FINDINGS: RIGHT KIDNEY: 11.3 x 4.9 x 4.9 cm (SAG x AP x TRV). The kidney is normal in size, contour, and echogenicity. Borderline renal cortical thickness measuring up to 1.1 cm. No calculi or focal parenchymal lesions. No hydronephrosis. LEFT KIDNEY: 10.7 x 5.7 x 3.7 cm (SAG x AP x TRV). The kidney is normal in size, contour, and echogenicity. Borderline renal cortical thickness measuring up to 1 cm. No convincing evidence of calculi or focal parenchymal lesions. No hydronephrosis. A punctate hyperechoic focus documented in the cortex of the lower pole of the left kidney is nonspecific. BLADDER: Decompressed; suprapubic catheter in place. IMPRESSION: 1. No evidence of hydronephrosis. No convincing evidence of renal calculi. 2. Borderline renal cortical thickness, likely age appropriate. 3. Normal renal parenchymal echogenicity. EXAM TYPE: RAD - XRY-PORTABLE CHEST XRAY EXAMINATION: XR PORTABLE CHEST CLINICAL INFORMATION: Pulmonary edema. Fever. Nausea vomiting. Bilateral rales. COMPARISON: 02/21/2017 at 12:42 AM and priors TECHNIQUE: Portable AP, 85 degree upright (time stamp 8:47 AM) view of the chest was obtained. FINDINGS: Improved lung volumes. Persistent loss of clarity of the medial left diaphragm could indicate a focal left lower lobe process. Stable heart and mediastinum. Stable vascular prominence without edema. Nonobstructive gas pattern. IMPRESSION: Loss of clarity of the medial left diaphragm could represent a left lower lobe consolidation. TTE CONCLUSIONS 1. This was a technically difficult study 2. Moderate aortic sclerosis is present with mild to moderate aortic insufficiency. 3. Thickening and calcification of the mitral leaflets is present with moderate annular calcification and minimal mitral insufficiency with mild left atrial enlargement. 4. No significant pericardial fluid was detected on the study. 5. The left ventricular chamber size and systolic function appear normal. There are no obvious resting wall motion abnormalities. 6. Enlargement of the right heart chambers is present. Mild to moderate tricuspid insufficiency is present with mild pulmonic insufficiency and an estimated right ventricular systolic pressure of 50 mmHg. Enlargement of the inferior vena cava is also noted.
--- NOTE | 2017-02-23 12:47 | PN- Cardiology ---
Objective Vital Signs and I&Os Vital Signs Date Time Temp Pulse Resp B/P B/P Pulse O2 O2 Flow FiO2 Mean Ox Delivery Rate 02/23 1013 72 132/76 02/23 0856 97 Nasal 3.0L Cannula 02/23 0800 97 Nasal 3.0L Cannula 02/23 0600 97.7 62 24 132/76 90 Nasal 3.0L Cannula 02/22 2314 Nasal 2.0L Cannula 02/22 2213 98.2 72 20 91 Nasal 2.0L Cannula 02/22 2054 76 140/80 02/22 1505 97.9 72 20 104/50 98 02/22 1339 Nasal 2.0L Cannula Intake & Output 02/23 1600 02/23 0800 02/23 0000 02/22 1600 02/22 0800 02/22 0000 Intake Total 850 420 869 959 7772 Output Total 150 100 750 50 75 Balance 700 320 -50 550 1125 Intake, IV 800 300 500 500 950 Intake, Oral 50 120 200 100 250 Number 1 0 8 Bowel Movements Output, Stool 200 Output, Urine 150 100 550 50 75 Current Medications: Current Medications Sig/Bret Start time Last Medication Dose Route Stop Time Status Admin Acetaminophen 650 MG Q4P PRN 02/21 1700 AC 02/21 PO 1713 Ampicillin Sodium/ 1,500 MG Q12 02/21 0030 DC 02/22 Sulbactam Sodium IV 0814 Sodium Chloride 100 ML Ceftazidime 1,000 MG Q12 02/22 2200 02/23 IV 1012 Ceftazidime 1,000 MG Q24H 02/21 0100 VA 02/22 IV 0018 Dextrose 25 GM ONCE ONE 02/23 0800 VA 02/23 IV 02/23 0801 0745 Diclofenac Sodium 1 JEFFREY 4 TIMES/DAY PRN 02/22 1800 AC 02/23 TOP 02/23 2300 0857 Heparin Sodium 5,000 UNIT Q8 02/21 1400 AC 02/23 (Porcine) SC 0518 Insulin Aspart 0 TIDAC 02/21 0800 02/23 SC 1241 Lactated Ringer's 1,000 ML .Q10H 02/22 2200 02/23 IV 1241 Loperamide HCl 2 MG Q6P PRN 02/22 2230 AC PO Metoprolol Tartrate 50 MG BID 02/21 2200 02/23 PO 1013 Ondansetron HCl 4 MG .STK-MED ONE 02/23 0359 DC PO 02/23 0400 Sodium Chloride 500 ML BOLUS ONE 02/23 0730 DC 02/23 IV 02/23 0829 0817 Sodium Chloride 1,000 ML Q10H 02/22 1400 DC 02/22 IV 2113 Sodium Chloride 1,000 ML Q13H 02/22 0830 DC 02/22 IV 0830 Sodium Polystyrene 60 ML ONCE ONE 02/23 0945 DC 02/23 Sulfonate PO 02/23 0946 1032 Results Last 48 Hrs of Labs/Mics: Laboratory Tests 02/23/17 1140: Lactic Acid 5.8 H 02/23/17 1140: Anion Gap 22 H, Estimated GFR 18 L, BUN/Creatinine Ratio 25.2 H 02/23/17 0636: Anion Gap 20 H, Estimated GFR 19 L, BUN/Creatinine Ratio 25.0, CBC w Diff MAN DIFF ORDERED, RBC 3.08 L, MCV 78.2 L, MCH 26.3 L, RDW 18.0 H, MPV 9.5, Gran % 94.2 H, Lymphocytes % 3.9 L, Monocytes % 1.8, Eosinophils % 0, Basophils % 0.1, Absolute Granulocytes 15.1 H, Segmented Neutrophils 87 H, Band Neutrophils 4, Absolute Lymphocytes 0.6 L, Lymphocytes 3 L, Monocytes 6, Absolute Monocytes 0.3, Absolute Eosinophils 0, Absolute Basophils 0, Nucleated RBCs 1 H, Platelet Estimate DECREASED, Hypochromic-Microcytic 1+, Poikilocytosis 1+, Anisocytosis 1+, Microcytic Cells 1+, PUBS MCHC 33.6 02/23/17 0210: Lactic Acid 5.5 H 02/22/17 2015: Lactic Acid 5.4 H 02/22/17 2000: Lactic Acid Cancelled 02/22/17 1856: Lactic Acid Cancelled 02/22/17 1854: Lactic Acid Cancelled 02/22/17 1707: Troponin I Cancelled 02/22/17 1707: Anion Gap 21 H, Estimated GFR 19 L, BUN/Creatinine Ratio 21.3, Lactic Acid 6.1 H, Troponin I 4.34 *H 02/22/17 1440: Lactic Acid 5.6 H, Complement C3 Pending, Complement C4 Pending, Hepatitis A IgM Ab NONREACTIVE, Hep Bs Antigen NONREACTIVE, Hep B Core IgM Ab Conf NONREACTIVE, Hepatitis C Antibody NONREACTIVE 02/22/17 1104: Troponin I 5.68 *H 02/22/17 1104: Lactic Acid 5.3 H 02/22/17 0500: Lactic Acid 4.5 H, Troponin I 6.44 *H 02/22/17 0500: Anion Gap 18 H, Estimated GFR 23 L, BUN/Creatinine Ratio 22.2, CBC w Diff NO MAN DIFF REQ, RBC 2.97 L, MCV 78.3 L, MCH 26.2 L, RDW 17.9 H, MPV 11.4 H, Gran % 95.1 H, Lymphocytes % 3.4 L, Monocytes % 1.4 L, Eosinophils % 0.1, Basophils % 0, Absolute Granulocytes 19.2 H, Absolute Lymphocytes 0.7 L, Absolute Monocytes 0.3, Absolute Eosinophils 0, Absolute Basophils 0, PUBS MCHC 33.5 02/22/17 0200: Lactic Acid 5.0 H 02/21/17 2315: Troponin I 6.66 *H 02/21/17 2315: Lactic Acid 6.0 H 02/21/17 2155: CBC w Diff MAN DIFF ORDERED, RBC 2.77 L, MCV 76.8 L, MCH 25.2 L, RDW 18.0 H, MPV 11.2 H, Gran % 96.4 H, Lymphocytes % 2.0 L, Monocytes % 1.6 L, Eosinophils % 0, Basophils % 0, Absolute Granulocytes 24.2 H, Segmented Neutrophils 84 H, Band Neutrophils 15 H, Absolute Lymphocytes 0.5 L, Monocytes 1 L, Absolute Monocytes 0.4, Absolute Eosinophils 0, Absolute Basophils 0, Platelet Estimate VERIFIED BY SMEAR, Normochromic RBCs VERIFIED, Poikilocytosis 1+, Anisocytosis 1+, Ovalocytes FEW, Wendy Cells FEW, Elliptocytes RARE, PUBS MCHC 32.9 L, Fld Total RBCs Counted 100 02/21/171849: Lactic Acid 4.5 H 02/21/17 185: Anion Gap 13, Estimated GFR > 60, BUN/Creatinine Ratio 21.8, CBC w Diff NO MAN DIFF REQ, RBC 1.85 L, MCV 77.9 L, MCH 25.2 L, RDW 18.0 H, MPV 10.7 H, Gran % 96.5 H, Lymphocytes % 1.4 L, Monocytes % 2.1, Eosinophils % 0, Basophils % 0 , Absolute Granulocytes 18.5 H, Absolute Lymphocytes 0.3 L, Absolute Monocytes 0.4, Absolute Eosinophils 0, Absolute Basophils 0, PUBS MCHC 32.4 L 02/21/17 1724: Troponin I 6.45 *H 02/21/17 1515: Lactic Acid 4.2 H Microbiology 02/21 2300 URINE ROUT: Urine Culture - COMP 02/21 1515 STOOL: Clostridium difficile Toxin A & B - COMP Assessment/Plan Assessment/Plan Assessment: 1. Elevated troponin consistent with Type 2 DE 2. Abnormal ECG with transient ILBBB 3. Probable urosepsis 4. Acute on chronic renal insufficiency. 5. Anemia Recommendations: - Keep on telemetry - Antibiotics pending culture results - ECG now pleased to rule out interval change - Echocardiogram results noted - troponin peaked at 6.66, now decreasing. ECG remains essentially unchanged. - Further discussios with family and patient about the role of followup cardiac testing when the patient is more stable. - Please note that the patient is >3000 cc positive over the last several days. Please by judiscious with volume. Continue telemetry? Yes
--- NOTE | 2017-02-23 14:21 | PN- Infect Dx ---
Subjective Subjective: Afebrile. He continues to complain of left hip/thigh pain. Objective Last 24 Hrs of Vital Signs/I&O Vital Signs Date Time Temp Pulse Resp B/P B/P Pulse O2 O2 Flow FiO2 Mean Ox Delivery Rate 02/23 1013 72 132/76 02/23 0856 97 Nasal 3.0L Cannula 02/23 0800 97 Nasal 3.0L Cannula 02/23 0600 97.7 62 24 132/76 90 Nasal 3.0L Cannula 02/22 2314 Nasal 2.0L Cannula 02/22 2213 98.2 72 20 91 Nasal 2.0L Cannula 02/22 2054 76 140/80 02/22 1505 97.9 72 20 104/50 98 Intake & Output 02/23 1600 02/23 0800 02/23 0000 Intake Total 850 420 Output Total 150 100 Balance 700 320 Intake, IV 800 300 Intake, Oral 50 120 Number 1 0 Bowel Movements Output, Urine 150 100 Physical Exam Other Physical Findings: He appears comfortable in no acute distress Lungs are clear Heart regular rhythm with a 1/6 systolic ejection murmur Abdomen is soft, nontender with positive bowel sounds Back no CVA tenderness Extremities no cyanosis, clubbing or edema Results Last 24 Hours of Lab Results: Laboratory Tests 02/23 02/23 02/23 1140 1140 0636 Chemistry Sodium (137 - 145 mmol/L) 145 146 H Potassium (3.5 - 5.1 mmol/L) 6.2 *H 5.8 H Chloride (98 - 107 mmol/L) 113 H 115 H Carbon Dioxide (22 - 30 mmol/L) 10 L 11 L Anion Gap (5 - 16) 22 H 20 H BUN (9 - 20 mg/dL) 83 H 80 H Creatinine (0.7 - 1.2 mg/dL) 3.3 H 3.2 H Estimated GFR (>60 ml/min) 18 L 19 L BUN/Creatinine Ratio (7 - 25 %) 25.2 H 25.0 Lactic Acid (0.7 - 2.1 mmol/L) 5.8 H Hematology CBC w Diff MAN DIFF ORDERED WBC (4.8 - 10.8 /CUMM) 16.0 H RBC (4.70 - 6.10 /CUMM) 3.08 L Hgb (14.0 - 18.0 G/DL) 8.1 L Hct (42 - 52 %) 24.1 L MCV (80.0 - 94.0 FL) 78.2 L MCH (27.0 - 31.0 PG) 26.3 L RDW (11.5 - 14.5 %) 18.0 H Plt Count (130 - 400 /CUMM) 49 L MPV (7.4 - 10.4 FL) 9.5 Gran % (42.2 - 75.2 %) 94.2 H Lymphocytes % (20.5 - 51.1 %) 3.9 L Monocytes % (1.7 - 9.3 %) 1.8 Eosinophils % (0 - 5 %) 0 Basophils % (0.0 - 2.0 %) 0.1 Absolute Granulocytes (1.4 - 6.5 /CUMM) 15.1 H Segmented Neutrophils (42.2 - 75.2 %) 87 H Band Neutrophils (0.0 - 5.0 %) 4 Absolute Lymphocytes (1.2 - 3.4 /CUMM) 0.6 L Lymphocytes (20.5 - 51.1 %) 3 L Monocytes (1.7 - 9.3 %) 6 Absolute Monocytes (0.10 - 0.60 /CUMM) 0.3 Absolute Eosinophils (0.0 - 0.7 /CUMM) 0 Absolute Basophils (0.0 - 0.2 /CUMM) 0 Nucleated RBCs (0.0 - 0.0 /100WBC) 1 H Platelet Estimate (ADEQUATE) DECREASED Hypochromic-Microcytic 1+ Poikilocytosis 1+ Anisocytosis 1+ Microcytic Cells 1+ PUBS MCHC (33.0 - 37.0 G/DL) 33.6 02/230 2014 1999 1856 1854 Chemistry Lactic Acid (0.7 - 2.1 mmol/L) 5.5 H 5.4 H Cancelled Cancelled Cancelled 02/22 02/22 02/22 1707 1707 1440 Chemistry Sodium (137 - 145 mmol/L) 147 H Potassium (3.5 - 5.1 mmol/L) 5.5 H Chloride (98 - 107 mmol/L) 112 H Carbon Dioxide (22 - 30 mmol/L) 14 L Anion Gap (5 - 16) 21 H BUN (9 - 20 mg/dL) 68 H Creatinine (0.7 - 1.2 mg/dL) 3.2 H Estimated GFR (>60 ml/min) 19 L BUN/Creatinine Ratio (7 - 25 %) 21.3 Lactic Acid (0.7 - 2.1 mmol/L) 6.1 H 5.6 H Troponin I (<0.11 ng/ml) Cancelled 4.34 *H Immunology Complement C3 Pending Complement C4 Pending Serology Hepatitis A IgM Ab (NONREACTIVE) NONREACTIVE Hep Bs Antigen (NONREACTIVE) NONREACTIVE Hep B Core IgM Ab Conf (NONREACTIVE) NONREACTIVE Hepatitis C Antibody (NONREACTIVE) NONREACTIVE Last 24 Hours of Mak Results: Blood cultures February 20 positive for Klebsiella pneumoniae resistant to Ampicillin Blood cultures February 21 negative Urine culture February 21 negative Recent Imaging Studies: CT of the abdomen and pelvis February 22 reveals no acute abnormality, with small bilateral pleural effusions and bibasilar atelectasis Assessment/Plan Impression: Improved, with temperatures normal and white blood cell count decreasing, on Ceftazidime, Day 4 of treatment for Klebsiella sepsis, most likely of urologic origin, related to his suprapubic catheter, with the recent CT scan of the abdomen and pelvis negative for any intra-abdominal process. He remains anemic and may warrant further evaluation given his guaiac positive stools. His renal failure is worsening, likely secondary to sepsis, and he is being followed by [facility]. Suggestion: 1. Consider GI evaluation for his anemia 2. Symptomatic treatment of his chronic left thigh pain 3. Discontinue Ceftazidime 4. Begin Ceftriaxone 1 g IV every 24 hours
[2017-02-23 15:36] VITALS: BP 138/86
[2017-02-23 23:33] VITALS: BP 160/88
[2017-02-24 07:14] LABS: ABSOLUTE BASOPHIL COUNT 0 /CUMM (0.0-0.2); ABSOLUTE EOSINOPHIL COUNT 0 /CUMM (0.0-0.7); ABSOLUTE GRANULOCYTE CT 13.1 /CUMM (1.4-6.5); ABSOLUTE LYMPH COUNT 0.5 /CUMM (1.2-3.4); ABSOLUTE MONOCYTE COUNT 0.3 /CUMM (0.10-0.60); BASOPHIL % 0.2 % (0.0-2.0); EOSINOPHIL % 0.2 % (0-5); GRANULOCYTE % 93.8 % (42.2-75.2); HEMATOCRIT 24.9 % (42-52); MEAN CORPUSCULAR HGB 25.9 PG (27.0-31.0); MEAN CORPUSCULAR HGB CONC 33.4 G/DL (33.0-37.0); MEAN CORPUSCULAR VOLUME 77.7 FL (80.0-94.0); MEAN PLATELET VOLUME 10.1 FL (7.4-10.4); PLATELET COUNT 50 /CUMM (130-400); RBC DISTRIBUTION WIDTH 17.4 % (11.5-14.5)
--- NOTE | 2017-02-24 13:56 | PN- Att Addend ---
Attending Addendum Attending Brief Note Patient looks a little better today still weak sitting in the chair trying to eat and drink Vital signs are stable and no major changes on physical. His white count today is 14,000 hemoglobin 8.3 hematocrit 24.9 potassium 5.4, BUN 99 reacting and 3.2. To continue present treatment monitor labs Intake & Output 02/24 1600 02/24 0400 02/23 1600 02/23 0400 02/22 1600 02/22 0400 Intake Total 9689 763 0996 420 1300 1200 Output Total 250 200 250 100 800 75 Balance 996 898 6964 904 467 1978 Intake, IV 1000 2000 300 1000 950 Intake, Oral 540 650 120 300 250 Number 2 2 1 0 8 Bowel Movements Output, Stool 200 Output, Urine 250 200 250 100 600 75 Patient 136 lb Weight Current Medications Sig/Bret Start time Last Medication Dose Route Stop Time Status Admin Acetaminophen 650 MG Q4P PRN 02/21 1700 AC 02/21 PO 1713 Ceftazidime 1,000 MG Q12 02/22 2200 DC 02/23 IV 1012 Ceftriaxone Sodium 1,000 MG DAILY 02/23 1501 AC 02/24 IV 0807 Dextrose/Sodium 500 ML Q6H 02/23 2245 DC 02/24 Chloride IV 02/24 0444 0010 Diclofenac Sodium 1 JEFFREY 4 TIMES/DAY PRN 02/22 1800 DC 02/23 TOP 02/23 2300 0857 Heparin Sodium 5,000 UNIT Q8 02/21 1400 AC 02/24 (Porcine) SC 1305 Insulin Aspart 0 TIDAC 02/21 0800 AC 02/24 SC 1300 Lidocaine 1 PAT DAILY 02/23 1445 AC 02/24 EXT 0806 Loperamide HCl 2 MG Q6P PRN 02/22 2230 PO Magnesium Hydroxide 30 ML ONE ONE 02/23 1415 DC 02/23 PO 02/23 1416 1421 Metoprolol Tartrate 50 MG BID 02/21 2200 AC 02/24 PO 0813 Sodium Bicarbonate 75 MEQ Q20H 02/23 1315 AC 02/24 Dextrose/Water 1,000 ML IV 0807 Sodium Bicarbonate 1,300 MG BID 02/23 1315 AC 02/24 PO 0814 Laboratory Tests 02/24/17 0640: Anion Gap 20 H, Estimated GFR 19 L, BUN/Creatinine Ratio 30.9 H, CBC w Diff MAN DIFF ORDERED, RBC 3.20 L, MCV 77.7 L, MCH 25.9 L, RDW 17.4 H, MPV 10.1, Gran % 93.8 H, Lymphocytes % 3.7 L, Monocytes % 2.1, Eosinophils % 0.2, Basophils % 0.2, Absolute Granulocytes 13.1 H, Segmented Neutrophils 94 H, Band Neutrophils 1, Absolute Lymphocytes 0.5 L, Lymphocytes 3 L, Absolute Monocytes 0.3, Absolute Eosinophils 0, Absolute Basophils 0, Metamyelocytes 1, Myelocytes 1 H, Platelet Estimate DECREASED, Hypochromic-Microcytic 1+, Poikilocytosis 1+, Anisocytosis 2+, Microcytic Cells 1+, Ovalocytes FEW, PUBS MCHC 33.4, Fld Total RBCs Counted 100 02/24/17 0118: Lactic Acid 4.8 H 02/23/17 2105: Anion Gap 21 H, Estimated GFR 18 L, BUN/Creatinine Ratio 26.7 H 02/23/17 1856: Lactic Acid 5.0 H 02/23/17 1140: Lactic Acid 5.8 H 02/23/17 1140: Anion Gap 22 H, Estimated GFR 18 L, BUN/Creatinine Ratio 25.2 H 02/23/17 0636: Anion Gap 20 H, Estimated GFR 19 L, BUN/Creatinine Ratio 25.0, CBC w Diff MAN DIFF ORDERED, RBC 3.08 L, MCV 78.2 L, MCH 26.3 L, RDW 18.0 H, MPV 9.5, Gran % 94.2 H, Lymphocytes % 3.9 L, Monocytes % 1.8, Eosinophils % 0, Basophils % 0.1, Absolute Granulocytes 15.1 H, Segmented Neutrophils 87 H, Band Neutrophils 4, Absolute Lymphocytes 0.6 L, Lymphocytes 3 L, Monocytes 6, Absolute Monocytes 0.3, Absolute Eosinophils 0, Absolute Basophils 0, Nucleated RBCs 1 H, Platelet Estimate DECREASED, Hypochromic-Microcytic 1+, Poikilocytosis 1+, Anisocytosis 1+, Microcytic Cells 1+, PUBS MCHC 33.6 02/23/17 0210: Lactic Acid 5.5 H 02/22/17 2015: Lactic Acid 5.4 H 02/22/17 2000: Lactic Acid Cancelled 02/22/17 1856: Lactic Acid Cancelled 02/22/17 1854: Lactic Acid Cancelled 02/22/17 1707: Troponin I Cancelled 02/22/17 1707: Anion Gap 21 H, Estimated GFR 19 L, BUN/Creatinine Ratio 21.3, Lactic Acid 6.1 H, Troponin I 4.34 *H 02/22/17 1440: Lactic Acid 5.6 H, Complement C3 Pending, Complement C4 Pending, Hepatitis A IgM Ab NONREACTIVE, Hep Bs Antigen NONREACTIVE, Hep B Core IgM Ab Conf NONREACTIVE, Hepatitis C Antibody NONREACTIVE 02/22/17 1420: Ur Random Creatinine 148.9, Urine Total Volume 275 L, Urine Creatinine 0.4 L, Ur Total Protein 24 Hr 345.6 H 02/22/17 1104: Troponin I 5.68 *H 02/22/17 1104: Lactic Acid 5.3 H 02/22/17 0500: Lactic Acid 4.5 H, Troponin I 6.44 *H 02/22/17 0500: Anion Gap 18 H, Estimated GFR 23 L, BUN/Creatinine Ratio 22.2, CBC w Diff NO MAN DIFF REQ, RBC 2.97 L, MCV 78.3 L, MCH 26.2 L, RDW 17.9 H, MPV 11.4 H, Gran % 95.1 H, Lymphocytes % 3.4 L, Monocytes % 1.4 L, Eosinophils % 0.1, Basophils % 0, Absolute Granulocytes 19.2 H, Absolute Lymphocytes 0.7 L, Absolute Monocytes 0.3, Absolute Eosinophils 0, Absolute Basophils 0, PUBS MCHC 33.5 02/22/17 0200: Lactic Acid 5.0 H 02/21/17 2315: Troponin I 6.66 *H 02/21/17 2315: Lactic Acid 6.0 H 02/21/17 2155: CBC w Diff MAN DIFF ORDERED, RBC 2.77 L, MCV 76.8 L, MCH 25.2 L, RDW 18.0 H, MPV 11.2 H, Gran % 96.4 H, Lymphocytes % 2.0 L, Monocytes % 1.6 L, Eosinophils % 0, Basophils % 0, Absolute Granulocytes 24.2 H, Segmented Neutrophils 84 H, Band Neutrophils 15 H, Absolute Lymphocytes 0.5 L, Monocytes 1 L, Absolute Monocytes 0.4, Absolute Eosinophils 0, Absolute Basophils 0, Platelet Estimate VERIFIED BY SMEAR, Normochromic RBCs VERIFIED, Poikilocytosis 1+, Anisocytosis 1+, Ovalocytes FEW, Grahn Cells FEW, Elliptocytes RARE, PUBS MCHC 32.9 L, Fld Total RBCs Counted 100 02/21/17 1850: Lactic Acid 4.5 H 02/21/17 1850: Anion Gap 13, Estimated GFR > 60, BUN/Creatinine Ratio 21.8, CBC w Diff NO MAN DIFF REQ, RBC 1.85 L, MCV 77.9 L, MCH 25.2 L, RDW 18.0 H, MPV 10.7 H, Gran % 96.5 H, Lymphocytes % 1.4 L, Monocytes % 2.1, Eosinophils % 0, Basophils % 0 , Absolute Granulocytes 18.5 H, Absolute Lymphocytes 0.3 L, Absolute Monocytes 0.4, Absolute Eosinophils 0, Absolute Basophils 0, PUBS MCHC 32.4 L 02/21/17 1724: Troponin I 6.45 *H 02/21/17 1515: Lactic Acid 4.2 H Microbiology 02/22 1410 STOOL: Clostridium difficile Toxin A & B - CAN Cancelled: NO STOOL COLLECTED FOR MICRO DEPT. 02/21 2300 URINE ROUT: Urine Culture - COMP 02/21 185 BLOOD: Blood Culture - RES 02/21 1724 BLOOD: Blood Culture - RES 02/21 165 LOWER RESP: Respiratory Culture - CAN Cancelled: NO SPUTUM COLLECTED 02/22 1652 LOWER RESP: Gram Stain - CAN Cancelled: NO SPUTUM COLLECTED 02/21 151 STOOL: Clostridium difficile Toxin A & B - COMP 02/21 1429 LOWER RESP: Respiratory Culture - CAN Cancelled: NO SAMPLE COLLECTED 02/21 1429 LOWER RESP: Gram Stain - CAN Cancelled: NO SAMPLE COLLECTED Microbiology 02/22 1410 STOOL: Clostridium difficile Toxin A & B - CAN Cancelled: NO STOOL COLLECTED FOR MICRO DEPT. 02/21 2300 URINE ROUT: Urine Culture - COMP 02/21 1850 BLOOD: Blood Culture - RES 02/21 1724 BLOOD: Blood Culture - RES 02/21 165 LOWER RESP: Respiratory Culture - CAN Cancelled: NO SPUTUM COLLECTED 02/22 1652 LOWER RESP: Gram Stain - CAN Cancelled: NO SPUTUM COLLECTED 02/21 1515 STOOL: Clostridium difficile Toxin A & B - COMP 02/21 1429 LOWER RESP: Respiratory Culture - CAN Cancelled: NO SAMPLE COLLECTED 02/21 1429 LOWER RESP: Gram Stain - CAN Cancelled: NO SAMPLE COLLECTED Vital Signs Date Time Temp Pulse Resp B/P B/P Pulse O2 O2 Flow FiO2 Mean Ox Delivery Rate 02/24 0813 65 160/88 02/23 2333 96.9 65 24 160/88 98 02/23 2243 Nasal 3.0L Cannula 02/23 2054 69 138/86 02/23 1600 95 Nasal 3.0L Cannula 02/23 1536 97.4 69 22 138/86 95 Nasal 3.0L Cannula
--- NOTE | 2017-02-24 17:45 | Cons- Gastroenterology ---
General Information and HPI Consulting Request Date of Consult: 02/24/17 Requested By: Tulio Hernandez MD Reason for Consult: Anemia Source of Information: patient Exam Limitations: clinical condition, poor historian History of Present Illness: No GI symptoms. No previous endoscopic evaluation. Allergies/Medications Allergies: Coded Allergies: NO KNOWN ALLERGIES (06/30/15) Home Med List: Glimepiride 2 MG TABLET 1 TAB PO DAILY DM (Reported) Reason to Stop at ADM: INSULIN S/S Hydralazine HCl 25 MG TABLET 1 TAB PO TID HTN (Reported) Hydrochlorothiazide 12.5 MG TABLET 1 TAB PO DAILY HTN (Reported) Lisinopril 40 MG TABLET 1 TAB PO DAILY HTN (Reported) Metformin HCl 1,000 MG TABLET 1 TAB PO BID DM (Reported) Reason to Stop at ADM: INSULIN S/S Metoprolol Tartrate 50 MG TABLET 1 TAB PO BID HTN (Reported) Nifedipine (Nifedipine ER) 60 MG TABLET.ER 1 TAB PO DAILY HTN (Reported) Omeprazole 40 MG CAPSULE.DR 1 CAP PO DAILY AC STOMACH (Reported) Saxagliptin (Onglyza) 5 MG TABLET 1 TAB PO DAILY DM (Reported) Reason to Stop at ADM: INSULIN S/S Current Medications: Current Medications Sig/Bret Start time Last Medication Dose Route Stop Time Status Admin Acetaminophen 650 MG Q4P PRN 02/21 1700 AC 02/21 PO 1713 Ceftriaxone Sodium 1,000 MG DAILY 02/23 1501 AC 02/24 IV 0807 Dextrose/Sodium 500 ML Q6H 02/23 2245 DC 02/24 Chloride IV 02/24 0444 0010 Diclofenac Sodium 1 JEFFREY 4 TIMES/DAY PRN 02/22 1800 DC 02/23 TOP 02/23 2300 0857 Heparin Sodium 5,000 UNIT Q8 02/21 1400 AC 02/24 (Porcine) SC 1305 Insulin Aspart 0 TIDAC 02/21 0800 AC 02/24 SC 1300 Lidocaine 1 PAT DAILY 02/23 1445 AC 02/24 EXT 0806 Loperamide HCl 2 MG Q6P PRN 02/22 2230 AC PO Metoprolol Tartrate 50 MG BID 02/21 2200 AC 02/24 PO 0813 Sodium Bicarbonate 75 MEQ Q20H 02/23 1315 AC 02/24 Dextrose/Water 1,000 ML IV 0807 Sodium Bicarbonate 1,300 MG BID 02/23 1315 AC 02/24 PO 0814 Past History Travel History Traveled to [place] past 21 day No Medical History 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, macular degeneration Cardiovascular: hypertension Respiratory: NONE Gastrointestinal: GERD Hepatic: NONE Renal: URETHRAL STRICTURES Musculoskeletal: NONE Psychiatric: NONE Endocrine: NIDDM Blood Disorders: NONE Cancer(s): NONE 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 Ambulation: walker IADLs Independent: food prep, telephone. Unknown: shopping, housework, finances, transportation, medication admin. ECHO Results (as available) Date of last Echo 06/28/15 EF% 55 Exam & Diagnostic Data Vital Signs and I&O Vital Signs Date Time Temp Pulse Resp B/P B/P Pulse O2 O2 Flow FiO2 Mean Ox Delivery Rate 02/24 1544 Nasal 2.0L Cannula 02/24 0830 Nasal Cannula 02/24 0813 65 160/88 02/23 2333 96.9 65 24 160/88 98 02/23 2243 Nasal 3.0L Cannula 02/23 2054 69 138/86 Intake & Output 02/24 1600 02/24 0400 02/23 1600 02/23 0400 02/22 1600 02/22 0400 Intake Total 7307 924 5372 420 1300 1200 Output Total 750 200 250 100 800 75 Balance 779 810 2775 085 669 5868 Intake, IV 1400 2000 300 1000 950 Intake, Oral 125 540 650 120 300 250 Number 2 2 1 0 8 Bowel Movements Output, Stool 200 Output, Urine 750 200 250 100 600 75 Patient 136 lb Weight Physical Exam: Abdomen mildly distended, mildly obese, normal bowel sounds; no tenderness, palpable mass or organomegaly. No edema. Left pretibial ulceration. Results Pertinent Lab Results: Laboratory Tests 02/24 02/24 02/23 0640 0118 2105 Chemistry Sodium (137 - 145 mmol/L) 145 147 H Potassium (3.5 - 5.1 mmol/L) 5.4 H 4.8 Chloride (98 - 107 mmol/L) 113 H 112 H Carbon Dioxide (22 - 30 mmol/L) 12 L 14 L Anion Gap (5 - 16) 20 H 21 H BUN (9 - 20 mg/dL) 99 H 88 H Creatinine (0.7 - 1.2 mg/dL) 3.2 H 3.3 H Estimated GFR (>60 ml/min) 19 L 18 L BUN/Creatinine Ratio (7 - 25 %) 30.9 H 26.7 H Lactic Acid (0.7 - 2.1 mmol/L) 4.8 H Hematology CBC w Diff MAN DIFF ORDERED WBC (4.8 - 10.8 /CUMM) 14.0 H RBC (4.70 - 6.10 /CUMM) 3.20 L Hgb (14.0 - 18.0 G/DL) 8.3 L Hct (42 - 52 %) 24.9 L MCV (80.0 - 94.0 FL) 77.7 L MCH (27.0 - 31.0 PG) 25.9 L RDW (11.5 - 14.5 %) 17.4 H Plt Count (130 - 400 /CUMM) 50 L MPV (7.4 - 10.4 FL) 10.1 Gran % (42.2 - 75.2 %) 93.8 H Lymphocytes % (20.5 - 51.1 %) 3.7 L Monocytes % (1.7 - 9.3 %) 2.1 Eosinophils % (0 - 5 %) 0.2 Basophils % (0.0 - 2.0 %) 0.2 Absolute Granulocytes (1.4 - 6.5 /CUMM) 13.1 H Segmented Neutrophils (42.2 - 75.2 %) 94 H Band Neutrophils (0.0 - 5.0 %) 1 Absolute Lymphocytes (1.2 - 3.4 /CUMM) 0.5 L Lymphocytes (20.5 - 51.1 %) 3 L Absolute Monocytes (0.10 - 0.60 /CUMM) 0.3 Absolute Eosinophils (0.0 - 0.7 /CUMM) 0 Absolute Basophils (0.0 - 0.2 /CUMM) 0 Metamyelocytes (0.0 - 1.0 %) 1 Myelocytes (0 - 0 %) 1 H Platelet Estimate (ADEQUATE) DECREASED Hypochromic-Microcytic 1+ Poikilocytosis 1+ Anisocytosis 2+ Microcytic Cells 1+ Ovalocytes FEW PUBS MCHC (33.0 - 37.0 G/DL) 33.4 Other Body Source Fld Total RBCs Counted (%) 100 02/23 02/23 02/23 1856 1140 1140 Chemistry Sodium (137 - 145 mmol/L) 145 Potassium (3.5 - 5.1 mmol/L) 6.2 *H Chloride (98 - 107 mmol/L) 113 H Carbon Dioxide (22 - 30 mmol/L) 10 L Anion Gap (5 - 16) 22 H BUN (9 - 20 mg/dL) 83 H Creatinine (0.7 - 1.2 mg/dL) 3.3 H Estimated GFR (>60 ml/min) 18 L BUN/Creatinine Ratio (7 - 25 %) 25.2 H Lactic Acid (0.7 - 2.1 mmol/L) 5.0 H 5.8 H 02/23 02/23 02/22 0636 0 2014 Chemistry Sodium (137 - 145 mmol/L) 146 H Potassium (3.5 - 5.1 mmol/L) 5.8 H Chloride (98 - 107 mmol/L) 115 H Carbon Dioxide (22 - 30 mmol/L) 11 L Anion Gap (5 - 16) 20 H BUN (9 - 20 mg/dL) 80 H Creatinine (0.7 - 1.2 mg/dL) 3.2 H Estimated GFR (>60 ml/min) 19 L BUN/Creatinine Ratio (7 - 25 %) 25.0 Lactic Acid (0.7 - 2.1 mmol/L) 5.5 H 5.4 H Hematology CBC w Diff MAN DIFF ORDERED WBC (4.8 - 10.8 /CUMM) 16.0 H RBC (4.70 - 6.10 /CUMM) 3.08 L Hgb (14.0 - 18.0 G/DL) 8.1 L Hct (42 - 52 %) 24.1 L MCV (80.0 - 94.0 FL) 78.2 L MCH (27.0 - 31.0 PG) 26.3 L RDW (11.5 - 14.5 %) 18.0 H Plt Count (130 - 400 /CUMM) 49 L MPV (7.4 - 10.4 FL) 9.5 Gran % (42.2 - 75.2 %) 94.2 H Lymphocytes % (20.5 - 51.1 %) 3.9 L Monocytes % (1.7 - 9.3 %) 1.8 Eosinophils % (0 - 5 %) 0 Basophils % (0.0 - 2.0 %) 0.1 Absolute Granulocytes (1.4 - 6.5 /CUMM) 15.1 H Segmented Neutrophils (42.2 - 75.2 %) 87 H Band Neutrophils (0.0 - 5.0 %) 4 Absolute Lymphocytes (1.2 - 3.4 /CUMM) 0.6 L Lymphocytes (20.5 - 51.1 %) 3 L Monocytes (1.7 - 9.3 %) 6 Absolute Monocytes (0.10 - 0.60 /CUMM) 0.3 Absolute Eosinophils (0.0 - 0.7 /CUMM) 0 Absolute Basophils (0.0 - 0.2 /CUMM) 0 Nucleated RBCs (0.0 - 0.0 /100WBC) 1 H Platelet Estimate (ADEQUATE) DECREASED Hypochromic-Microcytic 1+ Poikilocytosis 1+ Anisocytosis 1+ Microcytic Cells 1+ PUBS MCHC (33.0 - 37.0 G/DL) 33.6 02/22 1856 1854 1707 Chemistry Lactic Acid Cancelled Cancelled Cancelled Troponin I Cancelled 02/22 02/22 02/22 1707 1440 1420 Chemistry Sodium (137 - 145 mmol/L) 147 H Potassium (3.5 - 5.1 mmol/L) 5.5 H Chloride (98 - 107 mmol/L) 112 H Carbon Dioxide (22 - 30 mmol/L) 14 L Anion Gap (5 - 16) 21 H BUN (9 - 20 mg/dL) 68 H Creatinine (0.7 - 1.2 mg/dL) 3.2 H Estimated GFR (>60 ml/min) 19 L BUN/Creatinine Ratio (7 - 25 %) 21.3 Lactic Acid (0.7 - 2.1 mmol/L) 6.1 H 5.6 H Troponin I (<0.11 ng/ml) 4.34 *H Immunology Complement C3 Pending Complement C4 Pending Serology Hepatitis A IgM Ab (NONREACTIVE) NONREACTIVE Hep Bs Antigen (NONREACTIVE) NONREACTIVE Hep B Core IgM Ab Conf (NONREACTIVE) NONREACTIVE Hepatitis C Antibody (NONREACTIVE) NONREACTIVE Urines Ur Random Creatinine (mg/dL) 148.9 Urine Total Volume (600 - 1500 ML/24HR) 275 L Urine Creatinine (1.0 - 2.0 g/24HR) 0.4 L Ur Total Protein 24 Hr (42 - 255 mg/24HR) 345.6 H 02/22 02/22 02/22 1104 1104 0500 Chemistry Lactic Acid (0.7 - 2.1 mmol/L) 5.3 H 4.5 H Troponin I (<0.11 ng/ml) 5.68 *H 6.44 *H 02/22 02/22 02/21 0500 0200 2315 Chemistry Sodium (137 - 145 mmol/L) 145 Potassium (3.5 - 5.1 mmol/L) 5.7 H Chloride (98 - 107 mmol/L) 113 H Carbon Dioxide (22 - 30 mmol/L) 14 L Anion Gap (5 - 16) 18 H BUN (9 - 20 mg/dL) 60 H Creatinine (0.7 - 1.2 mg/dL) 2.7 H Estimated GFR (>60 ml/min) 23 L BUN/Creatinine Ratio (7 - 25 %) 22.2 Lactic Acid (0.7 - 2.1 mmol/L) 5.0 H Troponin I (<0.11 ng/ml) 6.66 *H Hematology CBC w Diff NO MAN DIFF REQ WBC (4.8 - 10.8 /CUMM) 20.2 H RBC (4.70 - 6.10 /CUMM) 2.97 L Hgb (14.0 - 18.0 G/DL) 7.8 L Hct (42 - 52 %) 23.3 L MCV (80.0 - 94.0 FL) 78.3 L MCH (27.0 - 31.0 PG) 26.2 L RDW (11.5 - 14.5 %) 17.9 H Plt Count (130 - 400 /CUMM) 102 L MPV (7.4 - 10.4 FL) 11.4 H Gran % (42.2 - 75.2 %) 95.1 H Lymphocytes % (20.5 - 51.1 %) 3.4 L Monocytes % (1.7 - 9.3 %) 1.4 L Eosinophils % (0 - 5 %) 0.1 Basophils % (0.0 - 2.0 %) 0 Absolute Granulocytes (1.4 - 6.5 /CUMM) 19.2 H Absolute Lymphocytes (1.2 - 3.4 /CUMM) 0.7 L Absolute Monocytes (0.10 - 0.60 /CUMM) 0.3 Absolute Eosinophils (0.0 - 0.7 /CUMM) 0 Absolute Basophils (0.0 - 0.2 /CUMM) 0 PUBS MCHC (33.0 - 37.0 G/DL) 33.5 02/21 02/21 02/21 2315 2155 1850 Chemistry Lactic Acid (0.7 - 2.1 mmol/L) 6.0 H 4.5 H Hematology CBC w Diff MAN DIFF ORDERED WBC (4.8 - 10.8 /CUMM) 25.1 H RBC (4.70 - 6.10 /CUMM) 2.77 L Hgb (14.0 - 18.0 G/DL) 7.0 *L Hct (42 - 52 %) 21.3 L MCV (80.0 - 94.0 FL) 76.8 L MCH (27.0 - 31.0 PG) 25.2 L RDW (11.5 - 14.5 %) 18.0 H Plt Count (130 - 400 /CUMM) 125 L MPV (7.4 - 10.4 FL) 11.2 H Gran % (42.2 - 75.2 %) 96.4 H Lymphocytes % (20.5 - 51.1 %) 2.0 L Monocytes % (1.7 - 9.3 %) 1.6 L Eosinophils % (0 - 5 %) 0 Basophils % (0.0 - 2.0 %) 0 Absolute Granulocytes (1.4 - 6.5 /CUMM) 24.2 H Segmented Neutrophils (42.2 - 75.2 %) 84 H Band Neutrophils (0.0 - 5.0 %) 15 H Absolute Lymphocytes (1.2 - 3.4 /CUMM) 0.5 L Monocytes (1.7 - 9.3 %) 1 L Absolute Monocytes (0.10 - 0.60 /CUMM) 0.4 Absolute Eosinophils (0.0 - 0.7 /CUMM) 0 Absolute Basophils (0.0 - 0.2 /CUMM) 0 Platelet Estimate (ADEQUATE) VERIFIED BY SMEAR Normochromic RBCs VERIFIED Poikilocytosis 1+ Anisocytosis 1+ Ovalocytes FEW Wendy Cells FEW Elliptocytes RARE PUBS MCHC (33.0 - 37.0 G/DL) 32.9 L Other Body Source Fld Total RBCs Counted (%) 100 02/21 1850 Chemistry Sodium (137 - 145 mmol/L) 149 H Potassium (3.5 - 5.1 mmol/L) 2.7 *L Chloride (98 - 107 mmol/L) 129 H Carbon Dioxide (22 - 30 mmol/L) 7 *L Anion Gap (5 - 16) 13 BUN (9 - 20 mg/dL) 24 H Creatinine (0.7 - 1.2 mg/dL) 1.1 Estimated GFR (>60 ml/min) > 60 BUN/Creatinine Ratio (7 - 25 %) 21.8 Hematology CBC w Diff NO MAN DIFF REQ WBC (4.8 - 10.8 /CUMM) 19.1 H RBC (4.70 - 6.10 /CUMM) 1.85 L Hgb (14.0 - 18.0 G/DL) 4.7 *L Hct (42 - 52 %) 14.4 *L MCV (80.0 - 94.0 FL) 77.9 L MCH (27.0 - 31.0 PG) 25.2 L RDW (11.5 - 14.5 %) 18.0 H Plt Count (130 - 400 /CUMM) 106 L MPV (7.4 - 10.4 FL) 10.7 H Gran % (42.2 - 75.2 %) 96.5 H Lymphocytes % (20.5 - 51.1 %) 1.4 L Monocytes % (1.7 - 9.3 %) 2.1 Eosinophils % (0 - 5 %) 0 Basophils % (0.0 - 2.0 %) 0 Absolute Granulocytes (1.4 - 6.5 /CUMM) 18.5 H Absolute Lymphocytes (1.2 - 3.4 /CUMM) 0.3 L Absolute Monocytes (0.10 - 0.60 /CUMM) 0.4 Absolute Eosinophils (0.0 - 0.7 /CUMM) 0 Absolute Basophils (0.0 - 0.2 /CUMM) 0 PUBS MCHC (33.0 - 37.0 G/DL) 32.4 L Imaging/Other Studies: CT scan of the abdomen and pelvis: IMPRESSION: No acute abnormality. Small bilateral pleural effusions and bibasilar atelectasis. Assessment/Plan Assessment/Recommendations: Microcytic anemia with guaiac positive stool and iron indices consistent with iron deficiency. The anemia is likely multifactorial. No GI symptoms though the patient is a poor historian. The patient is status post MA. At this time he is not appropriate for endoscopic evaluation. He is not anticoagulated. Will discuss with cardiology and nephrology. Consult Acknowledgment - Thank you for your consult request.
--- NOTE | 2017-02-24 19:46 | PN- Cardiology ---
Subjective Subjective: No complaints. Objective Vital Signs and I&Os Vital Signs Date Time Temp Pulse Resp B/P B/P Pulse O2 O2 Flow FiO2 Mean Ox Delivery Rate 02/24 1544 Nasal 2.0L Cannula 02/24 0830 Nasal Cannula 02/24 0813 65 160/88 02/23 2333 96.9 65 24 160/88 98 02/23 2243 Nasal 3.0L Cannula 02/23 2054 69 138/86 Intake & Output 02/24 1600 02/24 0800 02/24 0000 02/23 1600 02/23 0800 02/23 0000 Intake Total 525 0353 040 5445 850 420 Output Total 500 250 200 100 150 100 Balance 25 292 956 1970 700 320 Intake, IV 400 1000 1200 800 300 Intake, Oral 125 540 600 50 120 Number 2 2 0 1 0 Bowel Movements Output, Urine 500 250 200 100 150 100 Patient 136 lb Weight Physical Exam: Elderly male who appears pale and in no acute distress. Vital signs: See above. Neck: No JVD, no bruits. Lungs: Clear to auscultation bilaterally. Heart: S1, S2 with grade 1/6 systolic ejection murmur. No gallop or rub. Abdomen: Soft, nontender with positive bowel sounds Extremities no cyanosis, clubbing or edema Assessment/Plan Assessment/Plan [id number] w/ hx HTN, HLD, DM, CVA w/ L residual weakness, CKD, urethral stricture s/p suprapubic catheter 2011 who presented 02/20/2017 w/ weakness, nausea, vomiting, diarrhea 2/2 probable urosepsis. * Elevated troponin consistent with Type 2 NV. * Abnormal ECG with transient ILBBB. * Acute on chronic renal insufficiency. * Anemia. Recommendations: * Continue on telemetry. * Follow-up cultures. * No acute ECG changes. * Avoid volume overload. * Further outpatient evaluation planned as per patient/family wishes. * DVT prophylaxis. Continue telemetry? Yes
[2017-02-24 23:09] VITALS: BP 158/86
[2017-02-25 06:00] VITALS: BP 180/78
[2017-02-25 08:27] LABS: ABSOLUTE BASOPHIL COUNT 0 /CUMM (0.0-0.2); ABSOLUTE EOSINOPHIL COUNT 0 /CUMM (0.0-0.7); ABSOLUTE GRANULOCYTE CT 17.2 /CUMM (1.4-6.5); ABSOLUTE LYMPH COUNT 0.7 /CUMM (1.2-3.4); ABSOLUTE MONOCYTE COUNT 0.6 /CUMM (0.10-0.60); BASOPHIL % 0 % (0.0-2.0); EOSINOPHIL % 0.2 % (0-5); GRANULOCYTE % 93.2 % (42.2-75.2); HEMATOCRIT 24.8 % (42-52); MEAN CORPUSCULAR HGB 25.5 PG (27.0-31.0); MEAN CORPUSCULAR VOLUME 77.5 FL (80.0-94.0); MEAN PLATELET VOLUME 11.2 FL (7.4-10.4); PLATELET COUNT 67 /CUMM (130-400); RBC DISTRIBUTION WIDTH 18.4 % (11.5-14.5); WHITE BLOOD CELL COUNT 18.5 /CUMM (4.8-10.8)
--- NOTE | 2017-02-25 10:37 | PN- Infect Dx ---
Subjective Subjective: Afebrile without complaints. He has had several loose stools. Objective Last 24 Hrs of Vital Signs/I&O Vital Signs Date Time Temp Pulse Resp B/P B/P Pulse O2 O2 Flow FiO2 Mean Ox Delivery Rate 02/25 0600 98.8 62 24 180/78 96 02/24 2350 68 156/82 02/24 2309 98.0 69 22 158/86 95 Nasal 2.0L Cannula 02/24 1544 Nasal 2.0L Cannula Intake & Output 02/25 1600 02/25 0800 02/25 0000 Intake Total Output Total 750 Balance -750 Output, Urine 750 Physical Exam Other Physical Findings: He is lethargic but responsive in no acute distress Lungs are clear Heart regular rhythm with no murmur Abdomen is soft, nontender with positive bowel sounds; suprapubic tube in place Extremities no cyanosis, clubbing or edema Results Last 24 Hours of Lab Results: Laboratory Tests 02/25 02/24 02/24 0625 2249 2238 Chemistry Sodium (137 - 145 mmol/L) 146 H Potassium (3.5 - 5.1 mmol/L) 3.9 Chloride (98 - 107 mmol/L) 111 H Carbon Dioxide (22 - 30 mmol/L) 17 L Anion Gap (5 - 16) 19 H BUN (9 - 20 mg/dL) 105 *H Creatinine (0.7 - 1.2 mg/dL) 2.9 H Estimated GFR (>60 ml/min) 21 L BUN/Creatinine Ratio (7 - 25 %) 36.2 H Lactic Acid (0.7 - 2.1 mmol/L) 3.8 H 3.5 H Cancelled Hematology CBC w Diff MAN DIFF ORDERED WBC (4.8 - 10.8 /CUMM) 18.5 H RBC (4.70 - 6.10 /CUMM) 3.20 L Hgb (14.0 - 18.0 G/DL) 8.2 L Hct (42 - 52 %) 24.8 L MCV (80.0 - 94.0 FL) 77.5 L MCH (27.0 - 31.0 PG) 25.5 L RDW (11.5 - 14.5 %) 18.4 H Plt Count (130 - 400 /CUMM) 67 L MPV (7.4 - 10.4 FL) 11.2 H Gran % (42.2 - 75.2 %) 93.2 H Lymphocytes % (20.5 - 51.1 %) 3.5 L Monocytes % (1.7 - 9.3 %) 3.1 Eosinophils % (0 - 5 %) 0.2 Basophils % (0.0 - 2.0 %) 0 Absolute Granulocytes (1.4 - 6.5 /CUMM) 17.2 H Segmented Neutrophils (42.2 - 75.2 %) 87 H Band Neutrophils (0.0 - 5.0 %) 2 Absolute Lymphocytes (1.2 - 3.4 /CUMM) 0.7 L Lymphocytes (20.5 - 51.1 %) 5 L Monocytes (1.7 - 9.3 %) 4 Absolute Monocytes (0.10 - 0.60 /CUMM) 0.6 Absolute Eosinophils (0.0 - 0.7 /CUMM) 0 Basophils (0.0 - 2.0 %) 1 Absolute Basophils (0.0 - 0.2 /CUMM) 0 Metamyelocytes (0.0 - 1.0 %) 1 Platelet Estimate (ADEQUATE) DECREASED Hypochromic-Microcytic 1+ Poikilocytosis 2+ Anisocytosis 1+ Microcytic Cells 1+ PUBS MCHC (33.0 - 37.0 G/DL) 33.0 Last 24 Hours of Mak Results: No new cultures Assessment/Plan Impression: Stable, with temperatures normal, but with his white blood cell count increased, now on Ceftriaxone, Day 6 of treatment for Klebsiella sepsis, presumably of urologic origin, related to his suprapubic catheter, with the recent CT scan of the abdomen and pelvis negative for any intra-abdominal process. He remains anemic, with loose, guaiac positive stools, with GI evaluation noted. The etiology of his increased white count is unclear and will need to rule out nosocomial infections, including C. difficile. His renal failure appears to be improving. Suggestion: 1. Stool for C. difficile 2. Repeat urine culture 3. Repeat chest x-ray 4. Continue Ceftriaxone
[2017-02-25 14:00] VITALS: BP 130/60
--- NOTE | 2017-02-25 15:31 | PN- Att Addend ---
Attending Addendum Attending Brief Note Patient in bed still weak still having some loose bowel movements had one stool was negative for C. difficile, per infectious diseases will repeat also repeat blood work repeated chest x-ray His vital signs are stable and has no fever this morning. No major changes on physical his last white count was 18,500, his lactic acid 3.0 Latest to culture is pending. We'll continue antibiotic therapy as per suggested by infectious diseases. Intake & Output 02/25 1600 02/25 0400 02/24 1600 02/24 0400 02/23 1600 02/23 0400 Intake Total 9451 922 6731 420 Output Total 750 750 200 250 100 Balance -750 187 971 9261 320 Intake, IV 1400 2000 300 Intake, Oral 125 540 650 120 Number 2 2 1 0 Bowel Movements Output, Urine 750 750 200 250 100 Patient 136 lb Weight Current Medications Sig/Bret Start time Last Medication Dose Route Stop Time Status Admin Acetaminophen 650 MG Q4P PRN 02/21 1700 AC 02/21 PO 1713 Ceftriaxone Sodium 1,000 MG DAILY 02/23 1501 AC 02/25 IV 1031 Heparin Sodium 5,000 UNIT Q8 02/21 1400 AC 02/25 (Porcine) SC 0650 Insulin Aspart 0 TIDAC 02/21 0800 AC 02/25 SC 1214 Lidocaine 1 PAT DAILY 02/23 1445 AC 02/25 EXT 1030 Loperamide HCl 2 MG Q6P PRN 02/22 2230 AC PO Metoprolol Tartrate 50 MG BID 02/21 2200 AC 02/25 PO 1031 Sodium Bicarbonate 75 MEQ Q20H 02/23 1315 AC 02/25 Dextrose/Water 1,000 ML IV 1032 Sodium Bicarbonate 1,300 MG BID 02/23 1315 AC 02/25 PO 1031 Laboratory Tests 02/25/17 1120: Lactic Acid 3.0 H 02/25/17 0625: Anion Gap 19 H, Estimated GFR 21 L, BUN/Creatinine Ratio 36.2 H, Lactic Acid 3.8 H, CBC w Diff MAN DIFF ORDERED, RBC 3.20 L, MCV 77.5 L, MCH 25.5 L, RDW 18.4 H, MPV 11.2 H, Gran % 93.2 H, Lymphocytes % 3.5 L, Monocytes % 3.1, Eosinophils % 0.2, Basophils % 0, Absolute Granulocytes 17.2 H, Segmented Neutrophils 87 H, Band Neutrophils 2, Absolute Lymphocytes 0.7 L, Lymphocytes 5 L, Monocytes 4, Absolute Monocytes 0.6, Absolute Eosinophils 0, Basophils 1, Absolute Basophils 0, Metamyelocytes 1, Platelet Estimate DECREASED, Hypochromic -Microcytic 1+, Poikilocytosis 2+, Anisocytosis 1+, Microcytic Cells 1+, PUBS MCHC 33.0 02/24/17 2249: Lactic Acid 3.5 H 02/24/17 2238: Lactic Acid Cancelled 02/24/17 0640: Anion Gap 20 H, Estimated GFR 19 L, BUN/Creatinine Ratio 30.9 H, CBC w Diff MAN DIFF ORDERED, RBC 3.20 L, MCV 77.7 L, MCH 25.9 L, RDW 17.4 H, MPV 10.1, Gran % 93.8 H, Lymphocytes % 3.7 L, Monocytes % 2.1, Eosinophils % 0.2, Basophils % 0.2, Absolute Granulocytes 13.1 H, Segmented Neutrophils 94 H, Band Neutrophils 1, Absolute Lymphocytes 0.5 L, Lymphocytes 3 L, Absolute Monocytes 0.3, Absolute Eosinophils 0, Absolute Basophils 0, Metamyelocytes 1, Myelocytes 1 H, Platelet Estimate DECREASED, Hypochromic-Microcytic 1+, Poikilocytosis 1+, Anisocytosis 2+, Microcytic Cells 1+, Ovalocytes FEW, PUBS MCHC 33.4, Fld Total RBCs Counted 100 02/24/17 0118: Lactic Acid 4.8 H 02/23/17 2105: Anion Gap 21 H, Estimated GFR 18 L, BUN/Creatinine Ratio 26.7 H 02/23/17 1856: Lactic Acid 5.0 H 02/23/17 1140: Lactic Acid 5.8 H 02/23/17 1140: Anion Gap 22 H, Estimated GFR 18 L, BUN/Creatinine Ratio 25.2 H 02/23/17 0636: Anion Gap 20 H, Estimated GFR 19 L, BUN/Creatinine Ratio 25.0, CBC w Diff MAN DIFF ORDERED, RBC 3.08 L, MCV 78.2 L, MCH 26.3 L, RDW 18.0 H, MPV 9.5, Gran % 94.2 H, Lymphocytes % 3.9 L, Monocytes % 1.8, Eosinophils % 0, Basophils % 0.1, Absolute Granulocytes 15.1 H, Segmented Neutrophils 87 H, Band Neutrophils 4, Absolute Lymphocytes 0.6 L, Lymphocytes 3 L, Monocytes 6, Absolute Monocytes 0.3, Absolute Eosinophils 0, Absolute Basophils 0, Nucleated RBCs 1 H, Platelet Estimate DECREASED, Hypochromic-Microcytic 1+, Poikilocytosis 1+, Anisocytosis 1+, Microcytic Cells 1+, PUBS MCHC 33.6 02/23/17 0210: Lactic Acid 5.5 H 02/22/17 2015: Lactic Acid 5.4 H 02/22/17 2000: Lactic Acid Cancelled 02/22/17 185: Lactic Acid Cancelled 02/22/17 1854: Lactic Acid Cancelled 02/22/17 1707: Troponin I Cancelled 02/22/17 1707: Anion Gap 21 H, Estimated GFR 19 L, BUN/Creatinine Ratio 21.3, Lactic Acid 6.1 H, Troponin I 4.34 *H Microbiology 02/25 1454 LOWER RESP: Respiratory Culture - ORD 02/25 1454 LOWER RESP: Gram Stain - ORD 02/25 1454 STOOL: Clostridium difficile Toxin A & B - ORD Microbiology 02/25 1454 LOWER RESP: Respiratory Culture - ORD 02/25 1454 LOWER RESP: Gram Stain - ORD 02/25 1454 STOOL: Clostridium difficile Toxin A & B - ORD Vital Signs Date Time Temp Pulse Resp B/P B/P Pulse O2 O2 Flow FiO2 Mean Ox Delivery Rate 02/25 1031 62 180/78 02/25 0830 Nasal 2.0L Cannula 02/25 0600 98.8 62 24 180/78 96 02/24 2350 68 156/82 02/24 2309 98.0 69 22 158/86 95 Nasal 2.0L Cannula 02/24 1544 Nasal 2.0L Cannula
--- NOTE | 2017-02-25 21:34 | RADIOLOGY REPORT ---
EXAMINATION: XR PORTABLE CHEST CLINICAL INFORMATION: Shortness of breath and pneumonia. COMPARISON: Chest radiograph 02/21/2017. TECHNIQUE: Portable frontal view of the chest was obtained. FINDINGS: Small left pleural effusion which is slightly increased in size. There is retrocardiac opacity with obscuration of the left hemidiaphragm which appears similar to slightly more progressed from prior examination. The lungs are otherwise clear. Cardiomediastinal silhouette and pulmonary vascular are within normal limits. There are sclerotic changes of aorta. No acute osseous findings. IMPRESSION: Slightly enlarged small left pleural effusion with a more dense retrocardiac opacity. This is nonspecific but could represent atelectasis (given the small pleural effusion) and/or infiltrate.
[2017-02-25 23:13] VITALS: BP 150/80
[2017-02-26 06:00] VITALS: BP 152/86
--- NOTE | 2017-02-26 07:17 | PN- Housestaff ---
Subjective Follow-up For: Sepsis of urological origin, acute kidney injury Complaints: left hip pain Tele-Events Since Last Visit: Sinus rhythm heart rate 60 Subjective: Patient was seen and examined by me today at bedside. No overnight events. He complains of left hip pain not responding to"patch". He denies chest pain, chest pressure, nausea, vomiting, abdominal pain, weakness, fever, chills. Review of Systems Constitutional: Reports: no symptoms. Cardiovascular: Reports: no symptoms. Respiratory: Reports: no symptoms. Gastrointestinal: Reports: no symptoms. Genitourinary: Reports: no symptoms. Objective Last 24 Hrs of Vital Signs/I&O Vital Signs Date Time Temp Pulse Resp B/P B/P Pulse O2 O2 Flow FiO2 Mean Ox Delivery Rate 02/26 0843 Nasal 3.0L Cannula 02/26 0818 66 152/86 02/26 0600 98.4 66 18 152/86 99 Nasal 3.0L Cannula 02/26 0000 Nasal 3.0L Cannula 02/25 2313 98.4 79 26 150/80 100 Nasal Cannula 02/25 2235 78 150/80 02/25 1400 98.6 62 20 130/60 94 Nasal Cannula 02/25 1031 62 180/78 Intake & Output 02/26 1600 02/26 0800 02/26 0000 Intake Total 750 Output Total 500 550 Balance 250 -550 Intake, IV 350 Intake, Oral 400 Output, Urine 500 550 Physical Exam General Appearance: Alert, Oriented X3, Cooperative, No Acute Distress Skin: No Rashes HEENT: Atraumatic, PERRLA Neck: Supple, No JVD Cardiovascular: Regular Rate, Normal S1, Normal S2 Lungs: Clear to Auscultation Abdomen: Soft, No Tenderness Neurological: Strength at 5/5 X4 Ext Current Medications: Current Medications Sig/Bret Start time Last Medication Dose Route Stop Time Status Admin Acetaminophen 650 MG Q4P PRN 02/21 1700 AC 02/21 PO 1713 Ceftriaxone Sodium 1,000 MG DAILY 02/23 1501 AC 02/26 IV 0820 Heparin Sodium 5,000 UNIT Q8 02/21 1400 DC 02/25 (Porcine) SC 0650 Insulin Aspart 0 TIDAC 02/21 0800 AC 02/26 SC 0819 Lidocaine 1 PAT DAILY 02/23 1445 AC 02/26 EXT 0819 Loperamide HCl 2 MG Q6P PRN 02/22 2230 AC PO Magnesium Sulfate 1 GM Q2H 02/25 2100 DC Dextrose/Water 100 ML IV 02/26 0059 Metoprolol Tartrate 50 MG BID 02/21 2200 AC 02/26 PO 0818 Potassium Phosphate 15 mMol ONE ONE 02/25 2100 CAN Sodium Chloride 250 ML IV 02/26 0104 Sodium Bicarbonate 75 MEQ Q20H 02/23 1315 AC 02/25 Dextrose/Water 1,000 ML IV 2355 Sodium Bicarbonate 1,300 MG BID 02/23 1315 AC 02/26 PO 0818 Last 24 Hrs of Lab/Mak Results Last 24 Hrs of Labs/Mics: Laboratory Tests 02/26/17 0711: Anion Gap 17 H, Estimated GFR 27 L, BUN/Creatinine Ratio 41.3 H, Lactic Acid Pending, Phosphorus 3.7, Magnesium 2.4 H, CBC w Diff Pending, WBC Pending, RBC Pending, Hgb Pending, Hct Pending, MCV Pending, MCH Pending, RDW Pending, Plt Count Pending, MPV Pending, Gran % Pending, Lymphocytes % Pending, Monocytes % Pending, Eosinophils % Pending, Basophils % Pending, Absolute Granulocytes Pending, Absolute Lymphocytes Pending, Absolute Monocytes Pending, Absolute Eosinophils Pending, Absolute Basophils Pending, PUBS MCHC Pending 02/25/17 2355: Lactic Acid Cancelled 02/25/17 1835: Lactic Acid 3.5 H 02/25/17 1120: Lactic Acid 3.0 H Microbiology 02/26 0758 URINE ROUT: Urine Culture - ORD 02/25 1500 STOOL: Clostridium difficile Toxin A & B - RECD 02/25 1455 LOWER RESP: Respiratory Culture - COLB 02/25 1455 LOWER RESP: Gram Stain - COLB Assessment/Plan Assessment: 81-year-old gentleman with past medical history of 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 Assessment and plan 1. Sepsis of urological origin/anemia. Patient came in with sepsis of urological origin initially was given ceftriaxone and azithromycin in ED and later changed to Unasyn and Ceftazidime. patient blood culture is growing Klebsiella pneumonia. His antibiotics was changed to ceftriaxone. Patient being followed by infectious disease. Suprapubic catheter was changed January 2017. We will trend lactic acid and follow up with sputum culture, urine culture. Patient had loose stools since admission which was guaiac-positive. Patient was evaluated by gastroenterology for consult, consider his anemia secondary due to iron deficiency and recommended no intervention at this point. Patient had leukocytosis over the weekend and a repeat urine culture and chest x-ray was done. Chest x-ray shows slightly enlarged small left pleural effusion without any infiltrate. We'll follow up with 2. AK I secondary to dehydration Patient has acute kidney injury secondary to dehydration, was being corrected with IV fluids. His BUN/creatinine and lactic acid are trending down. We will monitor CBCs and BEP. Nephrology follow-up appreciated. Patient had a renal ultrasound and CAT scan of the abdomen to rule out any GI bleed and obstructive uropathy. Imaging were negative for GI bleed/obstructive uropathy respectively. Today BUN is 95, creatinine 2.3, sodium 146, potassium 3.5. 3. Rule out ACS Patient tolerance trended down which is secondary due to demand ischemia. Cardiology follow-up appreciated. 4. Rule out stroke Given the patient recent worsening of mentation and dysarthria CAT scan was done which was negative. 5. Anemia Patient has anemia likely secondary due to iron deficiency. Patient had 1 unit of blood transfusion this stay. Repeat hemoglobin is 8.1. We will guaiac all his stools and continue monitoring his CBCs. He had a bowel movement today which was guaiac negative. Code-DNR/DNI Diet-regular diet. Plan-continue antibiotics, trend lactic acid, follow-up BEP, physical therapy. Problem List: 1. Sepsis secondary to UTI 2. Anemia 3. TENISHA Pain Ratin Pain Location: left hip pain Pain Goal: Remain pain free Pain Plan: tylenol,lidoderm patch Tomorrow's Labs & Rationales: bep,cbc,lactic acid
[2017-02-26 08:22] LABS: ABSOLUTE BASOPHIL COUNT 0.1 /CUMM (0.0-0.2); ABSOLUTE EOSINOPHIL COUNT 0 /CUMM (0.0-0.7); ABSOLUTE GRANULOCYTE CT 14.8 /CUMM (1.4-6.5); ABSOLUTE LYMPH COUNT 0.7 /CUMM (1.2-3.4); ABSOLUTE MONOCYTE COUNT 0.8 /CUMM (0.10-0.60); BASOPHIL % 0.6 % (0.0-2.0); EOSINOPHIL % 0.2 % (0-5); GRANULOCYTE % 89.8 % (42.2-75.2); HEMATOCRIT 24.1 % (42-52); MEAN CORPUSCULAR HGB 25.7 PG (27.0-31.0); MEAN CORPUSCULAR HGB CONC 33.4 G/DL (33.0-37.0); MEAN CORPUSCULAR VOLUME 77.1 FL (80.0-94.0); PLATELET COUNT 71 /CUMM (130-400); RBC DISTRIBUTION WIDTH 18.4 % (11.5-14.5); RED BLOOD CELL CT 3.13 /CUMM (4.70-6.10); WHITE BLOOD CELL COUNT 16.5 /CUMM (4.8-10.8)
--- NOTE | 2017-02-26 09:51 | PN- Cardiology ---
Subjective Subjective: The patient complains of frequent coughing. No chest pain. No shortness of breath. No palpitations. No diaphoresis. Objective Vital Signs and I&Os Vital Signs Date Time Temp Pulse Resp B/P B/P Pulse O2 O2 Flow FiO2 Mean Ox Delivery Rate 02/26 0843 Nasal 3.0L Cannula 02/26 0818 66 152/86 02/26 0600 98.4 66 18 152/86 99 Nasal 3.0L Cannula 02/26 0000 Nasal 3.0L Cannula 02/25 2313 98.4 79 26 150/80 100 Nasal Cannula 02/25 2235 78 150/80 02/25 1400 98.6 62 20 130/60 94 Nasal Cannula 02/25 1031 62 180/78 Intake & Output 02/26 1600 02/26 0800 02/26 0000 02/25 1600 02/25 0800 02/25 0000 Intake Total 750 600 Output Total 722 642 7323 750 Balance 250 -550 -400 -750 Intake, IV 350 400 Intake, Oral 400 200 Output, Stool 200 Output, Urine 500 550 800 750 Physical Exam: Gen: NAD HEENT: normal Lungs: clear to auscultation, normal resp. effort Heart: RRR, S1, S2, 1/6 systolic murmur Abdomen: Soft, nontender, no masses Extremities: No clubbing, cyanosis, or edema. Neuro: Alert and oriented x 3, cranial nerves intact Current Medications: Current Medications Sig/Bret Start time Last Medication Dose Route Stop Time Status Admin Acetaminophen 650 MG Q4P PRN 02/21 1700 AC 02/21 PO 1713 Ceftriaxone Sodium 1,000 MG DAILY 02/23 1501 AC 02/26 IV 0820 Heparin Sodium 5,000 UNIT Q8 02/21 1400 DC 02/25 (Porcine) SC 0650 Insulin Aspart 0 TIDAC 02/21 0800 AC 02/26 SC 0819 Lidocaine 1 PAT DAILY 02/23 1445 AC 02/26 EXT 0819 Loperamide HCl 2 MG Q6P PRN 02/22 2230 AC PO Magnesium Sulfate 1 GM Q2H 02/25 2100 DC Dextrose/Water 100 ML IV 02/26 0059 Metoprolol Tartrate 50 MG BID 02/21 2200 AC 02/26 PO 0818 Potassium Phosphate 15 mMol ONE ONE 02/25 2100 CAN Sodium Chloride 250 ML IV 02/26 0104 Sodium Bicarbonate 75 MEQ Q20H 02/23 1315 AC 02/25 Dextrose/Water 1,000 ML IV 2355 Sodium Bicarbonate 1,300 MG BID 02/23 1315 AC 02/26 PO 0818 Results Last 48 Hrs of Labs/Mics: Laboratory Tests 02/26/17 0711: Anion Gap 17 H, Estimated GFR 27 L, BUN/Creatinine Ratio 41.3 H, Lactic Acid 2.3 H, Phosphorus 3.7, Magnesium 2.4 H, CBC w Diff MAN DIFF ORDERED, RBC 3.13 L, MCV 77.1 L, MCH 25.7 L, RDW 18.4 H, MPV 10.0, Gran % 89.8 H, Lymphocytes % 4.5 L, Monocytes % 4.9, Eosinophils % 0.2, Basophils % 0.6, Absolute Granulocytes 14.8 H, Segmented Neutrophils 87 H, Band Neutrophils 3, Absolute Lymphocytes 0.7 L, Lymphocytes 2 L, Monocytes 6, Absolute Monocytes 0.8 H, Absolute Eosinophils 0, Absolute Basophils 0.1, Metamyelocytes 2 H, Nucleated RBCs 1 H, Platelet Estimate DECREASED, Polychromasia 1+, Hypochromic-Microcytic 1+, Poikilocytosis 1+, Anisocytosis 1+, Microcytic Cells 1+, Ovalocytes 1+, Wendy Cells 1+, PUBS MCHC 33.4 02/25/17 2355: Lactic Acid Cancelled 02/25/17 1835: Lactic Acid 3.5 H 02/25/17 1120: Lactic Acid 3.0 H 02/25/17 0625: Anion Gap 19 H, Estimated GFR 21 L, BUN/Creatinine Ratio 36.2 H, Lactic Acid 3.8 H, Phosphorus 4.0, Magnesium 2.3, CBC w Diff MAN DIFF ORDERED, RBC 3.20 L, MCV 77.5 L, MCH 25.5 L, RDW 18.4 H, MPV 11.2 H, Gran % 93.2 H, Lymphocytes % 3.5 L, Monocytes % 3.1, Eosinophils % 0.2, Basophils % 0, Absolute Granulocytes 17.2 H, Segmented Neutrophils 87 H, Band Neutrophils 2, Absolute Lymphocytes 0.7 L, Lymphocytes 5 L, Monocytes 4, Absolute Monocytes 0.6, Absolute Eosinophils 0, Basophils 1, Absolute Basophils 0, Metamyelocytes 1, Platelet Estimate DECREASED, Hypochromic-Microcytic 1+, Poikilocytosis 2+, Anisocytosis 1+, Microcytic Cells 1+, PUBS MCHC 33.0 02/24/17 2249: Lactic Acid 3.5 H 02/24/17 2238: Lactic Acid Cancelled Recent Imaging Studies: Chest x-ray 02/25/17: Slightly enlarged small left pleural effusion with a more dense retrocardiac opacity. This is nonspecific but could represent atelectasis (given the small pleural effusion) and/or infiltrate. Assessment/Plan Assessment/Plan Assessment: 1. Elevated troponin consistent with Type 2 SC 2. Abnormal ECG with transient ILBBB 3. Probable urosepsis 4. Acute on chronic renal insufficiency. 5. Anemia 6. Possible pneumonia versus atelectasis on chest x-ray Plan: * Antibiotic therapy as per the medical team * Would restart nifedipine ER 60 mg daily for hypertension * Possible further cardiac testing once other medical issues stable. Continue telemetry? Yes
--- NOTE | 2017-02-26 10:48 | PN- Att Addend ---
Attending Addendum Attending Brief Note Patient in bed still weak. No major changes since yesterday, his vital signs are stable is afebrile with no major changes on physical red his white count is 16,500 hemoglobin 8.1, hematocrit 24.5 and his platelet count are down, workup for thrombocytopenia in progress. Her major changes red continue to encourage fluids and food follow-up the labs continue antibiotic treatment as per infectious diseases recommendations. Intake & Output 02/26 1600 02/26 0400 02/25 1600 02/25 0400 02/24 1600 02/24 0400 Intake Total 380 098 3085 540 Output Total 834 463 2126 750 750 200 Balance 250 -550 -400 -750 775 340 Intake, IV 458 166 7622 Intake, Oral 400 200 125 540 Number 2 2 Bowel Movements Output, Stool 200 Output, Urine 500 550 800 750 750 200 Patient 136 lb Weight Current Medications Sig/Bret Start time Last Medication Dose Route Stop Time Status Admin Acetaminophen 650 MG Q4P PRN 02/21 1700 AC 02/21 PO 1713 Ceftriaxone Sodium 1,000 MG DAILY 02/23 1501 AC 02/26 IV 0820 Heparin Sodium 5,000 UNIT Q8 02/21 1400 DC 02/25 (Porcine) SC 0650 Insulin Aspart 0 TIDAC 02/21 0800 AC 02/26 SC 0819 Lidocaine 1 PAT DAILY 02/23 1445 AC 02/26 EXT 0819 Loperamide HCl 2 MG Q6P PRN 02/22 2230 AC PO Magnesium Sulfate 1 GM Q2H 02/25 2100 DC Dextrose/Water 100 ML IV 02/26 0059 Metoprolol Tartrate 50 MG BID 02/21 2200 AC 02/26 PO 0818 Potassium Phosphate 15 mMol ONE ONE 02/25 2100 CAN Sodium Chloride 250 ML IV 02/26 0104 Sodium Bicarbonate 75 MEQ Q20H 02/23 1315 AC 02/25 Dextrose/Water 1,000 ML IV 2355 Sodium Bicarbonate 1,300 MG BID 02/23 1315 AC 02/26 PO 0818 Laboratory Tests 02/26/17 0711: Anion Gap 17 H, Estimated GFR 27 L, BUN/Creatinine Ratio 41.3 H, Lactic Acid 2.3 H, Phosphorus 3.7, Magnesium 2.4 H, CBC w Diff MAN DIFF ORDERED, RBC 3.13 L, MCV 77.1 L, MCH 25.7 L, RDW 18.4 H, MPV 10.0, Gran % 89.8 H, Lymphocytes % 4.5 L, Monocytes % 4.9, Eosinophils % 0.2, Basophils % 0.6, Absolute Granulocytes 14.8 H, Segmented Neutrophils 87 H, Band Neutrophils 3, Absolute Lymphocytes 0.7 L, Lymphocytes 2 L, Monocytes 6, Absolute Monocytes 0.8 H, Absolute Eosinophils 0, Absolute Basophils 0.1, Metamyelocytes 2 H, Nucleated RBCs 1 H, Platelet Estimate DECREASED, Polychromasia 1+, Hypochromic-Microcytic 1+, Poikilocytosis 1+, Anisocytosis 1+, Microcytic Cells 1+, Ovalocytes 1+, Wendy Cells 1+, PUBS MCHC 33.4 02/25/17 2355: Lactic Acid Cancelled 02/25/17 1835: Lactic Acid 3.5 H 02/25/17 1120: Lactic Acid 3.0 H 02/25/17 0625: Anion Gap 19 H, Estimated GFR 21 L, BUN/Creatinine Ratio 36.2 H, Lactic Acid 3.8 H, Phosphorus 4.0, Magnesium 2.3, CBC w Diff MAN DIFF ORDERED, RBC 3.20 L, MCV 77.5 L, MCH 25.5 L, RDW 18.4 H, MPV 11.2 H, Gran % 93.2 H, Lymphocytes % 3.5 L, Monocytes % 3.1, Eosinophils % 0.2, Basophils % 0, Absolute Granulocytes 17.2 H, Segmented Neutrophils 87 H, Band Neutrophils 2, Absolute Lymphocytes 0.7 L, Lymphocytes 5 L, Monocytes 4, Absolute Monocytes 0.6, Absolute Eosinophils 0, Basophils 1, Absolute Basophils 0, Metamyelocytes 1, Platelet Estimate DECREASED, Hypochromic-Microcytic 1+, Poikilocytosis 2+, Anisocytosis 1+, Microcytic Cells 1+, PUBS MCHC 33.0 02/24/17 2249: Lactic Acid 3.5 H 02/24/17 2238: Lactic Acid Cancelled 02/24/17 0640: Anion Gap 20 H, Estimated GFR 19 L, BUN/Creatinine Ratio 30.9 H, CBC w Diff MAN DIFF ORDERED, RBC 3.20 L, MCV 77.7 L, MCH 25.9 L, RDW 17.4 H, MPV 10.1, Gran % 93.8 H, Lymphocytes % 3.7 L, Monocytes % 2.1, Eosinophils % 0.2, Basophils % 0.2, Absolute Granulocytes 13.1 H, Segmented Neutrophils 94 H, Band Neutrophils 1, Absolute Lymphocytes 0.5 L, Lymphocytes 3 L, Absolute Monocytes 0.3, Absolute Eosinophils 0, Absolute Basophils 0, Metamyelocytes 1, Myelocytes 1 H, Platelet Estimate DECREASED, Hypochromic-Microcytic 1+, Poikilocytosis 1+, Anisocytosis 2+, Microcytic Cells 1+, Ovalocytes FEW, PUBS MCHC 33.4, Fld Total RBCs Counted 100 02/24/17 0118: Lactic Acid 4.8 H 02/23/17 2105: Anion Gap 21 H, Estimated GFR 18 L, BUN/Creatinine Ratio 26.7 H 02/23/17 1856: Lactic Acid 5.0 H 02/23/17 1140: Lactic Acid 5.8 H 02/23/17 1140: Anion Gap 22 H, Estimated GFR 18 L, BUN/Creatinine Ratio 25.2 H Microbiology 02/26 0758 URINE ROUT: Urine Culture - COLB 02/25 1500 STOOL: Clostridium difficile Toxin A & B - RECD 02/25 1455 LOWER RESP: Respiratory Culture - COLB 02/25 1455 LOWER RESP: Gram Stain - COLB Microbiology 02/26 0758 URINE ROUT: Urine Culture - COLB 02/25 1500 STOOL: Clostridium difficile Toxin A & B - RECD 02/25 1455 LOWER RESP: Respiratory Culture - COLB 02/25 1455 LOWER RESP: Gram Stain - COLB Vital Signs Date Time Temp Pulse Resp B/P B/P Pulse O2 O2 Flow FiO2 Mean Ox Delivery Rate 02/26 0843 Nasal 3.0L Cannula 02/26 0818 66 152/86 02/26 0600 98.4 66 18 152/86 99 Nasal 3.0L Cannula 02/26 0000 Nasal 3.0L Cannula 02/25 2313 98.4 79 26 150/80 100 Nasal Cannula 02/25 2235 78 150/80 02/25 1400 98.6 62 20 130/60 94 Nasal Cannula
[2017-02-26 15:00] VITALS: BP 120/62
--- NOTE | 2017-02-26 15:03 | PN- Nephrology ---
Assessment/Plan Assessment: 1. Acute kidney injury secondary to ATN in setting of Klebsiella sepsis, presumed urosepsis - slowly improving 2. Metabolic acidosis secondary to lactic acidosis and renal failure - improving with therapy of sepsis and improved renal function 3. Hypernatremia - improved but still present 4. Persistent leukocytosis 5. Urethral stricture with chronic suprapubic catheter Suggestion: 1. Discontinue IV sodium bicarbonate; change to D5W (1L )alternating with half- normal saline (1L) at 75 mL per hour continuously for now 2. Continue oral sodium bicarbonate 3. Encourage by mouth fluids 4. Antibiotic therapy per ID Subjective Subjective: Patient says that he is feeling slightly better. He is still coughing but this is improved. Serum creatinine continues to fall while electrolytes are acceptable except for a slightly elevated serum sodium of 146. Total CO2 level has risen to 20. Lactate level is falling and WBC remains elevated although lower than yesterday. Objective Vital Signs and I&Os Vital Signs Date Time Temp Pulse Resp B/P B/P Pulse O2 O2 Flow FiO2 Mean Ox Delivery Rate 02/26 1426 94 Nasal 2.0L Cannula 02/26 0843 Nasal 3.0L Cannula 02/26 0818 66 152/86 02/26 0600 98.4 66 18 152/86 99 Nasal 3.0L Cannula 02/26 0000 Nasal 3.0L Cannula 02/25 2313 98.4 79 26 150/80 100 Nasal Cannula 02/25 2235 78 150/80 Intake & Output 02/26 1600 02/26 0400 02/25 1600 02/25 0400 02/24 1600 02/24 0400 Intake Total 673 832 6427 540 Output Total 228 218 0646 750 750 200 Balance 250 -550 -400 -750 775 340 Intake, IV 848 078 9289 Intake, Oral 400 200 125 540 Number 2 2 Bowel Movements Output, Stool 200 Output, Urine 500 550 800 750 750 200 Patient 136 lb Weight Physical Exam: General: Elderly white male in NAD Skin: No rash or jaundice HEENT: Conjunctivae pale, sclerae anicteric, mucous membranes dry Neck: Without masses or thyromegaly, no supraclavicular or cervical adenopathy Chest: Clear anterolaterally Heart: Regular rate and rhythm without S3 or rub Abdomen: Soft and nontender without palpable masses or organomegaly; there is a suprapubic cystostomy tube in place Extremities: Without cyanosis, edema Neuro: Left hemiparesis and possible left facial, no asterixis or myoclonus Results Pertinent Lab Results: Laboratory Tests 02/26 02/25 02/25 0711 2355 1835 Chemistry Sodium (137 - 145 mmol/L) 146 H Potassium (3.5 - 5.1 mmol/L) 3.5 Chloride (98 - 107 mmol/L) 109 H Carbon Dioxide (22 - 30 mmol/L) 20 L Anion Gap (5 - 16) 17 H BUN (9 - 20 mg/dL) 95 H Creatinine (0.7 - 1.2 mg/dL) 2.3 H Estimated GFR (>60 ml/min) 27 L BUN/Creatinine Ratio (7 - 25 %) 41.3 H Lactic Acid (0.7 - 2.1 mmol/L) 2.3 H Cancelled 3.5 H Phosphorus (2.5 - 4.5 mg/dL) 3.7 Magnesium (1.6 - 2.3 mg/dL) 2.4 H Hematology CBC w Diff MAN DIFF ORDERED WBC (4.8 - 10.8 /CUMM) 16.5 H RBC (4.70 - 6.10 /CUMM) 3.13 L Hgb (14.0 - 18.0 G/DL) 8.1 L Hct (42 - 52 %) 24.1 L MCV (80.0 - 94.0 FL) 77.1 L MCH (27.0 - 31.0 PG) 25.7 L RDW (11.5 - 14.5 %) 18.4 H Plt Count (130 - 400 /CUMM) 71 L MPV (7.4 - 10.4 FL) 10.0 Gran % (42.2 - 75.2 %) 89.8 H Lymphocytes % (20.5 - 51.1 %) 4.5 L Monocytes % (1.7 - 9.3 %) 4.9 Eosinophils % (0 - 5 %) 0.2 Basophils % (0.0 - 2.0 %) 0.6 Absolute Granulocytes (1.4 - 6.5 /CUMM) 14.8 H Segmented Neutrophils (42.2 - 75.2 %) 87 H Band Neutrophils (0.0 - 5.0 %) 3 Absolute Lymphocytes (1.2 - 3.4 /CUMM) 0.7 L Lymphocytes (20.5 - 51.1 %) 2 L Monocytes (1.7 - 9.3 %) 6 Absolute Monocytes (0.10 - 0.60 /CUMM) 0.8 H Absolute Eosinophils (0.0 - 0.7 /CUMM) 0 Absolute Basophils (0.0 - 0.2 /CUMM) 0.1 Metamyelocytes (0.0 - 1.0 %) 2 H Nucleated RBCs (0.0 - 0.0 /100WBC) 1 H Platelet Estimate (ADEQUATE) DECREASED Polychromasia 1+ Hypochromic-Microcytic 1+ Poikilocytosis 1+ Anisocytosis 1+ Microcytic Cells 1+ Ovalocytes 1+ Guy Cells 1+ PUBS MCHC (33.0 - 37.0 G/DL) 33.4 02/25 02/25 02/24 1120 0625 2249 Chemistry Sodium (137 - 145 mmol/L) 146 H Potassium (3.5 - 5.1 mmol/L) 3.9 Chloride (98 - 107 mmol/L) 111 H Carbon Dioxide (22 - 30 mmol/L) 17 L Anion Gap (5 - 16) 19 H BUN (9 - 20 mg/dL) 105 *H Creatinine (0.7 - 1.2 mg/dL) 2.9 H Estimated GFR (>60 ml/min) 21 L BUN/Creatinine Ratio (7 - 25 %) 36.2 H Lactic Acid (0.7 - 2.1 mmol/L) 3.0 H 3.8 H 3.5 H Phosphorus (2.5 - 4.5 mg/dL) 4.0 Magnesium (1.6 - 2.3 mg/dL) 2.3 Hematology CBC w Diff MAN DIFF ORDERED WBC (4.8 - 10.8 /CUMM) 18.5 H RBC (4.70 - 6.10 /CUMM) 3.20 L Hgb (14.0 - 18.0 G/DL) 8.2 L Hct (42 - 52 %) 24.8 L MCV (80.0 - 94.0 FL) 77.5 L MCH (27.0 - 31.0 PG) 25.5 L RDW (11.5 - 14.5 %) 18.4 H Plt Count (130 - 400 /CUMM) 67 L MPV (7.4 - 10.4 FL) 11.2 H Gran % (42.2 - 75.2 %) 93.2 H Lymphocytes % (20.5 - 51.1 %) 3.5 L Monocytes % (1.7 - 9.3 %) 3.1 Eosinophils % (0 - 5 %) 0.2 Basophils % (0.0 - 2.0 %) 0 Absolute Granulocytes (1.4 - 6.5 /CUMM) 17.2 H Segmented Neutrophils (42.2 - 75.2 %) 87 H Band Neutrophils (0.0 - 5.0 %) 2 Absolute Lymphocytes (1.2 - 3.4 /CUMM) 0.7 L Lymphocytes (20.5 - 51.1 %) 5 L Monocytes (1.7 - 9.3 %) 4 Absolute Monocytes (0.10 - 0.60 /CUMM) 0.6 Absolute Eosinophils (0.0 - 0.7 /CUMM) 0 Basophils (0.0 - 2.0 %) 1 Absolute Basophils (0.0 - 0.2 /CUMM) 0 Metamyelocytes (0.0 - 1.0 %) 1 Platelet Estimate (ADEQUATE) DECREASED Hypochromic-Microcytic 1+ Poikilocytosis 2+ Anisocytosis 1+ Microcytic Cells 1+ PUBS MCHC (33.0 - 37.0 G/DL) 33.0 02/24 02/24 02/24 2238 0640 0118 Chemistry Sodium (137 - 145 mmol/L) 145 Potassium (3.5 - 5.1 mmol/L) 5.4 H Chloride (98 - 107 mmol/L) 113 H Carbon Dioxide (22 - 30 mmol/L) 12 L Anion Gap (5 - 16) 20 H BUN (9 - 20 mg/dL) 99 H Creatinine (0.7 - 1.2 mg/dL) 3.2 H Estimated GFR (>60 ml/min) 19 L BUN/Creatinine Ratio (7 - 25 %) 30.9 H Lactic Acid (0.7 - 2.1 mmol/L) Cancelled 4.8 H Hematology CBC w Diff MAN DIFF ORDERED WBC (4.8 - 10.8 /CUMM) 14.0 H RBC (4.70 - 6.10 /CUMM) 3.20 L Hgb (14.0 - 18.0 G/DL) 8.3 L Hct (42 - 52 %) 24.9 L MCV (80.0 - 94.0 FL) 77.7 L MCH (27.0 - 31.0 PG) 25.9 L RDW (11.5 - 14.5 %) 17.4 H Plt Count (130 - 400 /CUMM) 50 L MPV (7.4 - 10.4 FL) 10.1 Gran % (42.2 - 75.2 %) 93.8 H Lymphocytes % (20.5 - 51.1 %) 3.7 L Monocytes % (1.7 - 9.3 %) 2.1 Eosinophils % (0 - 5 %) 0.2 Basophils % (0.0 - 2.0 %) 0.2 Absolute Granulocytes (1.4 - 6.5 /CUMM) 13.1 H Segmented Neutrophils (42.2 - 75.2 %) 94 H Band Neutrophils (0.0 - 5.0 %) 1 Absolute Lymphocytes (1.2 - 3.4 /CUMM) 0.5 L Lymphocytes (20.5 - 51.1 %) 3 L Absolute Monocytes (0.10 - 0.60 /CUMM) 0.3 Absolute Eosinophils (0.0 - 0.7 /CUMM) 0 Absolute Basophils (0.0 - 0.2 /CUMM) 0 Metamyelocytes (0.0 - 1.0 %) 1 Myelocytes (0 - 0 %) 1 H Platelet Estimate (ADEQUATE) DECREASED Hypochromic-Microcytic 1+ Poikilocytosis 1+ Anisocytosis 2+ Microcytic Cells 1+ Ovalocytes FEW PUBS MCHC (33.0 - 37.0 G/DL) 33.4 Other Body Source Fld Total RBCs Counted (%) 100 02/23 02/23 5403 5554 Chemistry Sodium (137 - 145 mmol/L) 147 H Potassium (3.5 - 5.1 mmol/L) 4.8 Chloride (98 - 107 mmol/L) 112 H Carbon Dioxide (22 - 30 mmol/L) 14 L Anion Gap (5 - 16) 21 H BUN (9 - 20 mg/dL) 88 H Creatinine (0.7 - 1.2 mg/dL) 3.3 H Estimated GFR (>60 ml/min) 18 L BUN/Creatinine Ratio (7 - 25 %) 26.7 H Lactic Acid (0.7 - 2.1 mmol/L) 5.0 H
--- NOTE | 2017-02-26 15:26 | PN- Infect Dx ---
Subjective Subjective: Afebrile. He does not feel well but he offers no specific complaints. His po intake remains poor Objective Last 24 Hrs of Vital Signs/I&O Vital Signs Date Time Temp Pulse Resp B/P B/P Pulse O2 O2 Flow FiO2 Mean Ox Delivery Rate 02/26 1426 94 Nasal 2.0L Cannula 02/26 0843 Nasal 3.0L Cannula 02/26 0818 66 152/86 02/26 0600 98.4 66 18 152/86 99 Nasal 3.0L Cannula 02/26 0000 Nasal 3.0L Cannula 02/25 2313 98.4 79 26 150/80 100 Nasal Cannula 02/25 2235 78 150/80 Intake & Output 02/26 1600 02/26 0800 02/26 0000 Intake Total 750 Output Total 500 550 Balance 250 -550 Intake, IV 350 Intake, Oral 400 Output, Urine 500 550 Physical Exam Other Physical Findings: He is awake and alert in no acute distress Lungs decreased breath sounds at both bases Heart regular rhythm with no murmur Abdomen is soft, nontender with positive bowel sounds Back no CVA tenderness Results Last 24 Hours of Lab Results: Laboratory Tests 02/26 02/25 02/25 0711 2355 1835 Chemistry Sodium (137 - 145 mmol/L) 146 H Potassium (3.5 - 5.1 mmol/L) 3.5 Chloride (98 - 107 mmol/L) 109 H Carbon Dioxide (22 - 30 mmol/L) 20 L Anion Gap (5 - 16) 17 H BUN (9 - 20 mg/dL) 95 H Creatinine (0.7 - 1.2 mg/dL) 2.3 H Estimated GFR (>60 ml/min) 27 L BUN/Creatinine Ratio (7 - 25 %) 41.3 H Lactic Acid (0.7 - 2.1 mmol/L) 2.3 H Cancelled 3.5 H Phosphorus (2.5 - 4.5 mg/dL) 3.7 Magnesium (1.6 - 2.3 mg/dL) 2.4 H Hematology CBC w Diff MAN DIFF ORDERED WBC (4.8 - 10.8 /CUMM) 16.5 H RBC (4.70 - 6.10 /CUMM) 3.13 L Hgb (14.0 - 18.0 G/DL) 8.1 L Hct (42 - 52 %) 24.1 L MCV (80.0 - 94.0 FL) 77.1 L MCH (27.0 - 31.0 PG) 25.7 L RDW (11.5 - 14.5 %) 18.4 H Plt Count (130 - 400 /CUMM) 71 L MPV (7.4 - 10.4 FL) 10.0 Gran % (42.2 - 75.2 %) 89.8 H Lymphocytes % (20.5 - 51.1 %) 4.5 L Monocytes % (1.7 - 9.3 %) 4.9 Eosinophils % (0 - 5 %) 0.2 Basophils % (0.0 - 2.0 %) 0.6 Absolute Granulocytes (1.4 - 6.5 /CUMM) 14.8 H Segmented Neutrophils (42.2 - 75.2 %) 87 H Band Neutrophils (0.0 - 5.0 %) 3 Absolute Lymphocytes (1.2 - 3.4 /CUMM) 0.7 L Lymphocytes (20.5 - 51.1 %) 2 L Monocytes (1.7 - 9.3 %) 6 Absolute Monocytes (0.10 - 0.60 /CUMM) 0.8 H Absolute Eosinophils (0.0 - 0.7 /CUMM) 0 Absolute Basophils (0.0 - 0.2 /CUMM) 0.1 Metamyelocytes (0.0 - 1.0 %) 2 H Nucleated RBCs (0.0 - 0.0 /100WBC) 1 H Platelet Estimate (ADEQUATE) DECREASED Polychromasia 1+ Hypochromic-Microcytic 1+ Poikilocytosis 1+ Anisocytosis 1+ Microcytic Cells 1+ Ovalocytes 1+ Elysian Cells 1+ PUBS MCHC (33.0 - 37.0 G/DL) 33.4 Last 24 Hours of Mak Results: Stool C. difficile February 25 negative Recent Imaging Studies: Chest x-ray February 25 reveals a small left pleural effusion, likely increased in size, with a retrocardiac opacity obscuring the left diaphragm Assessment/Plan Impression: Stable, with temperatures remaining normal, but with his white blood cell count still elevated, though decreased from yesterday, on Ceftriaxone, Day 7 of treatment for Klebsiella sepsis, presumably of urologic origin, with a suprapubic catheter in place, with the recent CT scan of the abdomen and pelvis negative for any intra-abdominal process. His renal failure appears to be improving. Suggestion: 1. Repeat urine culture 2. Continue Ceftriaxone
--- NOTE | 2017-02-26 17:25 | Event Note ---
Event Note Event Note: Patient and his daughter denied of consuming pure and nectar as suggested by Denisse from the nutrition department. Denisse and myself, we spoke at length with the patient on the daughter about the risk of aspiration. They both understood clearly the risk of aspiration which can complicate his current hospital course. They still want to be on thin liquids. Hence his diet will be changed back to regular thin liquids. Patient has been planned for modified barium Swallow tomorrow.
[2017-02-26 22:00] VITALS: BP 162/60
--- NOTE | 2017-02-27 06:49 | PN- Housestaff ---
Subjective Follow-up For: Sepsis of urological Complaints: no complaints Tele-Events Since Last Visit: Normal sinus rhythm heart rate 75 Subjective: I saw the patient at bedside today. No overnight events. He offers no complaints. He denies chest pain, chest pressure, nausea, vomiting, fever, abdominal pain. Review of Systems Constitutional: Reports: no symptoms. Cardiovascular: Reports: no symptoms. Respiratory: Reports: no symptoms. Gastrointestinal: Reports: no symptoms. Genitourinary: Reports: no symptoms. Musculoskeletal: Reports: no symptoms. Objective Last 24 Hrs of Vital Signs/I&O Vital Signs Date Time Temp Pulse Resp B/P B/P Pulse O2 O2 Flow FiO2 Mean Ox Delivery Rate 02/27 1425 96.5 73 20 118/50 93 Nasal 4.0L Cannula 02/27 0857 114 150/52 02/27 0857 114 150/52 02/27 0856 114 150/52 02/27 0800 94 Nasal 4.0L Cannula 02/27 0739 97.4 70 22 134/62 91 Nasal Cannula 02/27 0000 95 Nasal 3.0L Cannula 02/26 2200 97.5 66 18 162/60 95 Nasal Cannula 02/26 2031 75 160/78 02/26 1835 Nasal 2.0L Cannula 02/26 1700 Nasal 3.0L Cannula 02/26 1647 78 142/74 Intake & Output 02/27 1600 02/27 0800 02/27 0000 Intake Total 1040 650 740 Output Total 250 450 450 Balance 790 200 290 Intake, IV 620 600 500 Intake, Oral 420 50 240 Number 1 1 Bowel Movements Output, Urine 250 450 450 Physical Exam General Appearance: Alert, Oriented X3, Cooperative, No Acute Distress Cardiovascular: Regular Rate, Normal S1, Normal S2 Lungs: Clear to Auscultation Abdomen: Normal Bowel Sounds, Soft, No Tenderness, No Hepatospenomegaly Neurological: Normal Speech, Strength at 5/5 X4 Ext, Normal Tone Extremities: No Edema Current Medications: Current Medications Sig/Bret Start time Last Medication Dose Route Stop Time Status Admin Acetaminophen 650 MG Q4P PRN 02/21 1700 AC 02/21 PO 1713 Ceftriaxone Sodium 1,000 MG DAILY 02/23 1501 AC 02/27 IV 0857 Dextrose/Water 1,000 ML Q13H 02/27 0845 AC IV Dextrose/Water 1,000 ML Q13H 02/26 1615 DC 02/26 IV 1652 Guaifenesin 10 ML .STK-MED ONE 02/26 2027 DC PO 02/27 2028 Hydralazine HCl 25 MG TID 02/27 1600 AC PO Insulin Aspart 3 UNITS ONCE ONE 02/27 1215 DC 02/27 SC 02/27 1216 1210 Insulin Aspart 0 TIDAC 02/21 0800 AC 02/27 SC 0856 Lidocaine 1 PAT DAILY 02/23 1445 AC 02/27 EXT 0857 Loperamide HCl 2 MG Q6P PRN 02/22 2230 AC PO Metoprolol Tartrate 50 MG BID 02/21 2200 AC 02/27 PO 0857 Nifedipine 60 MG DAILY 02/26 1153 AC 02/27 PO 0857 Potassium Chloride 10 MEQ Q1H 02/27 1215 DC IV 02/27 1416 Potassium Chloride 40 MEQ 1000 02/27 1000 DC PO 02/27 1001 Sodium Bicarbonate 75 MEQ Q20H 02/23 1315 DC 02/25 Dextrose/Water 1,000 ML IV 2355 Sodium Bicarbonate 1,300 MG BID 02/23 1315 AC 02/27 PO 0857 Sodium Chloride 1,000 ML Q13H 02/27 0845 CAN IV Sodium Chloride 1,000 ML Q13H 02/26 1615 AC 02/27 IV 0617 Last 24 Hrs of Lab/Mak Results Last 24 Hrs of Labs/Mics: Laboratory Tests 02/27/17 0650: Anion Gap 15, Estimated GFR 32 L, BUN/Creatinine Ratio 42.5 H, CBC w Diff MAN DIFF ORDERED, RBC 3.05 L, MCV 77.9 L, MCH 25.4 L, RDW 18.6 H, MPV 12.6 H, Gran % 90.3 H, Lymphocytes % 5.3 L, Monocytes % 4.0, Eosinophils % 0.3, Basophils % 0.1, Absolute Granulocytes 13.4 H, Segmented Neutrophils 91 H, Band Neutrophils 3, Absolute Lymphocytes 0.8 L, Lymphocytes 2 L, Monocytes 2, Absolute Monocytes 0.6, Absolute Eosinophils 0.1, Absolute Basophils 0, Metamyelocytes 2 H, Nucleated RBCs 2 H, Platelet Estimate VERIFIED BY SMEAR, Polychromasia 1+, Poikilocytosis 1+, Anisocytosis 1+, Ovalocytes 1+, PUBS MCHC 32.5 L Assessment/Plan Assessment: 81-year-old gentleman with past medical 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 Assessment and plan 1. Sepsis of urological origin/anemia. Patient came in with sepsis of urological origin, initially was given ceftriaxone and azithromycin in ED and later changed to Unasyn and Ceftazidime. patient blood culture is growing Klebsiella pneumonia. His antibiotics was changed to ceftriaxone. Patient being followed by infectious disease. Suprapubic catheter was changed on January 2017. Blood culture urine culture sputum culture are negative so far. Patient had loose stools since admission which was guaiac-positive. Patient was evaluated by gastroenterology for consult, considering his anemia secondary due to iron deficiency and recommended no intervention at this point. Patient had leukocytosis over the weekend and a repeat urine culture and chest x-ray was done. Chest x-ray shows slightly enlarged small left pleural effusion without any infiltrate. We'll follow up with electrolytes, Cbc. 2. AK I secondary to dehydration Patient has acute kidney injury secondary to dehydration, was being corrected with IV fluids. His BUN/creatinine and lactic acid are trending down. We will monitor CBCs and BEP. Nephrology follow-up appreciated. Patient had a renal ultrasound and CAT scan of the abdomen to rule out any GI bleed and obstructive uropathy. Imaging were negative for GI bleed/obstructive uropathy respectively. Today BUN is 85, creatinine 2, sodium 142, potassium 3.4. We will replace potassium. Patient is on D5W and half normal saline alternating. 3. Rule out ACS Patient tolerance trended down which is secondary due to demand ischemia. Cardiology follow-up appreciated. 4. Rule out stroke Given the patient recent worsening of mentation and dysarthria CAT scan was done which was negative. 5. Anemia Patient has anemia likely secondary due to iron deficiency. Patient had 1 unit of blood transfusion this stay. Repeat hemoglobin is 8.1. We will guaiac all his stools and continue monitoring his CBCs. He had a bowel movement today which was guaiac negative. Code-DNR/DNI Diet patient had modified. Swallow today and had continuous aspiration. He has been recommended nothing by mouth per speech and swallow eval. Patient and his daughter has been informed about the change in diet, they agree and would like to be evaluated by speech and swallow eval tomorrow morning.- Plan-continue antibiotics, follow up infectious disease and nephrology. Problem List: 1. SEPSIS OF UROLOG ORIGIN 2. Prerenal azotemia Pain Ratin Pain Location: none Pain Goal: Remain pain free Pain Plan: tylenol Tomorrow's Labs & Rationales: cbc,bep
[2017-02-27 07:39] VITALS: BP 134/62
[2017-02-27 08:18] LABS: ABSOLUTE BASOPHIL COUNT 0 /CUMM (0.0-0.2); ABSOLUTE EOSINOPHIL COUNT 0.1 /CUMM (0.0-0.7); ABSOLUTE GRANULOCYTE CT 13.4 /CUMM (1.4-6.5); ABSOLUTE LYMPH COUNT 0.8 /CUMM (1.2-3.4); ABSOLUTE MONOCYTE COUNT 0.6 /CUMM (0.10-0.60); BASOPHIL % 0.1 % (0.0-2.0); EOSINOPHIL % 0.3 % (0-5); GRANULOCYTE % 90.3 % (42.2-75.2); HEMATOCRIT 23.7 % (42-52); MEAN CORPUSCULAR HGB 25.4 PG (27.0-31.0); MEAN CORPUSCULAR HGB CONC 32.5 G/DL (33.0-37.0); MEAN CORPUSCULAR VOLUME 77.9 FL (80.0-94.0); MEAN PLATELET VOLUME 12.6 FL (7.4-10.4); PLATELET COUNT 91 /CUMM (130-400); RBC DISTRIBUTION WIDTH 18.6 % (11.5-14.5); RED BLOOD CELL CT 3.05 /CUMM (4.70-6.10); WHITE BLOOD CELL COUNT 14.9 /CUMM (4.8-10.8)
[2017-02-27 08:56] VITALS: BP 150/52
--- NOTE | 2017-02-27 11:59 | RADIOLOGY REPORT ---
INDICATION: 81-year-old male with cough. Risk of aspiration. EXAMINATION: Modified barium swallow. COMPARISON: None FLUOROSCOPIC TIME: 3 minutes and 54 seconds NUMBER OF IMAGES: 19 TECHNIQUE: Real-time fluoroscopy was provided while the exam was recorded. The patient swallowed pureed, honey, nectar and thin liquids labeled with barium. FINDINGS: There is delayed triggering of the swallowing reflex. Persistent pooling/retention in the vallecular sinus. Penetration was noted with puree consistencies of barium. Aspiration noted with honey, nectar and thin consistencies of barium. Aspiration was oftentimes silent. IMPRESSION: Aspiration with multiple consistencies of barium. Please see speech pathologist's recommendations for feeding guidelines.
--- NOTE | 2017-02-27 13:12 | PN- Cardiology ---
Subjective Subjective: The patient is mildly lethargic. No chest pain. No shortness of breath. No palpitations. No nausea or vomiting. He has apparently failed his swallowing study. Objective Vital Signs and I&Os Vital Signs Date Time Temp Pulse Resp B/P B/P Pulse O2 O2 Flow FiO2 Mean Ox Delivery Rate 02/27 0857 114 150/52 02/27 0857 114 150/52 02/27 0856 114 150/52 02/27 0800 94 Nasal 4.0L Cannula 02/27 0739 97.4 70 22 134/62 91 Nasal Cannula 02/27 0000 95 Nasal 3.0L Cannula 02/26 2200 97.5 66 18 162/60 95 Nasal Cannula 02/26 2031 75 160/78 02/26 1835 Nasal 2.0L Cannula 02/26 1700 Nasal 3.0L Cannula 02/26 1647 78 142/74 02/26 1500 97.2 62 20 120/62 95 02/26 1426 94 Nasal 2.0L Cannula Intake & Output 02/27 1600 02/27 0800 02/27 0000 02/26 1600 02/26 0800 02/26 0000 Intake Total 695 027 6176 750 Output Total 450 450 500 500 550 Balance 200 290 500 250 -550 Intake, IV 600 500 600 350 Intake, Oral 50 240 400 400 Number 1 1 Bowel Movements Output, Urine 450 450 500 500 550 Physical Exam: Gen: NAD HEENT: normal Lungs: clear to auscultation, normal resp. effort Heart: RRR, S1, S2, 1/6 systolic murmur Abdomen: Soft, nontender, no masses Extremities: No clubbing, cyanosis, or edema. Neuro: Alert and oriented x 3, cranial nerves intact Current Medications: Current Medications Sig/Bret Start time Last Medication Dose Route Stop Time Status Admin Acetaminophen 650 MG Q4P PRN 02/21 1700 AC 02/21 PO 1713 Ceftriaxone Sodium 1,000 MG DAILY 02/23 1501 AC 02/27 IV 0857 Dextrose/Water 1,000 ML Q13H 02/27 0845 AC IV Dextrose/Water 1,000 ML Q13H 02/26 1615 DC 02/26 IV 1652 Guaifenesin 10 ML .STK-MED ONE 02/26 2027 DC PO 02/27 2028 Insulin Aspart 3 UNITS ONCE ONE 02/27 1215 DC 02/27 SC 02/27 1216 1210 Insulin Aspart 0 TIDAC 02/21 0800 AC 02/27 SC 0856 Lidocaine 1 PAT DAILY 02/23 1445 AC 02/27 EXT 0857 Loperamide HCl 2 MG Q6P PRN 02/22 2230 AC PO Metoprolol Tartrate 50 MG BID 02/21 2200 AC 02/27 PO 0857 Nifedipine 60 MG DAILY 02/26 1153 AC 02/27 PO 0857 Potassium Chloride 10 MEQ Q1H 02/27 1215 AC IV 02/27 1416 Potassium Chloride 40 MEQ 1000 02/27 1000 DC PO 02/27 1001 Sodium Bicarbonate 75 MEQ Q20H 02/23 1315 DC 02/25 Dextrose/Water 1,000 ML IV 2355 Sodium Bicarbonate 1,300 MG BID 02/23 1315 AC 02/27 PO 0857 Sodium Chloride 1,000 ML Q13H 02/27 0845 CAN IV Sodium Chloride 1,000 ML Q13H 02/26 1615 AC 02/27 IV 0617 Results Last 48 Hrs of Labs/Mics: Laboratory Tests 02/27/17 0650: Anion Gap 15, Estimated GFR 32 L, BUN/Creatinine Ratio 42.5 H, CBC w Diff MAN DIFF ORDERED, RBC 3.05 L, MCV 77.9 L, MCH 25.4 L, RDW 18.6 H, MPV 12.6 H, Gran % 90.3 H, Lymphocytes % 5.3 L, Monocytes % 4.0, Eosinophils % 0.3, Basophils % 0.1, Absolute Granulocytes 13.4 H, Segmented Neutrophils 91 H, Band Neutrophils 3, Absolute Lymphocytes 0.8 L, Lymphocytes 2 L, Monocytes 2, Absolute Monocytes 0.6, Absolute Eosinophils 0.1, Absolute Basophils 0, Metamyelocytes 2 H, Nucleated RBCs 2 H, Platelet Estimate VERIFIED BY SMEAR, Polychromasia 1+, Poikilocytosis 1+, Anisocytosis 1+, Ovalocytes 1+, PUBS MCHC 32.5 L 02/26/17 0711: Anion Gap 17 H, Estimated GFR 27 L, BUN/Creatinine Ratio 41.3 H, Lactic Acid 2.3 H, Phosphorus 3.7, Magnesium 2.4 H, CBC w Diff MAN DIFF ORDERED, RBC 3.13 L, MCV 77.1 L, MCH 25.7 L, RDW 18.4 H, MPV 10.0, Gran % 89.8 H, Lymphocytes % 4.5 L, Monocytes % 4.9, Eosinophils % 0.2, Basophils % 0.6, Absolute Granulocytes 14.8 H, Segmented Neutrophils 87 H, Band Neutrophils 3, Absolute Lymphocytes 0.7 L, Lymphocytes 2 L, Monocytes 6, Absolute Monocytes 0.8 H, Absolute Eosinophils 0, Absolute Basophils 0.1, Metamyelocytes 2 H, Nucleated RBCs 1 H, Platelet Estimate DECREASED, Polychromasia 1+, Hypochromic-Microcytic 1+, Poikilocytosis 1+, Anisocytosis 1+, Microcytic Cells 1+, Ovalocytes 1+, [place] Cells 1+, PUBS MCHC 33.4 02/25/17 2355: Lactic Acid Cancelled 02/25/17 1835: Lactic Acid 3.5 H Microbiology 02/25 1500 STOOL: Clostridium difficile Toxin A & B - COMP Recent Imaging Studies: Modified barium swallow: There is delayed triggering of the swallowing reflex. Persistent pooling/retention in the vallecular sinus. Penetration was noted with puree consistencies of barium. Aspiration noted with honey, nectar and thin consistencies of barium. Aspiration was oftentimes silent. Assessment/Plan Assessment/Plan Assessment: 1. Elevated troponin consistent with Type 2 MT 2. Abnormal ECG with transient ILBBB 3. Probable urosepsis 4. Acute on chronic renal insufficiency. 5. Anemia 6. Failed swallowing study Plan: * Antibiotic therapy as per the medical team * Restart hydralazine 25 mg by mouth 3 times per day * Continue nifedipine * Possible further cardiac testing once other medical issues stable. Continue telemetry? Yes
--- NOTE | 2017-02-27 13:27 | PN- Att Addend ---
Attending Addendum Attending Brief Note No major changes yesterday he failed the swallowing evaluation. Going today for a modified barium swallow and being very careful with his feedings. Vital signs are stable afebrile no other changes on physical count 14,900 kidney function slowly improving will continue present treatment Intake & Output 02/27 1600 02/27 0400 02/26 1600 02/26 0400 02/25 1600 02/25 0400 Intake Total 871 341 6781 600 Output Total 741 827 5619 550 1000 750 Balance 200 290 750 -550 -400 -750 Intake, IV 600 500 950 400 Intake, Oral 50 240 800 200 Number 1 1 Bowel Movements Output, Stool 200 Output, Urine 325 018 8806 550 800 750 Current Medications Sig/Bret Start time Last Medication Dose Route Stop Time Status Admin Acetaminophen 650 MG Q4P PRN 02/21 1700 02/21 PO 1713 Ceftriaxone Sodium 1,000 MG DAILY 02/23 1501 02/27 IV 0857 Dextrose/Water 1,000 ML Q13H 02/27 0845 AC IV Dextrose/Water 1,000 ML Q13H 02/26 1615 DC 02/26 IV 1652 Guaifenesin 10 ML .STK-MED ONE 02/26 2027 DC PO 02/27 2028 Insulin Aspart 3 UNITS ONCE ONE 02/27 1215 DC 02/27 SC 02/27 1216 1210 Insulin Aspart 0 TIDAC 02/21 0800 02/27 SC 0856 Lidocaine 1 PAT DAILY 02/23 1445 02/27 EXT 0857 Loperamide HCl 2 MG Q6P PRN 02/22 2230 AC PO Metoprolol Tartrate 50 MG BID 02/21 2200 02/27 PO 0857 Nifedipine 60 MG DAILY 02/26 1153 02/27 PO 0857 Potassium Chloride 10 MEQ Q1H 02/27 1215 AC IV 02/27 1416 Potassium Chloride 40 MEQ 1000 02/27 1000 DC PO 02/27 1001 Sodium Bicarbonate 75 MEQ Q20H 02/23 1315 DC 02/25 Dextrose/Water 1,000 ML IV 2355 Sodium Bicarbonate 1,300 MG BID 02/23 1315 AC 02/27 PO 0857 Sodium Chloride 1,000 ML Q13H 02/27 0845 CAN IV Sodium Chloride 1,000 ML Q13H 02/26 1615 02/27 IV 0617 Laboratory Tests 02/27/17 0650: Anion Gap 15, Estimated GFR 32 L, BUN/Creatinine Ratio 42.5 H, CBC w Diff MAN DIFF ORDERED, RBC 3.05 L, MCV 77.9 L, MCH 25.4 L, RDW 18.6 H, MPV 12.6 H, Gran % 90.3 H, Lymphocytes % 5.3 L, Monocytes % 4.0, Eosinophils % 0.3, Basophils % 0.1, Absolute Granulocytes 13.4 H, Segmented Neutrophils 91 H, Band Neutrophils 3, Absolute Lymphocytes 0.8 L, Lymphocytes 2 L, Monocytes 2, Absolute Monocytes 0.6, Absolute Eosinophils 0.1, Absolute Basophils 0, Metamyelocytes 2 H, Nucleated RBCs 2 H, Platelet Estimate VERIFIED BY SMEAR, Polychromasia 1+, Poikilocytosis 1+, Anisocytosis 1+, Ovalocytes 1+, PUBS MCHC 32.5 L 02/26/17 0711: Anion Gap 17 H, Estimated GFR 27 L, BUN/Creatinine Ratio 41.3 H, Lactic Acid 2.3 H, Phosphorus 3.7, Magnesium 2.4 H, CBC w Diff MAN DIFF ORDERED, RBC 3.13 L, MCV 77.1 L, MCH 25.7 L, RDW 18.4 H, MPV 10.0, Gran % 89.8 H, Lymphocytes % 4.5 L, Monocytes % 4.9, Eosinophils % 0.2, Basophils % 0.6, Absolute Granulocytes 14.8 H, Segmented Neutrophils 87 H, Band Neutrophils 3, Absolute Lymphocytes 0.7 L, Lymphocytes 2 L, Monocytes 6, Absolute Monocytes 0.8 H, Absolute Eosinophils 0, Absolute Basophils 0.1, Metamyelocytes 2 H, Nucleated RBCs 1 H, Platelet Estimate DECREASED, Polychromasia 1+, Hypochromic-Microcytic 1+, Poikilocytosis 1+, Anisocytosis 1+, Microcytic Cells 1+, Ovalocytes 1+, [place] Cells 1+, PUBS MCHC 33.4 02/25/17 2355: Lactic Acid Cancelled 02/25/17 1835: Lactic Acid 3.5 H 02/25/17 1120: Lactic Acid 3.0 H 02/25/17 0625: Anion Gap 19 H, Estimated GFR 21 L, BUN/Creatinine Ratio 36.2 H, Lactic Acid 3.8 H, Phosphorus 4.0, Magnesium 2.3, CBC w Diff MAN DIFF ORDERED, RBC 3.20 L, MCV 77.5 L, MCH 25.5 L, RDW 18.4 H, MPV 11.2 H, Gran % 93.2 H, Lymphocytes % 3.5 L, Monocytes % 3.1, Eosinophils % 0.2, Basophils % 0, Absolute Granulocytes 17.2 H, Segmented Neutrophils 87 H, Band Neutrophils 2, Absolute Lymphocytes 0.7 L, Lymphocytes 5 L, Monocytes 4, Absolute Monocytes 0.6, Absolute Eosinophils 0, Basophils 1, Absolute Basophils 0, Metamyelocytes 1, Platelet Estimate DECREASED, Hypochromic-Microcytic 1+, Poikilocytosis 2+, Anisocytosis 1+, Microcytic Cells 1+, PUBS MCHC 33.0 02/24/17 2249: Lactic Acid 3.5 H 02/24/17 2238: Lactic Acid Cancelled Microbiology 02/26 1345 URINE ROUT: Urine Culture - RES 02/25 1500 STOOL: Clostridium difficile Toxin A & B - COMP 02/25 145 LOWER RESP: Respiratory Culture - CAN Cancelled: SPECIMEN NOT RECEIVED IN LABORATORY 02/25 145 LOWER RESP: Gram Stain - CAN Cancelled: SPECIMEN NOT RECEIVED IN LABORATORY Microbiology 02/26 1345 URINE ROUT: Urine Culture - RES 02/25 1500 STOOL: Clostridium difficile Toxin A & B - COMP 02/25 145 LOWER RESP: Respiratory Culture - CAN Cancelled: SPECIMEN NOT RECEIVED IN LABORATORY 02/25 145 LOWER RESP: Gram Stain - CAN Cancelled: SPECIMEN NOT RECEIVED IN LABORATORY Vital Signs Date Time Temp Pulse Resp B/P B/P Pulse O2 O2 Flow FiO2 Mean Ox Delivery Rate 02/27 0857 114 150/52 02/27 0857 114 150/52 02/27 0856 114 150/52 02/27 0800 94 Nasal 4.0L Cannula 02/27 0739 97.4 70 22 134/62 91 Nasal Cannula 02/27 0000 95 Nasal 3.0L Cannula 02/26 2200 97.5 66 18 162/60 95 Nasal Cannula 02/26 2031 75 160/78 02/26 1835 Nasal 2.0L Cannula 02/26 1700 Nasal 3.0L Cannula 02/26 1647 78 142/74 02/26 1500 97.2 62 20 120/62 95 02/26 1426 94 Nasal 2.0L Cannula Also replace potassium.
[2017-02-27 14:25] VITALS: BP 118/50
--- NOTE | 2017-02-27 15:56 | PN- Infect Dx ---
Subjective Subjective: Afebrile. He feels poorly and admits to mild shortness of breath but does not report any pain. Objective Last 24 Hrs of Vital Signs/I&O Vital Signs Date Time Temp Pulse Resp B/P B/P Pulse O2 O2 Flow FiO2 Mean Ox Delivery Rate 02/27 1425 96.5 73 20 118/50 93 Nasal 4.0L Cannula 02/27 0857 114 150/52 02/27 0857 114 150/52 02/27 0856 114 150/52 02/27 0800 94 Nasal 4.0L Cannula 02/27 0739 97.4 70 22 134/62 91 Nasal Cannula 02/27 0000 95 Nasal 3.0L Cannula 02/26 2200 97.5 66 18 162/60 95 Nasal Cannula 02/26 2031 75 160/78 02/26 1835 Nasal 2.0L Cannula 02/26 1700 Nasal 3.0L Cannula 02/26 1647 78 142/74 Intake & Output 02/27 1600 02/27 0800 02/27 0000 Intake Total 1040 650 740 Output Total 250 450 450 Balance 790 200 290 Intake, IV 620 600 500 Intake, Oral 420 50 240 Number 1 1 Bowel Movements Output, Urine 250 450 450 Physical Exam Other Physical Findings: He appears weak and chronically ill but in no acute distress Lungs bibasilar crackles with scattered wheezes Heart regular rhythm with no murmur Abdomen is soft, nontender with positive bowel sounds Back no CVA tenderness Extremities no cyanosis, clubbing or edema Results Last 24 Hours of Lab Results: Laboratory Tests 02/27 0650 Chemistry Sodium (137 - 145 mmol/L) 142 Potassium (3.5 - 5.1 mmol/L) 3.2 L Chloride (98 - 107 mmol/L) 103 Carbon Dioxide (22 - 30 mmol/L) 24 Anion Gap (5 - 16) 15 BUN (9 - 20 mg/dL) 85 H Creatinine (0.7 - 1.2 mg/dL) 2.0 H Estimated GFR (>60 ml/min) 32 L BUN/Creatinine Ratio (7 - 25 %) 42.5 H Hematology CBC w Diff MAN DIFF ORDERED WBC (4.8 - 10.8 /CUMM) 14.9 H RBC (4.70 - 6.10 /CUMM) 3.05 L Hgb (14.0 - 18.0 G/DL) 7.7 L Hct (42 - 52 %) 23.7 L MCV (80.0 - 94.0 FL) 77.9 L MCH (27.0 - 31.0 PG) 25.4 L RDW (11.5 - 14.5 %) 18.6 H Plt Count (130 - 400 /CUMM) 91 L MPV (7.4 - 10.4 FL) 12.6 H Gran % (42.2 - 75.2 %) 90.3 H Lymphocytes % (20.5 - 51.1 %) 5.3 L Monocytes % (1.7 - 9.3 %) 4.0 Eosinophils % (0 - 5 %) 0.3 Basophils % (0.0 - 2.0 %) 0.1 Absolute Granulocytes (1.4 - 6.5 /CUMM) 13.4 H Segmented Neutrophils (42.2 - 75.2 %) 91 H Band Neutrophils (0.0 - 5.0 %) 3 Absolute Lymphocytes (1.2 - 3.4 /CUMM) 0.8 L Lymphocytes (20.5 - 51.1 %) 2 L Monocytes (1.7 - 9.3 %) 2 Absolute Monocytes (0.10 - 0.60 /CUMM) 0.6 Absolute Eosinophils (0.0 - 0.7 /CUMM) 0.1 Absolute Basophils (0.0 - 0.2 /CUMM) 0 Metamyelocytes (0.0 - 1.0 %) 2 H Nucleated RBCs (0.0 - 0.0 /100WBC) 2 H Platelet Estimate (ADEQUATE) VERIFIED BY SMEAR Polychromasia 1+ Poikilocytosis 1+ Anisocytosis 1+ Ovalocytes 1+ PUBS MCHC (33.0 - 37.0 G/DL) 32.5 L Last 24 Hours of Mak Results: Urine culture February 26 negative Recent Imaging Studies: Modified barium swallow February 27 reveals aspiration with multiple consistencies of barium Assessment/Plan Impression: Overall condition poor, though stable, with temperatures remaining normal and with his white blood cell count further decreased, though still elevated, on Ceftriaxone, Day 8 of treatment for Klebsiella sepsis, presumably of urologic origin secondary to the suprapubic catheter. His oxygen requirements have increased, raising concern for fluid overload or atelectasis or, possibly, pneumonia. His renal failure continues to improve and his thrombocytopenia, likely secondary to sepsis, is improving. Suggestion: 1. Repeat chest x-ray 2. Further evaluation of his fluid status per Cardiology 3. Continue Ceftriaxone
--- NOTE | 2017-02-27 18:50 | RADIOLOGY REPORT ---
EXAMINATION: XR PORTABLE CHEST CLINICAL INFORMATION: Shortness of breath COMPARISON: 02/25/2017 TECHNIQUE: Portable frontal view of the chest was obtained. FINDINGS: The cardiomediastinal silhouette is stable with a top normal to slightly enlarged cardiac silhouette and calcification of the aortic knob. Since the prior study there is slightly increased conspicuity of faint patchy airspace opacification in the right mid and lower lung, and there remains a dense retrocardiac left lower lobe opacification. Trace pleural effusions may be present. No pneumothorax. No acute osseous abnormalities are evident. IMPRESSION: Increased conspicuity of right-sided airspace opacification since 02/25/2017, and persistent retrocardiac left lower lobe opacification.
[2017-02-27 22:56] VITALS: BP 122/58
[2017-02-28 06:00] VITALS: BP 150/62
--- NOTE | 2017-02-28 06:36 | PN- Housestaff ---
Subjective Follow-up For: Sepsis of urological origin, acute on chronic kidney injury, anemia, type II MO Complaints: NOT ABLE TO HAVE ORAL FEED Tele-Events Since Last Visit: Sinus rhythm heart rate 85 Subjective: Patient was seen and examined by me at bedside today. He was sitting in his recliner on 4 L of oxygen, looks like in mild distress. He is frustrated that he is not able to have oral feed. Upon saying that he has high risk of aspiration since his failed his swallow eval, patient expressed wishes to have liquid diet. He said he completely understood the risk and benefits of having oral feed in spite of failed swallow eval. He denies chest pain, chest pressure , nausea, vomiting, abdominal pain. Review of Systems Constitutional: Reports: no symptoms. Cardiovascular: Reports: no symptoms. Respiratory: Reports: no symptoms. Gastrointestinal: Reports: no symptoms. Genitourinary: Reports: no symptoms. Musculoskeletal: Reports: no symptoms. Skin: Reports: no symptoms. Objective Last 24 Hrs of Vital Signs/I&O Vital Signs Date Time Temp Pulse Resp B/P B/P Pulse O2 O2 Flow FiO2 Mean Ox Delivery Rate 02/28 1447 97.6 80 20 110/50 92 02/28 1411 92 Nasal 3.0L Cannula 02/28 1340 82 130/60 02/28 1340 82 130/60 02/28 1142 102 140/60 02/28 0833 142/60 02/28 0800 97 Nasal 4.0L Cannula 02/28 0600 97.4 83 24 150/62 90 02/28 0000 Nasal 4.0L Cannula 02/27 2326 80 122/58 02/27 2256 99.0 83 24 122/58 92 02/27 2137 80 120/58 Intake & Output 02/28 1600 02/28 0800 02/28 0000 Intake Total 200 600 800 Output Total 250 400 400 Balance -50 200 400 Intake, IV 600 800 Intake, Oral 200 0 Output, Urine 250 400 400 Physical Exam General Appearance: Alert, Oriented X3, Cooperative, Mild Distress Skin: No Breakdown Neck: Supple, No JVD Cardiovascular: Normal S1, Normal S2, No Murmurs Lungs: Clear to Auscultation, Normal Air Movement Abdomen: Soft, No Tenderness, No Hepatospenomegaly Neurological: Normal Speech, Normal Tone, Sensation Intact Extremities: B/L TRACE PEDAL EDEMA Current Medications: Current Medications Sig/Bret Start time Last Medication Dose Route Stop Time Status Admin Acetaminophen 650 MG Q4P PRN 02/21 1700 AC 02/21 PO 1713 Albuterol Sulfate 3 ML Q4P PRN 02/28 1415 AC 02/28 INH 1410 Ceftriaxone Sodium 1,000 MG DAILY 02/23 1501 AC 02/28 IV 0822 Dextrose/Water 1,000 ML Q13H 02/27 0845 GA 02/28 IV 1142 Hydralazine HCl 25 MG TID 02/28 2200 AC PO Hydralazine HCl 10 MG TID 02/27 2200 DC 02/28 IV 1142 Hydralazine HCl 25 MG TID 02/27 1600 DC PO Insulin Aspart 0 TIDAC 02/21 0800 DC 02/27 SC 0856 Insulin Human Regular 0 Q6 02/27 1800 AC 02/28 SC 1341 Lidocaine 1 PAT DAILY 02/23 1445 02/28 EXT 0823 Loperamide HCl 2 MG Q6P PRN 02/22 2230 AC PO Metoprolol Tartrate 50 MG BID 02/21 2200 AC 02/28 PO 1340 Nifedipine 60 MG DAILY 02/26 1153 AC 02/28 PO 1340 Potassium Chloride 10 MEQ Q1H 02/27 2330 DC 02/28 IV 02/28 0131 0016 Sodium Bicarbonate 1,300 MG BID 02/23 1315 AC 02/28 PO 1340 Sodium Chloride 1,000 ML Q13H 02/26 1615 02/27 IV 2137 Last 24 Hrs of Lab/Mak Results Last 24 Hrs of Labs/Mics: Laboratory Tests 02/28/17 0730: Anion Gap 14, Estimated GFR 32 L, BUN/Creatinine Ratio 43.0 H, CBC w Diff MAN DIFF ORDERED, RBC 3.26 L, MCV 77.4 L, MCH 25.3 L, RDW 18.5 H, MPV 12.6 H, Gran % 88.4 H, Lymphocytes % 5.9 L, Monocytes % 4.1, Eosinophils % 0.5, Basophils % 1.1, Absolute Granulocytes 13.4 H, Segmented Neutrophils 92 H, Band Neutrophils 3, Absolute Lymphocytes 0.9 L, Lymphocytes 2 L, Monocytes 2, Absolute Monocytes 0.6, Absolute Eosinophils 0.1, Absolute Basophils 0.2, Myelocytes 1 H, Platelet Estimate VERIFIED BY SMEAR, Polychromasia 1+, Poikilocytosis 1+, Anisocytosis 1+, PUBS MCHC 32.6 L 02/27/17 2030: Anion Gap 13, Estimated GFR 30 L, BUN/Creatinine Ratio 40.5 H Lines/Diet/Fluids Fluids/Infusions: HALF-NORMAL SALINE AT 70 Ml PER HOUR Assessment/Plan Assessment: 81-year-old gentleman with past medical history of 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 Assessment and plan 1. Sepsis of urological origin/anemia. Patient came in with sepsis of urological origin, initially was given ceftriaxone and azithromycin in ED and later changed to Unasyn and Ceftazidime. patient blood culture is growing Klebsiella pneumonia. His antibiotics was changed to ceftriaxone. Patient is a now on day 9 of IV ceftriaxone and followed by infectious disease doctor. Suprapubic catheter was changed on January 2017. urine culture sputum culture are negative so far. Patient had loose stools since admission which was guaiac-positive. Patient was evaluated by gastroenterology , considering his anemia secondary due to iron deficiencY, recommended no intervention at this point. Patient had leukocytosis over the weekend and a repeat urine culture and chest x-ray was done. Chest x-ray shows slightly enlarged small left pleural effusion without any infiltrate. . We will repeat a chest x-ray to rule out any fluid overload. 2. AK I secondary to dehydration Patient has acute kidney injury secondary to dehydration, was being corrected with IV fluids. His BUN/creatinine and lactic acid are trending down. We will monitor CBCs and BEP. Nephrology follow-up appreciated. Patient had a renal ultrasound and CAT scan of the abdomen to rule out any GI bleed and obstructive uropathy. Imaging were negative for GI bleed/obstructive uropathy respectively. We will discontinue D5W and continue him on half normal saline at 75 mL per hour .Patient sodium 143, potassium 3.6, BUN 86, creatinine 2-which is slowly improving with IV fluids 3. Rule out ACS Patient tolerance trended down which is secondary due to demand ischemia. Cardiology follow-up appreciated. 4. Rule out stroke Given the patient recent worsening of mentation and dysarthria CAT scan was done which was negative. 5. Anemia Patient has anemia likely secondary due to iron deficiency. Patient had 1 unit of blood transfusion this stay. Repeat hemoglobin is 8.1. We will guaiac all his stools and continue monitoring his CBCs. He had a bowel movement today which was guaiac negative. Code-DNR/DNI Diet patient had modified. Swallow today and had continuous aspiration. He has been recommended nothing by mouth per speech and swallow eval. patient wishes to have thin liquids knowing the risk of aspiration. This was extensively discussed with the patient and the patient daughter by the resident and myself. Plan-continue antibiotics, follow up infectious disease and nephrology. Problem List: 1. TENISHA 2. Anemia 3. Sepsis secondary to UTI Pain Ratin Pain Location: NONE Pain Goal: Remain pain free Pain Plan: TYLENOL Tomorrow's Labs & Rationales: CBC,BEP
[2017-02-28 08:20] LABS: ABSOLUTE BASOPHIL COUNT 0.2 /CUMM (0.0-0.2); ABSOLUTE EOSINOPHIL COUNT 0.1 /CUMM (0.0-0.7); ABSOLUTE GRANULOCYTE CT 13.4 /CUMM (1.4-6.5); ABSOLUTE LYMPH COUNT 0.9 /CUMM (1.2-3.4); ABSOLUTE MONOCYTE COUNT 0.6 /CUMM (0.10-0.60); BASOPHIL % 1.1 % (0.0-2.0); EOSINOPHIL % 0.5 % (0-5); GRANULOCYTE % 88.4 % (42.2-75.2); HEMATOCRIT 25.3 % (42-52); MEAN CORPUSCULAR HGB 25.3 PG (27.0-31.0); MEAN CORPUSCULAR HGB CONC 32.6 G/DL (33.0-37.0); MEAN CORPUSCULAR VOLUME 77.4 FL (80.0-94.0); MEAN PLATELET VOLUME 12.6 FL (7.4-10.4); PLATELET COUNT 112 /CUMM (130-400); RBC DISTRIBUTION WIDTH 18.5 % (11.5-14.5); RED BLOOD CELL CT 3.26 /CUMM (4.70-6.10); WHITE BLOOD CELL COUNT 15.2 /CUMM (4.8-10.8)
[2017-02-28 08:33] VITALS: BP 142/60
--- NOTE | 2017-02-28 13:02 | Event Note ---
Event Note Event Note: We had extensive discussion with the patient and the patient daughter regarding his dietary management. Patient failed his swallow eval yesterday and was put on nothing by mouth since then. Patient today expressed wishes to be on oral liquids. Patient was educated about the risk of aspiration. In spite of the lengthy discussion about the risk of aspiration patient still wished to be on oral feeds. We will start him on regular thin. Keep the head end elevated while feeding, and avoid any feeding while coughing.
--- NOTE | 2017-02-28 13:49 | PN- Cardiology ---
Subjective Subjective: Lethargic but arousable. No specific complaints. Objective Vital Signs and I&Os Vital Signs Date Time Temp Pulse Resp B/P B/P Pulse O2 O2 Flow FiO2 Mean Ox Delivery Rate 02/28 1340 82 130/60 02/28 1340 82 130/60 02/28 1142 102 140/60 02/28 0833 142/60 02/28 0800 97 Nasal 4.0L Cannula 02/28 0600 97.4 83 24 150/62 90 02/28 0000 Nasal 4.0L Cannula 02/27 2326 80 122/58 02/27 2256 99.0 83 24 122/58 92 02/27 2137 80 120/58 02/27 1425 96.5 73 20 118/50 93 Nasal 4.0L Cannula Intake & Output 02/28 1600 02/28 0800 02/28 0000 02/27 1600 02/27 0800 02/27 0000 Intake Total 511 002 1110 650 740 Output Total 400 400 250 450 450 Balance 200 400 790 200 290 Intake, IV 600 800 620 600 500 Intake, Oral 0 420 50 240 Number 1 1 Bowel Movements Output, Urine 400 400 250 450 450 Current Medications: Current Medications Sig/Bret Start time Last Medication Dose Route Stop Time Status Admin Acetaminophen 650 MG Q4P PRN 02/21 1700 AC 02/21 PO 1713 Ceftriaxone Sodium 1,000 MG DAILY 02/23 1501 AC 02/28 IV 0822 Dextrose/Water 1,000 ML Q13H 02/27 0845 AR 02/28 IV 1142 Hydralazine HCl 10 MG TID 02/27 2200 AC 02/28 IV 1142 Hydralazine HCl 25 MG TID 02/27 1600 DC PO Insulin Aspart 0 TIDAC 02/21 0800 DC 02/27 SC 0856 Insulin Human Regular 0 Q6 02/27 1800 AC 02/28 SC 1341 Lidocaine 1 PAT DAILY 02/23 1445 AC 02/28 EXT 0823 Loperamide HCl 2 MG Q6P PRN 02/22 2230 AC PO Metoprolol Tartrate 50 MG BID 02/21 2200 AC 02/28 PO 1340 Nifedipine 60 MG DAILY 02/26 1153 AC 02/28 PO 1340 Potassium Chloride 10 MEQ Q1H 02/27 2330 DC 02/28 IV 02/28 0131 0016 Potassium Chloride 10 MEQ Q1H 02/27 1215 DC 02/27 IV 02/27 1416 2122 Sodium Bicarbonate 1,300 MG BID 02/23 1315 AC 02/28 PO 1340 Sodium Chloride 1,000 ML Q13H 02/26 1615 AC 02/27 IV 2137 Results Last 48 Hrs of Labs/Mics: Laboratory Tests 02/28/17 0730: Anion Gap 14, Estimated GFR 32 L, BUN/Creatinine Ratio 43.0 H, CBC w Diff MAN DIFF ORDERED, RBC 3.26 L, MCV 77.4 L, MCH 25.3 L, RDW 18.5 H, MPV 12.6 H, Gran % 88.4 H, Lymphocytes % 5.9 L, Monocytes % 4.1, Eosinophils % 0.5, Basophils % 1.1, Absolute Granulocytes 13.4 H, Segmented Neutrophils 92 H, Band Neutrophils 3, Absolute Lymphocytes 0.9 L, Lymphocytes 2 L, Monocytes 2, Absolute Monocytes 0.6, Absolute Eosinophils 0.1, Absolute Basophils 0.2, Myelocytes 1 H, Platelet Estimate VERIFIED BY SMEAR, Polychromasia 1+, Poikilocytosis 1+, Anisocytosis 1+, PUBS MCHC 32.6 L 02/27/17 2030: Anion Gap 13, Estimated GFR 30 L, BUN/Creatinine Ratio 40.5 H 02/27/17 1600: Sodium Cancelled, Potassium Cancelled, Chloride Cancelled, Carbon Dioxide Cancelled, Anion Gap Cancelled, BUN Cancelled, Creatinine Cancelled, BUN/ Creatinine Ratio Cancelled 02/27/17 0650: Anion Gap 15, Estimated GFR 32 L, BUN/Creatinine Ratio 42.5 H, CBC w Diff MAN DIFF ORDERED, RBC 3.05 L, MCV 77.9 L, MCH 25.4 L, RDW 18.6 H, MPV 12.6 H, Gran % 90.3 H, Lymphocytes % 5.3 L, Monocytes % 4.0, Eosinophils % 0.3, Basophils % 0.1, Absolute Granulocytes 13.4 H, Segmented Neutrophils 91 H, Band Neutrophils 3, Absolute Lymphocytes 0.8 L, Lymphocytes 2 L, Monocytes 2, Absolute Monocytes 0.6, Absolute Eosinophils 0.1, Absolute Basophils 0, Metamyelocytes 2 H, Nucleated RBCs 2 H, Platelet Estimate VERIFIED BY SMEAR, Polychromasia 1+, Poikilocytosis 1+, Anisocytosis 1+, Ovalocytes 1+, PUBS MCHC 32.5 L Assessment/Plan Assessment/Plan Assessment: 1. Elevated troponin consistent with Type 2 VT 2. Abnormal ECG with transient ILBBB 3. Probable urosepsis 4. Acute on chronic renal insufficiency. 5. Anemia Recommendations: - continue current medication regimen for now. -Continue on telemetry monitoring -Plans for any further cardiac evaluation as outpatient to be further discussed with patient's family and patient is more stable. Continue telemetry? Yes
--- NOTE | 2017-02-28 14:17 | PN- Att Addend ---
Attending Addendum Attending Brief Note Patient is a little restless today once to eat but the barium swallow the modified 1 still pending depending on the results hopefully will be able to reassume a diet. Vital signs are stable no fever, no major changes on physical. His last white count is 15,200 her potassium up to 3.6 BUN 86 creatinine 2.0 and tinea observation and treatment, when ready he might need short-term rehabilitation. Intake & Output 02/28 1600 02/28 0400 02/27 1600 02/27 0400 02/26 1600 02/26 0400 Intake Total 737 462 3746 740 1750 Output Total 400 400 598 652 9537 550 Balance 200 400 990 290 750 -550 Intake, IV 390 664 0642 500 950 Intake, Oral 0 470 240 800 Number 1 1 Bowel Movements Output, Urine 400 400 596 487 6445 550 Current Medications Sig/Bret Start time Last Medication Dose Route Stop Time Status Admin Acetaminophen 650 MG Q4P PRN 02/21 1700 AC 02/21 PO 1713 Albuterol Sulfate 3 ML Q4P PRN 02/28 1415 AC 02/28 INH 1410 Ceftriaxone Sodium 1,000 MG DAILY 02/23 1501 AC 02/28 IV 0822 Dextrose/Water 1,000 ML Q13H 02/27 0845 DC 02/28 IV 1142 Hydralazine HCl 10 MG TID 02/27 2200 AC 02/28 IV 1142 Hydralazine HCl 25 MG TID 02/27 1600 DC PO Insulin Aspart 0 TIDAC 02/21 0800 DC 02/27 SC 0856 Insulin Human Regular 0 Q6 02/27 1800 AC 02/28 SC 1341 Lidocaine 1 PAT DAILY 02/23 1445 AC 02/28 EXT 0823 Loperamide HCl 2 MG Q6P PRN 02/22 2230 AC PO Metoprolol Tartrate 50 MG BID 02/21 2200 AC 02/28 PO 1340 Nifedipine 60 MG DAILY 02/26 1153 AC 02/28 PO 1340 Potassium Chloride 10 MEQ Q1H 02/27 2330 DC 02/28 IV 02/28 0131 0016 Potassium Chloride 10 MEQ Q1H 02/27 1215 DC 02/27 IV 02/27 1416 2122 Sodium Bicarbonate 1,300 MG BID 02/23 1315 AC 02/28 PO 1340 Sodium Chloride 1,000 ML Q13H 02/26 1615 AC 02/27 IV 2137 Laboratory Tests 02/28/17 0730: Anion Gap 14, Estimated GFR 32 L, BUN/Creatinine Ratio 43.0 H, CBC w Diff MAN DIFF ORDERED, RBC 3.26 L, MCV 77.4 L, MCH 25.3 L, RDW 18.5 H, MPV 12.6 H, Gran % 88.4 H, Lymphocytes % 5.9 L, Monocytes % 4.1, Eosinophils % 0.5, Basophils % 1.1, Absolute Granulocytes 13.4 H, Segmented Neutrophils 92 H, Band Neutrophils 3, Absolute Lymphocytes 0.9 L, Lymphocytes 2 L, Monocytes 2, Absolute Monocytes 0.6, Absolute Eosinophils 0.1, Absolute Basophils 0.2, Myelocytes 1 H, Platelet Estimate VERIFIED BY SMEAR, Polychromasia 1+, Poikilocytosis 1+, Anisocytosis 1+, PUBS MCHC 32.6 L 02/27/17 2030: Anion Gap 13, Estimated GFR 30 L, BUN/Creatinine Ratio 40.5 H 02/27/17 1600: Sodium Cancelled, Potassium Cancelled, Chloride Cancelled, Carbon Dioxide Cancelled, Anion Gap Cancelled, BUN Cancelled, Creatinine Cancelled, BUN/ Creatinine Ratio Cancelled 02/27/17 0650: Anion Gap 15, Estimated GFR 32 L, BUN/Creatinine Ratio 42.5 H, CBC w Diff MAN DIFF ORDERED, RBC 3.05 L, MCV 77.9 L, MCH 25.4 L, RDW 18.6 H, MPV 12.6 H, Gran % 90.3 H, Lymphocytes % 5.3 L, Monocytes % 4.0, Eosinophils % 0.3, Basophils % 0.1, Absolute Granulocytes 13.4 H, Segmented Neutrophils 91 H, Band Neutrophils 3, Absolute Lymphocytes 0.8 L, Lymphocytes 2 L, Monocytes 2, Absolute Monocytes 0.6, Absolute Eosinophils 0.1, Absolute Basophils 0, Metamyelocytes 2 H, Nucleated RBCs 2 H, Platelet Estimate VERIFIED BY SMEAR, Polychromasia 1+, Poikilocytosis 1+, Anisocytosis 1+, Ovalocytes 1+, PUBS MCHC 32.5 L 02/26/17 0711: Anion Gap 17 H, Estimated GFR 27 L, BUN/Creatinine Ratio 41.3 H, Lactic Acid 2.3 H, Phosphorus 3.7, Magnesium 2.4 H, CBC w Diff MAN DIFF ORDERED, RBC 3.13 L, MCV 77.1 L, MCH 25.7 L, RDW 18.4 H, MPV 10.0, Gran % 89.8 H, Lymphocytes % 4.5 L, Monocytes % 4.9, Eosinophils % 0.2, Basophils % 0.6, Absolute Granulocytes 14.8 H, Segmented Neutrophils 87 H, Band Neutrophils 3, Absolute Lymphocytes 0.7 L, Lymphocytes 2 L, Monocytes 6, Absolute Monocytes 0.8 H, Absolute Eosinophils 0, Absolute Basophils 0.1, Metamyelocytes 2 H, Nucleated RBCs 1 H, Platelet Estimate DECREASED, Polychromasia 1+, Hypochromic-Microcytic 1+, Poikilocytosis 1+, Anisocytosis 1+, Microcytic Cells 1+, Ovalocytes 1+, [place] Cells 1+, PUBS MCHC 33.4 02/25/17 2355: Lactic Acid Cancelled 02/25/17 1835: Lactic Acid 3.5 H Microbiology 02/26 1345 URINE ROUT: Urine Culture - COMP 02/25 1500 STOOL: Clostridium difficile Toxin A & B - COMP 02/25 145 LOWER RESP: Respiratory Culture - CAN Cancelled: SPECIMEN NOT RECEIVED IN LABORATORY 02/25 145 LOWER RESP: Gram Stain - CAN Cancelled: SPECIMEN NOT RECEIVED IN LABORATORY Microbiology 02/26 1345 URINE ROUT: Urine Culture - COMP 02/25 1500 STOOL: Clostridium difficile Toxin A & B - COMP 02/25 145 LOWER RESP: Respiratory Culture - CAN Cancelled: SPECIMEN NOT RECEIVED IN LABORATORY 02/25 1454 LOWER RESP: Gram Stain - CAN Cancelled: SPECIMEN NOT RECEIVED IN LABORATORY Vital Signs Date Time Temp Pulse Resp B/P B/P Pulse O2 O2 Flow FiO2 Mean Ox Delivery Rate 02/28 1411 92 Nasal 3.0L Cannula 02/28 1340 82 130/60 02/28 1340 82 130/60 02/28 1142 102 140/60 02/28 0833 142/60 02/28 0800 97 Nasal 4.0L Cannula 02/28 0600 97.4 83 24 150/62 90 02/28 0000 Nasal 4.0L Cannula 02/27 2326 80 122/58 02/27 2256 99.0 83 24 122/58 92 02/27 2137 80 120/58 02/27 1425 96.5 73 20 118/50 93 Nasal 4.0L Cannula
[2017-02-28 14:47] VITALS: BP 110/50
--- NOTE | 2017-02-28 16:57 | RADIOLOGY REPORT ---
EXAMINATION: XR PORTABLE CHEST CLINICAL INFORMATION: Shortness of breath, CHF. COMPARISON: Portable frontal view of the chest dated 02/27/2017 at 6:25 PM. TECHNIQUE: Portable frontal view of the chest was obtained. FINDINGS: There is an interval increase in the prominence of the area of increased density in the right suprahilar region and right infrahilar region by comparison with the previous study. Also again noted is the dense opacification left retrocardiac region. No blunting the costophrenic angles is noted. Central prominence of the pulmonary vessels is noted with central peribronchial cuffing. IMPRESSION: Increasing densities in the right perihilar regions both superior and inferior are more prominent than on the prior study, the left retrocardiac density is again noted. The findings are concerning for a developing consolidation or infiltrative process.
--- NOTE | 2017-02-28 18:49 | PN- Nephrology ---
Assessment/Plan Assessment: 1. Acute kidney injury secondary to ATN in setting of Klebsiella sepsis, presumed urosepsis - slowly improving 2. Metabolic acidosis secondary to lactic acidosis and renal failure - resolved 3. Hypernatremia - resolved 4. Persistent leukocytosis 5. Urethral stricture with chronic suprapubic catheter Suggestion: 1. Change IV to 1/2NS at 75cc/hr 2. Address nutritional needs; may need to consider PEG 3. Cont to monitor I&O, labs Subjective Subjective: Still coughing. Failed swallowing test yesterday. Insisting on po liquids as noted. Renal fx stable, serum Na improved. Objective Vital Signs and I&Os Vital Signs Date Time Temp Pulse Resp B/P B/P Pulse O2 O2 Flow FiO2 Mean Ox Delivery Rate 02/28 1447 97.6 80 20 110/50 92 02/28 1411 92 Nasal 3.0L Cannula 02/28 1340 82 130/60 02/28 1340 82 130/60 02/28 1142 102 140/60 02/28 0833 142/60 02/28 0800 97 Nasal 4.0L Cannula 02/28 0600 97.4 83 24 150/62 90 02/28 0000 Nasal 4.0L Cannula 02/27 2326 80 122/58 02/27 2256 99.0 83 24 122/58 92 02/27 2137 80 120/58 Intake & Output 02/28 1600 02/28 0400 02/27 1600 02/27 0400 02/26 1600 02/26 0400 Intake Total 2601 239 7115 740 1750 Output Total 650 400 392 801 9803 550 Balance 850 400 990 290 750 -550 Intake, IV 6329 310 1131 500 950 Intake, Oral 400 470 240 800 Number 1 1 Bowel Movements Output, Urine 650 400 927 616 2236 550 Physical Exam: General: Elderly white male in NAD Skin: No rash or jaundice HEENT: Conjunctivae pale, sclerae anicteric, mucous membranes dry Neck: Without masses or thyromegaly, no supraclavicular or cervical adenopathy Chest: Clear anterolaterally Heart: Regular rate and rhythm without S3 or rub Abdomen: Soft and nontender without palpable masses or organomegaly; there is a suprapubic cystostomy tube in place Extremities: Without cyanosis, edema Neuro: Left hemiparesis and possible left facial, no asterixis or myoclonus Current Medications: Current Medications Sig/Bret Start time Last Medication Dose Route Stop Time Status Admin Acetaminophen 650 MG Q4P PRN 02/21 1700 AC 02/21 PO 1713 Albuterol Sulfate 3 ML Q4P PRN 02/28 1415 AC 02/28 INH 1410 Ceftriaxone Sodium 1,000 MG DAILY 02/23 1501 AC 02/28 IV 0822 Dextrose/Water 1,000 ML Q13H 02/27 0845 DC 02/28 IV 1142 Hydralazine HCl 25 MG TID 02/28 2200 AC PO Hydralazine HCl 10 MG TID 02/27 2200 DC 02/28 IV 1142 Insulin Human Regular 0 Q6 02/27 1800 AC 02/28 SC 1754 Lidocaine 1 PAT DAILY 02/23 1445 AC 02/28 EXT 0823 Loperamide HCl 2 MG Q6P PRN 02/22 2230 AC PO Metoprolol Tartrate 50 MG BID 02/21 2200 AC 02/28 PO 1340 Nifedipine 60 MG DAILY 02/26 1153 AC 02/28 PO 1340 Potassium Chloride 10 MEQ Q1H 02/27 2330 DC 02/28 IV 02/28 0131 0016 Sodium Bicarbonate 1,300 MG BID 02/23 1315 AC 02/28 PO 1340 Sodium Chloride 1,000 ML Q13H 02/26 1615 AC 02/28 IV 1754 Results Pertinent Lab Results: Laboratory Tests 02/28 02/27 02/27 0730 2030 1600 Chemistry Sodium (137 - 145 mmol/L) 143 140 Cancelled Potassium (3.5 - 5.1 mmol/L) 3.6 3.3 L Cancelled Chloride (98 - 107 mmol/L) 107 103 Cancelled Carbon Dioxide (22 - 30 mmol/L) 22 24 Cancelled Anion Gap (5 - 16) 14 13 Cancelled BUN (9 - 20 mg/dL) 86 H 85 H Cancelled Creatinine (0.7 - 1.2 mg/dL) 2.0 H 2.1 H Cancelled Estimated GFR (>60 ml/min) 32 L 30 L BUN/Creatinine Ratio (7 - 25 %) 43.0 H 40.5 H Cancelled Hematology CBC w Diff MAN DIFF ORDERED WBC (4.8 - 10.8 /CUMM) 15.2 H RBC (4.70 - 6.10 /CUMM) 3.26 L Hgb (14.0 - 18.0 G/DL) 8.2 L Hct (42 - 52 %) 25.3 L MCV (80.0 - 94.0 FL) 77.4 L MCH (27.0 - 31.0 PG) 25.3 L RDW (11.5 - 14.5 %) 18.5 H Plt Count (130 - 400 /CUMM) 112 L MPV (7.4 - 10.4 FL) 12.6 H Gran % (42.2 - 75.2 %) 88.4 H Lymphocytes % (20.5 - 51.1 %) 5.9 L Monocytes % (1.7 - 9.3 %) 4.1 Eosinophils % (0 - 5 %) 0.5 Basophils % (0.0 - 2.0 %) 1.1 Absolute Granulocytes (1.4 - 6.5 /CUMM) 13.4 H Segmented Neutrophils (42.2 - 75.2 %) 92 H Band Neutrophils (0.0 - 5.0 %) 3 Absolute Lymphocytes (1.2 - 3.4 /CUMM) 0.9 L Lymphocytes (20.5 - 51.1 %) 2 L Monocytes (1.7 - 9.3 %) 2 Absolute Monocytes (0.10 - 0.60 /CUMM) 0.6 Absolute Eosinophils (0.0 - 0.7 /CUMM) 0.1 Absolute Basophils (0.0 - 0.2 /CUMM) 0.2 Myelocytes (0 - 0 %) 1 H Platelet Estimate (ADEQUATE) VERIFIED BY SMEAR Polychromasia 1+ Poikilocytosis 1+ Anisocytosis 1+ PUBS MCHC (33.0 - 37.0 G/DL) 32.6 L 02/27 02/26 0650 0711 Chemistry Sodium (137 - 145 mmol/L) 142 146 H Potassium (3.5 - 5.1 mmol/L) 3.2 L 3.5 Chloride (98 - 107 mmol/L) 103 109 H Carbon Dioxide (22 - 30 mmol/L) 24 20 L Anion Gap (5 - 16) 15 17 H BUN (9 - 20 mg/dL) 85 H 95 H Creatinine (0.7 - 1.2 mg/dL) 2.0 H 2.3 H Estimated GFR (>60 ml/min) 32 L 27 L BUN/Creatinine Ratio (7 - 25 %) 42.5 H 41.3 H Lactic Acid (0.7 - 2.1 mmol/L) 2.3 H Phosphorus (2.5 - 4.5 mg/dL) 3.7 Magnesium (1.6 - 2.3 mg/dL) 2.4 H Hematology CBC w Diff MAN DIFF ORDERED MAN DIFF ORDERED WBC (4.8 - 10.8 /CUMM) 14.9 H 16.5 H RBC (4.70 - 6.10 /CUMM) 3.05 L 3.13 L Hgb (14.0 - 18.0 G/DL) 7.7 L 8.1 L Hct (42 - 52 %) 23.7 L 24.1 L MCV (80.0 - 94.0 FL) 77.9 L 77.1 L MCH (27.0 - 31.0 PG) 25.4 L 25.7 L RDW (11.5 - 14.5 %) 18.6 H 18.4 H Plt Count (130 - 400 /CUMM) 91 L 71 L MPV (7.4 - 10.4 FL) 12.6 H 10.0 Gran % (42.2 - 75.2 %) 90.3 H 89.8 H Lymphocytes % (20.5 - 51.1 %) 5.3 L 4.5 L Monocytes % (1.7 - 9.3 %) 4.0 4.9 Eosinophils % (0 - 5 %) 0.3 0.2 Basophils % (0.0 - 2.0 %) 0.1 0.6 Absolute Granulocytes (1.4 - 6.5 /CUMM) 13.4 H 14.8 H Segmented Neutrophils (42.2 - 75.2 %) 91 H 87 H Band Neutrophils (0.0 - 5.0 %) 3 3 Absolute Lymphocytes (1.2 - 3.4 /CUMM) 0.8 L 0.7 L Lymphocytes (20.5 - 51.1 %) 2 L 2 L Monocytes (1.7 - 9.3 %) 2 6 Absolute Monocytes (0.10 - 0.60 /CUMM) 0.6 0.8 H Absolute Eosinophils (0.0 - 0.7 /CUMM) 0.1 0 Absolute Basophils (0.0 - 0.2 /CUMM) 0 0.1 Metamyelocytes (0.0 - 1.0 %) 2 H 2 H Nucleated RBCs (0.0 - 0.0 /100WBC) 2 H 1 H Platelet Estimate (ADEQUATE) VERIFIED BY SMEAR DECREASED Polychromasia 1+ 1+ Hypochromic-Microcytic 1+ Poikilocytosis 1+ 1+ Anisocytosis 1+ 1+ Microcytic Cells 1+ Ovalocytes 1+ 1+ [place] Cells 1+ PUBS MCHC (33.0 - 37.0 G/DL) 32.5 L 33.4 02/25 2815 Chemistry Lactic Acid Cancelled
[2017-02-28 22:00] VITALS: BP 140/62
[2017-03-01 06:00] VITALS: BP 116/58
--- NOTE | 2017-03-01 07:31 | PN- Housestaff ---
Subjective Follow-up For: Sepsis of urological Complaints: no complaints Tele-Events Since Last Visit: Normal sinus rhythm Subjective: Patient was seen at bedside today. He is drowsy but arousable. He responds to commands. He denies chest pain, chest pressure, cough, nausea, vomiting, chest pain. He is requesting oral fluids. Review of Systems Constitutional: Reports: no symptoms. Cardiovascular: Reports: no symptoms. Respiratory: Reports: no symptoms. Gastrointestinal: Reports: no symptoms. Genitourinary: Reports: no symptoms. Musculoskeletal: Reports: no symptoms. Objective Last 24 Hrs of Vital Signs/I&O Vital Signs Date Time Temp Pulse Resp B/P B/P Pulse O2 O2 Flow FiO2 Mean Ox Delivery Rate 03/02 1512 97.9 78 22 110/60 93 Nasal 3.0L Cannula 03/02 0920 90 108/52 03/02 0919 90 10852 03/02 0919 90 10803/02 0800 Nasal Cannula 03/02 0000 Nasal 3.0L Cannula 03/01 2309 96.9 90 24 108/52 92 Nasal Cannula 03/01 1752 84 130/65 Intake & Output 03/02 1600 03/02 0800 03/02 0000 Intake Total 700 225 Output Total 250 250 Balance 450 -25 Intake, IV 225 Intake, Oral 300 Intake, 400 TPN/PPN Output, Urine 250 250 Physical Exam General Appearance: Alert, Oriented X3, Cooperative, No Acute Distress HEENT: PERRLA, EOMI Cardiovascular: Normal S1, Normal S2, No Murmurs Lungs: Clear to Auscultation Abdomen: Soft, No Tenderness, No Hepatospenomegaly Neurological: Normal Speech, Strength at 5/5 X4 Ext, Normal Tone, Sensation Intact Extremities: Normal Pulses Current Medications: Current Medications Sig/Bret Start time Last Medication Dose Route Stop Time Status Admin Acetaminophen 650 MG ONCE ONE 03/02 0215 DC 03/02 PO 03/02 0216 0253 Acetaminophen 650 MG Q4P PRN 02/21 1700 AC 02/21 PO 1713 Albuterol Sulfate 3 ML Q4P PRN 02/28 1415 AC 03/02 INH 0921 Ceftriaxone Sodium 1,000 MG DAILY 02/23 1501 DC 03/01 IV 1015 Hydralazine HCl 25 MG TID 02/28 2200 AC 03/02 PO 0920 Insulin Aspart 0 TIDAC 03/01 0800 AC 03/02 SC 1324 Lidocaine 1 PAT DAILY 02/23 1445 AC 03/02 EXT 0943 Loperamide HCl 2 MG Q6P PRN 02/22 2230 AC PO Metoprolol Tartrate 50 MG BID 02/21 2200 AC 03/02 PO 0919 Morphine Sulfate 2 MG Q4P PRN 03/02 1445 AC 03/02 IV 1455 Morphine Sulfate 2 MG ONCE ONE 03/02 1030 DC 03/02 IV 03/02 1031 1045 Nifedipine 60 MG DAILY 02/26 1153 AC 03/02 PO 0919 Sodium Bicarbonate 1,300 MG BID 02/23 1315 AC 03/02 PO 0919 Sodium Chloride 1,000 ML Q13H 02/26 1615 AC 03/02 IV 1328 Last 24 Hrs of Lab/Mak Results Last 24 Hrs of Labs/Mics: Laboratory Tests 03/02/17 0002: Troponin I 0.14 *H Assessment/Plan Assessment: 81-year-old gentleman with past medical history 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 Assessment and plan 1. Sepsis of urological origin/anemia. Patient came in with sepsis of urological origin, initially was given ceftriaxone and azithromycin in ED and later changed to Unasyn and Ceftazidime. patient blood culture is growing Klebsiella pneumonia. His antibiotics was changed to ceftriaxone. Patient is a now on day 9 of IV ceftriaxone and followed by infectious disease doctor. Suprapubic catheter was changed on January 2017. urine culture sputum culture are negative so far. Patient had loose stools since admission which was guaiac-positive. Patient was evaluated by gastroenterology , considering his anemia secondary due to iron deficiencY, recommended no intervention at this point. Patient had leukocytosis over the weekend and a repeat urine culture and chest x-ray was done. Chest x-ray shows slightly enlarged small left pleural effusion without any infiltrate. We will continue antibiotics. Infectious disease follow-up appreciated. 2. AK I secondary to dehydration Patient has acute kidney injury secondary to dehydration, was being corrected with IV fluids. His BUN/creatinine and lactic acid are trending down. We will monitor CBCs and BEP. Nephrology follow-up appreciated. Patient had a renal ultrasound and CAT scan of the abdomen to rule out any GI bleed and obstructive uropathy. Imaging were negative for GI bleed/obstructive uropathy respectively. We will discontinue D5W and continue him on half normal saline at 75 mL per hour .Patient sodium 143, potassium 3.6, BUN 86, creatinine 2-which is slowly improving with IV fluids 3. Rule out ACS Patient tolerance trended down which is secondary due to demand ischemia. Cardiology follow-up appreciated. 4. Rule out stroke Given the patient recent worsening of mentation and dysarthria CAT scan was done which was negative. 5. Anemia Patient has anemia likely secondary due to iron deficiency. Patient had 1 unit of blood transfusion this stay. Repeat hemoglobin is 8.1. We will guaiac all his stools and continue monitoring his CBCs. He had a bowel movement today which was guaiac negative. Code-DNR/DNI Diet nothing by mouth. Plan-continue antibiotics, follow up infectious disease and nephrology. Problem List: 1. Anemia 2. TENISHA 3. SEPSIS OF UROLOG ORIGIN Pain Ratin Pain Location: NONE Pain Goal: Remain pain free Pain Plan: TYLENOL Tomorrow's Labs & Rationales: CBC,BEP
[2017-03-01 07:51] LABS: ABSOLUTE BASOPHIL COUNT 0 /CUMM (0.0-0.2); ABSOLUTE EOSINOPHIL COUNT 0.1 /CUMM (0.0-0.7); ABSOLUTE GRANULOCYTE CT 14.4 /CUMM (1.4-6.5); ABSOLUTE MONOCYTE COUNT 0.7 /CUMM (0.10-0.60); BASOPHIL % 0.1 % (0.0-2.0); EOSINOPHIL % 0.4 % (0-5); GRANULOCYTE % 89.3 % (42.2-75.2); HEMATOCRIT 25.4 % (42-52); MEAN CORPUSCULAR HGB 25.4 PG (27.0-31.0); MEAN CORPUSCULAR HGB CONC 32.5 G/DL (33.0-37.0); MEAN CORPUSCULAR VOLUME 78.1 FL (80.0-94.0); MEAN PLATELET VOLUME 11.7 FL (7.4-10.4); PLATELET COUNT 133 /CUMM (130-400); RBC DISTRIBUTION WIDTH 19.1 % (11.5-14.5); RED BLOOD CELL CT 3.25 /CUMM (4.70-6.10); WHITE BLOOD CELL COUNT 16.1 /CUMM (4.8-10.8)
--- NOTE | 2017-03-01 11:38 | PN- Infect Dx ---
Subjective Subjective: Afebrile. He does not offer any specific complaints. He has been drinking liquids despite recommendations from speech therapy to be NPO Objective Last 24 Hrs of Vital Signs/I&O Vital Signs Date Time Temp Pulse Resp B/P B/P Pulse O2 O2 Flow FiO2 Mean Ox Delivery Rate 03/01 0600 97.7 78 22 116/58 91 03/01 0000 94 Nasal 4.0L Cannula 02/28 2200 97.8 80 24 140/62 94 Nasal 4.0L Cannula 02/28 2049 80 140/62 02/28 1447 97.6 80 20 110/50 92 02/28 1411 92 Nasal 3.0L Cannula 02/28 1340 82 130/60 02/28 1340 82 130/60 02/28 1142 102 140/60 Intake & Output 03/01 1600 03/01 0800 03/01 0000 Intake Total 720 650 Output Total 300 200 Balance 420 450 Intake, IV 600 600 Intake, Oral 120 50 Number 0 Bowel Movements Output, Urine 300 200 Physical Exam Other Physical Findings: He is lethargic but arousable, with an occasional cough, but in no acute distress Lungs bilateral rhonchi Heart regular rhythm with no murmur Abdomen soft, nontender with positive bowel sounds Results Last 24 Hours of Lab Results: Laboratory Tests 03/01 06 Chemistry Sodium (137 - 145 mmol/L) 141 Potassium (3.5 - 5.1 mmol/L) 3.5 Chloride (98 - 107 mmol/L) 105 Carbon Dioxide (22 - 30 mmol/L) 20 L Anion Gap (5 - 16) 16 BUN (9 - 20 mg/dL) 91 H Creatinine (0.7 - 1.2 mg/dL) 2.4 H Estimated GFR (>60 ml/min) 26 L BUN/Creatinine Ratio (7 - 25 %) 37.9 H Phosphorus (2.5 - 4.5 mg/dL) 5.0 H Magnesium (1.6 - 2.3 mg/dL) 2.2 Hematology CBC w Diff MAN DIFF ORDERED WBC (4.8 - 10.8 /CUMM) 16.1 H RBC (4.70 - 6.10 /CUMM) 3.25 L Hgb (14.0 - 18.0 G/DL) 8.2 L Hct (42 - 52 %) 25.4 L MCV (80.0 - 94.0 FL) 78.1 L MCH (27.0 - 31.0 PG) 25.4 L MCHC (33.0 - 37.0 G/DL) 32.5 L RDW (11.5 - 14.5 %) 19.1 H Plt Count (130 - 400 /CUMM) 133 MPV (7.4 - 10.4 FL) 11.7 H Gran % (42.2 - 75.2 %) 89.3 H Lymphocytes % (20.5 - 51.1 %) 6.2 L Monocytes % (1.7 - 9.3 %) 4.0 Eosinophils % (0 - 5 %) 0.4 Basophils % (0.0 - 2.0 %) 0.1 Absolute Granulocytes (1.4 - 6.5 /CUMM) 14.4 H Segmented Neutrophils (42.2 - 75.2 %) 92 H Band Neutrophils (0.0 - 5.0 %) 2 Absolute Lymphocytes (1.2 - 3.4 /CUMM) 1.0 L Lymphocytes (20.5 - 51.1 %) 2 L Monocytes (1.7 - 9.3 %) 3 Absolute Monocytes (0.10 - 0.60 /CUMM) 0.7 H Absolute Eosinophils (0.0 - 0.7 /CUMM) 0.1 Absolute Basophils (0.0 - 0.2 /CUMM) 0 Myelocytes (0 - 0 %) 1 H Nucleated RBCs (0.0 - 0.0 /100WBC) 1 H Platelet Estimate (ADEQUATE) ADEQUATE Polychromasia 1+ Poikilocytosis 1+ Anisocytosis 1+ Last 24 Hours of Mak Results: No new cultures Recent Imaging Studies: Chest x-ray February 28 reveals increasing densities in the right perihilar regions with a left retrocardiac density unchanged Assessment/Plan Impression: Condition poor, with increasing oxygen requirements and worsening chest x-ray, possibly secondary to aspiration, as he insists on drinking fluids despite the swallowing evaluation recommendation that he remain NPO. He remains afebrile but his white blood cell count remains elevated despite now 10 days of Ceftriaxone for Klebsiella sepsis, presumably of urologic origin secondary to the suprapubic catheter. His BUN/creatinine have increased, possibly secondary to dehydration. His overall prognosis appears quite poor. Suggestion: 1. Further management with regard to nutrition, for example PEG, per Medicine 2. Attempt to obtain a sputum culture 3. Further evaluation of his fluid status per Cardiology and Renal 4. Continue Ceftriaxone
--- NOTE | 2017-03-01 12:39 | PN- Att Addend ---
Attending Addendum Attending Brief Note Still weak still lethargic refused a modified barium swallow. Resident spoke to son and daughter regarding the situation and if the patient does not pass the swallowing evaluation in my need some nutritional support Vital signs are stable no fever no major changes on physical. Last white count was 16,100, hemoglobin 8.2, hematocrit 25.4, potassium 3.5 my BUN 91, creatinine 2.4. The chest x-ray showed increased densities in the right perihilar region also left retrocardiac density again noted will continue antibiotic therapy respiratory therapy reassess the swallowing in the morning and then decide what the next step. Intake & Output 03/01 1600 03/01 0400 02/28 1600 02/28 0400 02/27 1600 02/27 0400 Intake Total 292 380 4439 800 1690 740 Output Total 300 200 650 400 700 450 Balance 420 450 850 400 990 290 Intake, IV 894 538 0438 800 1220 500 Intake, Oral 120 50 400 470 240 Number 0 1 1 Bowel Movements Output, Urine 300 200 650 400 700 450 Current Medications Sig/Bret Start time Last Medication Dose Route Stop Time Status Admin Acetaminophen 650 MG Q4P PRN 02/21 1700 AC 02/21 PO 1713 Albuterol Sulfate 3 ML Q4P PRN 02/28 1415 AC 03/01 INH 1141 Ceftriaxone Sodium 1,000 MG DAILY 02/23 1501 AC 03/01 IV 1015 Dextrose/Water 1,000 ML Q13H 02/27 0845 MT 02/28 IV 1142 Hydralazine HCl 25 MG TID 02/28 2200 AC PO Hydralazine HCl 10 MG TID 02/27 2200 DC 02/28 IV 1142 Insulin Aspart 0 TIDAC 03/01 0800 AC SC Insulin Human Regular 8 UNITS .STK-MED ONE 02/28 1725 DC IV 02/28 1726 Insulin Human Regular 4 UNITS .STK-MED ONE 02/28 1339 DC IV 02/28 1340 Insulin Human Regular 0 Q6 02/27 1800 DC 02/28 SC 1754 Lidocaine 1 PAT DAILY 02/23 1445 AC 02/28 EXT 0823 Loperamide HCl 2 MG Q6P PRN 02/22 2230 AC PO Metoprolol Tartrate 50 MG BID 02/21 2200 AC 02/28 PO 2049 Nifedipine 60 MG DAILY 02/26 1153 AC 02/28 PO 1340 Sodium Bicarbonate 1,300 MG BID 02/23 1315 AC 02/28 PO 1340 Sodium Chloride 1,000 ML Q13H 02/26 1615 AC 03/01 IV 0657 Laboratory Tests 03/01/17 0636: Anion Gap 16, Estimated GFR 26 L, BUN/Creatinine Ratio 37.9 H, Phosphorus 5.0 H, Magnesium 2.2, CBC w Diff MAN DIFF ORDERED, RBC 3.25 L, MCV 78.1 L, MCH 25.4 L, MCHC 32.5 L, RDW 19.1 H, MPV 11.7 H, Gran % 89.3 H, Lymphocytes % 6.2 L, Monocytes % 4.0, Eosinophils % 0.4, Basophils % 0.1, Absolute Granulocytes 14.4 H, Segmented Neutrophils 92 H, Band Neutrophils 2, Absolute Lymphocytes 1.0 L, Lymphocytes 2 L, Monocytes 3, Absolute Monocytes 0.7 H, Absolute Eosinophils 0.1, Absolute Basophils 0, Myelocytes 1 H, Nucleated RBCs 1 H, Platelet Estimate ADEQUATE, Polychromasia 1+, Poikilocytosis 1+, Anisocytosis 1+ 02/28/17 0730: Anion Gap 14, Estimated GFR 32 L, BUN/Creatinine Ratio 43.0 H, CBC w Diff MAN DIFF ORDERED, RBC 3.26 L, MCV 77.4 L, MCH 25.3 L, RDW 18.5 H, MPV 12.6 H, Gran % 88.4 H, Lymphocytes % 5.9 L, Monocytes % 4.1, Eosinophils % 0.5, Basophils % 1.1, Absolute Granulocytes 13.4 H, Segmented Neutrophils 92 H, Band Neutrophils 3, Absolute Lymphocytes 0.9 L, Lymphocytes 2 L, Monocytes 2, Absolute Monocytes 0.6, Absolute Eosinophils 0.1, Absolute Basophils 0.2, Myelocytes 1 H, Platelet Estimate VERIFIED BY SMEAR, Polychromasia 1+, Poikilocytosis 1+, Anisocytosis 1+, PUBS MCHC 32.6 L 02/27/17 2030: Anion Gap 13, Estimated GFR 30 L, BUN/Creatinine Ratio 40.5 H 02/27/17 1600: Sodium Cancelled, Potassium Cancelled, Chloride Cancelled, Carbon Dioxide Cancelled, Anion Gap Cancelled, BUN Cancelled, Creatinine Cancelled, BUN/ Creatinine Ratio Cancelled 02/27/17 0650: Anion Gap 15, Estimated GFR 32 L, BUN/Creatinine Ratio 42.5 H, CBC w Diff MAN DIFF ORDERED, RBC 3.05 L, MCV 77.9 L, MCH 25.4 L, RDW 18.6 H, MPV 12.6 H, Gran % 90.3 H, Lymphocytes % 5.3 L, Monocytes % 4.0, Eosinophils % 0.3, Basophils % 0.1, Absolute Granulocytes 13.4 H, Segmented Neutrophils 91 H, Band Neutrophils 3, Absolute Lymphocytes 0.8 L, Lymphocytes 2 L, Monocytes 2, Absolute Monocytes 0.6, Absolute Eosinophils 0.1, Absolute Basophils 0, Metamyelocytes 2 H, Nucleated RBCs 2 H, Platelet Estimate VERIFIED BY SMEAR, Polychromasia 1+, Poikilocytosis 1+, Anisocytosis 1+, Ovalocytes 1+, PUBS MCHC 32.5 L Microbiology 02/27 1344 URINE ROUT: Urine Culture - COMP Microbiology 02/27 1344 URINE ROUT: Urine Culture - COMP Vital Signs Date Time Temp Pulse Resp B/P B/P Pulse O2 O2 Flow FiO2 Mean Ox Delivery Rate 03/01 1143 94 Nasal 3.0L Cannula 03/01 0600 97.7 78 22 116/58 91 03/01 0000 94 Nasal 4.0L Cannula 02/28 2200 97.8 80 24 140/62 94 Nasal 4.0L Cannula 02/28 2049 80 140/62 02/28 1447 97.6 80 20 110/50 92 02/28 1411 92 Nasal 3.0L Cannula 02/28 1340 82 130/60 02/28 1340 82 130/60
[2017-03-01 15:50] VITALS: BP 130/65
--- NOTE | 2017-03-01 16:27 | PN- Nephrology ---
Assessment/Plan Assessment: 1. Acute kidney injury secondary to ATN in setting of Klebsiella sepsis, presumed urosepsis - rise in serum creat today likely on a pre-renal basis 2. Metabolic acidosis secondary to lactic acidosis and renal failure - resolved 3. Hypernatremia - resolved 4. Persistent leukocytosis 5. Urethral stricture with chronic suprapubic catheter Suggestion: 1. Continue current IV at 75 mL per hour 2. May need to consider PEG 3. Cont to monitor I&O, labs Subjective Subjective: Still has a cough and sounds congested which I expect is on the basis of aspiration. WBC remains elevated although he is afebrile. Creatinine up to 2.4 today. Electrolytes unremarkable. Objective Vital Signs and I&Os Vital Signs Date Time Temp Pulse Resp B/P B/P Pulse O2 O2 Flow FiO2 Mean Ox Delivery Rate 03/01 1550 97.4 84 22 130/65 96 03/01 1143 94 Nasal 3.0L Cannula 03/01 0800 92 Nasal 3.0L Cannula 03/01 0600 97.7 78 22 116/58 91 03/01 0000 94 Nasal 4.0L Cannula 02/28 2200 97.8 80 24 140/62 94 Nasal 4.0L Cannula 02/28 2049 80 140/62 Intake & Output 03/01 1600 03/01 0400 02/28 1600 02/28 0400 02/27 1600 02/27 0400 Intake Total 0228 153 4473 800 1690 740 Output Total 500 200 650 400 700 450 Balance 820 450 850 400 990 290 Intake, IV 2079 528 5868 800 1220 500 Intake, Oral 120 50 400 470 240 Number 0 1 1 Bowel Movements Output, Urine 500 200 650 400 700 450 Physical Exam: General: Elderly white male in NAD Skin: No rash or jaundice HEENT: Conjunctivae pale, sclerae anicteric, mucous membranes dry Neck: Without masses or thyromegaly, no supraclavicular or cervical adenopathy Chest: Coarse breath sounds anterolaterally Heart: Regular rate and rhythm without S3 or rub Abdomen: Soft and nontender without palpable masses or organomegaly; there is a suprapubic cystostomy tube in place Extremities: Without cyanosis, edema Neuro: Left hemiparesis and possible left facial, no asterixis or myoclonus Results Pertinent Lab Results: Laboratory Tests 03/01 02/28 0636 0730 Chemistry Sodium (137 - 145 mmol/L) 141 143 Potassium (3.5 - 5.1 mmol/L) 3.5 3.6 Chloride (98 - 107 mmol/L) 105 107 Carbon Dioxide (22 - 30 mmol/L) 20 L 22 Anion Gap (5 - 16) 16 14 BUN (9 - 20 mg/dL) 91 H 86 H Creatinine (0.7 - 1.2 mg/dL) 2.4 H 2.0 H Estimated GFR (>60 ml/min) 26 L 32 L BUN/Creatinine Ratio (7 - 25 %) 37.9 H 43.0 H Phosphorus (2.5 - 4.5 mg/dL) 5.0 H Magnesium (1.6 - 2.3 mg/dL) 2.2 Hematology CBC w Diff MAN DIFF ORDERED MAN DIFF ORDERED WBC (4.8 - 10.8 /CUMM) 16.1 H 15.2 H RBC (4.70 - 6.10 /CUMM) 3.25 L 3.26 L Hgb (14.0 - 18.0 G/DL) 8.2 L 8.2 L Hct (42 - 52 %) 25.4 L 25.3 L MCV (80.0 - 94.0 FL) 78.1 L 77.4 L MCH (27.0 - 31.0 PG) 25.4 L 25.3 L MCHC (33.0 - 37.0 G/DL) 32.5 L RDW (11.5 - 14.5 %) 19.1 H 18.5 H Plt Count (130 - 400 /CUMM) 133 112 L MPV (7.4 - 10.4 FL) 11.7 H 12.6 H Gran % (42.2 - 75.2 %) 89.3 H 88.4 H Lymphocytes % (20.5 - 51.1 %) 6.2 L 5.9 L Monocytes % (1.7 - 9.3 %) 4.0 4.1 Eosinophils % (0 - 5 %) 0.4 0.5 Basophils % (0.0 - 2.0 %) 0.1 1.1 Absolute Granulocytes (1.4 - 6.5 /CUMM) 14.4 H 13.4 H Segmented Neutrophils (42.2 - 75.2 %) 92 H 92 H Band Neutrophils (0.0 - 5.0 %) 2 3 Absolute Lymphocytes (1.2 - 3.4 /CUMM) 1.0 L 0.9 L Lymphocytes (20.5 - 51.1 %) 2 L 2 L Monocytes (1.7 - 9.3 %) 3 2 Absolute Monocytes (0.10 - 0.60 /CUMM) 0.7 H 0.6 Absolute Eosinophils (0.0 - 0.7 /CUMM) 0.1 0.1 Absolute Basophils (0.0 - 0.2 /CUMM) 0 0.2 Myelocytes (0 - 0 %) 1 H 1 H Nucleated RBCs (0.0 - 0.0 /100WBC) 1 H Platelet Estimate (ADEQUATE) ADEQUATE VERIFIED BY SMEAR Polychromasia 1+ 1+ Poikilocytosis 1+ 1+ Anisocytosis 1+ 1+ PUBS MCHC (33.0 - 37.0 G/DL) 32.6 L 02/27 02/27 02/27 2030 1600 0650 Chemistry Sodium (137 - 145 mmol/L) 140 Cancelled 142 Potassium (3.5 - 5.1 mmol/L) 3.3 L Cancelled 3.2 L Chloride (98 - 107 mmol/L) 103 Cancelled 103 Carbon Dioxide (22 - 30 mmol/L) 24 Cancelled 24 Anion Gap (5 - 16) 13 Cancelled 15 BUN (9 - 20 mg/dL) 85 H Cancelled 85 H Creatinine (0.7 - 1.2 mg/dL) 2.1 H Cancelled 2.0 H Estimated GFR (>60 ml/min) 30 L 32 L BUN/Creatinine Ratio (7 - 25 %) 40.5 H Cancelled 42.5 H Hematology CBC w Diff MAN DIFF ORDERED WBC (4.8 - 10.8 /CUMM) 14.9 H RBC (4.70 - 6.10 /CUMM) 3.05 L Hgb (14.0 - 18.0 G/DL) 7.7 L Hct (42 - 52 %) 23.7 L MCV (80.0 - 94.0 FL) 77.9 L MCH (27.0 - 31.0 PG) 25.4 L RDW (11.5 - 14.5 %) 18.6 H Plt Count (130 - 400 /CUMM) 91 L MPV (7.4 - 10.4 FL) 12.6 H Gran % (42.2 - 75.2 %) 90.3 H Lymphocytes % (20.5 - 51.1 %) 5.3 L Monocytes % (1.7 - 9.3 %) 4.0 Eosinophils % (0 - 5 %) 0.3 Basophils % (0.0 - 2.0 %) 0.1 Absolute Granulocytes (1.4 - 6.5 /CUMM) 13.4 H Segmented Neutrophils (42.2 - 75.2 %) 91 H Band Neutrophils (0.0 - 5.0 %) 3 Absolute Lymphocytes (1.2 - 3.4 /CUMM) 0.8 L Lymphocytes (20.5 - 51.1 %) 2 L Monocytes (1.7 - 9.3 %) 2 Absolute Monocytes (0.10 - 0.60 /CUMM) 0.6 Absolute Eosinophils (0.0 - 0.7 /CUMM) 0.1 Absolute Basophils (0.0 - 0.2 /CUMM) 0 Metamyelocytes (0.0 - 1.0 %) 2 H Nucleated RBCs (0.0 - 0.0 /100WBC) 2 H Platelet Estimate (ADEQUATE) VERIFIED BY SMEAR Polychromasia 1+ Poikilocytosis 1+ Anisocytosis 1+ Ovalocytes 1+ PUBS MCHC (33.0 - 37.0 G/DL) 32.5 L
--- NOTE | 2017-03-01 18:03 | PN- Cardiology ---
Subjective Subjective: The patient is sitting in a chair and is more alert. No chest pain. No shortness of breath. No palpitations. Objective Vital Signs and I&Os Vital Signs Date Time Temp Pulse Resp B/P B/P Pulse O2 O2 Flow FiO2 Mean Ox Delivery Rate 03/01 1752 84 130/65 03/01 1600 96 Nasal 3.0L Cannula 03/01 1550 97.4 84 22 130/65 96 03/01 1143 94 Nasal 3.0L Cannula 03/01 0800 92 Nasal 3.0L Cannula 03/01 0600 97.7 78 22 116/58 91 03/01 0000 94 Nasal 4.0L Cannula 02/28 2200 97.8 80 24 140/62 94 Nasal 4.0L Cannula 02/28 2049 80 140/62 Intake & Output 03/01 1600 03/01 0800 03/01 0000 02/28 1600 02/28 0800 02/28 0000 Intake Total 600 720 650 900 600 800 Output Total 200 300 200 250 400 400 Balance 400 420 450 650 200 400 Intake, IV 600 600 600 500 600 800 Intake, Oral 0 120 50 400 0 Number 0 Bowel Movements Output, Urine 200 300 200 250 400 400 Physical Exam: Gen: NAD HEENT: normal Lungs: clear to auscultation, normal resp. effort Heart: RRR, S1, S2, 1/6 systolic murmur Abdomen: Soft, nontender, no masses Extremities: No clubbing, cyanosis, or edema. Neuro: Alert and oriented x 3, cranial nerves intact Current Medications: Current Medications Sig/Bret Start time Last Medication Dose Route Stop Time Status Admin Acetaminophen 650 MG Q4P PRN 02/21 1700 AC 02/21 PO 1713 Albuterol Sulfate 3 ML Q4P PRN 02/28 1415 AC 03/01 INH 1141 Ceftriaxone Sodium 1,000 MG DAILY 02/23 1501 AC 03/01 IV 1015 Hydralazine HCl 25 MG TID 02/28 2199 AC PO Insulin Aspart 0 TIDAC 03/01 0800 AC 03/01 SC 1751 Insulin Human Regular 0 Q6 02/27 1800 DC 02/28 SC 1754 Lidocaine 1 PAT DAILY 02/23 1445 AC 03/01 EXT 1338 Loperamide HCl 2 MG Q6P PRN 02/22 2230 AC PO Metoprolol Tartrate 50 MG BID 02/21 220 AC 02/28 PO 2049 Nifedipine 60 MG DAILY 02/26 1153 AC 02/28 PO 1340 Sodium Bicarbonate 1,300 MG BID 02/23 1315 AC 02/28 PO 1340 Sodium Chloride 1,000 ML Q13H 02/26 1615 AC 03/01 IV 0657 Results Last 48 Hrs of Labs/Mics: Laboratory Tests 03/01/17 0636: Anion Gap 16, Estimated GFR 26 L, BUN/Creatinine Ratio 37.9 H, Phosphorus 5.0 H, Magnesium 2.2, CBC w Diff MAN DIFF ORDERED, RBC 3.25 L, MCV 78.1 L, MCH 25.4 L, MCHC 32.5 L, RDW 19.1 H, MPV 11.7 H, Gran % 89.3 H, Lymphocytes % 6.2 L, Monocytes % 4.0, Eosinophils % 0.4, Basophils % 0.1, Absolute Granulocytes 14.4 H, Segmented Neutrophils 92 H, Band Neutrophils 2, Absolute Lymphocytes 1.0 L, Lymphocytes 2 L, Monocytes 3, Absolute Monocytes 0.7 H, Absolute Eosinophils 0.1, Absolute Basophils 0, Myelocytes 1 H, Nucleated RBCs 1 H, Platelet Estimate ADEQUATE, Polychromasia 1+, Poikilocytosis 1+, Anisocytosis 1+ 02/28/17 0730: Anion Gap 14, Estimated GFR 32 L, BUN/Creatinine Ratio 43.0 H, CBC w Diff MAN DIFF ORDERED, RBC 3.26 L, MCV 77.4 L, MCH 25.3 L, RDW 18.5 H, MPV 12.6 H, Gran % 88.4 H, Lymphocytes % 5.9 L, Monocytes % 4.1, Eosinophils % 0.5, Basophils % 1.1, Absolute Granulocytes 13.4 H, Segmented Neutrophils 92 H, Band Neutrophils 3, Absolute Lymphocytes 0.9 L, Lymphocytes 2 L, Monocytes 2, Absolute Monocytes 0.6, Absolute Eosinophils 0.1, Absolute Basophils 0.2, Myelocytes 1 H, Platelet Estimate VERIFIED BY SMEAR, Polychromasia 1+, Poikilocytosis 1+, Anisocytosis 1+, PUBS MCHC 32.6 L 02/27/17 2030: Anion Gap 13, Estimated GFR 30 L, BUN/Creatinine Ratio 40.5 H Assessment/Plan Assessment/Plan Assessment: 1. Elevated troponin consistent with Type 2 TN 2. Abnormal ECG with transient ILBBB 3. Probable urosepsis 4. Acute on chronic renal insufficiency. 5. Anemia 6. Failed swallowing study Plan: * Antibiotic therapy as per the medical team * Continue current cardiac medications. * Possible further cardiac testing as outpatient once other medical issues stable. Continue telemetry? Yes
--- NOTE | 2017-03-01 19:04 | Event Note ---
Event Note Event Note: 6 PM-vehicle monitor technician-atrial flutter Stat EKG was ordered. Which showed atrial flutter with a heart rate of 90. This was discussed with emergency services director Dr. Liu. Considering the multiple comorbidities, anemia, guaiac-positive stool, anticoagulation will be deferred for now. Patient will be reassessed in the morning again, the need for anticoagulation.
[2017-03-01 23:09] VITALS: BP 108/52
--- NOTE | 2017-03-02 07:11 | PN- Housestaff ---
Subjective Follow-up For: Sepsis of urological origin Complaints: no complaints Tele-Events Since Last Visit: Atrial fibrillation Subjective: Patient was seen and examined by me at bedside. No complaints. Patient is lethargic but arousable. Responds to commands. Review of system unobtainable. Review of Systems Constitutional: Reports: no symptoms. Cardiovascular: Reports: no symptoms. Respiratory: Reports: no symptoms. Gastrointestinal: Reports: no symptoms. Genitourinary: Reports: no symptoms. Musculoskeletal: Reports: no symptoms. Objective Last 24 Hrs of Vital Signs/I&O Vital Signs Date Time Temp Pulse Resp B/P B/P Pulse O2 O2 Flow FiO2 Mean Ox Delivery Rate 03/02 1512 97.9 78 22 110/60 93 Nasal 3.0L Cannula 03/02 0920 90 108/52 03/02 0919 90 108/52 03/02 0919 90 10803/02 0800 Nasal Cannula 03/02 0000 Nasal 3.0L Cannula 03/01 2309 96.9 90 24 108/52 92 Nasal Cannula 03/01 1752 84 130/65 Intake & Output 03/02 1600 03/02 0800 03/02 0000 Intake Total 700 225 Output Total 250 250 Balance 450 -25 Intake, IV 225 Intake, Oral 300 Intake, 400 TPN/PPN Output, Urine 250 250 Physical Exam General Appearance: Alert, Cooperative, Mild Distress, LETHARGIC HEENT: PERRLA Cardiovascular: Normal S1, Normal S2, No Murmurs Lungs: CLEAR Abdomen: Soft, No Tenderness Neurological: Sensation Intact, Cranial Nerves 3-12 NL Extremities: No Edema, Normal Pulses Current Medications: Current Medications Sig/Bret Start time Last Medication Dose Route Stop Time Status Admin Acetaminophen 650 MG ONCE ONE 03/02 0215 DC 03/02 PO 03/02 0216 0253 Acetaminophen 650 MG Q4P PRN 02/21 1700 AC 02/21 PO 1713 Albuterol Sulfate 3 ML Q4P PRN 02/28 1415 03/02 INH 0921 Ceftriaxone Sodium 1,000 MG DAILY 02/23 1501 DC 03/01 IV 1015 Hydralazine HCl 25 MG TID 02/28 2200 AC 03/02 PO 0920 Insulin Aspart 0 TIDAC 03/01 0800 AC 03/02 SC 1324 Lidocaine 1 PAT DAILY 02/23 1445 AC 03/02 EXT 0943 Loperamide HCl 2 MG Q6P PRN 02/22 2230 AC PO Metoprolol Tartrate 50 MG BID 02/21 2200 AC 03/02 PO 0919 Morphine Sulfate 2 MG Q4P PRN 03/02 1445 AC 03/02 IV 1455 Morphine Sulfate 2 MG ONCE ONE 03/02 1030 DC 03/02 IV 03/02 1031 1045 Nifedipine 60 MG DAILY 02/26 1153 AC 03/02 PO 0919 Sodium Bicarbonate 1,300 MG BID 02/23 1315 AC 03/02 PO 0919 Sodium Chloride 1,000 ML Q13H 02/26 1615 AC 03/02 IV 1328 Last 24 Hrs of Lab/Mak Results Last 24 Hrs of Labs/Mics: Laboratory Tests 03/02/17 0002: Troponin I 0.14 *H Assessment/Plan Assessment: 81-year-old gentleman with past medical history of 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 Assessment and plan 1. Sepsis of urological origin/anemia. Patient came in with sepsis of urological origin, initially was given ceftriaxone and azithromycin in ED and later changed to Unasyn and Ceftazidime. patient blood culture is growing Klebsiella pneumonia. His antibiotics was changed to ceftriaxone. Patient is a now on day 11 of IV ceftriaxone and followed by infectious disease doctor. Suprapubic catheter was changed on January 2017. urine culture sputum culture are negative so far. Patient had loose stools since admission which was guaiac-positive. Patient was evaluated by gastroenterology , considering his anemia secondary due to iron deficiencY, recommended no intervention at this point. Patient had leukocytosis over the weekend and a repeat urine culture and chest x-ray was done. Chest x-ray shows slightly enlarged small left pleural effusion without any infiltrate. TRC nebulization given. 2. AK I secondary to dehydration Patient has acute kidney injury secondary to dehydration, was being corrected with IV fluids. Currently patient is nothing by mouth [failed swallow eval] His BUN/creatinine are stable. We will monitor CBCs and BEP. Nephrology follow-up appreciated. Patient had a renal ultrasound and CAT scan of the abdomen to rule out any GI bleed and obstructive uropathy. Imaging were negative for GI bleed/obstructive uropathy respectively. 3. Rule out ACS Patient tolerance trended down which is secondary due to demand ischemia. Patient had a brief episode of atrial flutter at around 7 PM yesterday. The EKG was reviewed by Dr. Liu. Given his multiple comorbidities and poor prognosis, anticoagulation was withheld. Cardiology follow-up appreciated. 4. Rule out stroke Given the patient recent worsening of mentation and dysarthria CAT scan was done which was negative. 5. Anemia Patient has anemia likely secondary due to iron deficiency. Patient had 1 unit of blood transfusion this stay. Repeat hemoglobin is 8.1. Code-DNR/DNI Had family meeting today along with Dr. Hernandez by the bedside. Goals of care were discussed in detail. Given the patient's multiple comorbidities and poor prognosis consideration for comfort/hospice was discussed with the daughter Martha. Hospital stay we'll evaluate him today. We will discontinue her antibiotics/imaging/diagnostic workup for now. Problem List: 1. TENISHA 2. Anemia 3. SEPSIS OF UROLOG ORIGIN Pain Ratin Pain Location: NONE Pain Goal: Remain pain free Pain Plan: MORPHINE,TYLENOL Tomorrow's Labs & Rationales: NONE
--- NOTE | 2017-03-02 12:12 | PN- Cardiology ---
Subjective Subjective: Sleeping but arousable. No new obvious complaints. Objective Vital Signs and I&Os Vital Signs Date Time Temp Pulse Resp B/P B/P Pulse O2 O2 Flow FiO2 Mean Ox Delivery Rate 03/02 0920 90 10852 03/02 0919 90 10852 03/02 0919 90 10803/02 0000 Nasal 3.0L Cannula 03/01 2309 96.9 90 24 108/52 92 Nasal Cannula 03/01 1752 84 130/65 03/01 1600 96 Nasal 3.0L Cannula 03/01 1550 97.4 84 22 130/65 96 Intake & Output 03/02 1600 03/02 0800 03/02 0000 03/01 1600 03/01 0800 03/01 0000 Intake Total 225 600 720 650 Output Total 250 200 300 200 Balance -25 400 420 450 Intake, IV 225 600 600 600 Intake, Oral 0 120 50 Number 0 Bowel Movements Output, Urine 250 200 300 200 Current Medications: Current Medications Sig/Bret Start time Last Medication Dose Route Stop Time Status Admin Acetaminophen 650 MG ONCE ONE 03/02 0215 DC 03/02 PO 03/02 021 0253 Acetaminophen 650 MG Q4P PRN 02/21 1700 AC 02/21 PO 1713 Albuterol Sulfate 3 ML Q4P PRN 02/28 1415 AC 03/02 INH 0921 Ceftriaxone Sodium 1,000 MG DAILY 02/23 1501 DC 03/01 IV 1015 Hydralazine HCl 25 MG TID 02/28 2200 AC 03/02 PO 0920 Insulin Aspart 0 TIDAC 03/01 0800 AC 03/02 SC 0938 Lidocaine 1 PAT DAILY 02/23 1445 AC 03/02 EXT 0943 Loperamide HCl 2 MG Q6P PRN 02/22 2230 AC PO Metoprolol Tartrate 50 MG BID 02/21 2200 AC 03/02 PO 0919 Morphine Sulfate 2 MG ONCE ONE 03/02 1030 DC 03/02 IV 03/02 1031 1045 Nifedipine 60 MG DAILY 02/26 1153 AC 03/02 PO 0919 Sodium Bicarbonate 1,300 MG BID 02/23 1315 AC 03/02 PO 0919 Sodium Chloride 1,000 ML Q13H 02/26 1615 AC 03/01 IV 2026 Results Last 48 Hrs of Labs/Mics: Laboratory Tests 03/02/17 0002: Troponin I 0.14 *H 03/01/17 0636: Anion Gap 16, Estimated GFR 26 L, BUN/Creatinine Ratio 37.9 H, Phosphorus 5.0 H, Magnesium 2.2, CBC w Diff MAN DIFF ORDERED, RBC 3.25 L, MCV 78.1 L, MCH 25.4 L, MCHC 32.5 L, RDW 19.1 H, MPV 11.7 H, Gran % 89.3 H, Lymphocytes % 6.2 L, Monocytes % 4.0, Eosinophils % 0.4, Basophils % 0.1, Absolute Granulocytes 14.4 H, Segmented Neutrophils 92 H, Band Neutrophils 2, Absolute Lymphocytes 1.0 L, Lymphocytes 2 L, Monocytes 3, Absolute Monocytes 0.7 H, Absolute Eosinophils 0.1, Absolute Basophils 0, Myelocytes 1 H, Nucleated RBCs 1 H, Platelet Estimate ADEQUATE, Polychromasia 1+, Poikilocytosis 1+, Anisocytosis 1+ Assessment/Plan Assessment/Plan Assessment: 1. Elevated troponin consistent with Type 2 PR 2. Abnormal ECG with transient ILBBB 3. Probable urosepsis 4. Acute on chronic renal insufficiency. 5. Anemia Recommendations: - continue current medication regimen for now. -Continue as per the medical team -Plans for any further cardiac evaluation as outpatient to be further discussed with patient's family and patient is more stable. Continue telemetry? Yes
--- NOTE | 2017-03-02 13:19 | PN- Att Addend ---
Attending Addendum Attending Brief Note Patient doing poorly has episodes of cough. Had long discussion with patient's daughter in the evening towards comfort care and will call hospice for consultation He has no fever, has a troponin of 0.1 for questionable significance. We'll continue antibiotic therapy redo a swallowing evaluation Intake & Output 03/02 1600 03/02 0400 03/01 1600 03/01 0400 02/28 1600 02/28 0400 Intake Total 225 0911 776 3604 800 Output Total 250 500 200 650 400 Balance -25 820 450 850 400 Intake, IV 225 8933 143 8929 800 Intake, Oral 120 50 400 Number 0 Bowel Movements Output, Urine 250 500 200 650 400 Current Medications Sig/Bret Start time Last Medication Dose Route Stop Time Status Admin Acetaminophen 650 MG ONCE ONE 03/02 0215 DC 03/02 PO 03/02 021 0253 Acetaminophen 650 MG Q4P PRN 02/21 1700 AC 02/21 PO 1713 Albuterol Sulfate 3 ML Q4P PRN 02/28 1415 AC 03/02 INH 0921 Ceftriaxone Sodium 1,000 MG DAILY 02/23 1501 DC 03/01 IV 1015 Hydralazine HCl 25 MG TID 02/28 2200 AC 03/02 PO 0920 Insulin Aspart 0 TIDAC 03/01 0800 AC 03/02 SC 0938 Lidocaine 1 PAT DAILY 02/23 1445 AC 03/02 EXT 0943 Loperamide HCl 2 MG Q6P PRN 02/22 2230 AC PO Metoprolol Tartrate 50 MG BID 02/21 2200 AC 03/02 PO 0919 Morphine Sulfate 2 MG ONCE ONE 03/02 1030 DC 03/02 IV 03/02 1031 1045 Nifedipine 60 MG DAILY 02/26 1153 AC 03/02 PO 0919 Sodium Bicarbonate 1,300 MG BID 02/23 1315 AC 03/02 PO 0919 Sodium Chloride 1,000 ML Q13H 02/26 1615 AC 03/01 IV 2026 Laboratory Tests 03/02/17 0002: Troponin I 0.14 *H 03/01/17 0636: Anion Gap 16, Estimated GFR 26 L, BUN/Creatinine Ratio 37.9 H, Phosphorus 5.0 H, Magnesium 2.2, CBC w Diff MAN DIFF ORDERED, RBC 3.25 L, MCV 78.1 L, MCH 25.4 L, MCHC 32.5 L, RDW 19.1 H, MPV 11.7 H, Gran % 89.3 H, Lymphocytes % 6.2 L, Monocytes % 4.0, Eosinophils % 0.4, Basophils % 0.1, Absolute Granulocytes 14.4 H, Segmented Neutrophils 92 H, Band Neutrophils 2, Absolute Lymphocytes 1.0 L, Lymphocytes 2 L, Monocytes 3, Absolute Monocytes 0.7 H, Absolute Eosinophils 0.1, Absolute Basophils 0, Myelocytes 1 H, Nucleated RBCs 1 H, Platelet Estimate ADEQUATE, Polychromasia 1+, Poikilocytosis 1+, Anisocytosis 1+ 02/28/17 0730: Anion Gap 14, Estimated GFR 32 L, BUN/Creatinine Ratio 43.0 H, CBC w Diff MAN DIFF ORDERED, RBC 3.26 L, MCV 77.4 L, MCH 25.3 L, RDW 18.5 H, MPV 12.6 H, Gran % 88.4 H, Lymphocytes % 5.9 L, Monocytes % 4.1, Eosinophils % 0.5, Basophils % 1.1, Absolute Granulocytes 13.4 H, Segmented Neutrophils 92 H, Band Neutrophils 3, Absolute Lymphocytes 0.9 L, Lymphocytes 2 L, Monocytes 2, Absolute Monocytes 0.6, Absolute Eosinophils 0.1, Absolute Basophils 0.2, Myelocytes 1 H, Platelet Estimate VERIFIED BY SMEAR, Polychromasia 1+, Poikilocytosis 1+, Anisocytosis 1+, PUBS MCHC 32.6 L 02/27/17 2030: Anion Gap 13, Estimated GFR 30 L, BUN/Creatinine Ratio 40.5 H 02/27/17 1600: Sodium Cancelled, Potassium Cancelled, Chloride Cancelled, Carbon Dioxide Cancelled, Anion Gap Cancelled, BUN Cancelled, Creatinine Cancelled, BUN/ Creatinine Ratio Cancelled Microbiology 03/01 1334 LOWER RESP: Respiratory Culture - COLB 03/01 133 LOWER RESP: Gram Stain - COLB Microbiology 03/01 133 LOWER RESP: Respiratory Culture - COLB 03/01 133 LOWER RESP: Gram Stain - COLB Vital Signs Date Time Temp Pulse Resp B/P B/P Pulse O2 O2 Flow FiO2 Mean Ox Delivery Rate 03/02 0920 90 108/52 03/02 0919 90 108/52 03/02 0919 90 10803/02 0000 Nasal 3.0L Cannula 03/01 2309 96.9 90 24 108/52 92 Nasal Cannula 03/01 1752 84 130/65 01/25 1600 96 Nasal 3.0L Cannula 03/01 1550 97.4 84 22 130/65 96
--- NOTE | 2017-03-02 13:48 | PN- Nephrology ---
Assessment/Plan Assessment: 1. Acute kidney injury secondary to ATN in setting of Klebsiella sepsis, presumed urosepsis -today's labs still pending 2. Metabolic acidosis secondary to lactic acidosis and renal failure - recently resolved 3. Hypernatremia - recently resolved 4. Persistent leukocytosis - today CBC pending 5. Urethral stricture with chronic suprapubic catheter Suggestion: 1. Continue current IV at 75 mL per hour until taking by mouth fluids well 2. Follow-up on today's labs 3. May need to consider PEG, although hospice/comfort care is now being seriously considered We will sign off. Please call again if we can be of any further assistance. Thank you for asking us to be involved in Mr. Garces's care. Subjective Subjective: Patient continues to do poorly. He is taking some by mouth fluids but not much. Today's labs still pending (? not drawn). Comfort measures/hospice being considered. Objective Vital Signs and I&Os Vital Signs Date Time Temp Pulse Resp B/P B/P Pulse O2 O2 Flow FiO2 Mean Ox Delivery Rate 03/02 0920 90 10803/02 0919 90 108/52 03/02 0919 90 10852 03/02 0000 Nasal 3.0L Cannula 03/01 2309 96.9 90 24 108 92 Nasal Cannula 03/01 1752 84 130/65 03/01 1600 96 Nasal 3.0L Cannula 03/01 1550 97.4 84 22 130/65 96 Intake & Output 03/02 1600 03/02 0400 03/01 1600 03/01 0400 02/28 1600 02/28 0400 Intake Total 225 1699 967 5409 800 Output Total 250 500 200 650 400 Balance -25 820 450 850 400 Intake, IV 225 1336 262 0916 800 Intake, Oral 120 50 400 Number 0 Bowel Movements Output, Urine 250 500 200 650 400 Physical Exam: General: Elderly white male in NAD Skin: Multiple ecchymoses, no rash or jaundice HEENT: Conjunctivae pale, sclerae anicteric, mucous membranes dry Neck: Without masses or thyromegaly, no supraclavicular or cervical adenopathy Chest: Coarse breath sounds anterolaterally Heart: Regular rate and rhythm without S3 or rub Abdomen: Soft and nontender without palpable masses or organomegaly; there is a suprapubic cystostomy tube in place Extremities: Without cyanosis, edema Neuro: Left hemiparesis and possible left facial, no asterixis or myoclonus Results Pertinent Lab Results: Laboratory Tests 03/02 03/01 0002 0636 Chemistry Sodium (137 - 145 mmol/L) 141 Potassium (3.5 - 5.1 mmol/L) 3.5 Chloride (98 - 107 mmol/L) 105 Carbon Dioxide (22 - 30 mmol/L) 20 L Anion Gap (5 - 16) 16 BUN (9 - 20 mg/dL) 91 H Creatinine (0.7 - 1.2 mg/dL) 2.4 H Estimated GFR (>60 ml/min) 26 L BUN/Creatinine Ratio (7 - 25 %) 37.9 H Phosphorus (2.5 - 4.5 mg/dL) 5.0 H Magnesium (1.6 - 2.3 mg/dL) 2.2 Troponin I (<0.11 ng/ml) 0.14 *H Hematology CBC w Diff MAN DIFF ORDERED WBC (4.8 - 10.8 /CUMM) 16.1 H RBC (4.70 - 6.10 /CUMM) 3.25 L Hgb (14.0 - 18.0 G/DL) 8.2 L Hct (42 - 52 %) 25.4 L MCV (80.0 - 94.0 FL) 78.1 L MCH (27.0 - 31.0 PG) 25.4 L MCHC (33.0 - 37.0 G/DL) 32.5 L RDW (11.5 - 14.5 %) 19.1 H Plt Count (130 - 400 /CUMM) 133 MPV (7.4 - 10.4 FL) 11.7 H Gran % (42.2 - 75.2 %) 89.3 H Lymphocytes % (20.5 - 51.1 %) 6.2 L Monocytes % (1.7 - 9.3 %) 4.0 Eosinophils % (0 - 5 %) 0.4 Basophils % (0.0 - 2.0 %) 0.1 Absolute Granulocytes (1.4 - 6.5 /CUMM) 14.4 H Segmented Neutrophils (42.2 - 75.2 %) 92 H Band Neutrophils (0.0 - 5.0 %) 2 Absolute Lymphocytes (1.2 - 3.4 /CUMM) 1.0 L Lymphocytes (20.5 - 51.1 %) 2 L Monocytes (1.7 - 9.3 %) 3 Absolute Monocytes (0.10 - 0.60 /CUMM) 0.7 H Absolute Eosinophils (0.0 - 0.7 /CUMM) 0.1 Absolute Basophils (0.0 - 0.2 /CUMM) 0 Myelocytes (0 - 0 %) 1 H Nucleated RBCs (0.0 - 0.0 /100WBC) 1 H Platelet Estimate (ADEQUATE) ADEQUATE Polychromasia 1+ Poikilocytosis 1+ Anisocytosis 1+ 02/28 02/27 02/27 0730 2030 1600 Chemistry Sodium (137 - 145 mmol/L) 143 140 Cancelled Potassium (3.5 - 5.1 mmol/L) 3.6 3.3 L Cancelled Chloride (98 - 107 mmol/L) 107 103 Cancelled Carbon Dioxide (22 - 30 mmol/L) 22 24 Cancelled Anion Gap (5 - 16) 14 13 Cancelled BUN (9 - 20 mg/dL) 86 H 85 H Cancelled Creatinine (0.7 - 1.2 mg/dL) 2.0 H 2.1 H Cancelled Estimated GFR (>60 ml/min) 32 L 30 L BUN/Creatinine Ratio (7 - 25 %) 43.0 H 40.5 H Cancelled Hematology CBC w Diff MAN DIFF ORDERED WBC (4.8 - 10.8 /CUMM) 15.2 H RBC (4.70 - 6.10 /CUMM) 3.26 L Hgb (14.0 - 18.0 G/DL) 8.2 L Hct (42 - 52 %) 25.3 L MCV (80.0 - 94.0 FL) 77.4 L MCH (27.0 - 31.0 PG) 25.3 L RDW (11.5 - 14.5 %) 18.5 H Plt Count (130 - 400 /CUMM) 112 L MPV (7.4 - 10.4 FL) 12.6 H Gran % (42.2 - 75.2 %) 88.4 H Lymphocytes % (20.5 - 51.1 %) 5.9 L Monocytes % (1.7 - 9.3 %) 4.1 Eosinophils % (0 - 5 %) 0.5 Basophils % (0.0 - 2.0 %) 1.1 Absolute Granulocytes (1.4 - 6.5 /CUMM) 13.4 H Segmented Neutrophils (42.2 - 75.2 %) 92 H Band Neutrophils (0.0 - 5.0 %) 3 Absolute Lymphocytes (1.2 - 3.4 /CUMM) 0.9 L Lymphocytes (20.5 - 51.1 %) 2 L Monocytes (1.7 - 9.3 %) 2 Absolute Monocytes (0.10 - 0.60 /CUMM) 0.6 Absolute Eosinophils (0.0 - 0.7 /CUMM) 0.1 Absolute Basophils (0.0 - 0.2 /CUMM) 0.2 Myelocytes (0 - 0 %) 1 H Platelet Estimate (ADEQUATE) VERIFIED BY SMEAR Polychromasia 1+ Poikilocytosis 1+ Anisocytosis 1+ PUBS MCHC (33.0 - 37.0 G/DL) 32.6 L
[2017-03-02 15:12] VITALS: BP 110/60
[2017-03-02 21:45] VITALS: BP 112/50
[2017-03-03 06:44] VITALS: BP 114/42
--- NOTE | 2017-03-03 07:58 | PN- Housestaff ---
See Addendum Subjective Follow-up For: Sepsis of urological origin Complaints: no complaints Tele-Events Since Last Visit: NSR, afib rate controlled Subjective: I examined the pt today. He appears lethargic, but is able to express his thoughts. Can follow instructions, and is still perisitent about drinking thin liquid despite aspiration risk, and already seems to be having respiratory difficulty, likely aspiration. No fever/chills overnight though. Review of Systems Constitutional: Reports: see HPI. Objective Last 24 Hrs of Vital Signs/I&O Vital Signs Date Time Temp Pulse Resp B/P B/P Pulse O2 O2 Flow FiO2 Mean Ox Delivery Rate 03/03 0800 Nasal 3.0L Cannula 03/03 0644 96.7 76 22 114/42 93 Nasal Cannula 03/03 0000 Nasal 3.0L Cannula 03/02 2145 97.8 72 20 112/50 90 03/02 2121 71 03/02 2120 73 03/02 1907 78 110/60 03/02 1512 97.9 78 22 110/60 93 Nasal 3.0L Cannula Intake & Output 03/03 1600 03/03 0800 03/03 0000 Intake Total 300 0 Output Total 225 200 Balance 75 -200 Intake, IV 300 Intake, Oral 0 0 Number 0 Bowel Movements Output, Urine 225 200 Physical Exam General Appearance: Alert, Oriented X3, Cooperative, Moderate Distress Other Physical Findings: Cardiovascular: Normal S1, Normal S2, No Murmurs Lungs: b/l crackles (like yesterday 02/10/17) Abdomen: Soft, No Tenderness Neurological: Sensation Intact, Cranial Nerves 3-12 NL Extremities: No Edema, Normal Pulses Current Medications: Current Medications Sig/Bret Start time Last Medication Dose Route Stop Time Status Admin Acetaminophen 650 MG Q4P PRN 02/21 1700 AC 02/21 PO 1713 Albuterol Sulfate 3 ML Q4P PRN 02/28 1415 AC 03/02 INH 0921 Hydralazine HCl 25 MG TID 02/28 2200 AC 03/02 PO 0920 Insulin Aspart 0 TIDAC 03/01 0800 AC 03/02 SC 1907 Lidocaine 1 PAT DAILY 02/23 1445 AC 03/02 EXT 0943 Loperamide HCl 2 MG Q6P PRN 02/22 2230 AC PO Lorazepam 0.5 MG ONCE ONE 03/02 1745 DC 03/02 IV 03/02 174 1906 Metoprolol Tartrate 50 MG BID 02/21 2200 AC 03/02 PO 0919 Morphine Sulfate 2 MG Q4P PRN 03/02 1445 AC 03/03 IV 0223 Nifedipine 60 MG DAILY 02/26 1153 AC 03/02 PO 0919 Sodium Bicarbonate 1,300 MG BID 02/23 1315 AC 03/02 PO 0919 Sodium Chloride 1,000 ML Q13H 02/26 1615 AC 03/02 IV 1328 Assessment/Plan Assessment: 81-year-old gentleman with past medical history of 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 Assessment and plan # Sepsis of urological origin Patient came in with sepsis of urological origin, initially was given ceftriaxone and azithromycin in ED and later changed to Unasyn and Ceftazidime. patient's blood culture is growing Klebsiella pneumonia. His antibiotics was changed to ceftriaxone. Patient is a now off abx and followed by infectious disease doctor. Suprapubic catheter was changed on January 2017. urine culture sputum culture are negative so far. # Anemia Patient had loose stools since admission which was guaiac-positive. Patient was evaluated by gastroenterology , considering his anemia secondary due to iron deficiencY, recommended no intervention at this point. Patient had leukocytosis over the weekend and a repeat urine culture and chest x-ray was done. Chest x- ray shows slightly enlarged small left pleural effusion without any infiltrate. TRC nebulization given. # TENISHA secondary to dehydration Patient has acute kidney injury secondary to dehydration, was being corrected with IV fluids. Currently patient is nothing by mouth [failed swallow eval] His BUN/creatinine are stable. We will monitor CBCs and BEP. Nephrology follow-up appreciated. Patient had a renal ultrasound and CAT scan of the abdomen to rule out any GI bleed and obstructive uropathy. Imaging were negative for GI bleed/obstructive uropathy respectively. # Rule out ACS Patient trop trended down which is secondary due to demand ischemia. Patient had a brief episode of atrial flutter 3 days ago. The EKG was reviewed by Dr. Liu. Given his multiple comorbidities and poor prognosis, anticoagulation was withheld. Cardiology follow-up appreciated. # Ruled out stroke Given the patient recent worsening of mentation and dysarthria CAT scan was done which was negative. # Anemia Patient has anemia likely secondary due to iron deficiency. Patient had 1 unit of blood transfusion this stay. Repeat hemoglobin is 8.2 today. Code-DNR/DNI changed on Sunday03/02/17. Had family meeting yesterday along with the patient, his daughter, Dr. Hernandez and nurse case manager Cherie by the bedside. Goals of care were discussed in detail. Given the patient's multiple comorbidities and poor prognosis consideration for comfort/hospice was discussed with the daughter Martha. Hospice nurse will evaluate/discuss with the family and patient on Sunday as Sunday was patient's 's wake and Sunday (today) is her . We will discontinue her antibiotics/imaging/diagnostic workup, after discussion on 03/02/17. Problem List: 1. SEPSIS OF UROLOG ORIGIN Pain Ratin Pain Location: back Pain Goal: Pain 4 or less Pain Plan: prn, including morphine Tomorrow's Labs & Rationales: -
[2017-03-03 14:16] VITALS: BP 122/38
--- NOTE | 2017-03-03 15:09 | Event Note ---
Event Note Event Note: per conversation between dr griffin and family we change the code status to comfort and hospice will see patient tomorrow
[2017-03-03 22:56] VITALS: BP 122/40
[2017-03-04 07:03] VITALS: BP 102/40
--- NOTE | 2017-03-04 08:04 | PN- Housestaff ---
Subjective Follow-up For: Sepsis of urological origin, acute on chronic kidney disease Complaints: no complaints Subjective: Patient was seen and examined by me at bedside today. He is lying in his bed flat on 3 L of oxygen. He is not arousable, not alert or oriented. Review of system unobtainable Review of Systems Constitutional: Reports: no symptoms. Comments: Review of system unobtainable Objective Last 24 Hrs of Vital Signs/I&O Vital Signs Date Time Temp Pulse Resp B/P B/P Pulse O2 O2 Flow FiO2 Mean Ox Delivery Rate 03/04 0800 Nasal 6.0L Cannula 03/04 0703 88 16 102/40 79 Nasal 6.0L Cannula 03/03 2256 97.6 87 24 122/40 93 Nasal 3.0L Cannula 03/03 2153 83 Nasal 6.0L Cannula 03/03 2102 88 122/40 03/03 2101 79 Nasal 3.0L Cannula 03/03 1546 74 122/38 03/03 1416 96.9 74 22 122/38 94 Nasal 3.0L Cannula Intake & Output 03/04 1600 03/04 0800 03/04 0000 Intake Total 40 450 Output Total 200 150 Balance -160 300 Intake, IV 40 450 Intake, Oral 0 0 Number 0 0 Bowel Movements Output, Urine 200 150 Physical Exam General Appearance: not alert or oriented Cardiovascular: Normal S1, Normal S2, No Murmurs Lungs: Clear to Auscultation Abdomen: Soft Current Medications: Current Medications Sig/Bret Start time Last Medication Dose Route Stop Time Status Admin Acetaminophen 650 MG Q4P PRN 02/21 1700 AC 02/21 PO 1713 Albuterol Sulfate 3 ML Q4P PRN 02/28 1415 AC 03/02 INH 0921 Hydralazine HCl 25 MG TID 02/28 2200 03/02 PO 0920 Insulin Aspart 0 TIDAC 03/01 0800 DC 03/02 SC 1907 Insulin Human Regular 0 Q6 03/03 1359 03/03 SC 1757 Lidocaine 1 PAT DAILY 02/23 1445 03/02 EXT 0943 Loperamide HCl 2 MG Q6P PRN 02/22 2230 AC PO Lorazepam 2 MG Q6-PRN PRN 03/03 1515 03/04 IV 0229 Metoprolol Tartrate 50 MG BID 02/21 2200 AC 03/02 PO 0919 Morphine Sulfate 2 MG Q2P PRN 03/03 1845 03/04 IV 1147 Morphine Sulfate 2 MG Q4P PRN 03/02 1445 IA 03/03 IV 1601 Nifedipine 60 MG DAILY 02/26 1153 03/04 PO 0920 Scopolamine HBr 1 PAT Q72H 03/03 1515 03/03 TOP 1632 Sodium Bicarbonate 1,300 MG BID 02/23 1315 03/02 PO 0919 Sodium Chloride 1,000 ML Q13H 02/26 1615 DC 03/03 IV 1757 Assessment/Plan Assessment: 81-year-old gentleman with past medical 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 Assessment and plan # Sepsis of urological origin Patient was growing capsular pneumonia and treated with IV ceftriaxone. He is off antibiotics. # Anemia Patient had loose stools since admission which was guaiac-positive. Patient was evaluated by gastroenterology , considering his anemia secondary due to iron deficiencY, recommended no intervention at this point. # TENISHA secondary to dehydration Patient has acute kidney injury secondary to dehydration, was being corrected with IV fluids. Currently patient is nothing by mouth [failed swallow eval]. His BUN/creatinine are stable. We will monitor CBCs and BEP. Nephrology follow-up appreciated. Patient had a renal ultrasound and CAT scan of the abdomen to rule out any GI bleed and obstructive uropathy. Imaging were negative for GI bleed/obstructive uropathy respectively. # Rule out ACS Patient trop trended down which is secondary due to demand ischemia. Patient had a brief episode of atrial flutter 3 days ago. The EKG was reviewed by Dr. Liu. Given his multiple comorbidities and poor prognosis, anticoagulation was withheld. Cardiology follow-up appreciated. # Ruled out stroke Given the patient recent worsening of mentation and dysarthria CAT scan was done which was negative. Code-DNR/DNI changed on Sunday03/02/17. Had family meeting yesterday along with the patient, his daughter, Dr. Hernandez and dependency case manager Cherie by the bedside. Goals of care were discussed in detail. Given the patient's multiple comorbidities and poor prognosis consideration for comfort/hospice was discussed with the daughter Martha. Hospice nurse will evaluate/discuss with the family and patient on Sunday as Sunday was patient's 's wake and Sunday (today) is her . We will discontinue her antibiotics/imaging/diagnostic workup, after discussion on 03/02/17. Problem List: 1. TENISHA 2. Anemia 3. Sepsis secondary to UTI 4. Prerenal azotemia Pain Ratin Pain Location: none Pain Goal: Remain pain free Pain Plan: morphine Tomorrow's Labs & Rationales: none
--- NOTE | 2017-03-04 12:49 | Event Note ---
Event Note Event Note: 12: 25-I was Called to see patient for unresponsiveness. On exam the patient did not respond to verbal or physical stimuli. Absent heart and breath sounds Absent peripheral pulses. Pupils are fixed and dilated. Patient pronounced at 12.[address] Stevens and Dr. Baires notified. Daughter was at the bedside. Family informed.
--- NOTE | 2017-03-04 13:52 | PN- Att Addend ---
Attending Addendum Attending Brief Note Mr. Garces today. He had been placed on comfort measures on the previous evening. We have spoken to his daughter and offered our support.
--- NOTE | 2017-03-05 10:20 | Discharge Summary ---
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 Patient was apparently normal in the usual state of health, following which patient developed chills followed by 2 episodes of vomiting and 3 episodes of watery diarrhea with no blood. Patient lives with his [ home hospice] and son. Patient uses walker at baseline and administers his own medication. Patient denies sick contacts, travel, abdominal pain, chest pain, shortness of breath, headache, dysuria, slurring of speech, loss of consciousness, altered sensation, seizures. Patient has been following urologist at [place] and got his SPC catheter replaced at the end of January 2017. Collateral history obtained from his daughter was at the bedside who endorsed that he is alert and oriented 3 and has decreased mentation since morning. She also says that he is more confused, weakness and difficulty in speaking. Hospital course 1. Sepsis of urological origin Patient came in with sepsis of urological origin, initially was given ceftriaxone and azithromycin in ED and later changed to Unasyn and Ceftazidime. patient blood culture is growing Klebsiella pneumonia. His antibiotics was changed to ceftriaxone. ID on board. Suprapubic catheter was changed on January 2017. urine culture sputum culture are negative so far. Patient had loose stools since admission which was guaiac-positive. Patient was evaluated by gastroenterology , considering his anemia secondary due to iron deficiencY, recommended no intervention at this point. Patient had leukocytosis over the weekend and a repeat urine culture and chest x-ray was done. Chest x-ray shows slightly enlarged small left pleural effusion without any infiltrate. TRC nebulization continued. 2. AK I secondary to dehydration Patient had acute kidney injury secondary to dehydration, treated with IV fluids. We were monitoring his complete blood count and BEP . 3. Rule out ACS We did serial EKG and troponin to rule out any ACS. Patient was currently asymptomatic. 5. Anemia We will do iron studies. Guaiac all stools. Patient had a modified barium swallow/bedside swallow-patient had high risk of aspiration. Hence kept nothing by mouth during the hospital course. Patient was being followed by nephrology, cardiology. Patient condition continued deteriorating. Given his multiple comorbidities, with no improvement clinically, goals of care was discussed with the family. His CODE STATUS was changed from DNR/DNI to comfort care on 03/03/2017. 03/04/2017 At 12:25 PM nurses Called to see patient for unresponsiveness. On exam the patient did not respond to verbal or physical stimuli. Absent heart and breath sounds Absent peripheral pulses. Pupils are fixed and dilated. Patient pronounced at 12.[address] Stevens and Dr. Wu notified. Daughter was at the bedside. Family informed. Allergies: Coded Allergies: NO KNOWN ALLERGIES (06/30/15) Disposition Summary Disposition Principal Diagnosis: Sepsis of urological origin Additional Diagnosis: Acute on chronic kidney injury Discharge Disposition: patient Discharge Instructions General Discharge Information Code Status: Comfort Care Only Patient's Diet: none Patient's Activity: none Follow-Up Instructions/Appts: none Copies To: Tulio Hernandez MD
== END 2017-03-04 12:25 | disposition expired | DRG 698 ==
LOC: ERH 09:43 → 1NO 14:04 → ERHI 14:04 → ENRESERV 16:42 → ENTRNSPT 17:37 → EDTRNSPTSTS 17:48 → 1NO 17:48 → CMPTRNSPT 17:59 → 1NO 02-21 09:07 → ENTRNSPT 03-04 14:07 → CMPTRNSPT 03-04 14:51
PROVIDERS: Dermatology; Internal Medicine; Radiology Vascular & Interventional Radiology; Student in an Organized Health Care Education/Training Program
DX: T83.511A Infection and inflammatory reaction due to indwelling urethral catheter, initial encounter (principal); I21.A1 Myocardial infarction type 2; A41.59 Other Gram-negative sepsis; N17.9 Acute kidney failure, unspecified; E87.3 Alkalosis; E11.22 Type 2 diabetes mellitus with diabetic chronic kidney disease; Z51.5 Encounter for palliative care; E87.2 Acidosis; E87.0 Hyperosmolality and hypernatremia; I95.9 Hypotension, unspecified; I48.92 Unspecified atrial flutter; I69.354 Hemiplegia and hemiparesis following cerebral infarction affecting left non-dominant side; E86.0 Dehydration; B96.1 Klebsiella pneumoniae [K. pneumoniae] as the cause of diseases classified elsewhere; E83.42 Hypomagnesemia; I44.7 Left bundle-branch block, unspecified; I35.0 Nonrheumatic aortic (valve) stenosis; N18.3 Chronic kidney disease, stage 3 (moderate); N39.0 Urinary tract infection, site not specified; H35.30 Unspecified macular degeneration; I12.9 Hypertensive chronic kidney disease with stage 1 through stage 4 chronic kidney disease, or unspecified chronic kidney disease; K21.9 Gastro-esophageal reflux disease without esophagitis; H54.8 Legal blindness, as defined in USA; Z66 Do not resuscitate; E87.6 Hypokalemia; N35.9 Urethral stricture, unspecified; D50.9 Iron deficiency anemia, unspecified; Z79.84 Long term (current) use of oral hypoglycemic drugs
CPT/HCPCS: 1NSP; 84133; 84300; 86160; 36415; 71045; 74176; 74230; 76775; 81001; 82436; 82570; 86920; 87040; 87070; 87086; 87449; 87804; 87804-59; 93005; 93010; 93306; 96374; 96375; 97110-GO; 97112-GO; 97161-GP; 97530-GO; J0131; J0360; J0456; J0696; J0713; J0744; J1644; J1815; J3101; J7040; J7060; J7120; P9016